=== PATIENT | female | born 1940 | race Caucasian/White ===

== ENCOUNTER 2016-11-15 21:01 | Inpatient (IN) | payer OTHER ==
[~2016-11-15] VITALS: Ht 162.6 cm; Wt 71.0 kg
[~2016-11-15 21:01] MED LIST: AMLO-147 PO; ATEN50TA PO; CLON0.2T5 PO; HYDR-906 PO; LANT3I SC; LORA10TA3 PO; LOSA25TA5 PO; MAG355OR14 PO; METF1000 PO; NAPR-260 PO; OMEP40CA6 PO; SIMV40TA2 PO; TRAZ100T15 PO
[2016-11-16] VITALS (10 sets, daily range): BP systolic 122–151; BP diastolic 60–67; PULSE 39–47; RESP 18; Ht 162.6 cm; Wt 71.0 kg
[2016-11-16] MEDS ORDERED: ALBU8.5H3 INH (01:10)
[2016-11-16] MEDS ORDERED: GUAI-637 PO (01:10)
[2016-11-16] MEDS ORDERED: SITA100T8 PO (01:10)
[2016-11-16 02:31] LABS: ADD SCAN DIFF NO
[2016-11-16 02:38] LABS: BASOPHILS % 0.3 % (0.0-2.0); EOSINOPHILS # 0.1 10^3/ul (0.0-0.5); EOSINOPHILS % 1.6 % (0.0-7.0); LYMPHOCYTES # 2.1 10^3/ul (0.8-2.9); LYMPHOCYTES % 23.1 % (15.0-51.0); MEAN CORPUSCULAR HEMOGLOBIN 28.3 pg (29.0-33.0); MEAN CORPUSCULAR HGB CONC 33.3 g/dl (32.0-37.0); MEAN CORPUSCULAR VOLUME 84.8 fl (82.0-101.0); NEUTROPHIL # 5.7 10^3/ul (1.6-7.5); NEUTROPHILS % 63.8 % (39.0-77.0); PLATELET COUNT 142 10^3/UL (140-415); RED BLOOD COUNT 3.89 10^6/ul (4.20-5.40); RED CELL DISTRIBUTION WIDTH 14.2 % (11.5-14.5)
[2016-11-16 02:56] LABS: PT RATIO 1.2
[2016-11-16 02:57] LABS: PARTIAL THROMBOPLASTIN TIME 28.1 Sec (25.0-35.0)
[2016-11-16 02:59] LABS: INR 1.19; PROTIME 15.2 Sec (12.2-14.2)
--- NOTE | 2016-11-16 03:11 | RADRPT ---
PROCEDURE: CHEST - 1 VIEW CLINICAL INDICATION: 76-year-old female with shortness of breath. TECHNIQUE: A single frontal AP portable upright view of the chest was performed. The images were reviewed on a PACS workstation. COMPARISON: Chest x-ray March 07, 2016. FINDINGS: The cardiomediastinal silhouette is moderately enlarged. The thoracic aorta is calcified. There is mild pulmonary vascular congestion. There is mild right pleural effusion with basilar compressive subsegmental atelectasis. A superimposed infiltrate cannot be excluded. There is no evidence for pn eumothorax. The osseous structures are intact. IMPRESSION: 1. Cardiomegaly. 2. Calcified thoracic aorta. 3. Mild pulmonary vascular congestion. 4. Mild right pleural effusion with basilar compressive subsegmental atelectasis. A superimposed i nfiltrate cannot be excluded. Clinical correlation is necessary. .Jim Rich MD, Date Time Electronically viewed and signed by .Jim Rich MD, on 11/16/2016 03:11 .M/
[2016-11-16 03:17] LABS: ALBUMIN 4.1 g/dl (3.3-4.9); ALBUMIN/GLOBULIN RATIO 1.57; BILIRUBIN,INDIRECT 0.5 mg/dl (0-1.1); BILIRUBIN,TOTAL 0.5 mg/dl (0.2-1.3); CALCIUM 8.7 mg/dl (8.4-10.2); CREATININE 1.79 mg/dl (0.44-1.00); POTASSIUM 4.5 mmol/L (3.5-5.1); TOTAL PROTEIN 6.7 g/dl (6.1-8.1)
[2016-11-16 03:37] LABS: TROPONIN-I 0.026 ng/ml (0.00-0.12)
[2016-11-16] MEDS ORDERED: FUROSEMIDE 40 MG INJ IV ONE (04:00)
[2016-11-16] MEDS ORDERED: ONDANSETRON 4 MG INJ IV PRN ×2 (04:30→10:00)
[2016-11-16] MEDS ORDERED: ACETAMINOPHEN 325 MG TAB PO PRN (04:30)
--- NOTE | 2016-11-16 05:25 | ERA ---
ER Documentation Chief Complaint Date/Time DATE: 11/16/16 TIME: 03:47 Chief Complaint bilateral leg swelling, and distended abdomen HPI 76-year-old female with a history of diabetes, hypertension, and heart failure presenting to the ER with complaints of 2 days of worsening leg swelling and abdominal distention. She has also felt short of breath without any chest pain. Her shortness of breath is worse with any type of exertion. She has urinating normally with no dysuria. She denies any nausea, vomiting, dizziness , headache, vision disturbance, focal weakness or numbness, diarrhea, or dysuria. 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 ROS All systems reviewed and are negative except as per history of present illness. Medications Home Meds Active Scripts Mag Hydrox/Al Hydrox/Simeth (Maalox Advanced Suspension) 355 Ml Oral.susp, 2 TSP PO TID for PAIN, #24 OZ Prov:YOUSIF MUNOZ MD 03/06/16 Reported Medications Guaifenesin* (Robitussin*) 100 Mg/5 Ml Syrup, 100 MG PO Q6H Y for COUGH, ML 11/16/16 Albuterol Sulfate* (Proair HFA*) 8.5 Gm Hfa.aer.ad, 2 PUFF INH Q6H Y for WHEEZING AND SOB, #1 INHALER 11/16/16 Sitagliptin* (Januvia*) 100 Mg Tablet, 100 MG PO DAILY, #30 TAB 11/16/16 Amlodipine Besylate* (Amlodipine Besylate*) 10 Mg Tablet, 10 MG PO DAILY, #30 TAB 03/07/16 Atenolol* (Atenolol*) 50 Mg Tablet, 50 MG PO BID, #60 TAB 03/07/16 Clonidine Hcl* (Clonidine Hcl*) 0.2 Mg Tablet, 0.2 MG PO BID Y for ELEVATED BLOOD PRESSURE, TAB 03/07/16 Simvastatin* (Zocor*) 40 Mg Tablet, 40 MG PO QHS, #30 TAB 03/07/16 Insulin Glargine* (Lantus*) 100 Unit/Ml Soln, 10 UNIT SC QHS, #1 VIAL 03/07/16 Metformin Hcl* (Metformin Hcl*) 1,000 Mg Tablet, 1000 MG PO WITH BREAKFAST DINNE , #30 TAB 03/07/16 Losartan Potassium* (Losartan Potassium*) 25 Mg Tablet, 25 MG PO DAILY, TAB 03/07/16 Trazodone Hcl* (Trazodone Hcl*) 100 Mg Tablet, 100 MG PO QHS, #30 TAB 08/31/15 Discontinued Reported Medications Loratadine* (Loratadine*) 10 Mg Tablet, 10 MG PO DAILY, #30 TAB 03/07/16 Discontinued Scripts Hydrocodone/Acetaminophen ([place] 5-325 Tablet) 1 Each Tablet, 1 EACH PO Q4 Y for PAIN, #40 TAB Prov:LOYDA LOPEZ 03/13/16 Naproxen* (Naprosyn*) 500 Mg Tablet, 500 MG PO BID Y for PAIN AND/OR INFLAMMATION, #30 TAB Prov:YOUSIF MUNOZ MD 03/06/16 Omeprazole* (Omeprazole*) 40 Mg Capsule.dr, 40 MG PO DAILY, #30 CAP Prov:YOUSIF MUNOZ MD 03/06/16 Allergies Allergies: Coded Allergies: No Known Allergy (Unverified , 11/16/16) PMhx/Soc History of Surgery: Yes (Cholecystectomy) Anesthesia Reaction: No Hx Neurological Disorder: No Hx Respiratory Disorders: No Hx Cardiac Disorders: Yes (HTN, high cholesterol,HF) Hx Psychiatric Problems: No Hx Miscellaneous Medical Probl: Yes (diabetes) Hx Alcohol Use: No Hx Substance Use: No Hx Tobacco Use: No Smoking Status: Never smoker FmHx Family History: No diabetes Physical Exam Vitals Vital Signs Date Time Temp Pulse Resp B/P Pulse Ox O2 Delivery O2 Flow Rate FiO2 11/16/16 02:00 41 22 133/56 100 Nasal Cannula 3.0 11/16/16 00:41 44 22 136/70 98 Nasal Cannula 2.0 11/15/16 23:52 45 19 138/65 98 Room Air 11/15/16 21:05 98.7 57 20 143/68 97 Physical Exam Const: Well-appearing, in no distress, slightly short of breath when speaking Head: Atraumatic Eyes: Normal Conjunctiva ENT: Normal External Ears, Nose and Mouth. Neck: Full range of motion. JVD noted. No meningismus. Resp: Clear to auscultation bilaterally Cardio: Bradycardic with regular rhythm, no murmurs Abd: Soft, non tender, mildly distended. Normal bowel sounds Skin: No petechiae or rashes Back: No midline or flank tenderness Ext: No cyanosis, 3+ bilateral lower extremity edema. Extremities warm to palpation distally with cap refill less than 2 seconds Neur: Awake and alert and oriented 3, cranial nerves intact, strength and sensations intact in all 4 extremities Psych: Normal Mood and Affect Result Diagram: 11/16/16 0200 11/16/16 0200 Results 24 hrs Laboratory Tests Test 11/16/16 02:00 White Blood Count 9.010^3/ul Red Blood Count 3.8910^6/ul Hemoglobin 11.0g/dl Hematocrit 33.0% Mean Corpuscular Volume 84.8fl Mean Corpuscular Hemoglobin 28.3pg Mean Corpuscular Hemoglobin Concent 33.3g/dl Red Cell Distribution Width 14.2% Platelet Count 18969^3/UL Mean Platelet Volume 13.0fl Neutrophils % 63.8% Lymphocytes % 23.1% Monocytes % 11.0% Eosinophils % 1.6% Basophils % 0.3% Nucleated Red Blood Cells % 0.0/100WBC Neutrophils # 5.710^3/ul Lymphocytes # 2.110^3/ul Monocytes # 1.010^3/ul Eosinophils # 0.110^3/ul Basophils # 0.010^3/ul Nucleated Red Blood Cells # 0.010^3/ul Prothrombin Time 15.2Sec Prothrombin Time Ratio 1.2 INR International Normalized Ratio 1.19 Activated Partial Thromboplast Time 28.1Sec Sodium Level 142mmol/L Potassium Level 4.5mmol/L Chloride Level 114mmol/L Carbon Dioxide Level 20mmol/L Anion Gap 13 Blood Urea Nitrogen 33mg/dl Creatinine 1.79mg/dl Glucose Level 95mg/dl Calcium Level 8.7mg/dl Total Bilirubin 0.5mg/dl Direct Bilirubin 0.00mg/dl Indirect Bilirubin 0.5mg/dl Aspartate Amino Transf (AST/SGOT) 27IU/L Alanine Aminotransferase (ALT/SGPT) 32IU/L Alkaline Phosphatase 77IU/L Troponin I 0.026ng/ml Total Protein 6.7g/dl Albumin 4.1g/dl Globulin 2.60g/dl Albumin/Globulin Ratio 1.57 Current Medications Medications (Trade) Dose Ordered Sig/Pati Route PRN Reason Start Time Stop Time Status Last Admin Dose Admin Furosemide (Lasix) 40 mg ONCE ONCE IV 11/16/16 04:00 11/16/16 04:01 DC 11/16/16 04:20 Ondansetron HCl (Zofran Inj) 4 mg ER BRIDGE PRN IV NAUSEA AND/OR VOMITING 11/16/16 04:30 11/17/16 04:29 Acetaminophen (Tylenol Tab) 650 mg ER BRIDGE PRN PO MILD PAIN/FEVER 11/16/16 04:30 11/17/16 04:29 Procedures/MDM EKG #1: Rate/Rhythm: Bradycardic junctional versus sinus rhythm with wide QRS complex QRS, ST, T-waves: Wide QRS, no ST elevations or depressions Impression: Possible ischemia, no arrhythmia, no STEMI EKG #2: Rate/Rhythm: Atrial fibrillation with slow ventricular response with rate of 47 bpm QRS, ST, T-waves: Nonspecific intraventricular block Impression: Possible ischemia, no arrhythmia, no STEMI Labs: CBC shows mild anemia BMP shows elevated BUN and creatinine, mild acidosis Troponin within normal limits Chest x-ray: 1. Cardiomegaly. 2. Calcified thoracic aorta. 3. Mild pulmonary vascular congestion. 4. Mild right pleural effusion with basilar compressive subsegmental atelectasis. A superimposed infiltrate cannot be excluded. Clinical correlation is necessary. .Jim Rich MD, MD Date Time Electronically viewed and signed by .Jim Rich MD, MD on 11/16/2016 03:11 [facility] Patient is presenting with evidence of acute exacerbation of chronic heart failure. It seems like she also has acute renal failure. I suspect her shortness of breath is secondary to this. I have a lower suspicion for acute coronary syndrome, pulmonary embolism, pneumonia. X-ray shows evidence of pulmonary vascular congestion. Her EKGs are concerning for possible junctional rhythm versus A. fib versus heart block. However the patient is stable and not symptomatic in terms of lightheadedness or dizziness. A dose of Lasix IV was given. Patient's respiratory status is stable. The inpatient team will consult cardiology this morning. She has no hemodynamic instability at this time. However patient will need to be admitted for further cardiac workup and diuresis. Further w/u for ischemia, arrhythmia, PE or dissection will be deferred to the inpatient team. Per the patient's insurance, panel was consulted for admission. However the patient has been admitted to in the past. A courtesy call was made to his team, who accepted the patient for admission Accepting Care Team: Current data and ongoing care discussed. Time: Time of admission Primary Provider: Melissa Ruiz Consulting: None Outstanding Data: none Departure Diagnosis: Primary Impression: Acute on chronic heart failure Qualified Code: I50.9 - Acute on chronic heart failure, unspecified heart failure type Additional Impression: Acute renal failure Qualified Code: N17.9 - Acute renal failure, unspecified acute renal failure type Condition: Serious JA ROSEN MD Nov 16, 2016 03:58
--- NOTE | 2016-11-16 11:28 | HP ---
Date/Time of Note Date/Time of Note DATE: 11/16/16 TIME: 11:26 Assessment/Plan Lines/Catheters IV Catheter Type (from Nrsg): Saline Lock Urinary Cath still in place: No Assessment/Plan Assessment/Plan - Bradycardia -tele monitoring - dc atenolol - DC clonidine - Abdominal distention- NO pain, nausea at present - GI consult- DR Isaac NOTIFIED -Acute on chronic heart failure - cardiology consult- Dr TIWARI NOTIFIED - 2- D echo - T4 AM - Hypertensioon - cont AMLODIPINE -Hydralazine 25 mg po bid -Acute renal failure - Nephrology consult- Dr NELSON NOTIFIED -Diabetes Mellitus - Glycemic control - 1800 dalia ADA diet - Hgb AIC am - Dyslipidemia - ATORVASTATIN 20 mg po qhs - lipid panel am - See home meds dw Dr Zurita HPI/ROS Admit Date/Time Admit Date/Time Nov 16, 2016 at 04:55 Hx of Present Illness Chief Complaint bilateral leg swelling, and distended abdomen HPI 76-year-old female with a history of diabetes, hypertension, and heart failure presenting to the ER with complaints of 2 days of worsening leg swelling and abdominal distention. She has also felt short of breath without any chest pain. Her shortness of breath is worse with any type of exertion. She has urinating normally with no dysuria. She denies any nausea, vomiting, dizziness , headache, vision disturbance, focal weakness or numbness, diarrhea, or dysuria. 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 ROS All systems reviewed and are negative except as per history of present illness. Medications Home Meds Active Scripts Mag Hydrox/Al Hydrox/Simeth (Maalox Advanced Suspension) 355 Ml Oral.susp, 2 TSP PO TID for PAIN, #24 OZ Prov:YOUSIF MUNOZ MD 03/06/16 Reported Medications Guaifenesin* (Robitussin*) 100 Mg/5 Ml Syrup, 100 MG PO Q6H Y for COUGH, ML 11/16/16 Albuterol Sulfate* (Proair HFA*) 8.5 Gm Hfa.aer.ad, 2 PUFF INH Q6H Y for WHEEZING AND SOB, #1 INHALER 11/16/16 Sitagliptin* (Januvia*) 100 Mg Tablet, 100 MG PO DAILY, #30 TAB 11/16/16 Amlodipine Besylate* (Amlodipine Besylate*) 10 Mg Tablet, 10 MG PO DAILY, #30 TAB 03/07/16 Atenolol* (Atenolol*) 50 Mg Tablet, 50 MG PO BID, #60 TAB 03/07/16 Clonidine Hcl* (Clonidine Hcl*) 0.2 Mg Tablet, 0.2 MG PO BID Y for ELEVATED BLOOD PRESSURE, TAB 03/07/16 Simvastatin* (Zocor*) 40 Mg Tablet, 40 MG PO QHS, #30 TAB 03/07/16 Insulin Glargine* (Lantus*) 100 Unit/Ml Soln, 10 UNIT SC QHS, #1 VIAL 03/07/16 Metformin Hcl* (Metformin Hcl*) 1,000 Mg Tablet, 1000 MG PO WITH BREAKFAST DINNE , #30 TAB 03/07/16 Losartan Potassium* (Losartan Potassium*) 25 Mg Tablet, 25 MG PO DAILY, TAB 03/07/16 Trazodone Hcl* (Trazodone Hcl*) 100 Mg Tablet, 100 MG PO QHS, #30 TAB 08/31/15 Discontinued Reported Medications Loratadine* (Loratadine*) 10 Mg Tablet, 10 MG PO DAILY, #30 TAB 03/07/16 Discontinued Scripts Hydrocodone/Acetaminophen ([place] 5-325 Tablet) 1 Each Tablet, 1 EACH PO Q4 Y for PAIN, #40 TAB Prov:LOYDA LOPEZ 03/13/16 Naproxen* (Naprosyn*) 500 Mg Tablet, 500 MG PO BID Y for PAIN AND/OR INFLAMMATION, #30 TAB Prov:YOUSIF MUNOZ MD 03/06/16 Omeprazole* (Omeprazole*) 40 Mg Capsule.dr, 40 MG PO DAILY, #30 CAP Prov:YOUSIF MUNOZ MD 03/06/16 Allergies Allergies: Coded Allergies: No Known Allergy (Unverified , 11/16/16) PMH/Family/Social Past Medical History PMhx/Soc History of Surgery: Yes (Cholecystectomy) Anesthesia Reaction: No Hx Neurological Disorder: No Hx Respiratory Disorders: No Hx Cardiac Disorders: Yes (HTN, high cholesterol,HF) Hx Psychiatric Problems: No Hx Miscellaneous Medical Probl: Yes (diabetes) Hx Alcohol Use: No Hx Substance Use: No Hx Tobacco Use: No Smoking Status: Never smoker FmHx Family History: No diabetes Social History Alcohol Use: none Smoking Status: Never smoker Exam/Review of Systems Vital Signs Vitals Vital Signs Date Time Temp Pulse Resp B/P Pulse Ox O2 Delivery O2 Flow Rate FiO2 11/16/16 10:01 Nasal Cannula 2.0 11/16/16 09:30 98.4 41 18 130/60 100 Exam Constitutional: alert, oriented, well developed Psych: nl mood/affect Respiratory: diminished breath sounds Cardiovascular: nl pulses Gastrointestinal: non-tender, soft Musculoskeletal: nl extremities to inspection Extremities: edema Neurological: nl mental status, nl speech Labs Result Diagram: 11/16/16 0200 11/16/16 0200 Medications Medications Current Medications Diagnostic Test (Pha) (Accu-Chek) 1 XX ; Start 11/17/16 at 02:00 Ondansetron HCl (Zofran Inj) 4 mg Q6H PRN IV NAUSEA AND/OR VOMITING; Start at 10:00 Procedures Procedures Procedures/MDM EKG #1: Rate/Rhythm: Bradycardic junctional versus sinus rhythm with wide QRS complex QRS, ST, T-waves: Wide QRS, no ST elevations or depressions Impression: Possible ischemia, no arrhythmia, no STEMI EKG #2: Rate/Rhythm: Atrial fibrillation with slow ventricular response with rate of 47 bpm QRS, ST, T-waves: Nonspecific intraventricular block Impression: Possible ischemia, no arrhythmia, no STEMI Labs: CBC shows mild anemia BMP shows elevated BUN and creatinine, mild acidosis Troponin within normal limits Chest x-ray: 1. Cardiomegaly. 2. Calcified thoracic aorta. 3. Mild pulmonary vascular congestion. 4. Mild right pleural effusion with basilar compressive subsegmental atelectasis. A superimposed infiltrate cannot be excluded. Clinical correlation is necessary. ALY MILLER Nov 16, 2016 11:28
[2016-11-16] MEDS ORDERED: GUAIFENESIN 20 MG/ML 5ML CUP PO PRN (12:00)
[2016-11-16] MEDS ORDERED: ALBUTEROL HFA 8 GM INHALER INH PRN (12:00)
[2016-11-16] MEDS ORDERED: INSULIN ASPART [NOVOLOG] 3 ML PEN SC SCH (12:00)
[2016-11-16] MEDS: INSULIN ASPART [NOVOLOG] 3 ML PEN SC SCH ×3 (12:00→21:00)
[2016-11-16] MEDS ORDERED: PANTOPRAZOLE (EC) 40 MG TAB PO ONE (12:30)
[2016-11-16] MEDS: AL HYDROX/MG HYDROX/SIMETH 30 ML CUP PO SCH ×2 (13:05→21:41)
--- NOTE | 2016-11-16 14:41 | CONS ---
DATE OF ADMISSION: 11/16/2016 DATE OF CONSULTATION: 11/16/2016 REASON FOR CONSULTATION: Bradycardia, congestive heart failure, lower extremity edema. REQUESTING PHYSICIAN: Noah Zurita MD HISTORY OF PRESENT ILLNESS: Ms. Saldivar is a 76-year-old female with a history of diabetes me llitus, hypertension, congestive heart failure, with previously preserved left ventricular ejection fraction by echo in March of 2016, who presented with worsening lower extremity edema and abdomina l distention. Upon arrival in the emergency department, temperature of 98.7, blood pressure 143/68, pulse 57, respiratory rate 20, saturating 97%. Patient's labs were with a white count of 9.0, hemo globin 11.0 and platelet count of 142. Sodium 142, potassium 4.5, creatinine 1.79, BUN 33. Troponi n negative. INR of 1.19. The patient underwent a chest x-ray, revealing cardiomegaly, calcified th oracic aorta, mild pulmonary vascular congestion, mild right pleural effusion, and basilar compressi ve subsegmental atelectasis. The patient's electrocardiogram revealed a rhythm most consistent with probable junctional bradycardia, a rate of 44, right superior axis deviation and nonspecific IVCD. Patient was subsequently admitted to the floor and since admit to the floor he has been monitored o n telemetry, with episodes of heart rates as low as to the 40s, with stable blood pressures and time s of sinus bradycardia and junctional rhythm. The patient at this time denies chest pain, states sh e has ongoing shortness of breath. PAST MEDICAL HISTORY: As above in the HPI. MEDICATIONS CURRENTLY IN HOSPITAL: 1. Norvasc 10 mg daily. 2. Cozaar 25 mg daily. 3. Protonix 40 mg daily. 4. Lipitor 20 mg at bedtime. 5. Hydralazine 25 mg p.o. b.i.d. 6. Lasix 20 mg IV b.i.d. 7. Insulin sliding scale. 8. Albuterol. 9. Robitussin. ALLERGIES: NO KNOWN DRUG ALLERGIES. SOCIAL HISTORY: No tobacco, ETOH or illicit drug use. FAMILY HISTORY: No history of sudden cardiac or early CAD. REVIEW OF SYSTEMS: As above in the HPI. CONSTITUTIONAL: No fevers or chills. PULMONARY: Positive shortness of breath. CARDIOVASCULAR: Bradycardia. GASTROINTESTINAL: No vomiting. GENITOURINARY: No hematuria. MUSCULOSKELETAL: Degenerative joint disease. PSYCHIATRIC: The patient denies depression. NEUROLOGIC: No documented history of CVA. PHYSICAL EXAMINATION: VITAL SIGNS: Temperature 98.2, blood pressure 123/60, pulse 45, saturating 99% on 2 liters. GENERAL: The patient is alert, awake, complaining of mild shortness of breath. NECK: JVP approximately 9 cm of water. CHEST: Decreased breath sounds at the bases bilaterally. HEART: Bradycardic, regular rhythm, normal S1, S2. A I/ systolic murmur, nondisplaced PMI. ABDOMEN: Positive bowel sounds, soft. EXTREMITIES: 2+ edema, right greater than left. 1+ pulses bilaterally, posterior tibial. LABORATORY: As above in the HPI. No further labs for my review at this time. IMAGING STUDIES: As above in the HPI. No further imaging studies for my review at this time. ECG: As above in the HPI. No further electrocardiograms for my review at this time. IMPRESSION: 1. Congestive heart failure exacerbation, question systolic versus diastolic, acute on chronic. 2. Bradycardia both sinus lynnette and junctional bradycardia. Stable blood pressure at this time. 3. Abnormal electrocardiogram, with intraventricular conduction delay. Assess for acute coronary s yndrome. 4. Hypertension. Under reasonable control. 5. Lower extremity edema. 6. Renal failure. 7. Anemia. RECOMMENDATIONS: 1. At this time would maintain patient on telemetry monitoring to follow rhythm and rate control cl osely. 2. Would check a TSH to make sure subclinical hypothyroidism is not contributing to the patient's c urrent bouts of bradycardia. 3. Would refrain from any nito agents at this time. 4. Continue the patient's hydralazine. Will hold the patient's Norvasc to ensure it is not causing lower extremity edema. Continue the patient's Lasix diuresis. 5. Will follow the patient's 2D echo done today for assessment of an ejection fraction, wall motion and any major valve abnormalities. 6. Check a fasting lipid panel and adjust the patient's statin therapy as necessary. Will disconti nue the patient's Cozaar at this time, following creatinine closely. 7. Continue the patient's insulin, with adjustment as necessary to improve overall blood pressure c ontrol. 8. Complete a rule out for myocardial infarction to ensure the patient's EKG abnormalities are scientologist michelle in nature and not due to any recent acute coronary syndrome. Thank you for allowing me to take part in the care of this patient. I will continue to follow her a long very closely with you, with further recommendations to be made as the patient progresses throug h her inpatient hospital clinical course. Dictated By: KEVON VALENCIA/ALONZO Conf#: [id number] DID#: [id number] CC: NOAH ZURITA MD;*EndCC*
--- NOTE | 2016-11-16 15:20 | RADRPT ---
PROCEDURE: US bilateral lower extremity veins. CLINICAL INDICATION: Bilateral leg pain and swelling. TECHNIQUE: Multiple longitudinal and transverse images of the bilateral lower extremity veins were obtained with shepard scale and color Doppler imaging. The common femoral vein, femoral vein, and popl iteal vein were evaluated. 2D grayscale measurements with compression sonography, color Doppler, and pulsed Doppler with augmentation. COMPARISON: No prior studies are available for comparison. FINDINGS: The bilateral common femoral, femoral and popliteal veins are normally compressible throughout. Col or flow demonstrates normal filling of the vessels. Normal waveforms are visualized and there is no rmal response to augmentation. IMPRESSION: 1. No evidence of deep vein thrombosis involving either lower extremity. RPTAT: QQ .Serge Bach MD, MD Date Time Electronically viewed and signed by .Serge Bach MD, on 11/16/2016 15:20 .R/
--- NOTE | 2016-11-16 17:21 | CONS ---
Date/Time of Note Date/Time of Note DATE: 11/16/16 TIME: 17:20 Assessment/Plan Assessment/Plan Chief Complaint/Hosp Course [id number] A/P CKD HTN DM ASHD ANEMIA DIAB NEPHROPATHY RACHANAN PAT Problems: Consultation Date/Type/Reason Admit Date/Time Nov 16, 2016 at 04:55 Initial Consult Date Type of Consultation: renal 24 HR Interval Summary Constitutional: other (sob) Exam/Review of Systems Vital Signs Vitals Vital Signs Date Time Temp Pulse Resp B/P Pulse Ox O2 Delivery O2 Flow Rate FiO2 11/16/16 16:22 98.0 44 18 125/60 92 11/16/16 10:01 Nasal Cannula 2.0 Exam Neck: supple Respiratory: diminished breath sounds Cardiovascular: regular rate and rhythm Gastrointestinal: ascites, bowel sounds, nl liver, spleen, soft Extremities: edema (++) Results Result Diagram: 11/16/16 0200 11/16/16 0200 Results 24 hrs Laboratory Tests Test 11/16/16 02:00 11/16/16 09:30 11/16/16 09:35 11/16/16 12:06 White Blood Count 9.0 Red Blood Count 3.89 L Hemoglobin 11.0 L Hematocrit 33.0 L Mean Corpuscular Volume 84.8 Mean Corpuscular Hemoglobin 28.3 L Mean Corpuscular Hemoglobin Concent 33.3 Red Cell Distribution Width 14.2 Platelet Count 142 Mean Platelet Volume 13.0 H Neutrophils % 63.8 Lymphocytes % 23.1 Monocytes % 11.0 Eosinophils % 1.6 Basophils % 0.3 Nucleated Red Blood Cells % 0.0 Neutrophils # 5.7 Lymphocytes # 2.1 Monocytes # 1.0 H Eosinophils # 0.1 Basophils # 0.0 Nucleated Red Blood Cells # 0.0 Prothrombin Time 15.2 H Prothrombin Time Ratio 1.2 INR International Normalized Ratio 1.19 Activated Partial Thromboplast Time 28.1 Sodium Level 142 Potassium Level 4.5 Chloride Level 114 H Carbon Dioxide Level 20 L Anion Gap 13 Blood Urea Nitrogen 33 H Creatinine 1.79 H Glucose Level 95 Calcium Level 8.7 Total Bilirubin 0.5 Direct Bilirubin 0.00 Indirect Bilirubin 0.5 Aspartate Amino Transf (AST/SGOT) 27 Alanine Aminotransferase (ALT/SGPT) 32 Alkaline Phosphatase 77 Troponin I 0.026 0.017 Total Protein 6.7 Albumin 4.1 Globulin 2.60 Albumin/Globulin Ratio 1.57 Hemoglobin A1c 7.1 H Bedside Glucose 92 125 Medications Medications Current Medications Diagnostic Test (Pha) (Accu-Chek) 1 ea 02 XX ; Start 11/17/16 at 02:00 Ondansetron HCl (Zofran Inj) 4 mg Q6H PRN IV NAUSEA AND/OR VOMITING; Start at 10:00 Albuterol (Ventolin Hfa) 2 puff Q6H PRN INH WHEEZING AND SOB; Start 11/16/16 at 12:00 Guaifenesin (Robitussin Liquid Cup) 100 mg Q6H PRN PO COUGH; Start 11/16/16 at 12:00 Insulin Glargine (Lantus) 10 unit QHS SC ; Start 11/16/16 at 21:00 Losartan Potassium (Cozaar) 25 mg DAILY PO ; Start 11/17/16 at 09:00 Al Hydrox/Mg Hydrox/Simethicone (Mag-Al Plus) 10 ml TID PO Last administered on 11/16/16t 13:05; Admin Dose 10 ML; Start 11/16/16 at 13:00 Trazodone HCl (Desyrel) 100 mg QHS PO ; Start 11/16/16 at 21:00 Atorvastatin Calcium (Lipitor) 20 mg HS PO ; Start 11/16/16 at 21:00 Pantoprazole (Protonix Tab) 40 mg DAILY@06 PO ; Start 11/17/16 at 06:00 Heparin Sodium (Porcine) (Heparin (5000 Units/0.5 ml)) 5,000 unit Q12 SC ; Start 11/16/16 at 21:00 Hydralazine HCl (Apresoline) 50 mg BID PO ; Start 11/16/16 at 21:00 ALBERTA CORRAL MD Nov 16, 2016 17:21
[2016-11-16] MEDS: FUROSEMIDE 20 MG INJ IV SCH (17:42)
--- NOTE | 2016-11-16 18:21 | RADRPT ---
Echocardiogram Report Patient Name: KALE MEJIA Gender: Female Date: 1940 Study Date: 16-Nov-2016 Pattern Fitter: Keith Trevino [facility] Location: 5557 Ref. Physician: ALY MILLER Quality: Adequate Procedures: Transthoracic echocardiogram with complete 2D, M-Mode, and doppler examination. Indications: Bradycardia. 2D/M Mode Doppler Measurement Value Normal Ranges Measurement Value Normal Ranges LVIDd 2D 5.7 3.5 - 5.6 cm AV Peak Geovani 1.4 m/sec LVIDs 2D 3.8 2.1 - 4.1 cm AV Peak PG 7.4 mmHg LVPWd 2D 1.3 0.6 - 1.1 cm LVOT Peak Geovani 1.0 m/sec IVSd 2D 1.3 0.6 - 1.1 cm LVOT Peak PG 3.8 mmHg AoR Diam 2D 2.4 2.0 - 3.7 cm TR Peak Geovani 2.8 m/sec EDV 2D 162.1 cm3 TR Peak PG 30.5 mmHg ESV 2D 57.0 cm3 RVSP 34.0 mmHg LA Dimen 2D 4.8 2.3 - 4.0 cm Findings Left Ventricle: Lower limits of normal systolic function. Normal left ventricular cavity size. Normal left ventricular wall thickness. Ejection fraction is visually estimated at 5055 %. Right Ventricle: Normal right ventricular size. Normal right ventricular systolic function. Left Atrium: There is severe enlargement of left atrium. Right Atrium: There is moderate enlargement of right atrium. Mitral Valve: Mild mitral leaflet calcification. Moderate mitral annular calcification. Moderate mitral valve regurgitation. Aortic Valve: No significant aortic stenosis or insufficiency. Aortic cusps appear mildly calcified. Tricuspid Valve: Normal appearance of the tricuspid valve. Estimated peak PA systolic pressure 34 mmHg. There is moderate tricuspid regurgitation. Pulmonic Valve: Pulmonic valve not well visualized. There is moderate pulmonic regurgitation. Pericardium: Trivial pericardial effusion. Aorta: Normal aortic root. IVC: Normal size and normal respiratory collapse consistent with normal right atrial pressure. Conclusions Lower limits of normal systolic function. Normal left ventricular cavity size. Normal left ventricular wall thickness. Ejection fraction is visually estimated at 50-55 %. There is moderate to severe enlargement of left atrium. There is moderate enlargement of right atrium. Mild mitral leaflet calcification. Moderate mitral annular calcification. Moderate mitral valve regurgitation. Normal appearance of the tricuspid valve. Estimated peak PA systolic pressure 34 mmHg. There is moderate tricuspid regurgitation. Pulmonic valve not well visualized. There is moderate pulmonic regurgitation. Trivial pericardial effusion. Electronically Signed By: Markie Bloom 16-Nov-2016 18:21:18 -0700 Patient Name: KALE MEJIA Study Date: 16-Nov-2016 [id number]
[2016-11-16] MEDS: ATORVASTATIN 20 MG TAB PO SCH (21:41)
[2016-11-16] MEDS: traZODone 100 MG TAB PO SCH (21:41)
[2016-11-16] MEDS: HEPARIN 5,000 UNIT/0.5 ML VIAL SC SCH (21:52)
[2016-11-16] MEDS: INSULIN GLARGINE [LANtus] 3 ML PEN SC SCH (21:52)
[2016-11-17] VITALS (12 sets, daily range): BP systolic 112–145; BP diastolic 18–65; PULSE 43–83; RESP 18–20
[2016-11-17] MEDS: ACCU-CHEK XX SCH (01:22)
[2016-11-17] MEDS: PANTOPRAZOLE (EC) 40 MG TAB PO SCH (05:51)
[2016-11-17] MEDS: FUROSEMIDE 20 MG INJ IV SCH ×2 (05:51→17:40)
--- NOTE | 2016-11-17 07:22 | CONS ---
DATE OF ADMISSION: 11/16/2016 DATE OF CONSULTATION: 11/16/2016 TYPE OF CONSULTATION: Nephrology Thank you, Dr. Alphonse Zurita, for kindly asking me to see this patient in nephrology consultation. HISTORY OF PRESENT ILLNESS: The patient, Nan Hernandez is a 76-year-old female well known to me, follows with me in my office, has a history of chronic kidney disease. Patient presents to the ER with a history of diabetes mellitus , hypertension, history of heart failure, presents with history of worsening leg edema and abdominal distention, also short of breath, was not complaining of any chest pain in the ER. The patient has a history of cholecystitis, history of laparoscopic cholecystectomy, history of hypertension, history of pancreatitis, history of diabetes mellitus, history of ERCP in the past. PAST MEDICAL HISTORY: Patient's other history includes: The patient has a history of brain aneurysm, history of atherosclerotic heart disease and dyslipidemia. ALLERGY HISTORY: NEGATIVE. FAMILY HISTORY: Negative. SOCIAL HISTORY: Negative. MEDICATION HISTORY: Patient is on: 1. Albuterol. 2. Amlodipine. 3. Atenolol. 4. Clonidine. 5. Robitussin. 6. Insulin. 7. Losartan. 8. Metformin. 9. Simvastatin. 10. Januvia. 11. Trazodone. CURRENT MEDICATIONS: 1. Lipitor. 2. Lasix. 3. Aspirin. 4. Hydralazine. 5. ____ 6. Zofran. 7. Protonix. REVIEW OF SYSTEMS: HEENT: Unremarkable. RESPIRATORY: Unremarkable, except short of breath and orthopnea. ABDOMEN: Unremarkable except dyspepsia. No hematemesis. EXTREMITIES: Swelling of both lower extremities. CENTRAL NERVOUS SYSTEM: Unremarkable. PHYSICAL EXAMINATION: GENERAL: The patient is an obese elderly female, awake and alert. VITAL SIGNS: Pulse 45, blood pressure ____/60. HEAD: Atraumatic, normocephalic. Pupils are equal, reactive to light. No pallor or conjunctival icterus. NECK: Supple. LUNGS: Clear. CARDIOVASCULAR: S1, S2 normal. Systolic murmur. ABDOMEN: Soft. Bowel sounds positive. No palpable mass or hepatosplenomegaly. EXTREMITIES: No cyanosis, clubbing. Edema positive. CENTRAL NERVOUS SYSTEM: The patient is awake, alert with no focal deficit. LABORATORY DATA: Hematocrit 33. Patient has sodium 140, potassium 4.5, BUN , creatinine 1.79, hemoglobin A1c 7.1. The patient's ultrasound of the lower extremity shows no evidence of deep venous thrombosis. Chest x-ray shows the patient has cardiomegaly with calcified thoracic aorta, mild pulmonary vascular congestion, mild right pleural effusion with_compression atelectasis, response. IMPRESSION: 1. Patient has chronic kidney injury. 2. The patient has diabetic nephropathy. The patient has hypertension, metabolic acidosis, anemia, history of brain aneurysm, history of cholecystectomy, laparoscopic; dyslipidemia, history of proteinuria. PLAN: At this point is to continue diabetic and also fluid restricted diet, obtain urine protein creatinine ratio. Patient will benefit from a high dose of steroids. Thank you, Dr. Alphonse Zurita, for kindly asking me to see this patient in nephrology consultation. Dictated By: ALBERTA CORRAL MD BS/NTS Conf#: [id number] DID#: [id number] MTDD
[2016-11-17 07:42] LABS: ADD SCAN DIFF NO
[2016-11-17 07:47] LABS: ABNORMAL IP MESSAGE 1; BASOPHILS % 0.6 % (0.0-2.0); EOSINOPHILS # 0.2 10^3/ul (0.0-0.5); EOSINOPHILS % 2.4 % (0.0-7.0); HEMATOCRIT 32.9 % (37.0-47.0); HEMOGLOBIN 10.8 g/dl (12.0-16.0); LYMPHOCYTES # 1.7 10^3/ul (0.8-2.9); LYMPHOCYTES % 26.2 % (15.0-51.0); MEAN CORPUSCULAR HEMOGLOBIN 27.6 pg (29.0-33.0); MEAN CORPUSCULAR HGB CONC 32.8 g/dl (32.0-37.0); MEAN CORPUSCULAR VOLUME 83.9 fl (82.0-101.0); MEAN PLATELET VOLUME 13.2 fl (7.4-10.4); MONOCYTE # 0.7 10^3/ul (0.3-0.9); MONOCYTES % 10.8 % (0.0-11.0); NEUTROPHIL # 3.8 10^3/ul (1.6-7.5); NEUTROPHILS % 59.7 % (39.0-77.0); PLATELET COUNT 133 10^3/UL (140-415); RED BLOOD COUNT 3.92 10^6/ul (4.20-5.40); RED CELL DISTRIBUTION WIDTH 14.1 % (11.5-14.5); WHITE BLOOD COUNT 6.3 10^3/ul (4.8-10.8)
[2016-11-17] MEDS: INSULIN ASPART [NOVOLOG] 3 ML PEN SC SCH ×4 (07:51→21:00)
[2016-11-17 08:33] LABS: CHOL/HDL RATIO 2.1 RATIO; CREATININE 1.48 mg/dl (0.44-1.00); POTASSIUM 4.1 mmol/L (3.5-5.1)
[2016-11-17] MEDS: LOSARTAN 25 MG TAB PO SCH (08:41)
[2016-11-17] MEDS: AL HYDROX/MG HYDROX/SIMETH 30 ML CUP PO SCH ×3 (08:41→21:10)
[2016-11-17] MEDS: HEPARIN 5,000 UNIT/0.5 ML VIAL SC SCH ×2 (08:46→21:13)
[2016-11-17] MEDS ORDERED: AMLODIPINE 10 MG TAB PO SCH (09:00)
[2016-11-17 10:20] LABS: ALBUMIN 3.8 g/dl (3.3-4.9); BILIRUBIN,INDIRECT 0.9 mg/dl (0-1.1); BILIRUBIN,TOTAL 0.9 mg/dl (0.2-1.3); TOTAL PROTEIN 4.8 g/dl (6.1-8.1)
--- NOTE | 2016-11-17 12:18 | CONS ---
Date/Time of Note Date/Time of Note DATE: 11/17/16 TIME: 12:15 Assessment/Plan Assessment/Plan Chief Complaint/Hosp Course 1. Patient has chronic kidney injury. 2. The patient has diabetic nephropathy. 3. hypertension, 4. metabolic acidosis, 5. anemia, 6. history of brain aneurysm, 7. history of cholecystectomy, laparoscopic; 8. dyslipidemia, 9. history of proteinuria. 10. oVERWEIGHT Problems: Additional Assessment/Plan 1. oPTIMIZATION KIDNEY FUNCTION Consultation Date/Type/Reason Admit Date/Time Nov 16, 2016 at 04:55 Initial Consult Date 11/16/2016 Type of Consultation: renal Reason for Consultation Dr Pineda Exam/Review of Systems Vital Signs Vitals Vital Signs Date Time Temp Pulse Resp B/P Pulse Ox O2 Delivery O2 Flow Rate FiO2 11/17/16 09:21 Nasal Cannula 2.0 11/17/16 08:28 45 11/17/16 08:11 98.0 18 135/60 98 Intake and Output 11/16/16 11/16/16 11/17/16 14:59 22:59 06:59 Intake Total 300 ml 550 ml Balance 300 ml 550 ml Exam Constitutional: alert, oriented Eyes: nl conjunctiva ENMT: nl external ears & nose Neck: supple Respiratory: clear to auscultation Cardiovascular: regular rate and rhythm Gastrointestinal: distended, other (pain), soft, surgical scars Musculoskeletal: muscle weakness Results Result Diagram: 11/17/16 0650 11/17/16 0650 Results 24 hrs Laboratory Tests Test 11/16/16 15:58 11/16/16 17:40 11/16/16 20:45 11/16/16 21:41 Troponin I < 0.012 0.020 Bedside Glucose 108 118 Test 11/17/16 06:50 11/17/16 07:49 11/17/16 11:39 White Blood Count 6.3 # Red Blood Count 3.92 L Hemoglobin 10.8 L Hematocrit 32.9 L Mean Corpuscular Volume 83.9 Mean Corpuscular Hemoglobin 27.6 L Mean Corpuscular Hemoglobin Concent 32.8 Red Cell Distribution Width 14.1 Platelet Count 133 L Mean Platelet Volume 13.2 H Neutrophils % 59.7 Lymphocytes % 26.2 Monocytes % 10.8 Eosinophils % 2.4 Basophils % 0.6 Nucleated Red Blood Cells % 0.0 Neutrophils # 3.8 Lymphocytes # 1.7 Monocytes # 0.7 Eosinophils # 0.2 Basophils # 0.0 Nucleated Red Blood Cells # 0.0 Sodium Level 144 Potassium Level 4.1 Chloride Level 113 H Carbon Dioxide Level 20 L Anion Gap 15 Blood Urea Nitrogen 28 H Creatinine 1.48 H Glucose Level 70 Hemoglobin A1c 7.1 H Calcium Level 9.0 Total Bilirubin 0.9 Direct Bilirubin 0.00 Indirect Bilirubin 0.9 Aspartate Amino Transf (AST/SGOT) 29 Alanine Aminotransferase (ALT/SGPT) 31 Alkaline Phosphatase 66 Total Protein 4.8 #L Albumin 3.8 Triglycerides Level 60 Cholesterol Level 88 L LDL Cholesterol, Calculated 35 HDL Cholesterol 41 Cholesterol/HDL Ratio 2.1 Free Thyroxine 1.92 Parathyroid Hormone (Intact) Bedside Glucose 77 140 Medications Medications Current Medications Diagnostic Test (Pha) (Accu-Chek) 1 XX ; Start 11/17/16 at 02:00 Ondansetron HCl (Zofran Inj) 4 mg Q6H PRN IV NAUSEA AND/OR VOMITING; Start at 10:00 Albuterol (Ventolin Hfa) 2 puff Q6H PRN INH WHEEZING AND SOB; Start 11/16/16 at 12:00 Guaifenesin (Robitussin Liquid Cup) 100 mg Q6H PRN PO COUGH; Start 11/16/16 at 12:00 Insulin Glargine (Lantus) 10 unit QHS SC Last administered on 11/16/16 21:52; Admin Dose 10 UNIT; Start 11/16/16 at 21:00 Losartan Potassium (Cozaar) 25 mg DAILY PO Last administered on 11/17/16 08:41 ; Admin Dose 25 MG; Start 11/17/16 at 09:00 Al Hydrox/Mg Hydrox/Simethicone (Mag-Al Plus) 10 ml TID PO Last administered on 11/17/16 08:41; Admin Dose 10 ML; Start 11/16/16 at 13:00 Trazodone HCl (Desyrel) 100 mg QHS PO Last administered on 11/16/16 21:41; Admin Dose 100 MG; Start 11/16/16 at 21:00 Atorvastatin Calcium (Lipitor) 20 mg HS PO Last administered on 11/16/16 21:41 ; Admin Dose 20 MG; Start 11/16/16 at 21:00 Pantoprazole (Protonix Tab) 40 mg DAILY@06 PO Last administered on 11/17/16 05 :51; Admin Dose 40 MG; Start 11/17/16 at 06:00 Heparin Sodium (Porcine) (Heparin (5000 Units/0.5 ml)) 5,000 unit Q12 SC Last administered on 11/17/16 08:46; Admin Dose 5,000 UNIT; Start 11/16/16 at 21:00 Hydralazine HCl (Apresoline) 50 mg BID PO Last administered on 11/17/16 08:41 ; Admin Dose 50 MG; Start 11/16/16 at 21:00 LAY FONTANA Nov 17, 2016 12:18
--- NOTE | 2016-11-17 14:29 | RADRPT ---
Vent Rate: 49 bpm RR Interval: 0 msec MS Interval: 0 msec QRS Duration: 146 msec QT Interval: 518 msec QTC Interval: 467 msec P-R-T [place]: 0 - -58 - 98 degrees Wide QRS rhythm with occasional premature ventricular complexes Left bundle branch block Abnormal ECG Electronically Signed By: Andrés Osorio [id number]
--- NOTE | 2016-11-17 15:57 | PN ---
Date/Time of Note Date/Time of Note DATE: 11/17/16 TIME: 15:50 Assessment/Plan VTE Prophylaxis VTE Prophylaxis Intervention: SCD's Lines/Catheters IV [facility] Saline Lock Urinary Cath still in place: No Assessment/Plan Chief Complaint/Hosp Course Patient denies any chest pain denies shortness of breath, tolerates current diet well. Problems: Assessment/Plan - Congestive heart failure exacerbation. Dr. Bloom is following and cardiology consultation. On Lasix, continue to monitor electrolytes. - Bradycardia, continue telemetry monitoring. - Acute renal failure, Dr. Pineda is following a nephrology consultation. - Hypertension. Continue Cozaar and hydralazine. - Diabetes mellitus type 2 with hemoglobin A1c 7.1, continue Lantus and NovoLog. - Anemia. Check iron profile. Further recommendations based on clinical course. Plan of care discussed with Dr. Zurita. Exam/Review of Systems Vital Signs Vitals Vital Signs Date Time Temp Pulse Resp B/P Pulse Ox O2 Delivery O2 Flow Rate FiO2 11/17/16 12:33 98.0 57 18 112/56 98 11/17/16 09:21 Nasal Cannula 2.0 Intake and Output 11/16/16 11/16/16 11/17/16 15:00 23:00 07:00 Intake Total 300 ml 550 ml Balance 300 ml 550 ml Exam Constitutional: alert, oriented Head: normocephalic Neck: supple Respiratory: normal air movement Cardiovascular: nl pulses, other (Bradycardia), regular rate and rhythm Gastrointestinal: non-tender, soft Musculoskeletal: nl extremities to inspection Extremities: normal pulses Neurological: nl mental status Results Result Diagram: 11/17/16 0650 11/17/16 0650 Results 24 hrs Laboratory Tests Test 11/16/16 15:58 11/16/16 17:40 11/16/16 20:45 11/16/16 21:41 Troponin I < 0.012 0.020 Bedside Glucose 108 118 Test 11/17/16 06:50 11/17/16 07:49 11/17/16 11:39 White Blood Count 6.3 # Red Blood Count 3.92 L Hemoglobin 10.8 L Hematocrit 32.9 L Mean Corpuscular Volume 83.9 Mean Corpuscular Hemoglobin 27.6 L Mean Corpuscular Hemoglobin Concent 32.8 Red Cell Distribution Width 14.1 Platelet Count 133 L Mean Platelet Volume 13.2 H Neutrophils % 59.7 Lymphocytes % 26.2 Monocytes % 10.8 Eosinophils % 2.4 Basophils % 0.6 Nucleated Red Blood Cells % 0.0 Neutrophils # 3.8 Lymphocytes # 1.7 Monocytes # 0.7 Eosinophils # 0.2 Basophils # 0.0 Nucleated Red Blood Cells # 0.0 Sodium Level 144 Potassium Level 4.1 Chloride Level 113 H Carbon Dioxide Level 20 L Anion Gap 15 Blood Urea Nitrogen 28 H Creatinine 1.48 H Glucose Level 70 Hemoglobin A1c 7.1 H Calcium Level 9.0 Total Bilirubin 0.9 Direct Bilirubin 0.00 Indirect Bilirubin 0.9 Aspartate Amino Transf (AST/SGOT) 29 Alanine Aminotransferase (ALT/SGPT) 31 Alkaline Phosphatase 66 Total Protein 4.8 #L Albumin 3.8 Triglycerides Level 60 Cholesterol Level 88 L LDL Cholesterol, Calculated 35 HDL Cholesterol 41 Cholesterol/HDL Ratio 2.1 Free Thyroxine 1.92 Parathyroid Hormone (Intact) Bedside Glucose 77 140 Medications Medications Current Medications Diagnostic Test (Pha) (Accu-Chek) 1 02 XX ; Start 11/17/16 at 02:00 Ondansetron HCl (Zofran Inj) 4 mg Q6H PRN IV NAUSEA AND/OR VOMITING; Start at 10:00 Albuterol (Ventolin Hfa) 2 puff Q6H PRN INH WHEEZING AND SOB; Start 11/16/16 at 12:00 Guaifenesin (Robitussin Liquid Cup) 100 mg Q6H PRN PO COUGH; Start 11/16/16 at 12:00 Insulin Glargine (Lantus) 10 unit QHS SC Last administered on 11/16/16 21:52; Admin Dose 10 UNIT; Start 11/16/16 at 21:00 Losartan Potassium (Cozaar) 25 mg DAILY PO Last administered on 11/17/16 08:41 ; Admin Dose 25 MG; Start 11/17/16 at 09:00 Al Hydrox/Mg Hydrox/Simethicone (Mag-Al Plus) 10 ml TID PO Last administered on 11/17/16 12:58; Admin Dose 10 ML; Start 11/16/16 at 13:00 Trazodone HCl (Desyrel) 100 mg QHS PO Last administered on 11/16/16 21:41; Admin Dose 100 MG; Start 11/16/16 at 21:00 Atorvastatin Calcium (Lipitor) 20 mg HS PO Last administered on 11/16/16 21:41 ; Admin Dose 20 MG; Start 11/16/16 at 21:00 Pantoprazole (Protonix Tab) 40 mg DAILY@06 PO Last administered on 11/17/16 05 :51; Admin Dose 40 MG; Start 11/17/16 at 06:00 Heparin Sodium (Porcine) (Heparin (5000 Units/0.5 ml)) 5,000 unit Q12 SC Last administered on 11/17/16 08:46; Admin Dose 5,000 UNIT; Start 11/16/16 at 21:00 Hydralazine HCl (Apresoline) 50 mg BID PO Last administered on 11/17/16 08:41 ; Admin Dose 50 MG; Start 11/16/16 at 21:00 OMKAR WILLARD Nov 17, 2016 15:57
[2016-11-17 17:43] LABS: IRON 20 ug/dl (35-150)
[2016-11-17 17:53] LABS: TOTAL IRON BINDING CAPACITY 401 ug/dl (241-421)
--- NOTE | 2016-11-17 19:21 | CONS ---
Date/Time of Note Date/Time of Note DATE: 11/17/16 TIME: 19:16 Assessment/Plan Assessment/Plan Chief Complaint/Hosp Course IMPRESSION: 1. Congestive heart failure exacerbation, diastolic acute on chronic-EF 50 by echo 2. Bradycardia both sinus lynnette and junctional bradycardia. Stable blood pressure at this time.-NL TSH 3. Abnormal electrocardiogram, with intraventricular conduction delay. Assess for acute coronary syndrome.-negative trop x 3 4. Hypertension. Under reasonable control. 5. Lower extremity edema.-venous ORIANA negative for DVT 6. Renal failure. 7. Anemia. Recc -Tele -serial ecg's -Continue hydralazine/losartan -Continue lasix diuresis and follow net washer/volume status closely -Follow HR closely -Possible need for PPM. Will follow closely Problems: Consultation Date/Type/Reason Admit Date/Time Nov 16, 2016 at 04:55 Initial Consult Date 11/16/16 Type of Consultation: Cardiology Reason for Consultation CHF/bradycardia Referring Provider: NOAH DANIEL MD Exam/Review of Systems Vital Signs Vitals Vital Signs Date Time Temp Pulse Resp B/P Pulse Ox O2 Delivery O2 Flow Rate FiO2 11/17/16 16:15 46 11/17/16 16:15 97.4 20 125/59 100 11/17/16 09:21 Nasal Cannula 2.0 Intake and Output 11/16/16 11/16/16 11/17/16 14:59 22:59 06:59 Intake Total 300 ml 550 ml Balance 300 ml 550 ml Exam Review of Systems: CONSTITUTIONAL: No fevers, chills. PULMONARY: No sob CARDIOVASCULAR: No chest pain/palpitations GASTROINTESTINAL: No nausea/vomiting. GENITOURINARY: No hematuria/dysuria. MUSCULOSKELETAL: No myagias/arthalgias. PSYCHIATRIC: The patient denies depression. NEUROLOGIC: No weakness Constitutional: alert Psych: no complaints Head: normocephalic ENMT: mucosa pink and moist Neck: jvd (9 cm water), supple Respiratory: diminished breath sounds Cardiovascular: other (bradycardia, regular rhythm) Gastrointestinal: non-tender, soft Musculoskeletal: muscle tone (normal) Extremities: edema (none) Neurological: other (NO focal deficits) Results Result Diagram: 11/17/16 0650 11/17/16 0650 Results 24 hrs Laboratory Tests Test 11/16/16 20:45 11/16/16 21:41 11/17/16 06:50 11/17/16 07:49 Troponin I 0.020 Bedside Glucose 118 77 White Blood Count 6.3 # Red Blood Count 3.92 L Hemoglobin 10.8 L Hematocrit 32.9 L Mean Corpuscular Volume 83.9 Mean Corpuscular Hemoglobin 27.6 L Mean Corpuscular Hemoglobin Concent 32.8 Red Cell Distribution Width 14.1 Platelet Count 133 L Mean Platelet Volume 13.2 H Neutrophils % 59.7 Lymphocytes % 26.2 Monocytes % 10.8 Eosinophils % 2.4 Basophils % 0.6 Nucleated Red Blood Cells % 0.0 Neutrophils # 3.8 Lymphocytes # 1.7 Monocytes # 0.7 Eosinophils # 0.2 Basophils # 0.0 Nucleated Red Blood Cells # 0.0 Sodium Level 144 Potassium Level 4.1 Chloride Level 113 H Carbon Dioxide Level 20 L Anion Gap 15 Blood Urea Nitrogen 28 H Creatinine 1.48 H Glucose Level 70 Hemoglobin A1c 7.1 H Calcium Level 9.0 Total Bilirubin 0.9 Direct Bilirubin 0.00 Indirect Bilirubin 0.9 Aspartate Amino Transf (AST/SGOT) 29 Alanine Aminotransferase (ALT/SGPT) 31 Alkaline Phosphatase 66 Total Protein 4.8 #L Albumin 3.8 Triglycerides Level 60 Cholesterol Level 88 L LDL Cholesterol, Calculated 35 HDL Cholesterol 41 Cholesterol/HDL Ratio 2.1 Free Thyroxine 1.92 Parathyroid Hormone (Intact) Test 11/17/16 11:39 11/17/16 16:55 11/17/16 17:36 Bedside Glucose 140 99 Iron Level 20 L Total Iron Binding Capacity 401 Percent Iron Saturation 5 L Medications Medications Current Medications Diagnostic Test (Pha) (Accu-Chek) 1 02 XX ; Start 11/17/16 at 02:00 Ondansetron HCl (Zofran Inj) 4 mg Q6H PRN IV NAUSEA AND/OR VOMITING; Start at 10:00 Albuterol (Ventolin Hfa) 2 puff Q6H PRN INH WHEEZING AND SOB; Start 11/16/16 at 12:00 Guaifenesin (Robitussin Liquid Cup) 100 mg Q6H PRN PO COUGH; Start 11/16/16 at 12:00 Insulin Glargine (Lantus) 10 unit QHS SC Last administered on 11/16/16t 21:52; Admin Dose 10 UNIT; Start 11/16/16 at 21:00 Losartan Potassium (Cozaar) 25 mg DAILY PO Last administered on 11/17/16 08:41 ; Admin Dose 25 MG; Start 11/17/16 at 09:00 Al Hydrox/Mg Hydrox/Simethicone (Mag-Al Plus) 10 ml TID PO Last administered on 11/17/16 12:58; Admin Dose 10 ML; Start 11/16/16 at 13:00 Trazodone HCl (Desyrel) 100 mg QHS PO Last administered on 11/16/16 21:41; Admin Dose 100 MG; Start 11/16/16 at 21:00 Atorvastatin Calcium (Lipitor) 20 mg HS PO Last administered on 11/16/16 21:41 ; Admin Dose 20 MG; Start 11/16/16 at 21:00 Pantoprazole (Protonix Tab) 40 mg DAILY@06 PO Last administered on 11/17/16 05 :51; Admin Dose 40 MG; Start 11/17/16 at 06:00 Heparin Sodium (Porcine) (Heparin (5000 Units/0.5 ml)) 5,000 unit Q12 SC Last administered on 11/17/16 08:46; Admin Dose 5,000 UNIT; Start 11/16/16 at 21:00 Hydralazine HCl (Apresoline) 50 mg BID PO Last administered on 11/17/16 08:41 ; Admin Dose 50 MG; Start 11/16/16 at 21:00 KEVON TIWARI Nov 17, 2016 19:21
[2016-11-17] MEDS: traZODone 100 MG TAB PO SCH (21:10)
[2016-11-17] MEDS: ATORVASTATIN 20 MG TAB PO SCH (21:10)
[2016-11-17] MEDS: INSULIN GLARGINE [LANtus] 3 ML PEN SC SCH (21:14)
[2016-11-18] VITALS (14 sets, daily range): BP systolic 113–162; BP diastolic 57–75; PULSE 50–88; RESP 18–57
[2016-11-18] MEDS: ACCU-CHEK XX SCH (01:29)
[2016-11-18] MEDS: FUROSEMIDE 40 MG INJ IV SCH ×2 (05:34→17:15)
[2016-11-18] MEDS: PANTOPRAZOLE (EC) 40 MG TAB PO SCH (05:35)
[2016-11-18] MEDS ORDERED: FUROSEMIDE 20 MG INJ IV SCH (06:00)
[2016-11-18] MEDS: INSULIN ASPART [NOVOLOG] 3 ML PEN SC SCH ×4 (08:00→20:42)
[2016-11-18 08:03] LABS: ADD SCAN DIFF NO
[2016-11-18 08:15] LABS: BASOPHILS % 0.4 % (0.0-2.0); EOSINOPHILS # 0.1 10^3/ul (0.0-0.5); HEMATOCRIT 32.9 % (37.0-47.0); HEMOGLOBIN 10.7 g/dl (12.0-16.0); LYMPHOCYTES # 2.2 10^3/ul (0.8-2.9); LYMPHOCYTES % 31.9 % (15.0-51.0); MEAN CORPUSCULAR HEMOGLOBIN 27.6 pg (29.0-33.0); MEAN CORPUSCULAR HGB CONC 32.5 g/dl (32.0-37.0); MEAN CORPUSCULAR VOLUME 84.8 fl (82.0-101.0); MEAN PLATELET VOLUME 12.9 fl (7.4-10.4); MONOCYTE # 0.9 10^3/ul (0.3-0.9); MONOCYTES % 12.7 % (0.0-11.0); NEUTROPHIL # 3.6 10^3/ul (1.6-7.5); NEUTROPHILS % 52.7 % (39.0-77.0); PLATELET COUNT 115 10^3/UL (140-415); RED BLOOD COUNT 3.88 10^6/ul (4.20-5.40); RED CELL DISTRIBUTION WIDTH 14.2 % (11.5-14.5); WHITE BLOOD COUNT 6.9 10^3/ul (4.8-10.8)
[2016-11-18] MEDS: LOSARTAN 25 MG TAB PO SCH (08:29)
[2016-11-18] MEDS: AL HYDROX/MG HYDROX/SIMETH 30 ML CUP PO SCH ×3 (08:29→20:41)
[2016-11-18] MEDS: ASPIRIN 325 MG TAB PO SCH (08:29)
[2016-11-18 08:30] LABS: CALCIUM 9.2 mg/dl (8.4-10.2); CREATININE 1.58 mg/dl (0.44-1.00); POTASSIUM 4.7 mmol/L (3.5-5.1)
[2016-11-18] MEDS: HEPARIN 5,000 UNIT/0.5 ML VIAL SC SCH ×2 (08:30→20:42)
--- NOTE | 2016-11-18 09:56 | RADRPT ---
Vent Rate: 52 bpm RR Interval: 0 msec SD Interval: 172 msec QRS Duration: 146 msec QT Interval: 490 msec QTC Interval: 455 msec P-R-T [place]: 28 - 0 - 71 degrees Sinus bradycardia Nonspecific intraventricular block Lateral infarct , age undetermined Abnormal ECG Electronically Signed By: Reyes Mercado [id number]
--- NOTE | 2016-11-18 11:44 | CONS ---
Date/Time of Note Date/Time of Note DATE: 11/18/16 TIME: 11:43 Assessment/Plan Assessment/Plan Chief Complaint/Hosp Course 1. Chronic kidney injury. 2. Diabetic nephropathy. 3. hypertension, 4. metabolic acidosis, 5. anemia, 6. history of brain aneurysm, 7. history of cholecystectomy, laparoscopic; 8. dyslipidemia, 9. history of proteinuria. 10. oVERWEIGHT Problems: Additional Assessment/Plan 1. Optimization kidney function Consultation Date/Type/Reason Admit Date/Time Nov 16, 2016 at 04:55 Initial Consult Date 11/16/2016 Type of Consultation: Nephrology Reason for Consultation dr Pineda Referring Provider: NOAH DANIEL MD Exam/Review of Systems Vital Signs Vitals Vital Signs Date Time Temp Pulse Resp B/P Pulse Ox O2 Delivery O2 Flow Rate FiO2 11/18/16 08:18 50 11/18/16 08:00 Nasal Cannula 2.0 11/18/16 07:40 98.0 18 144/64 97 Intake and Output 11/17/16 11/17/16 11/18/16 15:00 23:00 07:00 Intake Total 1000 ml 600 ml Balance 1000 ml 600 ml Exam Constitutional: alert, oriented Respiratory: clear to auscultation Cardiovascular: regular rate and rhythm Results Result Diagram: 11/18/16 0730 11/18/16 0730 Results 24 hrs Laboratory Tests Test 11/17/16 16:55 11/17/16 17:36 11/17/16 21:11 11/18/16 07:30 Iron Level 20 L Total Iron Binding Capacity 401 Percent Iron Saturation 5 L Bedside Glucose 99 127 White Blood Count 6.9 Red Blood Count 3.88 L Hemoglobin 10.7 L Hematocrit 32.9 L Mean Corpuscular Volume 84.8 Mean Corpuscular Hemoglobin 27.6 L Mean Corpuscular Hemoglobin Concent 32.5 Red Cell Distribution Width 14.2 Platelet Count 115 L Mean Platelet Volume 12.9 H Neutrophils % 52.7 Lymphocytes % 31.9 Monocytes % 12.7 H Eosinophils % 2.0 Basophils % 0.4 Nucleated Red Blood Cells % 0.0 Neutrophils # 3.6 Lymphocytes # 2.2 Monocytes # 0.9 Eosinophils # 0.1 Basophils # 0.0 Nucleated Red Blood Cells # 0.0 Sodium Level 143 Potassium Level 4.7 Chloride Level 107 Carbon Dioxide Level 28 Anion Gap 13 Blood Urea Nitrogen 24 H Creatinine 1.58 H Glucose Level 64 L Calcium Level 9.2 Test 11/18/16 08:06 11/18/16 08:28 11/18/16 08:43 Bedside Glucose 66 L 82 76 Medications Medications Current Medications Diagnostic Test (Pha) (Accu-Chek) 1 02 XX ; Start 11/17/16 at 02:00 Ondansetron HCl (Zofran Inj) 4 mg Q6H PRN IV NAUSEA AND/OR VOMITING; Start at 10:00 Albuterol (Ventolin Hfa) 2 puff Q6H PRN INH WHEEZING AND SOB; Start 11/16/16 at 12:00 Guaifenesin (Robitussin Liquid Cup) 100 mg Q6H PRN PO COUGH; Start 11/16/16 at 12:00 Insulin Glargine (Lantus) 10 unit QHS SC Last administered on 11/17/16 21:14; Admin Dose 10 UNIT; Start 11/16/16 at 21:00 Losartan Potassium (Cozaar) 25 mg DAILY PO Last administered on 11/18/16 08:29 ; Admin Dose 25 MG; Start 11/17/16 at 09:00 Al Hydrox/Mg Hydrox/Simethicone (Mag-Al Plus) 10 ml TID PO Last administered on 11/18/16 08:29; Admin Dose 10 ML; Start 11/16/16 at 13:00 Trazodone HCl (Desyrel) 100 mg QHS PO Last administered on 11/17/16 21:10; Admin Dose 100 MG; Start 11/16/16 at 21:00 Atorvastatin Calcium (Lipitor) 20 mg HS PO Last administered on 11/17/16 21:10 ; Admin Dose 20 MG; Start 11/16/16 at 21:00 Pantoprazole (Protonix Tab) 40 mg DAILY@06 PO Last administered on 11/18/16 05 :35; Admin Dose 40 MG; Start 11/17/16 at 06:00 Heparin Sodium (Porcine) (Heparin (5000 Units/0.5 ml)) 5,000 unit Q12 SC Last administered on 11/18/16 08:30; Admin Dose 5,000 UNIT; Start 11/16/16 at 21:00 Hydralazine HCl (Apresoline) 50 mg BID PO Last administered on 11/18/16 08:29 ; Admin Dose 50 MG; Start 11/16/16 at 21:00 Aspirin (Aspirin) 325 mg DAILY PO Last administered on 11/18/16 08:29; Admin Dose 325 MG; Start 11/18/16 at 09:00 LAY FONTANA Nov 18, 2016 11:44
--- NOTE | 2016-11-18 15:05 | CONS ---
Date/Time of Note Date/Time of Note DATE: 11/18/16 TIME: 15:01 Assessment/Plan Assessment/Plan Additional Assessment/Plan acute exacerbation of congestive heart failure Abnormal electrocardiogram with braycardia Hypertension Dyslipidemia Diabetes Renal failure Anemia Continue Gentle diuresis with lasix Restrict fluids 1500cc/ 24 hours Continue Hydralazine Continue Losartan Continue Lipitor Continue Insulin Consultation Date/Type/Reason Admit Date/Time Nov 16, 2016 at 04:55 Constitutional: other (sob) Psychological: no complaints Social History Alcohol Use: none Smoking Status: Never smoker Exam/Review of Systems Vital Signs Vitals Vital Signs Date Time Temp Pulse Resp B/P Pulse Ox O2 Delivery O2 Flow Rate FiO2 11/18/16 12:24 97.6 58 18 113/57 98 11/18/16 08:00 Nasal Cannula 2.0 Intake and Output 11/17/16 11/17/16 11/18/16 15:00 23:00 07:00 Intake Total 1000 ml 600 ml Balance 1000 ml 600 ml Exam Constitutional: alert Psych: no complaints Neck: non-tender, supple Respiratory: diminished breath sounds Cardiovascular: regular rate and rhythm Gastrointestinal: nl liver, spleen, non-tender, soft Extremities: normal pulses Results Result Diagram: 11/18/16 0730 11/18/16 0730 Results 24 hrs Laboratory Tests Test 11/17/16 16:55 11/17/16 17:36 11/17/16 21:11 11/18/16 07:30 Iron Level 20 L Total Iron Binding Capacity 401 Percent Iron Saturation 5 L Bedside Glucose 99 127 White Blood Count 6.9 Red Blood Count 3.88 L Hemoglobin 10.7 L Hematocrit 32.9 L Mean Corpuscular Volume 84.8 Mean Corpuscular Hemoglobin 27.6 L Mean Corpuscular Hemoglobin Concent 32.5 Red Cell Distribution Width 14.2 Platelet Count 115 L Mean Platelet Volume 12.9 H Neutrophils % 52.7 Lymphocytes % 31.9 Monocytes % 12.7 H Eosinophils % 2.0 Basophils % 0.4 Nucleated Red Blood Cells % 0.0 Neutrophils # 3.6 Lymphocytes # 2.2 Monocytes # 0.9 Eosinophils # 0.1 Basophils # 0.0 Nucleated Red Blood Cells # 0.0 Sodium Level 143 Potassium Level 4.7 Chloride Level 107 Carbon Dioxide Level 28 Anion Gap 13 Blood Urea Nitrogen 24 H Creatinine 1.58 H Glucose Level 64 L Calcium Level 9.2 Test 11/18/16 08:06 11/18/16 08:28 11/18/16 08:43 11/18/16 12:31 Bedside Glucose 66 L 82 76 120 Medications Medications Current Medications Diagnostic Test (Pha) (Accu-Chek) 1 02 XX ; Start 11/17/16 at 02:00 Ondansetron HCl (Zofran Inj) 4 mg Q6H PRN IV NAUSEA AND/OR VOMITING; Start at 10:00 Albuterol (Ventolin Hfa) 2 puff Q6H PRN INH WHEEZING AND SOB; Start 11/16/16 at 12:00 Guaifenesin (Robitussin Liquid Cup) 100 mg Q6H PRN PO COUGH; Start 11/16/16 at 12:00 Insulin Glargine (Lantus) 10 unit QHS SC Last administered on 11/17/16 21:14; Admin Dose 10 UNIT; Start 11/16/16 at 21:00 Losartan Potassium (Cozaar) 25 mg DAILY PO Last administered on 11/18/16 08:29 ; Admin Dose 25 MG; Start 11/17/16 at 09:00 Al Hydrox/Mg Hydrox/Simethicone (Mag-Al Plus) 10 ml TID PO Last administered on 11/18/16 12:42; Admin Dose 10 ML; Start 11/16/16 at 13:00 Trazodone HCl (Desyrel) 100 mg QHS PO Last administered on 11/17/16 21:10; Admin Dose 100 MG; Start 11/16/16 at 21:00 Atorvastatin Calcium (Lipitor) 20 mg HS PO Last administered on 11/17/16 21:10 ; Admin Dose 20 MG; Start 11/16/16 at 21:00 Pantoprazole (Protonix Tab) 40 mg DAILY@06 PO Last administered on 11/18/16 05 :35; Admin Dose 40 MG; Start 11/17/16 at 06:00 Heparin Sodium (Porcine) (Heparin (5000 Units/0.5 ml)) 5,000 unit Q12 SC Last administered on 11/18/16 08:30; Admin Dose 5,000 UNIT; Start 11/16/16 at 21:00 Hydralazine HCl (Apresoline) 50 mg BID PO Last administered on 11/18/16 08:29 ; Admin Dose 50 MG; Start 11/16/16 at 21:00 Aspirin (Aspirin) 325 mg DAILY PO Last administered on 11/18/16 08:29; Admin Dose 325 MG; Start 11/18/16 at 09:00 BIANKA VIDAL M.D. Nov 18, 2016 15:04
[2016-11-18] MEDS: traZODone 100 MG TAB PO SCH (20:41)
[2016-11-18] MEDS: ATORVASTATIN 20 MG TAB PO SCH (20:41)
[2016-11-18] MEDS: INSULIN GLARGINE [LANtus] 3 ML PEN SC SCH (20:42)
--- NOTE | 2016-11-18 20:42 | PN ---
Date/Time of Note Date/Time of Note DATE: 11/18/16 TIME: 16:22 Assessment/Plan Lines/Catheters IV [facility] Saline Lock Urinary Cath still in place: No Assessment/Plan Assessment/Plan - Congestive heart failure exacerbation. Dr. Bloom is following and cardiology consultation. On Lasix, continue to monitor electrolytes. - Bradycardia, continue telemetry monitoring. - Acute renal failure, Dr. Pineda is following a nephrology consultation. - Hypertension. Continue Cozaar and hydralazine. - Diabetes mellitus type 2 with hemoglobin A1c 7.1, continue Lantus and NovoLog. - Anemia. Check iron profile. Further recommendations based on clinical course. Plan of care discussed with Dr. Zurita. Subjective 24 Hr Interval Summary Respiratory: no complaints Cardiovascular: no complaints Gastrointestinal: no complaints Genitourinary: no complaints Exam/Review of Systems Vital Signs Vitals Vital Signs Date Time Temp Pulse Resp B/P Pulse Ox O2 Delivery O2 Flow Rate FiO2 11/18/16 16:15 98.0 67 18 162/71 99 11/18/16 08:00 Nasal Cannula 2.0 Intake and Output 11/17/16 11/17/16 11/18/16 15:00 23:00 07:00 Intake Total 1000 ml 600 ml Balance 1000 ml 600 ml Exam Constitutional: alert Respiratory: clear to auscultation, normal air movement Gastrointestinal: non-tender, soft Results Result Diagram: 11/18/16 0730 11/18/16 0730 Results 24 hrs Laboratory Tests Test 11/17/16 16:55 11/17/16 17:36 11/17/16 21:11 11/18/16 07:30 Iron Level 20 L Total Iron Binding Capacity 401 Percent Iron Saturation 5 L Bedside Glucose 99 127 White Blood Count 6.9 Red Blood Count 3.88 L Hemoglobin 10.7 L Hematocrit 32.9 L Mean Corpuscular Volume 84.8 Mean Corpuscular Hemoglobin 27.6 L Mean Corpuscular Hemoglobin Concent 32.5 Red Cell Distribution Width 14.2 Platelet Count 115 L Mean Platelet Volume 12.9 H Neutrophils % 52.7 Lymphocytes % 31.9 Monocytes % 12.7 H Eosinophils % 2.0 Basophils % 0.4 Nucleated Red Blood Cells % 0.0 Neutrophils # 3.6 Lymphocytes # 2.2 Monocytes # 0.9 Eosinophils # 0.1 Basophils # 0.0 Nucleated Red Blood Cells # 0.0 Sodium Level 143 Potassium Level 4.7 Chloride Level 107 Carbon Dioxide Level 28 Anion Gap 13 Blood Urea Nitrogen 24 H Creatinine 1.58 H Glucose Level 64 L Calcium Level 9.2 Test 11/18/16 08:06 11/18/16 08:28 11/18/16 08:43 11/18/16 12:31 Bedside Glucose 66 L 82 76 120 Medications Medications Current Medications Diagnostic Test (Pha) (Accu-Chek) 1 XX ; Start 11/17/16 at 02:00 Ondansetron HCl (Zofran Inj) 4 mg Q6H PRN IV NAUSEA AND/OR VOMITING; Start at 10:00 Albuterol (Ventolin Hfa) 2 puff Q6H PRN INH WHEEZING AND SOB; Start 11/16/16 at 12:00 Guaifenesin (Robitussin Liquid Cup) 100 mg Q6H PRN PO COUGH; Start 11/16/16 at 12:00 Insulin Glargine (Lantus) 10 unit QHS SC Last administered on 11/17/16 21:14; Admin Dose 10 UNIT; Start 11/16/16 at 21:00 Losartan Potassium (Cozaar) 25 mg DAILY PO Last administered on 11/18/16 08:29 ; Admin Dose 25 MG; Start 11/17/16 at 09:00 Al Hydrox/Mg Hydrox/Simethicone (Mag-Al Plus) 10 ml TID PO Last administered on 11/18/16 12:42; Admin Dose 10 ML; Start 11/16/16 at 13:00 Trazodone HCl (Desyrel) 100 mg QHS PO Last administered on 11/17/16 21:10; Admin Dose 100 MG; Start 11/16/16 at 21:00 Atorvastatin Calcium (Lipitor) 20 mg HS PO Last administered on 11/17/16 21:10 ; Admin Dose 20 MG; Start 11/16/16 at 21:00 Pantoprazole (Protonix Tab) 40 mg DAILY@06 PO Last administered on 11/18/16 05 :35; Admin Dose 40 MG; Start 11/17/16 at 06:00 Heparin Sodium (Porcine) (Heparin (5000 Units/0.5 ml)) 5,000 unit Q12 SC Last administered on 11/18/16 08:30; Admin Dose 5,000 UNIT; Start 11/16/16 at 21:00 Hydralazine HCl (Apresoline) 50 mg BID PO Last administered on 11/18/16 08:29 ; Admin Dose 50 MG; Start 11/16/16 at 21:00 Aspirin (Aspirin) 325 mg DAILY PO Last administered on 11/18/16 08:29; Admin Dose 325 MG; Start 11/18/16 at 09:00 ALY MILLER Nov 18, 2016 16:23
[2016-11-19] VITALS (12 sets, daily range): BP systolic 107–148; BP diastolic 53–70; PULSE 60–79; RESP 18–20
[2016-11-19] MEDS: ACCU-CHEK XX SCH (02:00)
[2016-11-19] MEDS: FUROSEMIDE 40 MG INJ IV SCH (05:20)
[2016-11-19] MEDS: PANTOPRAZOLE (EC) 40 MG TAB PO SCH (05:21)
[2016-11-19] MEDS: INSULIN ASPART [NOVOLOG] 3 ML PEN SC SCH ×4 (08:00→20:21)
[2016-11-19] MEDS: LOSARTAN 25 MG TAB PO SCH (08:44)
[2016-11-19] MEDS: ASPIRIN 325 MG TAB PO SCH (08:44)
[2016-11-19] MEDS: AL HYDROX/MG HYDROX/SIMETH 30 ML CUP PO SCH ×3 (08:44→20:17)
[2016-11-19] MEDS: HEPARIN 5,000 UNIT/0.5 ML VIAL SC SCH ×2 (08:45→20:20)
--- NOTE | 2016-11-19 10:11 | CONS ---
Date/Time of Note Date/Time of Note DATE: 11/19/16 TIME: 10:10 Assessment/Plan Assessment/Plan Chief Complaint/Hosp Course 1. Chronic kidney injury. 2. Diabetic nephropathy. 3. hypertension, 4. metabolic acidosis, 5. anemia, 6. history of brain aneurysm, 7. history of cholecystectomy, laparoscopic; 8. dyslipidemia, 9. history of proteinuria. 10. oVERWEIGHT Problems: Additional Assessment/Plan 1. optimization kidney function Consultation Date/Type/Reason Admit Date/Time Nov 16, 2016 at 04:55 Initial Consult Date 11/16/2016 Type of Consultation: Nephrology Reason for Consultation Dr Pineda Referring Provider: NOAH DANIEL MD Exam/Review of Systems Vital Signs Vitals Vital Signs Date Time Temp Pulse Resp B/P Pulse Ox O2 Delivery O2 Flow Rate FiO2 11/19/16 08:21 98.0 66 18 107/53 98 11/18/16 19:25 Nasal Cannula 2.0 Intake and Output 11/18/16 11/18/16 11/19/16 15:00 23:00 07:00 Intake Total 800 ml 650 ml Balance 800 ml 650 ml Exam Constitutional: alert, oriented Gastrointestinal: non-tender, soft Results Result Diagram: 11/18/16 0730 11/18/16 0730 Results 24 hrs Laboratory Tests Test 11/18/16 12:31 11/18/16 20:40 11/19/16 08:37 11/19/16 08:51 Bedside Glucose 120 96 65 L 67 L Test 11/19/16 09:18 Bedside Glucose 152 Medications Medications Current Medications Diagnostic Test (Pha) (Accu-Chek) 1 ea 02 XX ; Start 11/17/16 at 02:00 Ondansetron HCl (Zofran Inj) 4 mg Q6H PRN IV NAUSEA AND/OR VOMITING; Start at 10:00 Albuterol (Ventolin Hfa) 2 puff Q6H PRN INH WHEEZING AND SOB; Start 11/16/16 at 12:00 Guaifenesin (Robitussin Liquid Cup) 100 mg Q6H PRN PO COUGH; Start 11/16/16 at 12:00 Insulin Glargine (Lantus) 10 unit QHS SC Last administered on 11/18/16t 20:42; Admin Dose 10 UNIT; Start 11/16/16 at 21:00 Losartan Potassium (Cozaar) 25 mg DAILY PO Last administered on 11/19/16 08:44 ; Admin Dose 25 MG; Start 11/17/16 at 09:00 Al Hydrox/Mg Hydrox/Simethicone (Mag-Al Plus) 10 ml TID PO Last administered on 11/19/16 08:44; Admin Dose 10 ML; Start 11/16/16 at 13:00 Trazodone HCl (Desyrel) 100 mg QHS PO Last administered on 11/18/16 20:41; Admin Dose 100 MG; Start 11/16/16 at 21:00 Atorvastatin Calcium (Lipitor) 20 mg HS PO Last administered on 11/18/16 20:41 ; Admin Dose 20 MG; Start 11/16/16 at 21:00 Pantoprazole (Protonix Tab) 40 mg DAILY@06 PO Last administered on 11/19/16 05 :21; Admin Dose 40 MG; Start 11/17/16 at 06:00 Heparin Sodium (Porcine) (Heparin (5000 Units/0.5 ml)) 5,000 unit Q12 SC Last administered on 11/19/16 08:45; Admin Dose 5,000 UNIT; Start 11/16/16 at 21:00 Hydralazine HCl (Apresoline) 50 mg BID PO Last administered on 11/19/16 08:44 ; Admin Dose 50 MG; Start 11/16/16 at 21:00 Aspirin (Aspirin) 325 mg DAILY PO Last administered on 11/19/16 08:44; Admin Dose 325 MG; Start 11/18/16 at 09:00 LAY FONTANA Nov 19, 2016 10:11
--- NOTE | 2016-11-19 13:22 | CONS ---
Date/Time of Note Date/Time of Note DATE: 11/19/16 TIME: 13:19 Assessment/Plan Assessment/Plan Additional Assessment/Plan acute exacerbation of congestive heart failure Abnormal electrocardiogram with braycardia Hypertension Dyslipidemia Diabetes Renal failure Anemia Continue Gentle diuresis with Lasix 40mg daily Restrict fluids 1500cc/ 24 hours Continue Hydralazine Continue Losartan Continue Lipitor Continue Insulin CXR AM Consultation Date/Type/Reason Admit Date/Time Nov 16, 2016 at 04:55 Initial Consult Date Type of Consultation: Nephrology Referring Provider: NOAH DANIEL MD Exam/Review of Systems Vital Signs Vitals Vital Signs Date Time Temp Pulse Resp B/P Pulse Ox O2 Delivery O2 Flow Rate FiO2 11/19/16 12:08 68 11/19/16 08:21 98.0 18 107/53 98 11/18/16 19:25 Nasal Cannula 2.0 Intake and Output 11/18/16 11/18/16 11/19/16 15:00 23:00 07:00 Intake Total 800 ml 650 ml Balance 800 ml 650 ml Results Result Diagram: 11/18/16 0730 11/18/16 0730 Results 24 hrs Laboratory Tests Test 11/18/16 20:40 11/19/16 08:37 11/19/16 08:51 11/19/16 09:18 Bedside Glucose 96 65 L 67 L 152 Test 11/19/16 11:53 Bedside Glucose 119 Medications Medications Current Medications Diagnostic Test (Pha) (Accu-Chek) 1 ea 02 XX ; Start 11/17/16 at 02:00 Ondansetron HCl (Zofran Inj) 4 mg Q6H PRN IV NAUSEA AND/OR VOMITING; Start at 10:00 Albuterol (Ventolin Hfa) 2 puff Q6H PRN INH WHEEZING AND SOB; Start 11/16/16 at 12:00 Guaifenesin (Robitussin Liquid Cup) 100 mg Q6H PRN PO COUGH; Start 11/16/16 at 12:00 Insulin Glargine (Lantus) 10 unit QHS SC Last administered on 11/18/16 20:42; Admin Dose 10 UNIT; Start 11/16/16 at 21:00 Losartan Potassium (Cozaar) 25 mg DAILY PO Last administered on 11/19/16 08:44 ; Admin Dose 25 MG; Start 11/17/16 at 09:00 Al Hydrox/Mg Hydrox/Simethicone (Mag-Al Plus) 10 ml TID PO Last administered on 11/19/16 08:44; Admin Dose 10 ML; Start 11/16/16 at 13:00 Trazodone HCl (Desyrel) 100 mg QHS PO Last administered on 11/18/16 20:41; Admin Dose 100 MG; Start 11/16/16 at 21:00 Atorvastatin Calcium (Lipitor) 20 mg HS PO Last administered on 11/18/16 20:41 ; Admin Dose 20 MG; Start 11/16/16 at 21:00 Pantoprazole (Protonix Tab) 40 mg DAILY@06 PO Last administered on 11/19/16 05 :21; Admin Dose 40 MG; Start 11/17/16 at 06:00 Heparin Sodium (Porcine) (Heparin (5000 Units/0.5 ml)) 5,000 unit Q12 SC Last administered on 11/19/16 08:45; Admin Dose 5,000 UNIT; Start 11/16/16 at 21:00 Hydralazine HCl (Apresoline) 50 mg BID PO Last administered on 11/19/16 08:44 ; Admin Dose 50 MG; Start 11/16/16 at 21:00 Aspirin (Aspirin) 325 mg DAILY PO Last administered on 11/19/16 08:44; Admin Dose 325 MG; Start 11/18/16 at 09:00 BIANKA VIDAL M.D. Nov 19, 2016 13:22
[2016-11-19] MEDS: FUROSEMIDE 40 MG TAB PO SCH (15:26)
--- NOTE | 2016-11-19 16:25 | RADRPT ---
PROCEDURE: XR Chest. CLINICAL INDICATION: Shortness of breath. TECHNIQUE: Single frontal view. COMPARISON: 11/16/2016. FINDINGS: Mild pulmonary edema is improved. The heart is enlarged. There is calcification in the aorta consistent with atherosclerosis. There is a small right pleural effusion. There is no left pleural effusion. There is no pneumothorax. IMPRESSION: 1. Cardiomegaly and atherosclerosis. 2. Improved pulmonary edema. 3. Small right pleural effusion. RPTAT: QQ .Serge Bach MD, Date Time Electronically viewed and signed by .Serge Bach MD, on 11/19/2016 16:25 .R/
[2016-11-19] MEDS: traZODone 100 MG TAB PO SCH (20:16)
[2016-11-19] MEDS: ATORVASTATIN 20 MG TAB PO SCH (20:17)
[2016-11-19] MEDS: INSULIN GLARGINE [LANtus] 3 ML PEN SC SCH (20:21)
[2016-11-20] VITALS (14 sets, daily range): BP systolic 119–156; BP diastolic 57–72; PULSE 76–103; RESP 18–20
[2016-11-20] MEDS: ACCU-CHEK XX SCH (01:25)
[2016-11-20] MEDS: PANTOPRAZOLE (EC) 40 MG TAB PO SCH (05:18)
[2016-11-20] MEDS: FUROSEMIDE 40 MG TAB PO SCH (05:20)
[2016-11-20 07:59] LABS: ADD SCAN DIFF NO
[2016-11-20] MEDS: INSULIN ASPART [NOVOLOG] 3 ML PEN SC SCH ×4 (08:00→21:00)
[2016-11-20 08:03] LABS: ABNORMAL IP MESSAGE 1; BASOPHILS % 0.4 % (0.0-2.0); EOSINOPHILS # 0.1 10^3/ul (0.0-0.5); EOSINOPHILS % 1.3 % (0.0-7.0); HEMATOCRIT 32.7 % (37.0-47.0); HEMOGLOBIN 10.6 g/dl (12.0-16.0); LYMPHOCYTES # 1.7 10^3/ul (0.8-2.9); LYMPHOCYTES % 21.6 % (15.0-51.0); MEAN CORPUSCULAR HEMOGLOBIN 27.7 pg (29.0-33.0); MEAN CORPUSCULAR HGB CONC 32.4 g/dl (32.0-37.0); MEAN CORPUSCULAR VOLUME 85.4 fl (82.0-101.0); MEAN PLATELET VOLUME 13.6 fl (7.4-10.4); MONOCYTE # 0.9 10^3/ul (0.3-0.9); NEUTROPHIL # 5.2 10^3/ul (1.6-7.5); NEUTROPHILS % 65.3 % (39.0-77.0); PLATELET COUNT 110 10^3/UL (140-415); RED BLOOD COUNT 3.83 10^6/ul (4.20-5.40); RED CELL DISTRIBUTION WIDTH 14.5 % (11.5-14.5)
[2016-11-20 08:29] LABS: CALCIUM 9.2 mg/dl (8.4-10.2); CREATININE 1.37 mg/dl (0.44-1.00)
[2016-11-20] MEDS ORDERED: GLUCOSE GEL 15 GRAM TUBE PO PRN ×2 (09:00)
[2016-11-20] MEDS ORDERED: DEXTROSE 50% 50 ML SYRINGE IV PRN ×2 (09:00)
[2016-11-20] MEDS ORDERED: GLUCOSE GEL 15 GRAM TUBE BUCCAL PRN (09:00)
[2016-11-20] MEDS ORDERED: GLUCAGON 1 MG INJ IM PRN (09:00)
[2016-11-20] MEDS: ASPIRIN 325 MG TAB PO SCH (09:11)
[2016-11-20] MEDS: AL HYDROX/MG HYDROX/SIMETH 30 ML CUP PO SCH ×3 (09:12→21:08)
[2016-11-20] MEDS: HEPARIN 5,000 UNIT/0.5 ML VIAL SC SCH ×2 (09:12→21:10)
[2016-11-20] MEDS: LOSARTAN 25 MG TAB PO SCH (09:12)
--- NOTE | 2016-11-20 18:19 | CONS ---
Date/Time of Note Date/Time of Note DATE: 11/20/16 TIME: 18:14 Assessment/Plan Assessment/Plan Chief Complaint/Hosp Course IMPRESSION: 1. Congestive heart failure exacerbation, diastolic acute on chronic-EF 50 by echo 2. Bradycardia both sinus lynnette and junctional bradycardia. Stable blood pressure at this time.-NL TSH. Improved currently HR 50-70's 3. Abnormal electrocardiogram, with intraventricular conduction delay. Assess for acute coronary syndrome.-negative trop x 3 4. Hypertension. Under reasonable control. 5. Lower extremity edema.-venous ORIANA negative for DVT 6. Renal failure. 7. Anemia. 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 Will follow closely with recent improvement in HR Problems: Consultation Date/Type/Reason Admit Date/Time Nov 16, 2016 at 04:55 Initial Consult Date 11/16/16 Type of Consultation: Cardiology Reason for Consultation CHF Referring Provider: NOAH DANIEL MD Exam/Review of Systems Vital Signs Vitals Vital Signs Date Time Temp Pulse Resp B/P Pulse Ox O2 Delivery O2 Flow Rate FiO2 11/20/16 16:37 82 11/20/16 16:15 98.1 20 138/64 96 11/20/16 08:30 Nasal Cannula 2.0 Intake and Output 11/19/16 11/19/16 11/20/16 15:00 23:00 07:00 Intake Total 850 ml 650 ml Balance 850 ml 650 ml Exam Review of Systems: CONSTITUTIONAL: No fevers, chills. PULMONARY: mild sob CARDIOVASCULAR: No chest pain/palpitations GASTROINTESTINAL: No nausea/vomiting. GENITOURINARY: No hematuria/dysuria. MUSCULOSKELETAL: No myagias/arthalgias. PSYCHIATRIC: The patient denies depression. NEUROLOGIC: No weakness Constitutional: alert Psych: no complaints Head: normocephalic ENMT: mucosa pink and moist Neck: supple Respiratory: diminished breath sounds (at bases/B) Cardiovascular: regular rate and rhythm Gastrointestinal: non-tender, soft Musculoskeletal: muscle tone (normal) Extremities: edema (trace/B) Neurological: other (No focal deficits) Results Result Diagram: 11/20/16 0630 11/20/16 0630 Results 24 hrs Laboratory Tests Test 11/19/16 20:16 11/20/16 06:30 11/20/16 08:40 11/20/16 12:27 Bedside Glucose 121 84 113 White Blood Count 8.0 Red Blood Count 3.83 L Hemoglobin 10.6 L Hematocrit 32.7 L Mean Corpuscular Volume 85.4 Mean Corpuscular Hemoglobin 27.7 L Mean Corpuscular Hemoglobin Concent 32.4 Red Cell Distribution Width 14.5 Platelet Count 110 L Mean Platelet Volume 13.6 H Neutrophils % 65.3 Lymphocytes % 21.6 Monocytes % 11.0 Eosinophils % 1.3 Basophils % 0.4 Nucleated Red Blood Cells % 0.0 Neutrophils # 5.2 Lymphocytes # 1.7 Monocytes # 0.9 Eosinophils # 0.1 Basophils # 0.0 Nucleated Red Blood Cells # 0.0 Sodium Level 139 Potassium Level 4.0 Chloride Level 99 Carbon Dioxide Level 32 H Anion Gap 12 Blood Urea Nitrogen 20 Creatinine 1.37 H Glucose Level 70 Calcium Level 9.2 Test 11/20/16 17:20 Bedside Glucose 106 Medications Medications Current Medications Diagnostic Test (Pha) (Accu-Chek) 1 ea 02 XX ; Start 11/17/16 at 02:00 Ondansetron HCl (Zofran Inj) 4 mg Q6H PRN IV NAUSEA AND/OR VOMITING; Start at 10:00 Albuterol (Ventolin Hfa) 2 puff Q6H PRN INH WHEEZING AND SOB; Start 11/16/16 at 12:00 Guaifenesin (Robitussin Liquid Cup) 100 mg Q6H PRN PO COUGH; Start 11/16/16 at 12:00 Insulin Glargine (Lantus) 10 unit QHS SC Last administered on 11/19/16 20:21; Admin Dose 10 UNIT; Start 11/16/16 at 21:00 Losartan Potassium (Cozaar) 25 mg DAILY PO Last administered on 11/20/16 09:12 ; Admin Dose 25 MG; Start 11/17/16 at 09:00 Al Hydrox/Mg Hydrox/Simethicone (Mag-Al Plus) 10 ml TID PO Last administered on 11/20/16 12:44; Admin Dose 10 ML; Start 11/16/16 at 13:00 Trazodone HCl (Desyrel) 100 mg QHS PO Last administered on 11/19/16 20:16; Admin Dose 100 MG; Start 11/16/16 at 21:00 Atorvastatin Calcium (Lipitor) 20 mg HS PO Last administered on 11/19/16 20:17 ; Admin Dose 20 MG; Start 11/16/16 at 21:00 Pantoprazole (Protonix Tab) 40 mg DAILY@06 PO Last administered on 11/20/16 05 :18; Admin Dose 40 MG; Start 11/17/16 at 06:00 Heparin Sodium (Porcine) (Heparin (5000 Units/0.5 ml)) 5,000 unit Q12 SC Last administered on 11/20/16 09:12; Admin Dose 5,000 UNIT; Start 11/16/16 at 21:00 Hydralazine HCl (Apresoline) 50 mg BID PO Last administered on 11/20/16 09:12 ; Admin Dose 50 MG; Start 11/16/16 at 21:00 Aspirin (Aspirin) 325 mg DAILY PO Last administered on 11/20/16 09:11; Admin Dose 325 MG; Start 11/18/16 at 09:00 Furosemide (Lasix) 40 mg DAILY@06 PO Last administered on 11/20/16 05:20; Admin Dose 40 MG; Start 11/19/16 at 13:30 Miscellaneous Information 1 ea NOTE XX ; Start 11/20/16 at 09:00 Glucose (Glutose) 15 gm Q15M PRN PO DECREASED GLUCOSE; Start 11/20/16 at 09:00 Glucose (Glutose) 22.5 gm Q15M PRN PO DECREASED GLUCOSE; Start 11/20/16 at 09: 00 Dextrose (D50w Syringe) 25 ml Q15M PRN IV DECREASED GLUCOSE; Start 11/20/16 at 09:00 Dextrose (D50w Syringe) 50 ml Q15M PRN IV DECREASED GLUCOSE; Start 11/20/16 at 09:00 Glucagon (Glucagen) 1 mg Q15M PRN IM DECREASED GLUCOSE; Start 11/20/16 at 09:00 Glucose (Glutose) 15 gm Q15M PRN BUCCAL DECREASED GLUCOSE; Start 11/20/16 at 09 :00 KEVON TIWARI Nov 20, 2016 18:19
--- NOTE | 2016-11-20 19:07 | PN ---
Date/Time of Note Date/Time of Note DATE: 11/20/16 TIME: 19:02 Assessment/Plan VTE Prophylaxis VTE Prophylaxis Intervention: SCD's Lines/Catheters IV Catheter Type (from [facility]): Saline Lock Urinary Cath still in place: No Assessment/Plan Chief Complaint/Hosp Course Patient denies any chest pain denies shortness of breath, anticipate discharge tomorrow if patient continues to be hemodynamically stable. Assessment/Plan - Congestive heart failure exacerbation. Dr. Bloom is following and cardiology consultation. On Lasix, continue to monitor electrolytes. - Bradycardia, continue telemetry monitoring. - Acute renal failure, Dr. Pineda is following a nephrology consultation. - Hypertension. Continue Cozaar and hydralazine. - Diabetes mellitus type 2 with hemoglobin A1c 7.1, continue Lantus and NovoLog. - Anemia. Further recommendations based on clinical course. Plan of care discussed with Dr. Zurita. Problems: Exam/Review of Systems Vital Signs Vitals Vital Signs Date Time Temp Pulse Resp B/P Pulse Ox O2 Delivery O2 Flow Rate FiO2 11/20/16 16:37 82 11/20/16 16:15 98.1 20 138/64 96 11/20/16 08:30 Nasal Cannula 2.0 Intake and Output 11/19/16 11/19/16 11/20/16 15:00 23:00 07:00 Intake Total 850 ml 650 ml Balance 850 ml 650 ml Exam Constitutional: alert, oriented Head: normocephalic Neck: supple Respiratory: normal air movement Cardiovascular: nl pulses, regular rate and rhythm Gastrointestinal: non-tender, soft Musculoskeletal: nl extremities to inspection Extremities: normal pulses Neurological: nl mental status Results Result Diagram: 11/20/16 0630 11/20/16 0630 Results 24 hrs Laboratory Tests Test 11/19/16 20:16 11/20/16 06:30 11/20/16 08:40 11/20/16 12:27 Bedside Glucose 121 84 113 White Blood Count 8.0 Red Blood Count 3.83 L Hemoglobin 10.6 L Hematocrit 32.7 L Mean Corpuscular Volume 85.4 Mean Corpuscular Hemoglobin 27.7 L Mean Corpuscular Hemoglobin Concent 32.4 Red Cell Distribution Width 14.5 Platelet Count 110 L Mean Platelet Volume 13.6 H Neutrophils % 65.3 Lymphocytes % 21.6 Monocytes % 11.0 Eosinophils % 1.3 Basophils % 0.4 Nucleated Red Blood Cells % 0.0 Neutrophils # 5.2 Lymphocytes # 1.7 Monocytes # 0.9 Eosinophils # 0.1 Basophils # 0.0 Nucleated Red Blood Cells # 0.0 Sodium Level 139 Potassium Level 4.0 Chloride Level 99 Carbon Dioxide Level 32 H Anion Gap 12 Blood Urea Nitrogen 20 Creatinine 1.37 H Glucose Level 70 Calcium Level 9.2 Test 11/20/16 17:20 Bedside Glucose 106 Medications Medications Current Medications Diagnostic Test (Pha) (Accu-Chek) 1 ea 02 XX ; Start 11/17/16 at 02:00 Ondansetron HCl (Zofran Inj) 4 mg Q6H PRN IV NAUSEA AND/OR VOMITING; Start at 10:00 Albuterol (Ventolin Hfa) 2 puff Q6H PRN INH WHEEZING AND SOB; Start 11/16/16 at 12:00 Guaifenesin (Robitussin Liquid Cup) 100 mg Q6H PRN PO COUGH; Start 11/16/16 at 12:00 Insulin Glargine (Lantus) 10 unit QHS SC Last administered on 11/19/16 20:21; Admin Dose 10 UNIT; Start 11/16/16 at 21:00 Losartan Potassium (Cozaar) 25 mg DAILY PO Last administered on 11/20/16 09:12 ; Admin Dose 25 MG; Start 11/17/16 at 09:00 Al Hydrox/Mg Hydrox/Simethicone (Mag-Al Plus) 10 ml TID PO Last administered on 11/20/16 12:44; Admin Dose 10 ML; Start 11/16/16 at 13:00 Trazodone HCl (Desyrel) 100 mg QHS PO Last administered on 11/19/16 20:16; Admin Dose 100 MG; Start 11/16/16 at 21:00 Atorvastatin Calcium (Lipitor) 20 mg HS PO Last administered on 11/19/16 20:17 ; Admin Dose 20 MG; Start 11/16/16 at 21:00 Pantoprazole (Protonix Tab) 40 mg DAILY@06 PO Last administered on 11/20/16 05 :18; Admin Dose 40 MG; Start 11/17/16 at 06:00 Heparin Sodium (Porcine) (Heparin (5000 Units/0.5 ml)) 5,000 unit Q12 SC Last administered on 11/20/16 09:12; Admin Dose 5,000 UNIT; Start 11/16/16 at 21:00 Hydralazine HCl (Apresoline) 50 mg BID PO Last administered on 11/20/16 09:12 ; Admin Dose 50 MG; Start 11/16/16 at 21:00 Aspirin (Aspirin) 325 mg DAILY PO Last administered on 11/20/16 09:11; Admin Dose 325 MG; Start 11/18/16 at 09:00 Furosemide (Lasix) 40 mg DAILY@06 PO Last administered on 11/20/16 05:20; Admin Dose 40 MG; Start 11/19/16 at 13:30 Miscellaneous Information 1 ea NOTE XX ; Start 11/20/16 at 09:00 Glucose (Glutose) 15 gm Q15M PRN PO DECREASED GLUCOSE; Start 11/20/16 at 09:00 Glucose (Glutose) 22.5 gm Q15M PRN PO DECREASED GLUCOSE; Start 11/20/16 at 09: 00 Dextrose (D50w Syringe) 25 ml Q15M PRN IV DECREASED GLUCOSE; Start 11/20/16 at 09:00 Dextrose (D50w Syringe) 50 ml Q15M PRN IV DECREASED GLUCOSE; Start 11/20/16 at 09:00 Glucagon (Glucagen) 1 mg Q15M PRN IM DECREASED GLUCOSE; Start 11/20/16 at 09:00 Glucose (Glutose) 15 gm Q15M PRN BUCCAL DECREASED GLUCOSE; Start 11/20/16 at 09 :00 OMKAR WILLARD Nov 20, 2016 19:07
[2016-11-20] MEDS: ATORVASTATIN 20 MG TAB PO SCH (21:08)
[2016-11-20] MEDS: traZODone 100 MG TAB PO SCH (21:08)
[2016-11-20] MEDS: INSULIN GLARGINE [LANtus] 3 ML PEN SC SCH (21:11)
--- NOTE | 2016-11-20 21:47 | CONS ---
Date/Time of Note Date/Time of Note DATE: 11/20/16 TIME: 21:46 Assessment/Plan Assessment/Plan Chief Complaint/Hosp Course renal A/P CKD HTN DM ASHD ANEMIA DIAB NEPHROPATHY PALN renal stable Problems: Consultation Date/Type/Reason Admit Date/Time Nov 16, 2016 at 04:55 Type of Consultation: renal Referring Provider: NOAH DANIEL MD 24 HR Interval Summary Constitutional: no complaints Exam/Review of Systems Vital Signs Vitals Vital Signs Date Time Temp Pulse Resp B/P Pulse Ox O2 Delivery O2 Flow Rate FiO2 11/20/16 19:58 97.9 74 18 153/72 95 11/20/16 08:30 Nasal Cannula 2.0 Intake and Output 11/19/16 11/19/16 11/20/16 14:59 22:59 06:59 Intake Total 850 ml 650 ml Balance 850 ml 650 ml Exam Neck: supple Respiratory: clear to auscultation Cardiovascular: regular rate and rhythm Gastrointestinal: soft Musculoskeletal: nl extremities to inspection Results Result Diagram: 11/20/16 0630 11/20/16 0630 Results 24 hrs Laboratory Tests Test 11/20/16 06:30 11/20/16 08:40 11/20/16 12:27 11/20/16 17:20 White Blood Count 8.0 Red Blood Count 3.83 L Hemoglobin 10.6 L Hematocrit 32.7 L Mean Corpuscular Volume 85.4 Mean Corpuscular Hemoglobin 27.7 L Mean Corpuscular Hemoglobin Concent 32.4 Red Cell Distribution Width 14.5 Platelet Count 110 L Mean Platelet Volume 13.6 H Neutrophils % 65.3 Lymphocytes % 21.6 Monocytes % 11.0 Eosinophils % 1.3 Basophils % 0.4 Nucleated Red Blood Cells % 0.0 Neutrophils # 5.2 Lymphocytes # 1.7 Monocytes # 0.9 Eosinophils # 0.1 Basophils # 0.0 Nucleated Red Blood Cells # 0.0 Sodium Level 139 Potassium Level 4.0 Chloride Level 99 Carbon Dioxide Level 32 H Anion Gap 12 Blood Urea Nitrogen 20 Creatinine 1.37 H Glucose Level 70 Calcium Level 9.2 Bedside Glucose 84 113 106 Test 11/20/16 20:49 Bedside Glucose 114 Medications Medications Current Medications Diagnostic Test (Pha) (Accu-Chek) 1 ea 02 XX ; Start 11/17/16 at 02:00 Ondansetron HCl (Zofran Inj) 4 mg Q6H PRN IV NAUSEA AND/OR VOMITING; Start at 10:00 Albuterol (Ventolin Hfa) 2 puff Q6H PRN INH WHEEZING AND SOB; Start 11/16/16 at 12:00 Guaifenesin (Robitussin Liquid Cup) 100 mg Q6H PRN PO COUGH; Start 11/16/16 at 12:00 Insulin Glargine (Lantus) 10 unit QHS SC Last administered on 11/20/16 21:11; Admin Dose 10 UNIT; Start 11/16/16 at 21:00 Losartan Potassium (Cozaar) 25 mg DAILY PO Last administered on 11/20/16 09:12 ; Admin Dose 25 MG; Start 11/17/16 at 09:00 Al Hydrox/Mg Hydrox/Simethicone (Mag-Al Plus) 10 ml TID PO Last administered on 11/20/16 21:08; Admin Dose 10 ML; Start 11/16/16 at 13:00 Trazodone HCl (Desyrel) 100 mg QHS PO Last administered on 11/20/16 21:08; Admin Dose 100 MG; Start 11/16/16 at 21:00 Atorvastatin Calcium (Lipitor) 20 mg HS PO Last administered on 11/20/16 21:08 ; Admin Dose 20 MG; Start 11/16/16 at 21:00 Pantoprazole (Protonix Tab) 40 mg DAILY@06 PO Last administered on 11/20/16 05 :18; Admin Dose 40 MG; Start 11/17/16 at 06:00 Heparin Sodium (Porcine) (Heparin (5000 Units/0.5 ml)) 5,000 unit Q12 SC Last administered on 11/20/16 21:10; Admin Dose 5,000 UNIT; Start 11/16/16 at 21:00 Hydralazine HCl (Apresoline) 50 mg BID PO Last administered on 11/20/16 21:08 ; Admin Dose 50 MG; Start 11/16/16 at 21:00 Aspirin (Aspirin) 325 mg DAILY PO Last administered on 11/20/16 09:11; Admin Dose 325 MG; Start 11/18/16 at 09:00 Furosemide (Lasix) 40 mg DAILY@06 PO Last administered on 11/20/16 05:20; Admin Dose 40 MG; Start 11/19/16 at 13:30 Miscellaneous Information 1 ea NOTE XX ; Start 11/20/16 at 09:00 Glucose (Glutose) 15 gm Q15M PRN PO DECREASED GLUCOSE; Start 11/20/16 at 09:00 Glucose (Glutose) 22.5 gm Q15M PRN PO DECREASED GLUCOSE; Start 11/20/16 at 09: 00 Dextrose (D50w Syringe) 25 ml Q15M PRN IV DECREASED GLUCOSE; Start 11/20/16 at 09:00 Dextrose (D50w Syringe) 50 ml Q15M PRN IV DECREASED GLUCOSE; Start 11/20/16 at 09:00 Glucagon (Glucagen) 1 mg Q15M PRN IM DECREASED GLUCOSE; Start 11/20/16 at 09:00 Glucose (Glutose) 15 gm Q15M PRN BUCCAL DECREASED GLUCOSE; Start 11/20/16 at 09 :00 ALBERTA CORRAL MD Nov 20, 2016 21:46
[2016-11-21] VITALS (11 sets, daily range): BP systolic 123–150; BP diastolic 62–94; PULSE 83–114; RESP 18–20
[2016-11-21] MEDS: ACCU-CHEK XX SCH (02:00)
[2016-11-21] MEDS: PANTOPRAZOLE (EC) 40 MG TAB PO SCH (06:28)
[2016-11-21] MEDS: FUROSEMIDE 40 MG TAB PO SCH (06:28)
[2016-11-21] MEDS: INSULIN ASPART [NOVOLOG] 3 ML PEN SC SCH ×4 (08:00→21:00)
[2016-11-21 08:05] LABS: ADD SCAN DIFF NO
--- NOTE | 2016-11-21 08:07 | CONS ---
Date/Time of Note Date/Time of Note DATE: 11/21/16 TIME: 08:05 Assessment/Plan Assessment/Plan Additional Assessment/Plan 1. Congestive heart failure exacerbation, diastolic acute on chronic-EF 50 by echo - better fluid satus now. 2. Bradycardia both sinus lynnette and junctional bradycardia. Stable blood pressure at this time.-NL TSH. Improved currently HR 50-70's - no class I indication for pacer 3. Abnormal electrocardiogram, with intraventricular conduction delay. Assess for acute coronary syndrome.-negative trop x 3 - no CP now 4. Hypertension. Under reasonable control. - better now, will adjust Rx as needed 5. Lower extremity edema.-venous ORIANA negative for DVT 6. Renal failure- stable, avoid nephrotoxic meds 7. Anemia- H/H stable Consultation Date/Type/Reason Admit Date/Time Nov 16, 2016 at 04:55 Initial Consult Date Type of Consultation: renal Referring Provider: NOAH DANIEL MD 24 HR Interval Summary Free Text/Dictation NO new episodes ob lynnette now, no Class I indication for pacer ROS: No fever, no chills, no nausea, no vomiting, no diarrhea/constipation No recent weight changes No chest pain, no PND, no orthopnea No dizziness, blurred vision No thirst, no heat or cold intolerance Exam/Review of Systems Vital Signs Vitals Vital Signs Date Time Temp Pulse Resp B/P Pulse Ox O2 Delivery O2 Flow Rate FiO2 11/21/16 04:00 83 11/21/16 03:59 98.0 18 144/62 93 11/20/16 08:30 Nasal Cannula 2.0 Intake and Output 11/20/16 11/20/16 11/21/16 15:00 23:00 07:00 Intake Total 1200 ml 400 ml Balance 1200 ml 400 ml Exam General: WN/WD/NAD, AOx 3 HEENT: Unicetric/atraumatic/EOMI (follow commands) NECK: JVD elevated, no thyromegaly Lymph: no lymphadenopathy HEART: regular with no S3, II/ systolic murmur at apex LUNGS: Coarse sounds ABD: soft, NT, ND, +BS : Intact Neuro: non focal SKIN: chronic changes EXT: trace edema Results Result Diagram: 11/20/16 0630 11/20/16 0630 Results 24 hrs Laboratory Tests Test 11/20/16 08:40 11/20/16 12:27 11/20/16 17:20 11/20/16 20:49 Bedside Glucose 84 113 106 114 Medications Medications Current Medications Diagnostic Test (Pha) (Accu-Chek) 1 XX ; Start 11/17/16 at 02:00 Ondansetron HCl (Zofran Inj) 4 mg Q6H PRN IV NAUSEA AND/OR VOMITING; Start at 10:00 Albuterol (Ventolin Hfa) 2 puff Q6H PRN INH WHEEZING AND SOB; Start 11/16/16 at 12:00 Guaifenesin (Robitussin Liquid Cup) 100 mg Q6H PRN PO COUGH; Start 11/16/16 at 12:00 Insulin Glargine (Lantus) 10 unit QHS SC Last administered on 11/20/16 21:11; Admin Dose 10 UNIT; Start 11/16/16 at 21:00 Losartan Potassium (Cozaar) 25 mg DAILY PO Last administered on 11/20/16 09:12 ; Admin Dose 25 MG; Start 11/17/16 at 09:00 Al Hydrox/Mg Hydrox/Simethicone (Mag-Al Plus) 10 ml TID PO Last administered on 11/20/16 21:08; Admin Dose 10 ML; Start 11/16/16 at 13:00 Trazodone HCl (Desyrel) 100 mg QHS PO Last administered on 11/20/16 21:08; Admin Dose 100 MG; Start 11/16/16 at 21:00 Atorvastatin Calcium (Lipitor) 20 mg HS PO Last administered on 11/20/16 21:08 ; Admin Dose 20 MG; Start 11/16/16 at 21:00 Pantoprazole (Protonix Tab) 40 mg DAILY@06 PO Last administered on 11/21/16 06 :28; Admin Dose 40 MG; Start 11/17/16 at 06:00 Heparin Sodium (Porcine) (Heparin (5000 Units/0.5 ml)) 5,000 unit Q12 SC Last administered on 11/20/16 21:10; Admin Dose 5,000 UNIT; Start 11/16/16 at 21:00 Hydralazine HCl (Apresoline) 50 mg BID PO Last administered on 11/20/16 21:08 ; Admin Dose 50 MG; Start 11/16/16 at 21:00 Aspirin (Aspirin) 325 mg DAILY PO Last administered on 11/20/16 09:11; Admin Dose 325 MG; Start 11/18/16 at 09:00 Furosemide (Lasix) 40 mg DAILY@06 PO Last administered on 11/21/16 06:28; Admin Dose 40 MG; Start 11/19/16 at 13:30 Miscellaneous Information 1 ea NOTE XX ; Start 11/20/16 at 09:00 Glucose (Glutose) 15 gm Q15M PRN PO DECREASED GLUCOSE; Start 11/20/16 at 09:00 Glucose (Glutose) 22.5 gm Q15M PRN PO DECREASED GLUCOSE; Start 11/20/16 at 09: 00 Dextrose (D50w Syringe) 25 ml Q15M PRN IV DECREASED GLUCOSE; Start 11/20/16 at 09:00 Dextrose (D50w Syringe) 50 ml Q15M PRN IV DECREASED GLUCOSE; Start 11/20/16 at 09:00 Glucagon (Glucagen) 1 mg Q15M PRN IM DECREASED GLUCOSE; Start 11/20/16 at 09:00 Glucose (Glutose) 15 gm Q15M PRN BUCCAL DECREASED GLUCOSE; Start 11/20/16 at 09 :00 BRAYDON EL MD Nov 21, 2016 08:07
[2016-11-21 08:11] LABS: ABNORMAL IP MESSAGE 1; BASOPHILS % 0.7 % (0.0-2.0); EOSINOPHILS # 0.1 10^3/ul (0.0-0.5); EOSINOPHILS % 2.2 % (0.0-7.0); HEMATOCRIT 35.6 % (37.0-47.0); HEMOGLOBIN 11.5 g/dl (12.0-16.0); LYMPHOCYTES # 1.9 10^3/ul (0.8-2.9); LYMPHOCYTES % 31.5 % (15.0-51.0); MEAN CORPUSCULAR HEMOGLOBIN 27.3 pg (29.0-33.0); MEAN CORPUSCULAR HGB CONC 32.3 g/dl (32.0-37.0); MEAN CORPUSCULAR VOLUME 84.6 fl (82.0-101.0); MEAN PLATELET VOLUME 13.1 fl (7.4-10.4); MONOCYTE # 0.7 10^3/ul (0.3-0.9); MONOCYTES % 11.3 % (0.0-11.0); NEUTROPHIL # 3.3 10^3/ul (1.6-7.5); PLATELET COUNT 89 10^3/UL (140-415); RED BLOOD COUNT 4.21 10^6/ul (4.20-5.40); RED CELL DISTRIBUTION WIDTH 14.5 % (11.5-14.5)
[2016-11-21 08:32] LABS: CALCIUM 9.6 mg/dl (8.4-10.2); CREATININE 1.27 mg/dl (0.44-1.00); POTASSIUM 3.8 mmol/L (3.5-5.1)
[2016-11-21] MEDS: LOSARTAN 25 MG TAB PO SCH (08:49)
[2016-11-21] MEDS: ASPIRIN 325 MG TAB PO SCH (08:49)
[2016-11-21] MEDS: AL HYDROX/MG HYDROX/SIMETH 30 ML CUP PO SCH ×3 (08:50→21:38)
[2016-11-21] MEDS: HEPARIN 5,000 UNIT/0.5 ML VIAL SC SCH ×2 (08:50→21:41)
[2016-11-21] MEDS ORDERED: LOSA25TA5 PO (11:58)
[2016-11-21] MEDS ORDERED: HYDR-3672 PO (11:58)
[2016-11-21] MEDS ORDERED: ASPI-664 PO (11:58)
[2016-11-21] MEDS ORDERED: FURO40TA4 PO (11:58)
--- NOTE | 2016-11-21 13:57 | PN ---
Date/Time of Note Date/Time of Note DATE: 11/21/16 TIME: 13:52 Assessment/Plan VTE Prophylaxis VTE Prophylaxis Intervention: SCD's Lines/Catheters IV C[facility]ter Type (from [facility] Urinary Cath still in place: No Assessment/Plan Chief Complaint/Hosp Course Patient denies chest pain denies shortness of breath, decreased bilateral lower extremities edema. Assessment/Plan - Atrial fibrillation, started on amiodarone. - Congestive heart failure exacerbation. Dr. Bloom is following and cardiology consultation. On Lasix, continue to monitor electrolytes. - Acute renal failure, Dr. Pineda is following a nephrology consultation. - Hypertension. Continue Cozaar and hydralazine. - Diabetes mellitus type 2 with hemoglobin A1c 7.1, continue Lantus and NovoLog. - Anemia. Start iron supplements. Further recommendations based on clinical course. Plan of care discussed with Dr. Zurita. Problems: Exam/Review of Systems Vital Signs Vitals Vital Signs Date Time Temp Pulse Resp B/P Pulse Ox O2 Delivery O2 Flow Rate FiO2 11/21/16 12:36 114 11/21/16 11:40 98.6 18 123/94 97 11/20/16 08:30 Nasal Cannula 2.0 Intake and Output 11/20/16 11/20/16 11/21/16 15:00 23:00 07:00 Intake Total 1200 ml 400 ml Balance 1200 ml 400 ml Exam Constitutional: alert, oriented Head: normocephalic Neck: supple Respiratory: normal air movement Cardiovascular: nl pulses, regular rate and rhythm Gastrointestinal: non-tender, soft Musculoskeletal: nl extremities to inspection Extremities: normal pulses Neurological: nl mental status Constitutional: alert, oriented Head: normocephalic Neck: supple Respiratory: normal air movement Cardiovascular: irregular rhythm Gastrointestinal: non-tender, soft Extremities: normal pulses Neurological: nl mental status Results Result Diagram: 11/21/16 0751 11/21/16 0751 Results 24 hrs Laboratory Tests Test 11/20/16 17:20 11/20/16 20:49 11/21/16 07:51 11/21/16 08:30 Bedside Glucose 106 114 84 White Blood Count 6.0 # Red Blood Count 4.21 Hemoglobin 11.5 L Hematocrit 35.6 L Mean Corpuscular Volume 84.6 Mean Corpuscular Hemoglobin 27.3 L Mean Corpuscular Hemoglobin Concent 32.3 Red Cell Distribution Width 14.5 Platelet Count 89 L Mean Platelet Volume 13.1 H Neutrophils % 54.0 Lymphocytes % 31.5 Monocytes % 11.3 H Eosinophils % 2.2 Basophils % 0.7 Nucleated Red Blood Cells % 0.0 Neutrophils # 3.3 Lymphocytes # 1.9 Monocytes # 0.7 Eosinophils # 0.1 Basophils # 0.0 Nucleated Red Blood Cells # 0.0 Sodium Level 141 Potassium Level 3.8 Chloride Level 101 Carbon Dioxide Level 29 Anion Gap 15 Blood Urea Nitrogen 16 Creatinine 1.27 H Glucose Level 95 Calcium Level 9.6 Ferritin 47.0 Test 11/21/16 12:05 Bedside Glucose 119 Medications Medications Current Medications Diagnostic Test (Pha) (Accu-Chek) 1 ea 02 XX ; Start 11/17/16 at 02:00 Ondansetron HCl (Zofran Inj) 4 mg Q6H PRN IV NAUSEA AND/OR VOMITING; Start at 10:00 Albuterol (Ventolin Hfa) 2 puff Q6H PRN INH WHEEZING AND SOB; Start 11/16/16 at 12:00 Guaifenesin (Robitussin Liquid Cup) 100 mg Q6H PRN PO COUGH; Start 11/16/16 at 12:00 Insulin Glargine (Lantus) 10 unit QHS SC Last administered on 11/20/16 21:11; Admin Dose 10 UNIT; Start 11/16/16 at 21:00 Losartan Potassium (Cozaar) 25 mg DAILY PO Last administered on 11/21/16 08:49 ; Admin Dose 25 MG; Start 11/17/16 at 09:00 Al Hydrox/Mg Hydrox/Simethicone (Mag-Al Plus) 10 ml TID PO Last administered on 11/21/16 12:08; Admin Dose 10 ML; Start 11/16/16 at 13:00 Trazodone HCl (Desyrel) 100 mg QHS PO Last administered on 11/20/16 21:08; Admin Dose 100 MG; Start 11/16/16 at 21:00 Atorvastatin Calcium (Lipitor) 20 mg HS PO Last administered on 11/20/16 21:08 ; Admin Dose 20 MG; Start 11/16/16 at 21:00 Pantoprazole (Protonix Tab) 40 mg DAILY@06 PO Last administered on 11/21/16 06 :28; Admin Dose 40 MG; Start 11/17/16 at 06:00 Heparin Sodium (Porcine) (Heparin (5000 Units/0.5 ml)) 5,000 unit Q12 SC Last administered on 11/21/16 08:50; Admin Dose 5,000 UNIT; Start 11/16/16 at 21:00 Hydralazine HCl (Apresoline) 50 mg BID PO Last administered on 11/21/16 08:49 ; Admin Dose 50 MG; Start 11/16/16 at 21:00 Aspirin (Aspirin) 325 mg DAILY PO Last administered on 11/21/16 08:49; Admin Dose 325 MG; Start 11/18/16 at 09:00 Furosemide (Lasix) 40 mg DAILY@06 PO Last administered on 11/21/16 06:28; Admin Dose 40 MG; Start 11/19/16 at 13:30 Miscellaneous Information 1 ea NOTE XX ; Start 11/20/16 at 09:00 Glucose (Glutose) 15 gm Q15M PRN PO DECREASED GLUCOSE; Start 11/20/16 at 09:00 Glucose (Glutose) 22.5 gm Q15M PRN PO DECREASED GLUCOSE; Start 11/20/16 at 09: 00 Dextrose (D50w Syringe) 25 ml Q15M PRN IV DECREASED GLUCOSE; Start 11/20/16 at 09:00 Dextrose (D50w Syringe) 50 ml Q15M PRN IV DECREASED GLUCOSE; Start 11/20/16 at 09:00 Glucagon (Glucagen) 1 mg Q15M PRN IM DECREASED GLUCOSE; Start 11/20/16 at 09:00 Glucose (Glutose) 15 gm Q15M PRN BUCCAL DECREASED GLUCOSE; Start 11/20/16 at 09 :00 OMKAR WILLARD Nov 21, 2016 13:56
[2016-11-21] MEDS ORDERED: AMIODARONE 900 MG in DEXTROSE 5% 482 ML IV SCH (15:30)
[2016-11-21] MEDS: FERROUS SULFATE (EC) 325 MG TAB PO SCH (21:38)
[2016-11-21] MEDS: ATORVASTATIN 20 MG TAB PO SCH (21:38)
[2016-11-21] MEDS: traZODone 100 MG TAB PO SCH (21:38)
[2016-11-21] MEDS: INSULIN GLARGINE [LANtus] 3 ML PEN SC SCH (21:43)
--- NOTE | 2016-11-21 23:49 | CONS ---
Date/Time of Note Date/Time of Note DATE: 11/21/16 TIME: 23:49 Assessment/Plan Assessment/Plan Chief Complaint/Hosp Course renal A/P CKD HTN DM ASHD ANEMIA DIAB NEPHROPATHY afib PALN renal stable per cardio Problems: Consultation Date/Type/Reason Admit Date/Time Nov 16, 2016 at 04:55 Type of Consultation: renal Referring Provider: NOAH DANIEL MD 24 HR Interval Summary Constitutional: no complaints Exam/Review of Systems Vital Signs Vitals Vital Signs Date Time Temp Pulse Resp B/P Pulse Ox O2 Delivery O2 Flow Rate FiO2 11/21/16 20:29 83 11/21/16 19:54 98.0 18 149/68 94 11/20/16 08:30 Nasal Cannula 2.0 Intake and Output 11/20/16 11/20/16 11/21/16 15:00 23:00 07:00 Intake Total 1200 ml 400 ml Balance 1200 ml 400 ml Exam Neck: supple Respiratory: clear to auscultation Cardiovascular: irregular rhythm Gastrointestinal: bowel sounds, soft Musculoskeletal: nl extremities to inspection Extremities: normal pulses Results Result Diagram: 11/21/16 0751 11/21/16 0751 Results 24 hrs Laboratory Tests Test 11/21/16 07:51 11/21/16 08:30 11/21/16 12:05 11/21/16 17:15 White Blood Count 6.0 # Red Blood Count 4.21 Hemoglobin 11.5 L Hematocrit 35.6 L Mean Corpuscular Volume 84.6 Mean Corpuscular Hemoglobin 27.3 L Mean Corpuscular Hemoglobin Concent 32.3 Red Cell Distribution Width 14.5 Platelet Count 89 L Mean Platelet Volume 13.1 H Neutrophils % 54.0 Lymphocytes % 31.5 Monocytes % 11.3 H Eosinophils % 2.2 Basophils % 0.7 Nucleated Red Blood Cells % 0.0 Neutrophils # 3.3 Lymphocytes # 1.9 Monocytes # 0.7 Eosinophils # 0.1 Basophils # 0.0 Nucleated Red Blood Cells # 0.0 Sodium Level 141 Potassium Level 3.8 Chloride Level 101 Carbon Dioxide Level 29 Anion Gap 15 Blood Urea Nitrogen 16 Creatinine 1.27 H Glucose Level 95 Calcium Level 9.6 Ferritin 47.0 Bedside Glucose 84 119 106 Test 11/21/16 21:39 Bedside Glucose 102 Medications Medications Current Medications Diagnostic Test (Pha) (Accu-Chek) 1 ea 02 XX ; Start 11/17/16 at 02:00 Ondansetron HCl (Zofran Inj) 4 mg Q6H PRN IV NAUSEA AND/OR VOMITING; Start at 10:00 Albuterol (Ventolin Hfa) 2 puff Q6H PRN INH WHEEZING AND SOB; Start 11/16/16 at 12:00 Guaifenesin (Robitussin Liquid Cup) 100 mg Q6H PRN PO COUGH; Start 11/16/16 at 12:00 Insulin Glargine (Lantus) 10 unit QHS SC Last administered on 11/21/16 21:43; Admin Dose 10 UNIT; Start 11/16/16 at 21:00 Losartan Potassium (Cozaar) 25 mg DAILY PO Last administered on 11/21/16 08:49 ; Admin Dose 25 MG; Start 11/17/16 at 09:00 Al Hydrox/Mg Hydrox/Simethicone (Mag-Al Plus) 10 ml TID PO Last administered on 11/21/16 21:38; Admin Dose 10 ML; Start 11/16/16 at 13:00 Trazodone HCl (Desyrel) 100 mg QHS PO Last administered on 11/21/16 21:38; Admin Dose 100 MG; Start 11/16/16 at 21:00 Atorvastatin Calcium (Lipitor) 20 mg HS PO Last administered on 11/21/16 21:38 ; Admin Dose 20 MG; Start 11/16/16 at 21:00 Pantoprazole (Protonix Tab) 40 mg DAILY@06 PO Last administered on 11/21/16 06 :28; Admin Dose 40 MG; Start 11/17/16 at 06:00 Heparin Sodium (Porcine) (Heparin (5000 Units/0.5 ml)) 5,000 unit Q12 SC Last administered on 11/21/16 21:41; Admin Dose 5,000 UNIT; Start 11/16/16 at 21:00 Hydralazine HCl (Apresoline) 50 mg BID PO Last administered on 11/21/16 21:38 ; Admin Dose 50 MG; Start 11/16/16 at 21:00 Aspirin (Aspirin) 325 mg DAILY PO Last administered on 11/21/16 08:49; Admin Dose 325 MG; Start 11/18/16 at 09:00 Furosemide (Lasix) 40 mg DAILY@06 PO Last administered on 11/21/16 06:28; Admin Dose 40 MG; Start 11/19/16 at 13:30 Miscellaneous Information 1 ea NOTE XX ; Start 11/20/16 at 09:00 Glucose (Glutose) 15 gm Q15M PRN PO DECREASED GLUCOSE; Start 11/20/16 at 09:00 Glucose (Glutose) 22.5 gm Q15M PRN PO DECREASED GLUCOSE; Start 11/20/16 at 09: 00 Dextrose (D50w Syringe) 25 ml Q15M PRN IV DECREASED GLUCOSE; Start 11/20/16 at 09:00 Dextrose (D50w Syringe) 50 ml Q15M PRN IV DECREASED GLUCOSE; Start 11/20/16 at 09:00 Glucagon (Glucagen) 1 mg Q15M PRN IM DECREASED GLUCOSE; Start 11/20/16 at 09:00 Glucose (Glutose) 15 gm Q15M PRN BUCCAL DECREASED GLUCOSE; Start 11/20/16 at 09 :00 Ferrous Sulfate 325 mg 325 mg BID PO Last administered on 11/21/16 21:38; Admin Dose 325 MG; Start 11/21/16 at 21:00 Amiodarone HCl/ Dextrose (Cordarone Iv/ D5W) 500 ml @ 0 mls/hr Q0M IV Last administered on 11/21/16 15:15; Admin Dose 33.4 MLS/HR; Start 11/21/16 at 15:30 ; Stop 11/22/16 at 15:29 ALBERTA CORRAL MD Nov 21, 2016 23:49
[2016-11-22] VITALS (12 sets, daily range): BP systolic 141–154; BP diastolic 61–69; PULSE 64–79; RESP 18–20
[2016-11-22] MEDS: ACCU-CHEK XX SCH (02:00)
[2016-11-22] MEDS: PANTOPRAZOLE (EC) 40 MG TAB PO SCH (06:06)
[2016-11-22] MEDS: FUROSEMIDE 40 MG TAB PO SCH (06:07)
[2016-11-22 07:40] LABS: BASOPHILS % 0.6 % (0.0-2.0); EOSINOPHILS # 0.2 10^3/ul (0.0-0.5); EOSINOPHILS % 3.2 % (0.0-7.0); HEMATOCRIT 34.7 % (37.0-47.0); HEMOGLOBIN 11.2 g/dl (12.0-16.0); LYMPHOCYTES # 2.1 10^3/ul (0.8-2.9); LYMPHOCYTES % 29.3 % (15.0-51.0); MEAN CORPUSCULAR HEMOGLOBIN 27.3 pg (29.0-33.0); MEAN CORPUSCULAR HGB CONC 32.3 g/dl (32.0-37.0); MEAN CORPUSCULAR VOLUME 84.4 fl (82.0-101.0); MEAN PLATELET VOLUME 12.8 fl (7.4-10.4); MONOCYTES % 14.1 % (0.0-11.0); NEUTROPHIL # 3.8 10^3/ul (1.6-7.5); NEUTROPHILS % 52.7 % (39.0-77.0); PLATELET COUNT 114 10^3/UL (140-415); RED BLOOD COUNT 4.11 10^6/ul (4.20-5.40); RED CELL DISTRIBUTION WIDTH 14.4 % (11.5-14.5); WHITE BLOOD COUNT 7.1 10^3/ul (4.8-10.8)
[2016-11-22 07:41] LABS: ADD SCAN DIFF NO
[2016-11-22] MEDS: INSULIN ASPART [NOVOLOG] 3 ML PEN SC SCH ×4 (08:00→21:00)
[2016-11-22 08:10] LABS: CALCIUM 9.1 mg/dl (8.4-10.2); CREATININE 1.43 mg/dl (0.44-1.00); MAGNESIUM 2.5 mg/dl (1.7-2.5)
[2016-11-22] MEDS: AL HYDROX/MG HYDROX/SIMETH 30 ML CUP PO SCH ×3 (08:33→21:07)
[2016-11-22] MEDS: LOSARTAN 25 MG TAB PO SCH (08:33)
[2016-11-22] MEDS: ASPIRIN 325 MG TAB PO SCH (08:33)
[2016-11-22] MEDS: FERROUS SULFATE (EC) 325 MG TAB PO SCH (08:33)
[2016-11-22] MEDS: HEPARIN 5,000 UNIT/0.5 ML VIAL SC SCH (08:36)
--- NOTE | 2016-11-22 15:09 | CONS ---
Date/Time of Note Date/Time of Note DATE: 11/22/16 TIME: 15:03 Assessment/Plan Assessment/Plan Chief Complaint/Hosp Course IMPRESSION: 1. Congestive heart failure exacerbation, diastolic acute on chronic-EF 50 by echo. Improved volume status by exam 2. Bradycardia both sinus lynnette and junctional bradycardia. Stable blood pressure at this time.-NL TSH. Improved currently HR 50-70's 3. Abnormal electrocardiogram, with intraventricular conduction delay. Assess for acute coronary syndrome.-negative trop x 3 4. Hypertension. Under reasonable control. 5. Lower extremity edema.-venous ORIANA negative for DVT 6. Renal failure. 7. Anemia. 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 No indication for PPM at this time Problems: Consultation Date/Type/Reason Admit Date/Time Nov 16, 2016 at 04:55 Initial Consult Date 11/16/16 Type of Consultation: cardiology Reason for Consultation CHF Referring Provider: NOAH DANIEL MD Exam/Review of Systems Vital Signs Vitals Vital Signs Date Time Temp Pulse Resp B/P Pulse Ox O2 Delivery O2 Flow Rate FiO2 11/22/16 12:26 76 11/22/16 12:02 98.8 18 144/65 96 11/20/16 08:30 Nasal Cannula 2.0 Intake and Output 11/21/16 11/21/16 11/22/16 15:00 23:00 07:00 Intake Total 500 ml 400 ml Balance 500 ml 400 ml Exam Review of Systems: CONSTITUTIONAL: No fevers, chills. PULMONARY: No sob CARDIOVASCULAR: No chest pain/palpitations GASTROINTESTINAL: No nausea/vomiting. GENITOURINARY: No hematuria/dysuria. MUSCULOSKELETAL: No myagias/arthalgias. PSYCHIATRIC: The patient denies depression. NEUROLOGIC: No weakness Constitutional: alert, oriented Psych: no complaints Head: normocephalic ENMT: mucosa pink and moist Neck: jvd (8-9 cm water), supple Respiratory: clear to auscultation (Bilateral) Cardiovascular: regular rate and rhythm Gastrointestinal: non-tender, soft Musculoskeletal: muscle tone (normal) Extremities: edema (none) Neurological: other (No focal deficits) Results Result Diagram: 11/22/16 0706 11/22/16 0700 Results 24 hrs Laboratory Tests Test 11/21/16 17:15 11/21/16 21:39 11/22/16 07:00 11/22/16 07:06 Bedside Glucose 106 102 Sodium Level 141 Potassium Level 4.0 Chloride Level 101 Carbon Dioxide Level 28 Anion Gap 16 Blood Urea Nitrogen 18 Creatinine 1.43 H Glucose Level 79 Calcium Level 9.1 Magnesium Level 2.5 White Blood Count 7.1 Red Blood Count 4.11 L Hemoglobin 11.2 L Hematocrit 34.7 L Mean Corpuscular Volume 84.4 Mean Corpuscular Hemoglobin 27.3 L Mean Corpuscular Hemoglobin Concent 32.3 Red Cell Distribution Width 14.4 Platelet Count 114 #L Mean Platelet Volume 12.8 H Neutrophils % 52.7 Lymphocytes % 29.3 Monocytes % 14.1 H Eosinophils % 3.2 Basophils % 0.6 Nucleated Red Blood Cells % 0.0 Neutrophils # 3.8 Lymphocytes # 2.1 Monocytes # 1.0 H Eosinophils # 0.2 Basophils # 0.0 Nucleated Red Blood Cells # 0.0 Test 11/22/16 08:28 11/22/16 08:44 11/22/16 09:15 11/22/16 12:11 Bedside Glucose 78 82 150 134 Medications Medications Current Medications Diagnostic Test (Pha) (Accu-Chek) 1 ea 02 XX ; Start 11/17/16 at 02:00 Ondansetron HCl (Zofran Inj) 4 mg Q6H PRN IV NAUSEA AND/OR VOMITING; Start at 10:00 Albuterol (Ventolin Hfa) 2 puff Q6H PRN INH WHEEZING AND SOB; Start 11/16/16 at 12:00 Guaifenesin (Robitussin Liquid Cup) 100 mg Q6H PRN PO COUGH; Start 11/16/16 at 12:00 Losartan Potassium (Cozaar) 25 mg DAILY PO Last administered on 11/22/16 08:33 ; Admin Dose 25 MG; Start 11/17/16 at 09:00 Al Hydrox/Mg Hydrox/Simethicone (Mag-Al Plus) 10 ml TID PO Last administered on 11/22/16 12:12; Admin Dose 10 ML; Start 11/16/16 at 13:00 Trazodone HCl (Desyrel) 100 mg QHS PO Last administered on 11/21/16 21:38; Admin Dose 100 MG; Start 11/16/16 at 21:00 Atorvastatin Calcium (Lipitor) 20 mg HS PO Last administered on 11/21/16 21:38 ; Admin Dose 20 MG; Start 11/16/16 at 21:00 Pantoprazole (Protonix Tab) 40 mg DAILY@06 PO Last administered on 11/22/16 06 :06; Admin Dose 40 MG; Start 11/17/16 at 06:00 Heparin Sodium (Porcine) (Heparin (5000 Units/0.5 ml)) 5,000 unit Q12 SC Last administered on 11/22/16 08:36; Admin Dose 5,000 UNIT; Start 11/16/16 at 21:00 Hydralazine HCl (Apresoline) 50 mg BID PO Last administered on 11/22/16 08:33 ; Admin Dose 50 MG; Start 11/16/16 at 21:00 Aspirin (Aspirin) 325 mg DAILY PO Last administered on 11/22/16 08:33; Admin Dose 325 MG; Start 11/18/16 at 09:00 Furosemide (Lasix) 40 mg DAILY@06 PO Last administered on 11/22/16 06:07; Admin Dose 40 MG; Start 11/19/16 at 13:30 Miscellaneous Information 1 ea NOTE XX ; Start 11/20/16 at 09:00 Glucose (Glutose) 15 gm Q15M PRN PO DECREASED GLUCOSE; Start 11/20/16 at 09:00 Glucose (Glutose) 22.5 gm Q15M PRN PO DECREASED GLUCOSE; Start 11/20/16 at 09: 00 Dextrose (D50w Syringe) 25 ml Q15M PRN IV DECREASED GLUCOSE; Start 11/20/16 at 09:00 Dextrose (D50w Syringe) 50 ml Q15M PRN IV DECREASED GLUCOSE; Start 11/20/16 at 09:00 Glucagon (Glucagen) 1 mg Q15M PRN IM DECREASED GLUCOSE; Start 11/20/16 at 09:00 Glucose (Glutose) 15 gm Q15M PRN BUCCAL DECREASED GLUCOSE; Start 11/20/16 at 09 :00 Ferrous Sulfate 325 mg 325 mg BID PO Last administered on 11/22/16 08:33; Admin Dose 325 MG; Start 11/21/16 at 21:00 Amiodarone HCl/ Dextrose (Cordarone Iv/ D5W) 500 ml @ 0 mls/hr Q0M IV Last administered on 11/21/16t 15:15; Admin Dose 33.4 MLS/HR; Start 11/21/16 at 15:30 ; Stop 11/22/16 at 15:29 Insulin Glargine (Lantus) 7 unit QHS SC ; Start 11/22/16 at 21:00 KEVON TIWARI Nov 22, 2016 15:08
[2016-11-22] MEDS: ENOXAPARIN 80 MG/0.8 ML SYG SC SCH (17:42)
--- NOTE | 2016-11-22 18:13 | PN ---
Date/Time of Note Date/Time of Note DATE: 11/22/16 TIME: 18:08 Assessment/Plan VTE Prophylaxis VTE Prophylaxis Intervention: SCD's Lines/Catheters IV Catheter Type (from [email or web address] Saline Lock Urinary Cath still in place: No Assessment/Plan Chief Complaint/Hosp Course Patient remains hemodynamically stable denies any chest pain, atrial fibrillation at controlled rate, discussed with Dr. Bloom continue to monitor on telemetry floor. Assessment/Plan - New onset of atrial fibrillation, continue amiodarone and Lovenox. Merle is following and cardiology consultation. - Congestive heart failure exacerbation. Dr. Bloom is following and cardiology consultation. On Lasix, continue to monitor electrolytes. - Acute renal failure, Dr. Pineda is following a nephrology consultation. - Hypertension. Continue Cozaar and hydralazine. - Diabetes mellitus type 2 with hemoglobin A1c 7.1, continue Lantus and NovoLog. - Iron deficiency anemia, started on Ferrlecit. Further recommendations based on clinical course. Plan of care discussed with Dr. Zurita. Problems: Subjective 24 Hr Interval Summary Free Text/Dictation Constitutional: alert, oriented Head: normocephalic Neck: supple Respiratory: normal air movement Cardiovascular: nl pulses, regular rate and rhythm Gastrointestinal: non-tender, soft Musculoskeletal: nl extremities to inspection Extremities: normal pulses Neurological: nl mental status Exam/Review of Systems Vital Signs Vitals Vital Signs Date Time Temp Pulse Resp B/P Pulse Ox O2 Delivery O2 Flow Rate FiO2 11/22/16 16:18 79 11/22/16 15:50 98.5 20 145/67 94 11/20/16 08:30 Nasal Cannula 2.0 Intake and Output 11/21/16 11/21/16 11/22/16 15:00 23:00 07:00 Intake Total 500 ml 400 ml Balance 500 ml 400 ml Results Result Diagram: 11/22/16 0706 11/22/16 0700 Results 24 hrs Laboratory Tests Test 11/21/16 21:39 11/22/16 07:00 11/22/16 07:06 11/22/16 08:28 Bedside Glucose 102 78 Sodium Level 141 Potassium Level 4.0 Chloride Level 101 Carbon Dioxide Level 28 Anion Gap 16 Blood Urea Nitrogen 18 Creatinine 1.43 H Glucose Level 79 Calcium Level 9.1 Magnesium Level 2.5 White Blood Count 7.1 Red Blood Count 4.11 L Hemoglobin 11.2 L Hematocrit 34.7 L Mean Corpuscular Volume 84.4 Mean Corpuscular Hemoglobin 27.3 L Mean Corpuscular Hemoglobin Concent 32.3 Red Cell Distribution Width 14.4 Platelet Count 114 #L Mean Platelet Volume 12.8 H Neutrophils % 52.7 Lymphocytes % 29.3 Monocytes % 14.1 H Eosinophils % 3.2 Basophils % 0.6 Nucleated Red Blood Cells % 0.0 Neutrophils # 3.8 Lymphocytes # 2.1 Monocytes # 1.0 H Eosinophils # 0.2 Basophils # 0.0 Nucleated Red Blood Cells # 0.0 Test 11/22/16 08:44 11/22/16 09:15 11/22/16 12:11 11/22/16 17:38 Bedside Glucose 82 150 134 256 H Medications Medications Current Medications Diagnostic Test (Pha) (Accu-Chek) 1 02 XX ; Start 11/17/16 at 02:00 Ondansetron HCl (Zofran Inj) 4 mg Q6H PRN IV NAUSEA AND/OR VOMITING; Start at 10:00 Albuterol (Ventolin Hfa) 2 puff Q6H PRN INH WHEEZING AND SOB; Start 11/16/16 at 12:00 Guaifenesin (Robitussin Liquid Cup) 100 mg Q6H PRN PO COUGH; Start 11/16/16 at 12:00 Losartan Potassium (Cozaar) 25 mg DAILY PO Last administered on 11/22/16 08:33 ; Admin Dose 25 MG; Start 11/17/16 at 09:00 Al Hydrox/Mg Hydrox/Simethicone (Mag-Al Plus) 10 ml TID PO Last administered on 11/22/16 12:12; Admin Dose 10 ML; Start 11/16/16 at 13:00 Trazodone HCl (Desyrel) 100 mg QHS PO Last administered on 11/21/16 21:38; Admin Dose 100 MG; Start 11/16/16 at 21:00 Atorvastatin Calcium (Lipitor) 20 mg HS PO Last administered on 11/21/16 21:38 ; Admin Dose 20 MG; Start 11/16/16 at 21:00 Pantoprazole (Protonix Tab) 40 mg DAILY@06 PO Last administered on 11/22/16 06 :06; Admin Dose 40 MG; Start 11/17/16 at 06:00 Hydralazine HCl (Apresoline) 50 mg BID PO Last administered on 11/22/16 08:33 ; Admin Dose 50 MG; Start 11/16/16 at 21:00 Furosemide (Lasix) 40 mg DAILY@06 PO Last administered on 11/22/16 06:07; Admin Dose 40 MG; Start 11/19/16 at 13:30 Miscellaneous Information 1 ea NOTE XX ; Start 11/20/16 at 09:00 Glucose (Glutose) 15 gm Q15M PRN PO DECREASED GLUCOSE; Start 11/20/16 at 09:00 Glucose (Glutose) 22.5 gm Q15M PRN PO DECREASED GLUCOSE; Start 11/20/16 at 09: 00 Dextrose (D50w Syringe) 25 ml Q15M PRN IV DECREASED GLUCOSE; Start 11/20/16 at 09:00 Dextrose (D50w Syringe) 50 ml Q15M PRN IV DECREASED GLUCOSE; Start 11/20/16 at 09:00 Glucagon (Glucagen) 1 mg Q15M PRN IM DECREASED GLUCOSE; Start 11/20/16 at 09:00 Glucose (Glutose) 15 gm Q15M PRN BUCCAL DECREASED GLUCOSE; Start 11/20/16 at 09 :00 Ferrous Sulfate (Ferrous Sulfate (Ec)) 325 mg BID PO Last administered on 08:33; Admin Dose 325 MG; Start 11/21/16 at 21:00 Insulin Glargine (Lantus) 7 unit QHS SC ; Start 11/22/16 at 21:00 Amiodarone HCl (Cordarone) 200 mg BID NGT ; Start 11/22/16 at 21:00 Aspirin (Aspirin) 81 mg DAILY PO ; Start 11/23/16 at 09:00 Enoxaparin Sodium (Lovenox) 70 mg Q24H SC Last administered on 11/22/16 17:42 ; Admin Dose 70 MG; Start 11/22/16 at 16:00 OMKAR WILLARD Nov 22, 2016 18:13
[2016-11-22] MEDS ORDERED: AMIODARONE 200 MG TAB NGT SCH (21:00)
[2016-11-22] MEDS: SOD FERRIC GLUC COMPLX 125 MG in SOD CHLORIDE 0.9% 100 ML IVPB SCH (21:07)
[2016-11-22] MEDS: ATORVASTATIN 20 MG TAB PO SCH (21:10)
[2016-11-22] MEDS: traZODone 100 MG TAB PO SCH (21:11)
[2016-11-22] MEDS: INSULIN GLARGINE [LANtus] 3 ML PEN SC SCH (21:16)
--- NOTE | 2016-11-22 23:11 | CONS ---
Date/Time of Note Date/Time of Note DATE: 11/22/16 TIME: 23:11 Assessment/Plan Assessment/Plan Chief Complaint/Hosp Course renal A/P CKD HTN DM ASHD ANEMIA DIAB NEPHROPATHY afib PALN renal stable per cardio Problems: Consultation Date/Type/Reason Admit Date/Time Nov 16, 2016 at 04:55 Type of Consultation: renal Referring Provider: NOAH DANIEL MD 24 HR Interval Summary Constitutional: no complaints Exam/Review of Systems Vital Signs Vitals Vital Signs Date Time Temp Pulse Resp B/P Pulse Ox O2 Delivery O2 Flow Rate FiO2 11/22/16 20:29 69 11/22/16 15:50 98.5 20 145/67 94 11/20/16 08:30 Nasal Cannula 2.0 Intake and Output 11/21/16 11/21/16 11/22/16 15:00 23:00 07:00 Intake Total 500 ml 400 ml Balance 500 ml 400 ml Exam Neck: supple Respiratory: clear to auscultation Cardiovascular: regular rate and rhythm Gastrointestinal: soft Genitourinary - Female: nl adnexae Results Result Diagram: 11/22/16 0706 11/22/16 0700 Results 24 hrs Laboratory Tests Test 11/22/16 07:00 11/22/16 07:06 11/22/16 08:28 11/22/16 08:44 Sodium Level 141 Potassium Level 4.0 Chloride Level 101 Carbon Dioxide Level 28 Anion Gap 16 Blood Urea Nitrogen 18 Creatinine 1.43 H Glucose Level 79 Calcium Level 9.1 Magnesium Level 2.5 White Blood Count 7.1 Red Blood Count 4.11 L Hemoglobin 11.2 L Hematocrit 34.7 L Mean Corpuscular Volume 84.4 Mean Corpuscular Hemoglobin 27.3 L Mean Corpuscular Hemoglobin Concent 32.3 Red Cell Distribution Width 14.4 Platelet Count 114 #L Mean Platelet Volume 12.8 H Neutrophils % 52.7 Lymphocytes % 29.3 Monocytes % 14.1 H Eosinophils % 3.2 Basophils % 0.6 Nucleated Red Blood Cells % 0.0 Neutrophils # 3.8 Lymphocytes # 2.1 Monocytes # 1.0 H Eosinophils # 0.2 Basophils # 0.0 Nucleated Red Blood Cells # 0.0 Bedside Glucose 78 82 Test 11/22/16 09:15 11/22/16 12:11 11/22/16 17:38 11/22/16 21:13 Bedside Glucose 150 134 256 H 92 Medications Medications Current Medications Diagnostic Test (Pha) (Accu-Chek) 1 ea 02 XX ; Start 11/17/16 at 02:00 Ondansetron HCl (Zofran Inj) 4 mg Q6H PRN IV NAUSEA AND/OR VOMITING; Start at 10:00 Albuterol (Ventolin Hfa) 2 puff Q6H PRN INH WHEEZING AND SOB; Start 11/16/16 at 12:00 Guaifenesin (Robitussin Liquid Cup) 100 mg Q6H PRN PO COUGH; Start 11/16/16 at 12:00 Losartan Potassium (Cozaar) 25 mg DAILY PO Last administered on 11/22/16 08:33 ; Admin Dose 25 MG; Start 11/17/16 at 09:00 Al Hydrox/Mg Hydrox/Simethicone (Mag-Al Plus) 10 ml TID PO Last administered on 11/22/16 21:07; Admin Dose 10 ML; Start 11/16/16 at 13:00 Trazodone HCl (Desyrel) 100 mg QHS PO Last administered on 11/22/16 21:11; Admin Dose 100 MG; Start 11/16/16 at 21:00 Atorvastatin Calcium (Lipitor) 20 mg HS PO Last administered on 11/22/16 21:10 ; Admin Dose 20 MG; Start 11/16/16 at 21:00 Pantoprazole (Protonix Tab) 40 mg DAILY@06 PO Last administered on 11/22/16 06 :06; Admin Dose 40 MG; Start 11/17/16 at 06:00 Hydralazine HCl (Apresoline) 50 mg BID PO Last administered on 11/22/16 21:11 ; Admin Dose 50 MG; Start 11/16/16 at 21:00 Furosemide (Lasix) 40 mg DAILY@06 PO Last administered on 11/22/16 06:07; Admin Dose 40 MG; Start 11/19/16 at 13:30 Miscellaneous Information 1 ea NOTE XX ; Start 11/20/16 at 09:00 Glucose (Glutose) 15 gm Q15M PRN PO DECREASED GLUCOSE; Start 11/20/16 at 09:00 Glucose (Glutose) 22.5 gm Q15M PRN PO DECREASED GLUCOSE; Start 11/20/16 at 09: 00 Dextrose (D50w Syringe) 25 ml Q15M PRN IV DECREASED GLUCOSE; Start 11/20/16 at 09:00 Dextrose (D50w Syringe) 50 ml Q15M PRN IV DECREASED GLUCOSE; Start 11/20/16 at 09:00 Glucagon (Glucagen) 1 mg Q15M PRN IM DECREASED GLUCOSE; Start 11/20/16 at 09:00 Glucose (Glutose) 15 gm Q15M PRN BUCCAL DECREASED GLUCOSE; Start 11/20/16 at 09 :00 Insulin Glargine (Lantus) 7 unit QHS SC Last administered on 11/22/16 21:16; Admin Dose 7 UNIT; Start 11/22/16 at 21:00 Amiodarone HCl (Cordarone) 200 mg BID NGT Last administered on 11/22/16 21:10 ; Admin Dose 200 MG; Start 11/22/16 at 21:00 Aspirin (Aspirin) 81 mg DAILY PO ; Start 11/23/16 at 09:00 Enoxaparin Sodium 70 mg 70 mg Q24H SC Last administered on 11/22/16 17:42; Admin Dose 70 MG; Start 11/22/16 at 16:00 Ferric Sodium Gluconate Complex/ Sodium Chloride (Ferrlecit/NS) 110 ml @ 100 mls/hr Q24H IVPB Last administered on 11/22/16 21:07; Admin Dose 100 MLS/HR; Start 11/22/16 at 18:30; Stop 11/24/16 at 19:35 ALBERTA CORRAL MD Nov 22, 2016 23:11
[2016-11-23] VITALS (13 sets, daily range): BP systolic 126–156; BP diastolic 53–69; PULSE 65–86; RESP 18–20
[2016-11-23] MEDS: ACCU-CHEK XX SCH (02:00)
[2016-11-23] MEDS: FUROSEMIDE 40 MG TAB PO SCH (05:53)
[2016-11-23] MEDS: PANTOPRAZOLE (EC) 40 MG TAB PO SCH (05:53)
[2016-11-23 08:00] LABS: ADD SCAN DIFF NO
[2016-11-23] MEDS: INSULIN ASPART [NOVOLOG] 3 ML PEN SC SCH ×4 (08:00→21:00)
[2016-11-23 08:08] LABS: ABNORMAL IP MESSAGE 1; BASOPHILS % 0.6 % (0.0-2.0); EOSINOPHILS # 0.2 10^3/ul (0.0-0.5); EOSINOPHILS % 2.3 % (0.0-7.0); HEMATOCRIT 38.7 % (37.0-47.0); HEMOGLOBIN 12.5 g/dl (12.0-16.0); LYMPHOCYTES # 2.4 10^3/ul (0.8-2.9); LYMPHOCYTES % 33.9 % (15.0-51.0); MEAN CORPUSCULAR HEMOGLOBIN 27.5 pg (29.0-33.0); MEAN CORPUSCULAR HGB CONC 32.3 g/dl (32.0-37.0); MEAN CORPUSCULAR VOLUME 85.1 fl (82.0-101.0); MEAN PLATELET VOLUME 13.3 fl (7.4-10.4); MONOCYTE # 0.8 10^3/ul (0.3-0.9); MONOCYTES % 11.1 % (0.0-11.0); NEUTROPHIL # 3.7 10^3/ul (1.6-7.5); NEUTROPHILS % 51.8 % (39.0-77.0); PLATELET COUNT 106 10^3/UL (140-415); RED BLOOD COUNT 4.55 10^6/ul (4.20-5.40); RED CELL DISTRIBUTION WIDTH 14.4 % (11.5-14.5)
[2016-11-23 08:31] LABS: CALCIUM 9.4 mg/dl (8.4-10.2); CREATININE 1.54 mg/dl (0.44-1.00); POTASSIUM 4.4 mmol/L (3.5-5.1)
[2016-11-23] MEDS: AL HYDROX/MG HYDROX/SIMETH 30 ML CUP PO SCH ×3 (08:44→21:05)
[2016-11-23] MEDS: LOSARTAN 25 MG TAB PO SCH (08:44)
[2016-11-23] MEDS ORDERED: ASPIRIN 325 MG TAB PO SCH (09:00)
[2016-11-23] MEDS ORDERED: AMIODARONE 200 MG TAB PO SCH (09:00)
[2016-11-23] MEDS: SOD FERRIC GLUC COMPLX 125 MG in SOD CHLORIDE 0.9% 100 ML IVPB SCH (17:33)
[2016-11-23] MEDS: ENOXAPARIN 80 MG/0.8 ML SYG SC SCH (17:33)
--- NOTE | 2016-11-23 18:29 | CONS ---
Date/Time of Note Date/Time of Note DATE: 11/23/16 TIME: 18:25 Assessment/Plan Assessment/Plan Chief Complaint/Hosp Course IMPRESSION: 1. Congestive heart failure exacerbation, diastolic acute on chronic-EF 50 by echo. Improved volume status by exam 2. Bradycardia both sinus lynnette and junctional bradycardia. Stable blood pressure at this time.-NL TSH. Improved currently HR 50-70's 3. Abnormal electrocardiogram, with intraventricular conduction delay. Assess for acute coronary syndrome.-negative trop x 3 4. Hypertension. Under reasonable control. 5. Lower extremity edema.-venous ORIANA negative for DVT 6. Renal failure. 7. Anemia. 8.PAF with RVR-likely has tachy-lynnette Recc -Tele -serial ecg's -Continue hydralazine/losartan -Continue lasix diuresis now PO daily and follow ultrasound applications specialist/volume status closely -Follow HR closely -Given now AF will start low dose BB and follow HR. If has significant lynnette may require PPM in order to tolerate rate control agents Problems: Consultation Date/Type/Reason Admit Date/Time Nov 16, 2016 at 04:55 Initial Consult Date 11/16/16 Type of Consultation: cardiology Reason for Consultation CHF/af Referring Provider: NOAH DANIEL MD Exam/Review of Systems Vital Signs Vitals Vital Signs Date Time Temp Pulse Resp B/P Pulse Ox O2 Delivery O2 Flow Rate FiO2 11/23/16 16:07 77 11/23/16 15:49 97.8 18 153/62 96 11/23/16 04:00 Room Air 11/20/16 08:30 2.0 Intake and Output 11/22/16 11/22/16 11/23/16 15:00 23:00 07:00 Intake Total 700 ml 800 ml Balance 700 ml 800 ml Exam Review of Systems: CONSTITUTIONAL: No fevers, chills. PULMONARY: No sob CARDIOVASCULAR: No chest pain/palpitations GASTROINTESTINAL: No nausea/vomiting. GENITOURINARY: No hematuria/dysuria. MUSCULOSKELETAL: No myagias/arthalgias. PSYCHIATRIC: The patient denies depression. NEUROLOGIC: No weakness Constitutional: alert, oriented Psych: no complaints Head: normocephalic ENMT: mucosa pink and moist Neck: jvd (9 cm water), supple Respiratory: diminished breath sounds (at bases/B) Cardiovascular: regular rate and rhythm Gastrointestinal: non-tender, soft Musculoskeletal: muscle tone (normal) Extremities: edema (none) Neurological: other (No focal deficits) Results Result Diagram: 11/23/16 0720 11/23/16 0720 Results 24 hrs Laboratory Tests Test 11/22/16 21:13 11/23/16 07:20 11/23/16 08:13 11/23/16 11:27 Bedside Glucose 92 93 White Blood Count 7.0 Red Blood Count 4.55 Hemoglobin 12.5 Hematocrit 38.7 Mean Corpuscular Volume 85.1 Mean Corpuscular Hemoglobin 27.5 L Mean Corpuscular Hemoglobin Concent 32.3 Red Cell Distribution Width 14.4 Platelet Count 106 L Mean Platelet Volume 13.3 H Neutrophils % 51.8 Lymphocytes % 33.9 Monocytes % 11.1 H Eosinophils % 2.3 Basophils % 0.6 Nucleated Red Blood Cells % 0.0 Neutrophils # 3.7 Lymphocytes # 2.4 Monocytes # 0.8 Eosinophils # 0.2 Basophils # 0.0 Nucleated Red Blood Cells # 0.0 Sodium Level 139 Potassium Level 4.4 Chloride Level 97 Carbon Dioxide Level 29 Anion Gap 17 H Blood Urea Nitrogen 17 Creatinine 1.54 H Glucose Level 86 Calcium Level 9.4 Lab Scanned Report REFERENCE LAB Test 11/23/16 12:18 11/23/16 17:27 Bedside Glucose 119 107 Medications Medications Current Medications Diagnostic Test (Pha) (Accu-Chek) 1 ea 02 XX ; Start 11/17/16 at 02:00 Ondansetron HCl (Zofran Inj) 4 mg Q6H PRN IV NAUSEA AND/OR VOMITING; Start at 10:00 Albuterol (Ventolin Hfa) 2 puff Q6H PRN INH WHEEZING AND SOB; Start 11/16/16 at 12:00 Guaifenesin (Robitussin Liquid Cup) 100 mg Q6H PRN PO COUGH; Start 11/16/16 at 12:00 Losartan Potassium (Cozaar) 25 mg DAILY PO Last administered on 11/23/16 08:44 ; Admin Dose 25 MG; Start 11/17/16 at 09:00 Al Hydrox/Mg Hydrox/Simethicone (Mag-Al Plus) 10 ml TID PO Last administered on 11/23/16 12:20; Admin Dose 10 ML; Start 11/16/16 at 13:00 Trazodone HCl (Desyrel) 100 mg QHS PO Last administered on 11/22/16 21:11; Admin Dose 100 MG; Start 11/16/16 at 21:00 Atorvastatin Calcium (Lipitor) 20 mg HS PO Last administered on 11/22/16 21:10 ; Admin Dose 20 MG; Start 11/16/16 at 21:00 Pantoprazole (Protonix Tab) 40 mg DAILY@06 PO Last administered on 11/23/16 05 :53; Admin Dose 40 MG; Start 11/17/16 at 06:00 Hydralazine HCl (Apresoline) 50 mg BID PO Last administered on 11/23/16 08:44 ; Admin Dose 50 MG; Start 11/16/16 at 21:00 Furosemide (Lasix) 40 mg DAILY@06 PO Last administered on 11/23/16 05:53; Admin Dose 40 MG; Start 11/19/16 at 13:30 Miscellaneous Information 1 ea NOTE XX ; Start 11/20/16 at 09:00 Glucose (Glutose) 15 gm Q15M PRN PO DECREASED GLUCOSE; Start 11/20/16 at 09:00 Glucose (Glutose) 22.5 gm Q15M PRN PO DECREASED GLUCOSE; Start 11/20/16 at 09: 00 Dextrose (D50w Syringe) 25 ml Q15M PRN IV DECREASED GLUCOSE; Start 11/20/16 at 09:00 Dextrose (D50w Syringe) 50 ml Q15M PRN IV DECREASED GLUCOSE; Start 11/20/16 at 09:00 Glucagon (Glucagen) 1 mg Q15M PRN IM DECREASED GLUCOSE; Start 11/20/16 at 09:00 Glucose (Glutose) 15 gm Q15M PRN BUCCAL DECREASED GLUCOSE; Start 11/20/16 at 09 :00 Insulin Glargine (Lantus) 7 unit QHS SC Last administered on 11/22/16 21:16; Admin Dose 7 UNIT; Start 11/22/16 at 21:00 Aspirin (Aspirin) 81 mg DAILY PO Last administered on 11/23/16 09:00; Admin Dose 81 MG; Start 11/23/16 at 09:00 Enoxaparin Sodium 70 mg 70 mg Q24H SC Last administered on 11/23/16 17:33; Admin Dose 70 MG; Start 11/22/16 at 16:00 Ferric Sodium Gluconate Complex/ Sodium Chloride (Ferrlecit/NS) 110 ml @ 100 mls/hr Q24H IVPB Last administered on 11/23/16 17:33; Admin Dose 100 MLS/HR; Start 11/22/16 at 18:30; Stop 11/24/16 at 19:35 Amiodarone HCl (Cordarone) 200 mg BID PO Last administered on 11/23/16 09:00; Admin Dose 200 MG; Start 11/23/16 at 09:00 KEVON TIWARI Nov 23, 2016 18:29
--- NOTE | 2016-11-23 19:51 | CONS ---
Date/Time of Note Date/Time of Note DATE: 11/23/16 TIME: 19:51 Assessment/Plan Assessment/Plan Chief Complaint/Hosp Course renal A/P CKD HTN DM ASHD ANEMIA DIAB NEPHROPATHY afib PALN renal stable per cardio Problems: Consultation Date/Type/Reason Admit Date/Time Nov 16, 2016 at 04:55 Type of Consultation: renal Referring Provider: NOAH DANIEL MD 24 HR Interval Summary Constitutional: no complaints Exam/Review of Systems Vital Signs Vitals Vital Signs Date Time Temp Pulse Resp B/P Pulse Ox O2 Delivery O2 Flow Rate FiO2 11/23/16 16:07 77 11/23/16 15:49 97.8 18 153/62 96 11/23/16 04:00 Room Air 11/20/16 08:30 2.0 Intake and Output 11/22/16 11/22/16 11/23/16 15:00 23:00 07:00 Intake Total 700 ml 800 ml Balance 700 ml 800 ml Exam Respiratory: clear to auscultation Cardiovascular: regular rate and rhythm Gastrointestinal: soft Musculoskeletal: nl extremities to inspection Results Result Diagram: 11/23/16 0720 11/23/16 0720 Results 24 hrs Laboratory Tests Test 11/22/16 21:13 11/23/16 07:20 11/23/16 08:13 11/23/16 11:27 Bedside Glucose 92 93 White Blood Count 7.0 Red Blood Count 4.55 Hemoglobin 12.5 Hematocrit 38.7 Mean Corpuscular Volume 85.1 Mean Corpuscular Hemoglobin 27.5 L Mean Corpuscular Hemoglobin Concent 32.3 Red Cell Distribution Width 14.4 Platelet Count 106 L Mean Platelet Volume 13.3 H Neutrophils % 51.8 Lymphocytes % 33.9 Monocytes % 11.1 H Eosinophils % 2.3 Basophils % 0.6 Nucleated Red Blood Cells % 0.0 Neutrophils # 3.7 Lymphocytes # 2.4 Monocytes # 0.8 Eosinophils # 0.2 Basophils # 0.0 Nucleated Red Blood Cells # 0.0 Sodium Level 139 Potassium Level 4.4 Chloride Level 97 Carbon Dioxide Level 29 Anion Gap 17 H Blood Urea Nitrogen 17 Creatinine 1.54 H Glucose Level 86 Calcium Level 9.4 Lab Scanned Report REFERENCE LAB Test 11/23/16 12:18 11/23/16 17:27 Bedside Glucose 119 107 Medications Medications Current Medications Diagnostic Test (Pha) (Accu-Chek) 1 ea 02 XX ; Start 11/17/16 at 02:00 Ondansetron HCl (Zofran Inj) 4 mg Q6H PRN IV NAUSEA AND/OR VOMITING; Start at 10:00 Albuterol (Ventolin Hfa) 2 puff Q6H PRN INH WHEEZING AND SOB; Start 11/16/16 at 12:00 Guaifenesin (Robitussin Liquid Cup) 100 mg Q6H PRN PO COUGH; Start 11/16/16 at 12:00 Losartan Potassium (Cozaar) 25 mg DAILY PO Last administered on 11/23/16 08:44 ; Admin Dose 25 MG; Start 11/17/16 at 09:00 Al Hydrox/Mg Hydrox/Simethicone (Mag-Al Plus) 10 ml TID PO Last administered on 11/23/16 12:20; Admin Dose 10 ML; Start 11/16/16 at 13:00 Trazodone HCl (Desyrel) 100 mg QHS PO Last administered on 11/22/16 21:11; Admin Dose 100 MG; Start 11/16/16 at 21:00 Atorvastatin Calcium (Lipitor) 20 mg HS PO Last administered on 11/22/16 21:10 ; Admin Dose 20 MG; Start 11/16/16 at 21:00 Pantoprazole (Protonix Tab) 40 mg DAILY@06 PO Last administered on 11/23/16 05 :53; Admin Dose 40 MG; Start 11/17/16 at 06:00 Hydralazine HCl (Apresoline) 50 mg BID PO Last administered on 11/23/16 08:44 ; Admin Dose 50 MG; Start 11/16/16 at 21:00 Furosemide (Lasix) 40 mg DAILY@06 PO Last administered on 11/23/16 05:53; Admin Dose 40 MG; Start 11/19/16 at 13:30 Miscellaneous Information 1 ea NOTE XX ; Start 11/20/16 at 09:00 Glucose (Glutose) 15 gm Q15M PRN PO DECREASED GLUCOSE; Start 11/20/16 at 09:00 Glucose (Glutose) 22.5 gm Q15M PRN PO DECREASED GLUCOSE; Start 11/20/16 at 09: 00 Dextrose (D50w Syringe) 25 ml Q15M PRN IV DECREASED GLUCOSE; Start 11/20/16 at 09:00 Dextrose (D50w Syringe) 50 ml Q15M PRN IV DECREASED GLUCOSE; Start 11/20/16 at 09:00 Glucagon (Glucagen) 1 mg Q15M PRN IM DECREASED GLUCOSE; Start 11/20/16 at 09:00 Glucose (Glutose) 15 gm Q15M PRN BUCCAL DECREASED GLUCOSE; Start 11/20/16 at 09 :00 Insulin Glargine (Lantus) 7 unit QHS SC Last administered on 11/22/16 21:16; Admin Dose 7 UNIT; Start 11/22/16 at 21:00 Aspirin (Aspirin) 81 mg DAILY PO Last administered on 11/23/16 09:00; Admin Dose 81 MG; Start 11/23/16 at 09:00 Enoxaparin Sodium 70 mg 70 mg Q24H SC Last administered on 11/23/16 17:33; Admin Dose 70 MG; Start 11/22/16 at 16:00 Ferric Sodium Gluconate Complex/ Sodium Chloride (Ferrlecit/NS) 110 ml @ 100 mls/hr Q24H IVPB Last administered on 11/23/16 17:33; Admin Dose 100 MLS/HR; Start 11/22/16 at 18:30; Stop 11/24/16 at 19:35 Metoprolol Tartrate (Lopressor) 12.5 mg BID PO ; Start 11/23/16 at 21:00 ALBERTA CORRAL MD Nov 23, 2016 19:51
--- NOTE | 2016-11-23 20:59 | PN ---
Date/Time of Note Date/Time of Note DATE: 11/23/16 TIME: 20:58 Assessment/Plan VTE Prophylaxis VTE Prophylaxis Intervention: other Lines/Catheters IV [facility] Type (from [facility] Sal[facility] Urinary Cath still in place: No Assessment/Plan Assessment/Plan - New onset of atrial fibrillation, continue amiodarone and Lovenox. Merle is following and cardiology consultation. - Congestive heart failure exacerbation. Dr. Bloom is following and cardiology consultation. On Lasix, continue to monitor electrolytes. - Acute renal failure, Dr. Pineda is following a nephrology consultation. - Hypertension. Continue Cozaar and hydralazine. - Diabetes mellitus type 2 with hemoglobin A1c 7.1, continue Lantus and NovoLog. - Iron deficiency anemia, started on Ferrlecit. Further recommendations based on clinical course. Plan of care discussed with Dr. Zurita Exam/Review of Systems Vital Signs Vitals Vital Signs Date Time Temp Pulse Resp B/P Pulse Ox O2 Delivery O2 Flow Rate FiO2 11/23/16 20:28 84 11/23/16 15:49 97.8 18 153/62 96 11/23/16 04:00 Room Air 11/20/16 08:30 2.0 Intake and Output 11/22/16 11/22/16 11/23/16 15:00 23:00 07:00 Intake Total 700 ml 800 ml Balance 700 ml 800 ml Exam Constitutional: alert, oriented Respiratory: clear to auscultation, normal air movement Cardiovascular: nl pulses, regular rate and rhythm Gastrointestinal: non-tender, soft Neurological: nl speech Results Result Diagram: 11/23/16 0720 11/23/16 0720 Results 24 hrs Laboratory Tests Test 11/22/16 21:13 11/23/16 07:20 11/23/16 08:13 11/23/16 11:27 Bedside Glucose 92 93 White Blood Count 7.0 Red Blood Count 4.55 Hemoglobin 12.5 Hematocrit 38.7 Mean Corpuscular Volume 85.1 Mean Corpuscular Hemoglobin 27.5 L Mean Corpuscular Hemoglobin Concent 32.3 Red Cell Distribution Width 14.4 Platelet Count 106 L Mean Platelet Volume 13.3 H Neutrophils % 51.8 Lymphocytes % 33.9 Monocytes % 11.1 H Eosinophils % 2.3 Basophils % 0.6 Nucleated Red Blood Cells % 0.0 Neutrophils # 3.7 Lymphocytes # 2.4 Monocytes # 0.8 Eosinophils # 0.2 Basophils # 0.0 Nucleated Red Blood Cells # 0.0 Sodium Level 139 Potassium Level 4.4 Chloride Level 97 Carbon Dioxide Level 29 Anion Gap 17 H Blood Urea Nitrogen 17 Creatinine 1.54 H Glucose Level 86 Calcium Level 9.4 Lab Scanned Report REFERENCE LAB Test 11/23/16 12:18 11/23/16 17:27 Bedside Glucose 119 107 Medications Medications Current Medications Diagnostic Test (Pha) (Accu-Chek) 1 ea 02 XX ; Start 11/17/16 at 02:00 Ondansetron HCl (Zofran Inj) 4 mg Q6H PRN IV NAUSEA AND/OR VOMITING; Start at 10:00 Albuterol (Ventolin Hfa) 2 puff Q6H PRN INH WHEEZING AND SOB; Start 11/16/16 at 12:00 Guaifenesin (Robitussin Liquid Cup) 100 mg Q6H PRN PO COUGH; Start 11/16/16 at 12:00 Losartan Potassium (Cozaar) 25 mg DAILY PO Last administered on 11/23/16 08:44 ; Admin Dose 25 MG; Start 11/17/16 at 09:00 Al Hydrox/Mg Hydrox/Simethicone (Mag-Al Plus) 10 ml TID PO Last administered on 11/23/16 12:20; Admin Dose 10 ML; Start 11/16/16 at 13:00 Trazodone HCl (Desyrel) 100 mg QHS PO Last administered on 11/22/16 21:11; Admin Dose 100 MG; Start 11/16/16 at 21:00 Atorvastatin Calcium (Lipitor) 20 mg HS PO Last administered on 11/22/16 21:10 ; Admin Dose 20 MG; Start 11/16/16 at 21:00 Pantoprazole (Protonix Tab) 40 mg DAILY@06 PO Last administered on 11/23/16 05 :53; Admin Dose 40 MG; Start 11/17/16 at 06:00 Hydralazine HCl (Apresoline) 50 mg BID PO Last administered on 11/23/16 08:44 ; Admin Dose 50 MG; Start 11/16/16 at 21:00 Furosemide (Lasix) 40 mg DAILY@06 PO Last administered on 11/23/16 05:53; Admin Dose 40 MG; Start 11/19/16 at 13:30 Miscellaneous Information 1 ea NOTE XX ; Start 11/20/16 at 09:00 Glucose (Glutose) 15 gm Q15M PRN PO DECREASED GLUCOSE; Start 11/20/16 at 09:00 Glucose (Glutose) 22.5 gm Q15M PRN PO DECREASED GLUCOSE; Start 11/20/16 at 09: 00 Dextrose (D50w Syringe) 25 ml Q15M PRN IV DECREASED GLUCOSE; Start 11/20/16 at 09:00 Dextrose (D50w Syringe) 50 ml Q15M PRN IV DECREASED GLUCOSE; Start 11/20/16 at 09:00 Glucagon (Glucagen) 1 mg Q15M PRN IM DECREASED GLUCOSE; Start 11/20/16 at 09:00 Glucose (Glutose) 15 gm Q15M PRN BUCCAL DECREASED GLUCOSE; Start 11/20/16 at 09 :00 Insulin Glargine (Lantus) 7 unit QHS SC Last administered on 11/22/16 21:16; Admin Dose 7 UNIT; Start 11/22/16 at 21:00 Aspirin (Aspirin) 81 mg DAILY PO Last administered on 11/23/16 09:00; Admin Dose 81 MG; Start 11/23/16 at 09:00 Enoxaparin Sodium 70 mg 70 mg Q24H SC Last administered on 11/23/16 17:33; Admin Dose 70 MG; Start 11/22/16 at 16:00 Ferric Sodium Gluconate Complex/ Sodium Chloride (Ferrlecit/NS) 110 ml @ 100 mls/hr Q24H IVPB Last administered on 11/23/16 17:33; Admin Dose 100 MLS/HR; Start 11/22/16 at 18:30; Stop 11/24/16 at 19:35 Metoprolol Tartrate (Lopressor) 12.5 mg BID PO ; Start 11/23/16 at 21:00 ALY MILLER Nov 23, 2016 20:59
[2016-11-23] MEDS: traZODone 100 MG TAB PO SCH (21:05)
[2016-11-23] MEDS: ATORVASTATIN 20 MG TAB PO SCH (21:06)
[2016-11-23] MEDS: METOPROLOL 25 MG TAB PO SCH (21:06)
[2016-11-23] MEDS: INSULIN GLARGINE [LANtus] 3 ML PEN SC SCH (21:16)
[2016-11-24] VITALS (12 sets, daily range): BP systolic 121–163; BP diastolic 63–73; PULSE 56–87; RESP 17–18
[2016-11-24] MEDS: ACCU-CHEK XX SCH (02:00)
[2016-11-24] MEDS: PANTOPRAZOLE (EC) 40 MG TAB PO SCH (06:04)
[2016-11-24] MEDS: FUROSEMIDE 40 MG TAB PO SCH (06:05)
[2016-11-24 07:55] LABS: ADD SCAN DIFF NO
[2016-11-24] MEDS: INSULIN ASPART [NOVOLOG] 3 ML PEN SC SCH ×4 (08:00→21:00)
[2016-11-24 08:03] LABS: BASOPHILS % 0.7 % (0.0-2.0); EOSINOPHILS # 0.2 10^3/ul (0.0-0.5); EOSINOPHILS % 3.6 % (0.0-7.0); HEMATOCRIT 33.8 % (37.0-47.0); HEMOGLOBIN 11.2 g/dl (12.0-16.0); LYMPHOCYTES # 2.1 10^3/ul (0.8-2.9); MEAN CORPUSCULAR HEMOGLOBIN 27.9 pg (29.0-33.0); MEAN CORPUSCULAR HGB CONC 33.1 g/dl (32.0-37.0); MEAN CORPUSCULAR VOLUME 84.1 fl (82.0-101.0); MEAN PLATELET VOLUME 12.6 fl (7.4-10.4); MONOCYTE # 0.9 10^3/ul (0.3-0.9); MONOCYTES % 14.4 % (0.0-11.0); NEUTROPHIL # 2.7 10^3/ul (1.6-7.5); NEUTROPHILS % 45.1 % (39.0-77.0); PLATELET COUNT 122 10^3/UL (140-415); RED BLOOD COUNT 4.02 10^6/ul (4.20-5.40); RED CELL DISTRIBUTION WIDTH 14.6 % (11.5-14.5); WHITE BLOOD COUNT 5.9 10^3/ul (4.8-10.8)
[2016-11-24 08:48] LABS: CREATININE 1.45 mg/dl (0.44-1.00)
[2016-11-24] MEDS: METOPROLOL 25 MG TAB PO SCH ×2 (08:53→21:51)
[2016-11-24] MEDS: AL HYDROX/MG HYDROX/SIMETH 30 ML CUP PO SCH ×3 (08:53→21:51)
[2016-11-24] MEDS: LOSARTAN 25 MG TAB PO SCH (08:55)
--- NOTE | 2016-11-24 09:13 | CONS ---
Date/Time of Note Date/Time of Note DATE: 11/24/16 TIME: 09:11 Assessment/Plan Assessment/Plan Additional Assessment/Plan 1. Congestive heart failure exacerbation, diastolic acute on chronic-EF 50 by echo. Improved volume status by exam - MUCH BETTER 2. Bradycardia both sinus lynnette and junctional bradycardia. Stable blood pressure at this time.-NL TSH. Improved currently HR 50-70's 3. Abnormal electrocardiogram, with intraventricular conduction delay. Assess for acute coronary syndrome.-negative trop x 3 4. Hypertension. Under reasonable control. 5. Lower extremity edema.-venous ORIANA negative for DVT 6. Renal failure. 7. Anemia. 8.PAF with RVR- in sinus now, no symptoms - no class I indication for pacer. Consultation Date/Type/Reason Admit Date/Time Nov 16, 2016 at 04:55 Type of Consultation: renal Referring Provider: NOAH DANIEL MD 24 HR Interval Summary Free Text/Dictation NO acute events - BP stable - HR well maintained. ROS: No fever, no chills, no nausea, no vomiting, no diarrhea/constipation No recent weight changes No chest pain, no PND, no orthopnea No dizziness, blurred vision No thirst, no heat or cold intolerance Exam/Review of Systems Vital Signs Vitals Vital Signs Date Time Temp Pulse Resp B/P Pulse Ox O2 Delivery O2 Flow Rate FiO2 11/24/16 08:28 66 11/24/16 07:34 98.3 18 163/73 96 11/23/16 20:00 Room Air 11/20/16 08:30 2.0 Intake and Output 11/23/16 11/23/16 11/24/16 15:00 23:00 07:00 Intake Total 480 ml 800 ml Balance 480 ml 800 ml Exam General: WN/WD/NAD, AOx 3 HEENT: Unicetric/atraumatic/EOMI (follows commands) NECK: JVD elevated, no thyromegaly Lymph: no lymphadenopathy HEART: regular with no S3, II/ systolic murmur at apex LUNGS: Coarse sounds ABD: soft, NT, ND, +BS : Intact Neuro: non focal SKIN: chronic changes EXT: trace edema Results Result Diagram: 11/24/16 0710 11/24/16 0710 Results 24 hrs Laboratory Tests Test 11/23/16 11:27 6/22/17 12:18 11/23/16 17:27 11/23/16 21:13 Lab Scanned Report REFERENCE LAB Bedside Glucose 119 107 127 Test 11/24/16 07:10 11/24/16 08:07 White Blood Count 5.9 Red Blood Count 4.02 L Hemoglobin 11.2 L Hematocrit 33.8 L Mean Corpuscular Volume 84.1 Mean Corpuscular Hemoglobin 27.9 L Mean Corpuscular Hemoglobin Concent 33.1 Red Cell Distribution Width 14.6 H Platelet Count 122 L Mean Platelet Volume 12.6 H Neutrophils % 45.1 Lymphocytes % 36.0 Monocytes % 14.4 H Eosinophils % 3.6 Basophils % 0.7 Nucleated Red Blood Cells % 0.0 Neutrophils # 2.7 Lymphocytes # 2.1 Monocytes # 0.9 Eosinophils # 0.2 Basophils # 0.0 Nucleated Red Blood Cells # 0.0 Sodium Level 137 Potassium Level 4.0 Chloride Level 102 Carbon Dioxide Level 29 Anion Gap 10 # Blood Urea Nitrogen 19 Creatinine 1.45 H Glucose Level 67 #L Calcium Level 9.0 Bedside Glucose 86 Medications Medications Current Medications Diagnostic Test (Pha) (Accu-Chek) 1 ea 02 XX ; Start 11/17/16 at 02:00 Ondansetron HCl (Zofran Inj) 4 mg Q6H PRN IV NAUSEA AND/OR VOMITING; Start at 10:00 Albuterol (Ventolin Hfa) 2 puff Q6H PRN INH WHEEZING AND SOB; Start 11/16/16 at 12:00 Guaifenesin (Robitussin Liquid Cup) 100 mg Q6H PRN PO COUGH; Start 11/16/16 at 12:00 Losartan Potassium (Cozaar) 25 mg DAILY PO Last administered on 11/24/16 08:55 ; Admin Dose 25 MG; Start 11/17/16 at 09:00 Al Hydrox/Mg Hydrox/Simethicone (Mag-Al Plus) 10 ml TID PO Last administered on 11/24/16 08:53; Admin Dose 10 ML; Start 11/16/16 at 13:00 Trazodone HCl (Desyrel) 100 mg QHS PO Last administered on 11/23/16 21:05; Admin Dose 100 MG; Start 11/16/16 at 21:00 Atorvastatin Calcium (Lipitor) 20 mg HS PO Last administered on 11/23/16 21:06 ; Admin Dose 20 MG; Start 11/16/16 at 21:00 Pantoprazole (Protonix Tab) 40 mg DAILY@06 PO Last administered on 11/24/16 06 :04; Admin Dose 40 MG; Start 11/17/16 at 06:00 Hydralazine HCl (Apresoline) 50 mg BID PO Last administered on 11/24/16 08:54 ; Admin Dose 50 MG; Start 11/16/16 at 21:00 Furosemide (Lasix) 40 mg DAILY@06 PO Last administered on 11/24/16 06:05; Admin Dose 40 MG; Start 11/19/16 at 13:30 Miscellaneous Information 1 ea NOTE XX ; Start 11/20/16 at 09:00 Glucose (Glutose) 15 gm Q15M PRN PO DECREASED GLUCOSE; Start 11/20/16 at 09:00 Glucose (Glutose) 22.5 gm Q15M PRN PO DECREASED GLUCOSE; Start 11/20/16 at 09: 00 Dextrose (D50w Syringe) 25 ml Q15M PRN IV DECREASED GLUCOSE; Start 11/20/16 at 09:00 Dextrose (D50w Syringe) 50 ml Q15M PRN IV DECREASED GLUCOSE; Start 11/20/16 at 09:00 Glucagon (Glucagen) 1 mg Q15M PRN IM DECREASED GLUCOSE; Start 11/20/16 at 09:00 Glucose (Glutose) 15 gm Q15M PRN BUCCAL DECREASED GLUCOSE; Start 11/20/16 at 09 :00 Insulin Glargine (Lantus) 7 unit QHS SC Last administered on 11/23/16 21:16; Admin Dose 7 UNIT; Start 11/22/16 at 21:00 Enoxaparin Sodium 70 mg 70 mg Q24H SC Last administered on 11/23/16 17:33; Admin Dose 70 MG; Start 11/22/16 at 16:00 Ferric Sodium Gluconate Complex/ Sodium Chloride (Ferrlecit/NS) 110 ml @ 100 mls/hr Q24H IVPB Last administered on 11/23/16 17:33; Admin Dose 100 MLS/HR; Start 11/22/16 at 18:30; Stop 11/24/16 at 19:35 Metoprolol Tartrate (Lopressor) 12.5 mg BID PO Last administered on 6/22/17at 21:06; Admin Dose 12.5 MG; Start 11/23/16 at 21:00 Aspirin (Aspirin) 81 mg DAILY PO ; Start 11/24/16 at 09:00 BRAYDON EL MD Nov 24, 2016 09:13
[2016-11-24] MEDS: ASPIRIN 81 MG TAB PO SCH (09:20)
--- NOTE | 2016-11-24 10:26 | CONS ---
Date/Time of Note Date/Time of Note DATE: 11/24/16 TIME: 10:25 Assessment/Plan Assessment/Plan Chief Complaint/Hosp Course 1. Chronic kidney injury. 2. Diabetic nephropathy. 3. hypertension, 4. metabolic acidosis, 5. anemia, 6. history of brain aneurysm, 7. history of cholecystectomy, laparoscopic; 8. dyslipidemia, 9. history of proteinuria. 10. oVERWEIGHT Problems: Additional Assessment/Plan 1. Kidney function optimization Consultation Date/Type/Reason Admit Date/Time Nov 16, 2016 at 04:55 Initial Consult Date 11/16/2016 Type of Consultation: renal Reason for Consultation Dr Pineda Referring Provider: NOAH DANIEL MD Exam/Review of Systems Vital Signs Vitals Vital Signs Date Time Temp Pulse Resp B/P Pulse Ox O2 Delivery O2 Flow Rate FiO2 11/24/16 08:28 66 11/24/16 07:34 98.3 18 163/73 96 11/23/16 20:00 Room Air 11/20/16 08:30 2.0 Intake and Output 11/23/16 11/23/16 11/24/16 15:00 23:00 07:00 Intake Total 480 ml 800 ml Balance 480 ml 800 ml Exam Constitutional: alert, oriented Respiratory: clear to auscultation Cardiovascular: regular rate and rhythm Gastrointestinal: soft Results Result Diagram: 11/24/16 0710 11/24/16 0710 Results 24 hrs Laboratory Tests Test 11/23/16 11:27 11/23/16 12:18 11/23/16 17:27 11/23/16 21:13 Lab Scanned Report REFERENCE LAB Bedside Glucose 119 107 127 Test 11/24/16 07:10 11/24/16 08:07 White Blood Count 5.9 Red Blood Count 4.02 L Hemoglobin 11.2 L Hematocrit 33.8 L Mean Corpuscular Volume 84.1 Mean Corpuscular Hemoglobin 27.9 L Mean Corpuscular Hemoglobin Concent 33.1 Red Cell Distribution Width 14.6 H Platelet Count 122 L Mean Platelet Volume 12.6 H Neutrophils % 45.1 Lymphocytes % 36.0 Monocytes % 14.4 H Eosinophils % 3.6 Basophils % 0.7 Nucleated Red Blood Cells % 0.0 Neutrophils # 2.7 Lymphocytes # 2.1 Monocytes # 0.9 Eosinophils # 0.2 Basophils # 0.0 Nucleated Red Blood Cells # 0.0 Sodium Level 137 Potassium Level 4.0 Chloride Level 102 Carbon Dioxide Level 29 Anion Gap 10 # Blood Urea Nitrogen 19 Creatinine 1.45 H Glucose Level 67 #L Calcium Level 9.0 Bedside Glucose 86 Medications Medications Current Medications Diagnostic Test (Pha) (Accu-Chek) 1 ea 02 XX ; Start 11/17/16 at 02:00 Ondansetron HCl (Zofran Inj) 4 mg Q6H PRN IV NAUSEA AND/OR VOMITING; Start at 10:00 Albuterol (Ventolin Hfa) 2 puff Q6H PRN INH WHEEZING AND SOB; Start 11/16/16 at 12:00 Guaifenesin (Robitussin Liquid Cup) 100 mg Q6H PRN PO COUGH; Start 11/16/16 at 12:00 Losartan Potassium (Cozaar) 25 mg DAILY PO Last administered on 11/24/16 08:55 ; Admin Dose 25 MG; Start 11/17/16 at 09:00 Al Hydrox/Mg Hydrox/Simethicone (Mag-Al Plus) 10 ml TID PO Last administered on 11/24/16 08:53; Admin Dose 10 ML; Start 11/16/16 at 13:00 Trazodone HCl (Desyrel) 100 mg QHS PO Last administered on 11/23/16 21:05; Admin Dose 100 MG; Start 11/16/16 at 21:00 Atorvastatin Calcium (Lipitor) 20 mg HS PO Last administered on 11/23/16 21:06 ; Admin Dose 20 MG; Start 11/16/16 at 21:00 Pantoprazole (Protonix Tab) 40 mg DAILY@06 PO Last administered on 11/24/16 06 :04; Admin Dose 40 MG; Start 11/17/16 at 06:00 Hydralazine HCl (Apresoline) 50 mg BID PO Last administered on 11/24/16 08:54 ; Admin Dose 50 MG; Start 11/16/16 at 21:00 Furosemide (Lasix) 40 mg DAILY@06 PO Last administered on 11/24/16 06:05; Admin Dose 40 MG; Start 11/19/16 at 13:30 Miscellaneous Information 1 ea NOTE XX ; Start 11/20/16 at 09:00 Glucose (Glutose) 15 gm Q15M PRN PO DECREASED GLUCOSE; Start 11/20/16 at 09:00 Glucose (Glutose) 22.5 gm Q15M PRN PO DECREASED GLUCOSE; Start 11/20/16 at 09: 00 Dextrose (D50w Syringe) 25 ml Q15M PRN IV DECREASED GLUCOSE; Start 11/20/16 at 09:00 Dextrose (D50w Syringe) 50 ml Q15M PRN IV DECREASED GLUCOSE; Start 11/20/16 at 09:00 Glucagon (Glucagen) 1 mg Q15M PRN IM DECREASED GLUCOSE; Start 11/20/16 at 09:00 Glucose (Glutose) 15 gm Q15M PRN BUCCAL DECREASED GLUCOSE; Start 11/20/16 at 09 :00 Insulin Glargine (Lantus) 7 unit QHS SC Last administered on 11/23/16 21:16; Admin Dose 7 UNIT; Start 11/22/16 at 21:00 Enoxaparin Sodium 70 mg 70 mg Q24H SC Last administered on 11/23/16 17:33; Admin Dose 70 MG; Start 11/22/16 at 16:00 Ferric Sodium Gluconate Complex/ Sodium Chloride (Ferrlecit/NS) 110 ml @ 100 mls/hr Q24H IVPB Last administered on 11/23/16 17:33; Admin Dose 100 MLS/HR; Start 11/22/16 at 18:30; Stop 11/24/16 at 19:35 Metoprolol Tartrate (Lopressor) 12.5 mg BID PO Last administered on 11/23/16 21:06; Admin Dose 12.5 MG; Start 11/23/16 at 21:00 Aspirin (Aspirin) 81 mg DAILY PO Last administered on 11/24/16 09:20; Admin Dose 81 MG; Start 11/24/16 at 09:00 LAY FONTANA Nov 24, 2016 10:26
[2016-11-24] MEDS: ENOXAPARIN 80 MG/0.8 ML SYG SC SCH (16:41)
--- NOTE | 2016-11-24 17:22 | PN ---
Date/Time of Note Date/Time of Note DATE: 11/24/16 TIME: 17:18 Assessment/Plan VTE Prophylaxis VTE Prophylaxis Intervention: LMWH Lines/Catheters IV [facility]ter Type (from [facility]): Saline [facility] Urinary Cath still in place: No Assessment/Plan Chief Complaint/Hosp Course No acute events overnight patient's in intermittent atrial fibrillation and sinus rhythm, currently on Lovenox, continue telemetry monitoring await for final cardiology recommendations. Started on Eliquis discussed with a pharmacist full dose Eliquis is okay as far as patient's continues to have creatinine clearance below 30 and creatinine below 1.5. Assessment/Plan - Paroxysmal atrial fibrillation, continue amiodarone and Lovenox. Merle is following and cardiology consultation. - Congestive heart failure exacerbation. Dr. Bloom is following and cardiology consultation. On Lasix, continue to monitor electrolytes. - Acute renal failure on chronic kidney disease, Dr. Pineda is following a nephrology consultation. - Hypertension. Continue Cozaar and hydralazine. - Diabetes mellitus type 2 with hemoglobin A1c 7.1, continue Lantus and NovoLog. - Iron deficiency anemia, continue Ferrlecit. Further recommendations based on clinical course. Plan of care discussed with Dr. Zruita. Problems: Exam/Review of Systems Vital Signs Vitals Vital Signs Date Time Temp Pulse Resp B/P Pulse Ox O2 Delivery O2 Flow Rate FiO2 11/24/16 16:53 85 11/24/16 16:05 98.6 18 157/67 95 11/23/16 20:00 Room Air 11/20/16 08:30 2.0 Intake and Output 11/23/16 11/23/16 11/24/16 15:00 23:00 07:00 Intake Total 480 ml 800 ml Balance 480 ml 800 ml Exam Constitutional: alert, oriented Head: normocephalic Neck: supple Respiratory: normal air movement Cardiovascular: nl pulses, regular rate and rhythm Gastrointestinal: non-tender, soft Musculoskeletal: nl extremities to inspection Extremities: normal pulses Neurological: nl mental status Results Result Diagram: 11/24/16 0710 11/24/16 0710 Results 24 hrs Laboratory Tests Test 11/23/16 17:27 11/23/16 21:13 11/24/16 07:10 11/24/16 08:07 Bedside Glucose 107 127 86 White Blood Count 5.9 Red Blood Count 4.02 L Hemoglobin 11.2 L Hematocrit 33.8 L Mean Corpuscular Volume 84.1 Mean Corpuscular Hemoglobin 27.9 L Mean Corpuscular Hemoglobin Concent 33.1 Red Cell Distribution Width 14.6 H Platelet Count 122 L Mean Platelet Volume 12.6 H Neutrophils % 45.1 Lymphocytes % 36.0 Monocytes % 14.4 H Eosinophils % 3.6 Basophils % 0.7 Nucleated Red Blood Cells % 0.0 Neutrophils # 2.7 Lymphocytes # 2.1 Monocytes # 0.9 Eosinophils # 0.2 Basophils # 0.0 Nucleated Red Blood Cells # 0.0 Sodium Level 137 Potassium Level 4.0 Chloride Level 102 Carbon Dioxide Level 29 Anion Gap 10 # Blood Urea Nitrogen 19 Creatinine 1.45 H Glucose Level 67 #L Calcium Level 9.0 Test 11/24/16 12:01 Bedside Glucose 103 Medications Medications Current Medications Diagnostic Test (Pha) (Accu-Chek) 1 ea 02 XX ; Start 11/17/16 at 02:00 Ondansetron HCl (Zofran Inj) 4 mg Q6H PRN IV NAUSEA AND/OR VOMITING; Start at 10:00 Albuterol (Ventolin Hfa) 2 puff Q6H PRN INH WHEEZING AND SOB; Start 11/16/16 at 12:00 Guaifenesin (Robitussin Liquid Cup) 100 mg Q6H PRN PO COUGH; Start 11/16/16 at 12:00 Losartan Potassium (Cozaar) 25 mg DAILY PO Last administered on 11/24/16 08:55 ; Admin Dose 25 MG; Start 11/17/16 at 09:00 Al Hydrox/Mg Hydrox/Simethicone (Mag-Al Plus) 10 ml TID PO Last administered on 11/24/16 12:31; Admin Dose 10 ML; Start 11/16/16 at 13:00 Trazodone HCl (Desyrel) 100 mg QHS PO Last administered on 11/23/16 21:05; Admin Dose 100 MG; Start 11/16/16 at 21:00 Atorvastatin Calcium (Lipitor) 20 mg HS PO Last administered on 11/23/16 21:06 ; Admin Dose 20 MG; Start 11/16/16 at 21:00 Pantoprazole (Protonix Tab) 40 mg DAILY@06 PO Last administered on 11/24/16 06 :04; Admin Dose 40 MG; Start 11/17/16 at 06:00 Hydralazine HCl (Apresoline) 50 mg BID PO Last administered on 11/24/16 08:54 ; Admin Dose 50 MG; Start 11/16/16 at 21:00 Furosemide (Lasix) 40 mg DAILY@06 PO Last administered on 11/24/16 06:05; Admin Dose 40 MG; Start 11/19/16 at 13:30 Miscellaneous Information 1 ea NOTE XX ; Start 11/20/16 at 09:00 Glucose (Glutose) 15 gm Q15M PRN PO DECREASED GLUCOSE; Start 11/20/16 at 09:00 Glucose (Glutose) 22.5 gm Q15M PRN PO DECREASED GLUCOSE; Start 11/20/16 at 09: 00 Dextrose (D50w Syringe) 25 ml Q15M PRN IV DECREASED GLUCOSE; Start 11/20/16 at 09:00 Dextrose (D50w Syringe) 50 ml Q15M PRN IV DECREASED GLUCOSE; Start 11/20/16 at 09:00 Glucagon (Glucagen) 1 mg Q15M PRN IM DECREASED GLUCOSE; Start 11/20/16 at 09:00 Glucose (Glutose) 15 gm Q15M PRN BUCCAL DECREASED GLUCOSE; Start 11/20/16 at 09 :00 Insulin Glargine (Lantus) 7 unit QHS SC Last administered on 11/23/16 21:16; Admin Dose 7 UNIT; Start 11/22/16 at 21:00 Enoxaparin Sodium 70 mg 70 mg Q24H SC Last administered on 11/24/16 16:41; Admin Dose 70 MG; Start 11/22/16 at 16:00 Ferric Sodium Gluconate Complex/ Sodium Chloride (Ferrlecit/NS) 110 ml @ 100 mls/hr Q24H IVPB Last administered on 11/23/16 17:33; Admin Dose 100 MLS/HR; Start 11/22/16 at 18:30; Stop 11/24/16 at 19:35 Metoprolol Tartrate (Lopressor) 12.5 mg BID PO Last administered on 11/23/16 21:06; Admin Dose 12.5 MG; Start 11/23/16 at 21:00 Aspirin (Aspirin) 81 mg DAILY PO Last administered on 11/24/16 09:20; Admin Dose 81 MG; Start 11/24/16 at 09:00 OMKAR WILLARD Nov 24, 2016 17:22
[2016-11-24] MEDS: SOD FERRIC GLUC COMPLX 125 MG in SOD CHLORIDE 0.9% 100 ML IVPB SCH (17:46)
[2016-11-24] MEDS: traZODone 100 MG TAB PO SCH (21:47)
[2016-11-24] MEDS: APIXABAN 5 MG TABLET PO SCH (21:48)
[2016-11-24] MEDS: ATORVASTATIN 20 MG TAB PO SCH (21:51)
[2016-11-24] MEDS: INSULIN GLARGINE [LANtus] 3 ML PEN SC SCH (21:53)
[2016-11-25] VITALS (13 sets, daily range): BP systolic 148–167; BP diastolic 61–98; PULSE 52–96; RESP 18
[2016-11-25] MEDS: ACCU-CHEK XX SCH (02:00)
[2016-11-25] MEDS: FUROSEMIDE 40 MG TAB PO SCH (05:29)
[2016-11-25] MEDS: PANTOPRAZOLE (EC) 40 MG TAB PO SCH (05:34)
[2016-11-25] MEDS: INSULIN ASPART [NOVOLOG] 3 ML PEN SC SCH ×4 (08:00→21:00)
[2016-11-25 08:17] LABS: ADD SCAN DIFF NO
[2016-11-25 08:28] LABS: BASOPHILS % 0.6 % (0.0-2.0); EOSINOPHILS # 0.2 10^3/ul (0.0-0.5); HEMATOCRIT 40.1 % (37.0-47.0); HEMOGLOBIN 12.5 g/dl (12.0-16.0); LYMPHOCYTES # 2.3 10^3/ul (0.8-2.9); LYMPHOCYTES % 36.7 % (15.0-51.0); MEAN CORPUSCULAR HEMOGLOBIN 26.7 pg (29.0-33.0); MEAN CORPUSCULAR HGB CONC 31.2 g/dl (32.0-37.0); MEAN CORPUSCULAR VOLUME 85.7 fl (82.0-101.0); MEAN PLATELET VOLUME 12.5 fl (7.4-10.4); MONOCYTE # 0.8 10^3/ul (0.3-0.9); NEUTROPHIL # 2.9 10^3/ul (1.6-7.5); NEUTROPHILS % 46.4 % (39.0-77.0); PLATELET COUNT 156 10^3/UL (140-415); RED BLOOD COUNT 4.68 10^6/ul (4.20-5.40); RED CELL DISTRIBUTION WIDTH 14.5 % (11.5-14.5); WHITE BLOOD COUNT 6.2 10^3/ul (4.8-10.8)
[2016-11-25 08:38] LABS: CALCIUM 9.6 mg/dl (8.4-10.2); CREATININE 1.45 mg/dl (0.44-1.00); POTASSIUM 4.6 mmol/L (3.5-5.1)
[2016-11-25] MEDS: AL HYDROX/MG HYDROX/SIMETH 30 ML CUP PO SCH ×3 (09:06→21:09)
[2016-11-25] MEDS: APIXABAN 5 MG TABLET PO SCH ×2 (09:07→21:08)
[2016-11-25] MEDS: ASPIRIN 81 MG TAB PO SCH (09:07)
[2016-11-25] MEDS: METOPROLOL 25 MG TAB PO SCH ×2 (09:07→21:08)
[2016-11-25] MEDS: LOSARTAN 25 MG TAB PO SCH (09:11)
--- NOTE | 2016-11-25 12:52 | CONS ---
Date/Time of Note Date/Time of Note DATE: 11/25/16 TIME: 12:51 Assessment/Plan Assessment/Plan Additional Assessment/Plan 1. Congestive heart failure exacerbation, diastolic acute on chronic-EF 50 by echo. Improved volume status by exam - MUCH BETTER 2. Bradycardia both sinus lynnette and junctional bradycardia. Stable blood pressure at this time.-NL TSH. Improved currently HR 50-70's - no indication for pacer now. 3. Abnormal electrocardiogram, with intraventricular conduction delay. Assess for acute coronary syndrome.-negative trop x 3 4. Hypertension. Under reasonable control. Con't Rx. 5. Lower extremity edema.-venous ORIANA negative for DVT 6. Renal failure. 7. Anemia. 8.PAF with RVR- in sinus now, no symptoms - no class I indication for pacer. Consultation Date/Type/Reason Admit Date/Time Nov 16, 2016 at 04:55 Type of Consultation: renal Referring Provider: NOAH DANIEL MD 24 HR Interval Summary Free Text/Dictation NO acute events - HR well Rx - con't to follow. ROS: No fever, no chills, no nausea, no vomiting, no diarrhea/constipation No recent weight changes No chest pain, no PND, no orthopnea No dizziness, blurred vision No thirst, no heat or cold intolerance Exam/Review of Systems Vital Signs Vitals Vital Signs Date Time Temp Pulse Resp B/P Pulse Ox O2 Delivery O2 Flow Rate FiO2 11/25/16 12:10 78 11/25/16 11:24 98.6 18 148/63 98 11/25/16 04:00 Room Air Intake and Output 11/24/16 11/24/16 11/25/16 15:00 23:00 07:00 Intake Total 720 ml 800 ml Balance 720 ml 800 ml Exam General: WN/WD/NAD, AOx 3 HEENT: Unicetric/atraumatic/EOMI (follows commands) NECK: JVD elevated, no thyromegaly Lymph: no lymphadenopathy HEART: regular with no S3, II/ systolic murmur at apex LUNGS: Coarse sounds ABD: soft, NT, ND, +BS : Intact Neuro: non focal SKIN: chronic changes EXT: trace edema Results Result Diagram: 11/25/16 0741 11/25/16 0745 Results 24 hrs Laboratory Tests Test 11/24/16 17:22 11/24/16 21:47 11/25/16 07:41 11/25/16 07:45 Bedside Glucose 96 156 White Blood Count 6.2 Red Blood Count 4.68 Hemoglobin 12.5 Hematocrit 40.1 Mean Corpuscular Volume 85.7 Mean Corpuscular Hemoglobin 26.7 L Mean Corpuscular Hemoglobin Concent 31.2 L Red Cell Distribution Width 14.5 Platelet Count 156 # Mean Platelet Volume 12.5 H Neutrophils % 46.4 Lymphocytes % 36.7 Monocytes % 13.0 H Eosinophils % 3.0 Basophils % 0.6 Nucleated Red Blood Cells % 0.0 Neutrophils # 2.9 Lymphocytes # 2.3 Monocytes # 0.8 Eosinophils # 0.2 Basophils # 0.0 Nucleated Red Blood Cells # 0.0 Sodium Level 140 Potassium Level 4.6 Chloride Level 99 Carbon Dioxide Level 30 Anion Gap 16 Blood Urea Nitrogen 22 H Creatinine 1.45 H Glucose Level 113 # Calcium Level 9.6 Test 11/25/16 08:28 11/25/16 12:04 Bedside Glucose 108 137 Medications Medications Current Medications Diagnostic Test (Pha) (Accu-Chek) 1 ea 02 XX ; Start 11/17/16 at 02:00 Ondansetron HCl (Zofran Inj) 4 mg Q6H PRN IV NAUSEA AND/OR VOMITING; Start at 10:00 Albuterol (Ventolin Hfa) 2 puff Q6H PRN INH WHEEZING AND SOB; Start 11/16/16 at 12:00 Guaifenesin (Robitussin Liquid Cup) 100 mg Q6H PRN PO COUGH; Start 11/16/16 at 12:00 Losartan Potassium (Cozaar) 25 mg DAILY PO Last administered on 11/25/16 09:11 ; Admin Dose 25 MG; Start 11/17/16 at 09:00 Al Hydrox/Mg Hydrox/Simethicone (Mag-Al Plus) 10 ml TID PO Last administered on 11/25/16 09:06; Admin Dose 10 ML; Start 11/16/16 at 13:00 Trazodone HCl (Desyrel) 100 mg QHS PO Last administered on 11/24/16 21:47; Admin Dose 100 MG; Start 11/16/16 at 21:00 Atorvastatin Calcium (Lipitor) 20 mg HS PO Last administered on 11/24/16 21:51 ; Admin Dose 20 MG; Start 11/16/16 at 21:00 Pantoprazole (Protonix Tab) 40 mg DAILY@06 PO Last administered on 11/25/16 05 :34; Admin Dose 40 MG; Start 11/17/16 at 06:00 Hydralazine HCl (Apresoline) 50 mg BID PO Last administered on 11/25/16 09:07 ; Admin Dose 50 MG; Start 11/16/16 at 21:00 Furosemide (Lasix) 40 mg DAILY@06 PO Last administered on 11/25/16 05:29; Admin Dose 40 MG; Start 11/19/16 at 13:30 Miscellaneous Information 1 ea NOTE XX ; Start 11/20/16 at 09:00 Glucose (Glutose) 15 gm Q15M PRN PO DECREASED GLUCOSE; Start 11/20/16 at 09:00 Glucose (Glutose) 22.5 gm Q15M PRN PO DECREASED GLUCOSE; Start 11/20/16 at 09: 00 Dextrose (D50w Syringe) 25 ml Q15M PRN IV DECREASED GLUCOSE; Start 11/20/16 at 09:00 Dextrose (D50w Syringe) 50 ml Q15M PRN IV DECREASED GLUCOSE; Start 11/20/16 at 09:00 Glucagon (Glucagen) 1 mg Q15M PRN IM DECREASED GLUCOSE; Start 11/20/16 at 09:00 Glucose (Glutose) 15 gm Q15M PRN BUCCAL DECREASED GLUCOSE; Start 11/20/16 at 09 :00 Insulin Glargine (Lantus) 7 unit QHS SC Last administered on 11/24/16 21:53; Admin Dose 7 UNIT; Start 11/22/16 at 21:00 Enoxaparin Sodium (Lovenox) 70 mg Q24H SC Last administered on 11/24/16 16:41 ; Admin Dose 70 MG; Start 11/22/16 at 16:00 Metoprolol Tartrate (Lopressor) 12.5 mg BID PO Last administered on 11/25/16 09:07; Admin Dose 12.5 MG; Start 11/23/16 at 21:00 Aspirin (Aspirin) 81 mg DAILY PO Last administered on 11/25/16 09:07; Admin Dose 81 MG; Start 11/24/16 at 09:00 Apixaban (Eliquis) 5 mg BID PO Last administered on 11/25/16 09:07; Admin Dose 5 MG; Start 11/24/16 at 21:00 BRAYDON EL MD Nov 25, 2016 12:52
--- NOTE | 2016-11-25 13:02 | PN ---
Date/Time of Note Date/Time of Note DATE: 11/25/16 TIME: 13:01 Assessment/Plan VTE Prophylaxis VTE Prophylaxis Intervention: other Lines/Catheters IV Catheter Type (from [facility]): [facility] Urinary Cath still in place: No Assessment/Plan Chief Complaint/Hosp Course - Paroxysmal atrial fibrillation, continue amiodarone and Lovenox. Merle is following and cardiology consultation. - Congestive heart failure exacerbation. Dr. Bloom is following and cardiology consultation. On Lasix, continue to monitor electrolytes. - Acute renal failure on chronic kidney disease, Dr. Pineda is following a nephrology consultation. - Hypertension. Continue Cozaar and hydralazine. - Diabetes mellitus type 2 with hemoglobin A1c 7.1, continue Lantus and NovoLog. - Iron deficiency anemia, continue Ferrlecit. Problems: Subjective 24 Hr Interval Summary Free Text/Dictation Patient has no complaints Exam/Review of Systems Vital Signs Vitals Vital Signs Date Time Temp Pulse Resp B/P Pulse Ox O2 Delivery O2 Flow Rate FiO2 11/25/16 12:10 78 11/25/16 11:24 98.6 18 148/63 98 11/25/16 04:00 Room Air Intake and Output 11/24/16 11/24/16 11/25/16 15:00 23:00 07:00 Intake Total 720 ml 800 ml Balance 720 ml 800 ml Exam Constitutional: well developed Head: atraumatic, normocephalic Neck: supple Respiratory: clear to auscultation Cardiovascular: regular rate and rhythm Gastrointestinal: non-tender, soft Extremities: normal pulses Results Result Diagram: 11/25/16 0741 11/25/16 0745 Results 24 hrs Laboratory Tests Test 11/24/16 17:22 11/24/16 21:47 11/25/16 07:41 11/25/16 07:45 Bedside Glucose 96 156 White Blood Count 6.2 Red Blood Count 4.68 Hemoglobin 12.5 Hematocrit 40.1 Mean Corpuscular Volume 85.7 Mean Corpuscular Hemoglobin 26.7 L Mean Corpuscular Hemoglobin Concent 31.2 L Red Cell Distribution Width 14.5 Platelet Count 156 # Mean Platelet Volume 12.5 H Neutrophils % 46.4 Lymphocytes % 36.7 Monocytes % 13.0 H Eosinophils % 3.0 Basophils % 0.6 Nucleated Red Blood Cells % 0.0 Neutrophils # 2.9 Lymphocytes # 2.3 Monocytes # 0.8 Eosinophils # 0.2 Basophils # 0.0 Nucleated Red Blood Cells # 0.0 Sodium Level 140 Potassium Level 4.6 Chloride Level 99 Carbon Dioxide Level 30 Anion Gap 16 Blood Urea Nitrogen 22 H Creatinine 1.45 H Glucose Level 113 # Calcium Level 9.6 Test 11/25/16 08:28 11/25/16 12:04 Bedside Glucose 108 137 Medications Medications Current Medications Diagnostic Test (Pha) (Accu-Chek) 1 ea 02 XX ; Start 11/17/16 at 02:00 Ondansetron HCl (Zofran Inj) 4 mg Q6H PRN IV NAUSEA AND/OR VOMITING; Start at 10:00 Albuterol (Ventolin Hfa) 2 puff Q6H PRN INH WHEEZING AND SOB; Start 11/16/16 at 12:00 Guaifenesin (Robitussin Liquid Cup) 100 mg Q6H PRN PO COUGH; Start 11/16/16 at 12:00 Losartan Potassium (Cozaar) 25 mg DAILY PO Last administered on 11/25/16 09:11 ; Admin Dose 25 MG; Start 11/17/16 at 09:00 Al Hydrox/Mg Hydrox/Simethicone (Mag-Al Plus) 10 ml TID PO Last administered on 11/25/16 12:54; Admin Dose 10 ML; Start 11/16/16 at 13:00 Trazodone HCl (Desyrel) 100 mg QHS PO Last administered on 11/24/16 21:47; Admin Dose 100 MG; Start 11/16/16 at 21:00 Atorvastatin Calcium (Lipitor) 20 mg HS PO Last administered on 11/24/16 21:51 ; Admin Dose 20 MG; Start 11/16/16 at 21:00 Pantoprazole (Protonix Tab) 40 mg DAILY@06 PO Last administered on 11/25/16 05 :34; Admin Dose 40 MG; Start 11/17/16 at 06:00 Hydralazine HCl (Apresoline) 50 mg BID PO Last administered on 11/25/16 09:07 ; Admin Dose 50 MG; Start 11/16/16 at 21:00 Furosemide (Lasix) 40 mg DAILY@06 PO Last administered on 11/25/16 05:29; Admin Dose 40 MG; Start 11/19/16 at 13:30 Miscellaneous Information 1 ea NOTE XX ; Start 11/20/16 at 09:00 Glucose (Glutose) 15 gm Q15M PRN PO DECREASED GLUCOSE; Start 11/20/16 at 09:00 Glucose (Glutose) 22.5 gm Q15M PRN PO DECREASED GLUCOSE; Start 11/20/16 at 09: 00 Dextrose (D50w Syringe) 25 ml Q15M PRN IV DECREASED GLUCOSE; Start 11/20/16 at 09:00 Dextrose (D50w Syringe) 50 ml Q15M PRN IV DECREASED GLUCOSE; Start 11/20/16 at 09:00 Glucagon (Glucagen) 1 mg Q15M PRN IM DECREASED GLUCOSE; Start 11/20/16 at 09:00 Glucose (Glutose) 15 gm Q15M PRN BUCCAL DECREASED GLUCOSE; Start 11/20/16 at 09 :00 Insulin Glargine (Lantus) 7 unit QHS SC Last administered on 11/24/16 21:53; Admin Dose 7 UNIT; Start 11/22/16 at 21:00 Enoxaparin Sodium (Lovenox) 70 mg Q24H SC Last administered on 11/24/16 16:41 ; Admin Dose 70 MG; Start 11/22/16 at 16:00 Metoprolol Tartrate (Lopressor) 12.5 mg BID PO Last administered on 11/25/16 09:07; Admin Dose 12.5 MG; Start 11/23/16 at 21:00 Aspirin (Aspirin) 81 mg DAILY PO Last administered on 11/25/16 09:07; Admin Dose 81 MG; Start 11/24/16 at 09:00 Apixaban (Eliquis) 5 mg BID PO Last administered on 11/25/16 09:07; Admin Dose 5 MG; Start 11/24/16 at 21:00 YURIDIA RAYA Nov 25, 2016 13:02
--- NOTE | 2016-11-25 13:22 | CONS ---
Date/Time of Note Date/Time of Note DATE: 11/25/16 TIME: 13:21 Assessment/Plan Assessment/Plan Chief Complaint/Hosp Course 1. Chronic kidney injury. 2. Diabetic nephropathy. 3. hypertension, 4. metabolic acidosis, 5. anemia, 6. history of brain aneurysm, 7. history of cholecystectomy, laparoscopic; 8. dyslipidemia, 9. history of proteinuria. 10. oVERWEIGHT Problems: Additional Assessment/Plan 1. OPTIMIZATION KIDNEY FUNCTION Consultation Date/Type/Reason Admit Date/Time Nov 16, 2016 at 04:55 Initial Consult Date 11/16/2016 Type of Consultation: renal Reason for Consultation dR Antoine Referring Provider: NOAH DANIEL MD Exam/Review of Systems Vital Signs Vitals Vital Signs Date Time Temp Pulse Resp B/P Pulse Ox O2 Delivery O2 Flow Rate FiO2 11/25/16 12:10 78 11/25/16 11:24 98.6 18 148/63 98 11/25/16 04:00 Room Air Intake and Output 11/24/16 11/24/16 11/25/16 15:00 23:00 07:00 Intake Total 720 ml 800 ml Balance 720 ml 800 ml Exam Constitutional: alert, oriented Neck: supple Respiratory: clear to auscultation Cardiovascular: regular rate and rhythm Results Result Diagram: 11/25/16 0741 11/25/16 0745 Results 24 hrs Laboratory Tests Test 11/24/16 17:22 11/24/16 21:47 11/25/16 07:41 11/25/16 07:45 Bedside Glucose 96 156 White Blood Count 6.2 Red Blood Count 4.68 Hemoglobin 12.5 Hematocrit 40.1 Mean Corpuscular Volume 85.7 Mean Corpuscular Hemoglobin 26.7 L Mean Corpuscular Hemoglobin Concent 31.2 L Red Cell Distribution Width 14.5 Platelet Count 156 # Mean Platelet Volume 12.5 H Neutrophils % 46.4 Lymphocytes % 36.7 Monocytes % 13.0 H Eosinophils % 3.0 Basophils % 0.6 Nucleated Red Blood Cells % 0.0 Neutrophils # 2.9 Lymphocytes # 2.3 Monocytes # 0.8 Eosinophils # 0.2 Basophils # 0.0 Nucleated Red Blood Cells # 0.0 Sodium Level 140 Potassium Level 4.6 Chloride Level 99 Carbon Dioxide Level 30 Anion Gap 16 Blood Urea Nitrogen 22 H Creatinine 1.45 H Glucose Level 113 # Calcium Level 9.6 Test 11/25/16 08:28 11/25/16 12:04 Bedside Glucose 108 137 Medications Medications Current Medications Diagnostic Test (Pha) (Accu-Chek) 1 ea 02 XX ; Start 11/17/16 at 02:00 Ondansetron HCl (Zofran Inj) 4 mg Q6H PRN IV NAUSEA AND/OR VOMITING; Start at 10:00 Albuterol (Ventolin Hfa) 2 puff Q6H PRN INH WHEEZING AND SOB; Start 11/16/16 at 12:00 Guaifenesin (Robitussin Liquid Cup) 100 mg Q6H PRN PO COUGH; Start 11/16/16 at 12:00 Losartan Potassium (Cozaar) 25 mg DAILY PO Last administered on 11/25/16 09:11 ; Admin Dose 25 MG; Start 11/17/16 at 09:00 Al Hydrox/Mg Hydrox/Simethicone (Mag-Al Plus) 10 ml TID PO Last administered on 11/25/16 12:54; Admin Dose 10 ML; Start 11/16/16 at 13:00 Trazodone HCl (Desyrel) 100 mg QHS PO Last administered on 11/24/16 21:47; Admin Dose 100 MG; Start 11/16/16 at 21:00 Atorvastatin Calcium (Lipitor) 20 mg HS PO Last administered on 11/24/16 21:51 ; Admin Dose 20 MG; Start 11/16/16 at 21:00 Pantoprazole (Protonix Tab) 40 mg DAILY@06 PO Last administered on 11/25/16 05 :34; Admin Dose 40 MG; Start 11/17/16 at 06:00 Hydralazine HCl (Apresoline) 50 mg BID PO Last administered on 11/25/16 09:07 ; Admin Dose 50 MG; Start 11/16/16 at 21:00 Furosemide (Lasix) 40 mg DAILY@06 PO Last administered on 11/25/16 05:29; Admin Dose 40 MG; Start 11/19/16 at 13:30 Miscellaneous Information 1 ea NOTE XX ; Start 11/20/16 at 09:00 Glucose (Glutose) 15 gm Q15M PRN PO DECREASED GLUCOSE; Start 11/20/16 at 09:00 Glucose (Glutose) 22.5 gm Q15M PRN PO DECREASED GLUCOSE; Start 11/20/16 at 09: 00 Dextrose (D50w Syringe) 25 ml Q15M PRN IV DECREASED GLUCOSE; Start 11/20/16 at 09:00 Dextrose (D50w Syringe) 50 ml Q15M PRN IV DECREASED GLUCOSE; Start 11/20/16 at 09:00 Glucagon (Glucagen) 1 mg Q15M PRN IM DECREASED GLUCOSE; Start 11/20/16 at 09:00 Glucose (Glutose) 15 gm Q15M PRN BUCCAL DECREASED GLUCOSE; Start 11/20/16 at 09 :00 Insulin Glargine (Lantus) 7 unit QHS SC Last administered on 11/24/16 21:53; Admin Dose 7 UNIT; Start 11/22/16 at 21:00 Enoxaparin Sodium (Lovenox) 70 mg Q24H SC Last administered on 11/24/16 16:41 ; Admin Dose 70 MG; Start 11/22/16 at 16:00 Metoprolol Tartrate (Lopressor) 12.5 mg BID PO Last administered on 11/25/16 09:07; Admin Dose 12.5 MG; Start 11/23/16 at 21:00 Aspirin (Aspirin) 81 mg DAILY PO Last administered on 11/25/16 09:07; Admin Dose 81 MG; Start 11/24/16 at 09:00 Apixaban (Eliquis) 5 mg BID PO Last administered on 11/25/16 09:07; Admin Dose 5 MG; Start 11/24/16 at 21:00 LAY FONTANA Nov 25, 2016 13:22
[2016-11-25] MEDS: ENOXAPARIN 80 MG/0.8 ML SYG SC SCH (15:09)
[2016-11-25] MEDS: ATORVASTATIN 20 MG TAB PO SCH (21:07)
[2016-11-25] MEDS: traZODone 100 MG TAB PO SCH (21:09)
[2016-11-25] MEDS: INSULIN GLARGINE [LANtus] 3 ML PEN SC SCH (21:11)
[2016-11-26] VITALS (12 sets, daily range): BP systolic 123–169; BP diastolic 61–86; PULSE 45–76; RESP 18–19
[2016-11-26] MEDS: ACCU-CHEK XX SCH (02:00)
[2016-11-26] MEDS: FUROSEMIDE 40 MG TAB PO SCH (05:00)
[2016-11-26] MEDS: PANTOPRAZOLE (EC) 40 MG TAB PO SCH (05:01)
[2016-11-26] MEDS: INSULIN ASPART [NOVOLOG] 3 ML PEN SC SCH ×4 (08:00→21:00)
[2016-11-26] MEDS: APIXABAN 5 MG TABLET PO SCH ×2 (08:19→22:49)
[2016-11-26] MEDS: ASPIRIN 81 MG TAB PO SCH (08:19)
[2016-11-26] MEDS: AL HYDROX/MG HYDROX/SIMETH 30 ML CUP PO SCH ×3 (08:19→22:46)
[2016-11-26] MEDS: LOSARTAN 25 MG TAB PO SCH (08:20)
[2016-11-26] MEDS: METOPROLOL 25 MG TAB PO SCH ×2 (08:21→21:00)
--- NOTE | 2016-11-26 12:46 | PN ---
Date/Time of Note Date/Time of Note DATE: 11/26/16 TIME: 12:45 Assessment/Plan VTE Prophylaxis VTE Prophylaxis Intervention: other Lines/Catheters IV Catheter Type (from [facility]): [facility] Urinary Cath still in place: No Assessment/Plan Chief Complaint/Hosp Course - Paroxysmal atrial fibrillation, continue amiodarone and Lovenox. Merle is following and cardiology consultation. - Congestive heart failure exacerbation. Dr. Bloom is following and cardiology consultation. On Lasix, continue to monitor electrolytes. - Acute renal failure on chronic kidney disease, Dr. Pineda is following a nephrology consultation. - Hypertension. Continue Cozaar and hydralazine. - Diabetes mellitus type 2 with hemoglobin A1c 7.1, continue Lantus and NovoLog. - Iron deficiency anemia, continue Ferrlecit. Problems: Subjective 24 Hr Interval Summary Free Text/Dictation Patient has no complaints Exam/Review of Systems Vital Signs Vitals Vital Signs Date Time Temp Pulse Resp B/P Pulse Ox O2 Delivery O2 Flow Rate FiO2 11/26/16 12:39 70 11/26/16 11:46 98.1 18 139/77 98 11/25/16 04:00 Room Air Intake and Output 11/25/16 11/25/16 11/26/16 15:00 23:00 07:00 Intake Total 720 ml 850 ml Balance 720 ml 850 ml Exam Constitutional: well developed Head: atraumatic, normocephalic Respiratory: clear to auscultation Cardiovascular: regular rate and rhythm Gastrointestinal: non-tender, soft Extremities: normal pulses Results Result Diagram: 11/25/16 0741 11/25/16 0745 Results 24 hrs Laboratory Tests Test 11/25/16 17:33 11/25/16 21:05 11/26/16 08:18 11/26/16 11:34 Bedside Glucose 165 91 96 224 H Medications Medications Current Medications Diagnostic Test (Pha) (Accu-Chek) 1 02 XX ; Start 11/17/16 at 02:00 Ondansetron HCl (Zofran Inj) 4 mg Q6H PRN IV NAUSEA AND/OR VOMITING; Start at 10:00 Albuterol (Ventolin Hfa) 2 puff Q6H PRN INH WHEEZING AND SOB; Start 11/16/16 at 12:00 Guaifenesin (Robitussin Liquid Cup) 100 mg Q6H PRN PO COUGH; Start 11/16/16 at 12:00 Losartan Potassium (Cozaar) 25 mg DAILY PO Last administered on 11/26/16 08:20 ; Admin Dose 25 MG; Start 11/17/16 at 09:00 Al Hydrox/Mg Hydrox/Simethicone (Mag-Al Plus) 10 ml TID PO Last administered on 11/26/16 08:19; Admin Dose 10 ML; Start 11/16/16 at 13:00 Trazodone HCl (Desyrel) 100 mg QHS PO Last administered on 11/25/16 21:09; Admin Dose 100 MG; Start 11/16/16 at 21:00 Atorvastatin Calcium (Lipitor) 20 mg HS PO Last administered on 11/25/16 21:07 ; Admin Dose 20 MG; Start 11/16/16 at 21:00 Pantoprazole (Protonix Tab) 40 mg DAILY@06 PO Last administered on 11/26/16 05 :01; Admin Dose 40 MG; Start 11/17/16 at 06:00 Hydralazine HCl (Apresoline) 50 mg BID PO Last administered on 11/26/16 08:20 ; Admin Dose 50 MG; Start 11/16/16 at 21:00 Furosemide (Lasix) 40 mg DAILY@06 PO Last administered on 11/26/16 05:00; Admin Dose 40 MG; Start 11/19/16 at 13:30 Miscellaneous Information 1 ea NOTE XX ; Start 11/20/16 at 09:00 Glucose (Glutose) 15 gm Q15M PRN PO DECREASED GLUCOSE; Start 11/20/16 at 09:00 Glucose (Glutose) 22.5 gm Q15M PRN PO DECREASED GLUCOSE; Start 11/20/16 at 09: 00 Dextrose (D50w Syringe) 25 ml Q15M PRN IV DECREASED GLUCOSE; Start 11/20/16 at 09:00 Dextrose (D50w Syringe) 50 ml Q15M PRN IV DECREASED GLUCOSE; Start 11/20/16 at 09:00 Glucagon (Glucagen) 1 mg Q15M PRN IM DECREASED GLUCOSE; Start 11/20/16 at 09:00 Glucose (Glutose) 15 gm Q15M PRN BUCCAL DECREASED GLUCOSE; Start 11/20/16 at 09 :00 Insulin Glargine (Lantus) 7 unit QHS SC Last administered on 11/25/16 21:11; Admin Dose 7 UNIT; Start 11/22/16 at 21:00 Enoxaparin Sodium (Lovenox) 70 mg Q24H SC Last administered on 11/25/16 15:09 ; Admin Dose 70 MG; Start 11/22/16 at 16:00 Metoprolol Tartrate (Lopressor) 12.5 mg BID PO Last administered on 11/25/16 21:08; Admin Dose 12.5 MG; Start 11/23/16 at 21:00 Aspirin (Aspirin) 81 mg DAILY PO Last administered on 11/26/16 08:19; Admin Dose 81 MG; Start 11/24/16 at 09:00 Apixaban (Eliquis) 5 mg BID PO Last administered on 11/26/16 08:19; Admin Dose 5 MG; Start 11/24/16 at 21:00 Clonidine (Catapres) 0.1 mg Q6H PRN PO ELEVATED BLOOD PRESSURE Last administered on 11/26/16 06:27; Admin Dose 0.1 MG; Start 11/25/16 at 20:30 YURIDIA RAYA Nov 26, 2016 12:46
--- NOTE | 2016-11-26 15:48 | CONS ---
Date/Time of Note Date/Time of Note DATE: 11/26/16 TIME: 15:46 Assessment/Plan Assessment/Plan Additional Assessment/Plan 1. Congestive heart failure exacerbation, diastolic acute on chronic-EF 50 by echo. Improved volume status by exam - MUCH BETTER 2. Bradycardia both sinus lynnette and junctional bradycardia. Stable blood pressure at this time.-NL TSH. Improved currently HR 50-70's - no indication for pacer now. HR stable. 3. Abnormal electrocardiogram, with intraventricular conduction delay. Assess for acute coronary syndrome.-negative trop x 3 4. Hypertension. Under reasonable control. Con't Rx. 5. Lower extremity edema.-venous ORIANA negative for DVT - unchanged. 6. Renal failure. 7. Anemia. 8.PAF with RVR- in sinus now, no symptoms - no class I indication for pacer. Consultation Date/Type/Reason Admit Date/Time Nov 16, 2016 at 04:55 Type of Consultation: renal Referring Provider: NOAH DANIEL MD 24 HR Interval Summary Free Text/Dictation NO acute events - pt stable overall - in good fluid status. ROS: No fever, no chills, no nausea, no vomiting, no diarrhea/constipation No recent weight changes No chest pain, no PND, no orthopnea No dizziness, blurred vision No thirst, no heat or cold intolerance Exam/Review of Systems Vital Signs Vitals Vital Signs Date Time Temp Pulse Resp B/P Pulse Ox O2 Delivery O2 Flow Rate FiO2 11/26/16 15:39 97.8 57 18 123/63 97 11/25/16 04:00 Room Air Intake and Output 11/25/16 11/25/16 11/26/16 15:00 23:00 07:00 Intake Total 720 ml 850 ml Balance 720 ml 850 ml Exam General: WN/WD/NAD, AOx 2-3 HEENT: Unicetric/atraumatic/EOMI NECK: JVD elevated, no thyromegaly Lymph: no lymphadenopathy HEART: regular with no S3, II/ systolic murmur at apex LUNGS: Coarse sounds ABD: soft, NT, ND, +BS : Intact Neuro: non focal SKIN: chronic changes EXT: trace edema Results Result Diagram: 11/25/16 0741 11/25/16 0745 Results 24 hrs Laboratory Tests Test 11/25/16 17:33 11/25/16 21:05 11/26/16 08:18 11/26/16 11:34 Bedside Glucose 165 91 96 224 H Medications Medications Current Medications Diagnostic Test (Pha) (Accu-Chek) 1 ea 02 XX ; Start 11/17/16 at 02:00 Ondansetron HCl (Zofran Inj) 4 mg Q6H PRN IV NAUSEA AND/OR VOMITING; Start at 10:00 Albuterol (Ventolin Hfa) 2 puff Q6H PRN INH WHEEZING AND SOB; Start 11/16/16 at 12:00 Guaifenesin (Robitussin Liquid Cup) 100 mg Q6H PRN PO COUGH; Start 11/16/16 at 12:00 Losartan Potassium (Cozaar) 25 mg DAILY PO Last administered on 11/26/16 08:20 ; Admin Dose 25 MG; Start 11/17/16 at 09:00 Al Hydrox/Mg Hydrox/Simethicone (Mag-Al Plus) 10 ml TID PO Last administered on 11/26/16 08:19; Admin Dose 10 ML; Start 11/16/16 at 13:00 Trazodone HCl (Desyrel) 100 mg QHS PO Last administered on 11/25/16 21:09; Admin Dose 100 MG; Start 11/16/16 at 21:00 Atorvastatin Calcium (Lipitor) 20 mg HS PO Last administered on 11/25/16 21:07 ; Admin Dose 20 MG; Start 11/16/16 at 21:00 Pantoprazole (Protonix Tab) 40 mg DAILY@06 PO Last administered on 11/26/16 05 :01; Admin Dose 40 MG; Start 11/17/16 at 06:00 Hydralazine HCl (Apresoline) 50 mg BID PO Last administered on 11/26/16 08:20 ; Admin Dose 50 MG; Start 11/16/16 at 21:00 Furosemide (Lasix) 40 mg DAILY@06 PO Last administered on 11/26/16 05:00; Admin Dose 40 MG; Start 11/19/16 at 13:30 Miscellaneous Information 1 ea NOTE XX ; Start 11/20/16 at 09:00 Glucose (Glutose) 15 gm Q15M PRN PO DECREASED GLUCOSE; Start 11/20/16 at 09:00 Glucose (Glutose) 22.5 gm Q15M PRN PO DECREASED GLUCOSE; Start 11/20/16 at 09: 00 Dextrose (D50w Syringe) 25 ml Q15M PRN IV DECREASED GLUCOSE; Start 11/20/16 at 09:00 Dextrose (D50w Syringe) 50 ml Q15M PRN IV DECREASED GLUCOSE; Start 11/20/16 at 09:00 Glucagon (Glucagen) 1 mg Q15M PRN IM DECREASED GLUCOSE; Start 11/20/16 at 09:00 Glucose (Glutose) 15 gm Q15M PRN BUCCAL DECREASED GLUCOSE; Start 11/20/16 at 09 :00 Insulin Glargine (Lantus) 7 unit QHS SC Last administered on 11/25/16 21:11; Admin Dose 7 UNIT; Start 11/22/16 at 21:00 Enoxaparin Sodium (Lovenox) 70 mg Q24H SC Last administered on 11/25/16 15:09 ; Admin Dose 70 MG; Start 11/22/16 at 16:00 Metoprolol Tartrate (Lopressor) 12.5 mg BID PO Last administered on 11/25/16 21:08; Admin Dose 12.5 MG; Start 11/23/16 at 21:00 Aspirin (Aspirin) 81 mg DAILY PO Last administered on 11/26/16 08:19; Admin Dose 81 MG; Start 11/24/16 at 09:00 Apixaban (Eliquis) 5 mg BID PO Last administered on 11/26/16 08:19; Admin Dose 5 MG; Start 11/24/16 at 21:00 Clonidine (Catapres) 0.1 mg Q6H PRN PO ELEVATED BLOOD PRESSURE Last administered on 11/26/16 06:27; Admin Dose 0.1 MG; Start 11/25/16 at 20:30 BRAYDON EL MD Nov 26, 2016 15:48
[2016-11-26] MEDS: ENOXAPARIN 80 MG/0.8 ML SYG SC SCH (17:10)
[2016-11-26] MEDS: INSULIN GLARGINE [LANtus] 3 ML PEN SC SCH (21:00)
[2016-11-26] MEDS: ATORVASTATIN 20 MG TAB PO SCH (22:46)
[2016-11-26] MEDS: traZODone 100 MG TAB PO SCH (22:57)
[2016-11-27] VITALS (10 sets, daily range): BP systolic 118–172; BP diastolic 58–79; PULSE 57–73; RESP 17–18
[2016-11-27] MEDS: ACCU-CHEK XX SCH (02:33)
[2016-11-27] MEDS: ENALAPRIL 20 MG TAB GTB SCH ×2 (03:50→09:55)
[2016-11-27] MEDS: PANTOPRAZOLE (EC) 40 MG TAB PO SCH (06:09)
[2016-11-27] MEDS: FUROSEMIDE 40 MG TAB PO SCH (06:13)
--- NOTE | 2016-11-27 08:30 | CONS ---
Date/Time of Note Date/Time of Note DATE: 11/27/16 TIME: 08:29 Assessment/Plan Assessment/Plan Additional Assessment/Plan 1. Congestive heart failure exacerbation, diastolic acute on chronic-EF 50 by echo. Improved volume status by exam - MUCH BETTER 2. Bradycardia both sinus lynnette and junctional bradycardia. Stable blood pressure at this time.-NL TSH. Improved currently HR 50-70's - no indication for pacer now. HR stable. Occasional brday episodes - no Sx - no Class I indication for pacer. 3. Abnormal electrocardiogram, with intraventricular conduction delay. Assess for acute coronary syndrome.-negative trop x 3 4. Hypertension. Under reasonable control. Con't Rx. 5. Lower extremity edema.-venous ORIANA negative for DVT - unchanged. 6. Renal failure. 7. Anemia. 8.PAF with RVR- in sinus now, no symptoms - no class I indication for pacer. Consultation Date/Type/Reason Admit Date/Time Nov 16, 2016 at 04:55 Type of Consultation: renal Referring Provider: NOAH DANIEL MD 24 HR Interval Summary Free Text/Dictation NO acute change - pt stable - feels well- no class I indication for pacer. Office f/up advised. ROS: No fever, no chills, no nausea, no vomiting, no diarrhea/constipation No recent weight changes No chest pain, no PND, no orthopnea No dizziness, blurred vision No thirst, no heat or cold intolerance Exam/Review of Systems Vital Signs Vitals Vital Signs Date Time Temp Pulse Resp B/P Pulse Ox O2 Delivery O2 Flow Rate FiO2 11/27/16 07:47 97.7 59 18 148/79 95 11/25/16 04:00 Room Air Intake and Output 11/26/16 11/26/16 11/27/16 15:00 23:00 07:00 Intake Total 960 ml Balance 960 ml Exam General: WN/WD/NAD, AOx 3 HEENT: Unicetric/atraumatic/EOMI ( follow commands) NECK: JVD elevated, no thyromegaly Lymph: no lymphadenopathy HEART: Irregular with no S3, II/ systolic murmur at apex LUNGS: Coarse sounds ABD: soft, NT, ND, +BS : Intact Neuro: non focal SKIN: chronic changes EXT: trace edema Results Result Diagram: 11/25/16 0741 11/25/16 0745 Results 24 hrs Laboratory Tests Test 11/26/16 11:34 11/26/16 17:11 11/26/16 17:44 11/26/16 22:54 Bedside Glucose 224 H 66 L 112 113 Medications Medications Current Medications Diagnostic Test (Pha) (Accu-Chek) 1 ea 02 XX Last administered on 11/27/16 02: 33; Admin Dose 1 EA; Start 11/17/16 at 02:00 Ondansetron HCl (Zofran Inj) 4 mg Q6H PRN IV NAUSEA AND/OR VOMITING; Start at 10:00 Albuterol (Ventolin Hfa) 2 puff Q6H PRN INH WHEEZING AND SOB; Start 11/16/16 at 12:00 Guaifenesin (Robitussin Liquid Cup) 100 mg Q6H PRN PO COUGH; Start 11/16/16 at 12:00 Losartan Potassium (Cozaar) 25 mg DAILY PO Last administered on 11/26/16 08:20 ; Admin Dose 25 MG; Start 11/17/16 at 09:00 Al Hydrox/Mg Hydrox/Simethicone (Mag-Al Plus) 10 ml TID PO Last administered on 11/26/16 22:46; Admin Dose 10 ML; Start 11/16/16 at 13:00 Trazodone HCl (Desyrel) 100 mg QHS PO Last administered on 11/26/16 22:57; Admin Dose 100 MG; Start 11/16/16 at 21:00 Atorvastatin Calcium (Lipitor) 20 mg HS PO Last administered on 11/26/16 22:46 ; Admin Dose 20 MG; Start 11/16/16 at 21:00 Pantoprazole (Protonix Tab) 40 mg DAILY@06 PO Last administered on 11/27/16 06 :09; Admin Dose 40 MG; Start 11/17/16 at 06:00 Hydralazine HCl (Apresoline) 50 mg BID PO Last administered on 11/26/16 22:46 ; Admin Dose 50 MG; Start 11/16/16 at 21:00 Furosemide (Lasix) 40 mg DAILY@06 PO Last administered on 11/27/16 06:13; Admin Dose 40 MG; Start 11/19/16 at 13:30 Miscellaneous Information 1 ea NOTE XX ; Start 11/20/16 at 09:00 Glucose (Glutose) 15 gm Q15M PRN PO DECREASED GLUCOSE; Start 11/20/16 at 09:00 Glucose (Glutose) 22.5 gm Q15M PRN PO DECREASED GLUCOSE; Start 11/20/16 at 09: 00 Dextrose (D50w Syringe) 25 ml Q15M PRN IV DECREASED GLUCOSE; Start 11/20/16 at 09:00 Dextrose (D50w Syringe) 50 ml Q15M PRN IV DECREASED GLUCOSE; Start 11/20/16 at 09:00 Glucagon (Glucagen) 1 mg Q15M PRN IM DECREASED GLUCOSE; Start 11/20/16 at 09:00 Glucose (Glutose) 15 gm Q15M PRN BUCCAL DECREASED GLUCOSE; Start 11/20/16 at 09 :00 Insulin Glargine (Lantus) 7 unit QHS SC Last administered on 11/25/16 21:11; Admin Dose 7 UNIT; Start 11/22/16 at 21:00 Enoxaparin Sodium (Lovenox) 70 mg Q24H SC Last administered on 11/26/16 17:10 ; Admin Dose 70 MG; Start 11/22/16 at 16:00 Metoprolol Tartrate (Lopressor) 12.5 mg BID PO Last administered on 11/25/16 21:08; Admin Dose 12.5 MG; Start 11/23/16 at 21:00 Aspirin (Aspirin) 81 mg DAILY PO Last administered on 11/26/16 08:19; Admin Dose 81 MG; Start 11/24/16 at 09:00 Apixaban (Eliquis) 5 mg BID PO Last administered on 11/26/16 22:49; Admin Dose 5 MG; Start 11/24/16 at 21:00 Clonidine (Catapres) 0.1 mg Q6H PRN PO ELEVATED BLOOD PRESSURE Last administered on 11/26/16 06:27; Admin Dose 0.1 MG; Start 11/25/16 at 20:30 Enalapril Maleate (Vasotec) 20 mg DAILY GTB Last administered on 11/27/16 03: 50; Admin Dose 20 MG; Start 11/27/16 at 03:30 BRAYDON EL MD Nov 27, 2016 08:30
[2016-11-27] MEDS: ASPIRIN 81 MG TAB PO SCH (09:56)
[2016-11-27] MEDS: AL HYDROX/MG HYDROX/SIMETH 30 ML CUP PO SCH ×2 (09:58→13:00)
[2016-11-27] MEDS: METOPROLOL 25 MG TAB PO SCH (09:58)
[2016-11-27] MEDS: LOSARTAN 25 MG TAB PO SCH (09:58)
[2016-11-27] MEDS: APIXABAN 5 MG TABLET PO SCH (09:58)
[2016-11-27] MEDS ORDERED: INSULIN ASPART [NOVOLOG] 3 ML PEN SC SCH (12:00)
[2016-11-27] MEDS ORDERED: METO-448 PO (15:43)
[2016-11-27] MEDS ORDERED: APIX5TAB PO (15:43)
--- NOTE | 2016-11-27 15:48 | PN ---
Date/Time of Note Date/Time of Note DATE: 11/27/16 TIME: 15:47 Assessment/Plan VTE Prophylaxis VTE Prophylaxis Intervention: other Lines/Catheters IV C[facility] Type [facility]from [facility] Urinary Cath still in place: No Assessment/Plan Chief Complaint/Hosp Course D/c home upon insurance approval for Lyndaquis. Assessment/Plan - Paroxysmal atrial fibrillation, continue amiodarone and Lovenox. Merle is following and cardiology consultation. - Congestive heart failure exacerbation. Dr. Bloom is following and cardiology consultation. On Lasix, continue to monitor electrolytes. - Acute renal failure on chronic kidney disease, Dr. Pineda is following a nephrology consultation. - Hypertension. Continue Cozaar and hydralazine. - Diabetes mellitus type 2 with hemoglobin A1c 7.1, continue Lantus and NovoLog. - Iron deficiency anemia, continue Ferrlecit. Further recommendations based on clinical course. Plan of care discussed with Dr. Zurita. Problems: Exam/Review of Systems Vital Signs Vitals Vital Signs Date Time Temp Pulse Resp B/P Pulse Ox O2 Delivery O2 Flow Rate FiO2 11/27/16 15:42 97.8 68 18 172/72 98 11/25/16 04:00 Room Air Intake and Output 11/26/16 11/26/16 11/27/16 15:00 23:00 07:00 Intake Total 960 ml Balance 960 ml Exam Constitutional: alert, oriented Head: normocephalic Neck: supple Respiratory: normal air movement Cardiovascular: nl pulses, irregular Gastrointestinal: non-tender, soft Musculoskeletal: nl extremities to inspection Extremities: normal pulses Neurological: nl mental status Results Result Diagram: 11/25/16 0741 11/25/16 0745 Results 24 hrs Laboratory Tests Test 11/26/16 17:11 11/26/16 17:44 11/26/16 22:54 11/27/16 08:53 Bedside Glucose 66 L 112 113 119 Test 11/27/16 12:52 Bedside Glucose 97 Medications Medications Current Medications Diagnostic Test (Pha) (Accu-Chek) 1 ea 02 XX Last administered on 11/27/16t 02: 33; Admin Dose 1 EA; Start 11/17/16 at 02:00 Ondansetron HCl (Zofran Inj) 4 mg Q6H PRN IV NAUSEA AND/OR VOMITING; Start at 10:00 Albuterol (Ventolin Hfa) 2 puff Q6H PRN INH WHEEZING AND SOB; Start 11/16/16 at 12:00 Guaifenesin (Robitussin Liquid Cup) 100 mg Q6H PRN PO COUGH; Start 11/16/16 at 12:00 Losartan Potassium (Cozaar) 25 mg DAILY PO Last administered on 11/27/16 09:58 ; Admin Dose 25 MG; Start 11/17/16 at 09:00 Al Hydrox/Mg Hydrox/Simethicone (Mag-Al Plus) 10 ml TID PO Last administered on 11/27/16 09:58; Admin Dose 10 ML; Start 11/16/16 at 13:00 Trazodone HCl (Desyrel) 100 mg QHS PO Last administered on 11/26/16 22:57; Admin Dose 100 MG; Start 11/16/16 at 21:00 Atorvastatin Calcium (Lipitor) 20 mg HS PO Last administered on 11/26/16 22:46 ; Admin Dose 20 MG; Start 11/16/16 at 21:00 Pantoprazole (Protonix Tab) 40 mg DAILY@06 PO Last administered on 11/27/16 06 :09; Admin Dose 40 MG; Start 11/17/16 at 06:00 Hydralazine HCl (Apresoline) 50 mg BID PO Last administered on 11/27/16 09:56 ; Admin Dose 50 MG; Start 11/16/16 at 21:00 Furosemide (Lasix) 40 mg DAILY@06 PO Last administered on 11/27/16 06:13; Admin Dose 40 MG; Start 11/19/16 at 13:30 Miscellaneous Information 1 ea NOTE XX ; Start 11/20/16 at 09:00 Glucose (Glutose) 15 gm Q15M PRN PO DECREASED GLUCOSE; Start 11/20/16 at 09:00 Glucose (Glutose) 22.5 gm Q15M PRN PO DECREASED GLUCOSE; Start 11/20/16 at 09: 00 Dextrose (D50w Syringe) 25 ml Q15M PRN IV DECREASED GLUCOSE; Start 11/20/16 at 09:00 Dextrose (D50w Syringe) 50 ml Q15M PRN IV DECREASED GLUCOSE; Start 11/20/16 at 09:00 Glucagon (Glucagen) 1 mg Q15M PRN IM DECREASED GLUCOSE; Start 11/20/16 at 09:00 Glucose (Glutose) 15 gm Q15M PRN BUCCAL DECREASED GLUCOSE; Start 11/20/16 at 09 :00 Insulin Glargine (Lantus) 7 unit QHS SC Last administered on 11/25/16 21:11; Admin Dose 7 UNIT; Start 11/22/16 at 21:00 Enoxaparin Sodium (Lovenox) 70 mg Q24H SC Last administered on 11/26/16 17:10 ; Admin Dose 70 MG; Start 11/22/16 at 16:00 Metoprolol Tartrate (Lopressor) 12.5 mg BID PO Last administered on 11/27/16 09:58; Admin Dose 12.5 MG; Start 11/23/16 at 21:00 Aspirin (Aspirin) 81 mg DAILY PO Last administered on 11/27/16 09:56; Admin Dose 81 MG; Start 11/24/16 at 09:00 Apixaban (Eliquis) 5 mg BID PO Last administered on 11/27/16 09:58; Admin Dose 5 MG; Start 11/24/16 at 21:00 Clonidine (Catapres) 0.1 mg Q6H PRN PO ELEVATED BLOOD PRESSURE Last administered on 11/26/16 06:27; Admin Dose 0.1 MG; Start 11/25/16 at 20:30 Enalapril Maleate (Vasotec) 20 mg DAILY GTB Last administered on 11/27/16 09: 55; Admin Dose 20 MG; Start 11/27/16 at 03:30 OMKAR WILLARD Nov 27, 2016 15:48
--- NOTE | 2016-11-27 16:28 | CONS ---
Date/Time of Note Date/Time of Note DATE: 11/27/16 TIME: 16:27 Assessment/Plan Assessment/Plan Chief Complaint/Hosp Course renal A/P CKD HTN DM ASHD ANEMIA DIAB NEPHROPATHY afib PALN renal stable per cardio continue same Problems: Consultation Date/Type/Reason Admit Date/Time Nov 16, 2016 at 04:55 Type of Consultation: renal Referring Provider: NOAH DANIEL MD 24 HR Interval Summary Constitutional: improved Exam/Review of Systems Vital Signs Vitals Vital Signs Date Time Temp Pulse Resp B/P Pulse Ox O2 Delivery O2 Flow Rate FiO2 11/27/16 16:09 73 11/27/16 15:42 97.8 18 172/72 98 11/25/16 04:00 Room Air Intake and Output 11/26/16 11/26/16 11/27/16 14:59 22:59 06:59 Intake Total 960 ml Balance 960 ml Exam Respiratory: clear to auscultation Cardiovascular: regular rate and rhythm Gastrointestinal: soft Results Result Diagram: 11/25/16 0741 11/25/16 0745 Results 24 hrs Laboratory Tests Test 11/26/16 17:11 11/26/16 17:44 11/26/16 22:54 11/27/16 08:53 Bedside Glucose 66 L 112 113 119 Test 11/27/16 12:52 Bedside Glucose 97 Medications Medications Current Medications Diagnostic Test (Pha) (Accu-Chek) 1 ea 02 XX Last administered on 11/27/16 02: 33; Admin Dose 1 EA; Start 11/17/16 at 02:00 Ondansetron HCl (Zofran Inj) 4 mg Q6H PRN IV NAUSEA AND/OR VOMITING; Start at 10:00 Albuterol (Ventolin Hfa) 2 puff Q6H PRN INH WHEEZING AND SOB; Start 11/16/16 at 12:00 Guaifenesin (Robitussin Liquid Cup) 100 mg Q6H PRN PO COUGH; Start 11/16/16 at 12:00 Losartan Potassium (Cozaar) 25 mg DAILY PO Last administered on 11/27/16 09:58 ; Admin Dose 25 MG; Start 11/17/16 at 09:00 Al Hydrox/Mg Hydrox/Simethicone (Mag-Al Plus) 10 ml TID PO Last administered on 11/27/16 09:58; Admin Dose 10 ML; Start 11/16/16 at 13:00 Trazodone HCl (Desyrel) 100 mg QHS PO Last administered on 11/26/16 22:57; Admin Dose 100 MG; Start 11/16/16 at 21:00 Atorvastatin Calcium (Lipitor) 20 mg HS PO Last administered on 11/26/16 22:46 ; Admin Dose 20 MG; Start 11/16/16 at 21:00 Pantoprazole (Protonix Tab) 40 mg DAILY@06 PO Last administered on 11/27/16 06 :09; Admin Dose 40 MG; Start 11/17/16 at 06:00 Hydralazine HCl (Apresoline) 50 mg BID PO Last administered on 11/27/16 09:56 ; Admin Dose 50 MG; Start 11/16/16 at 21:00 Furosemide (Lasix) 40 mg DAILY@06 PO Last administered on 11/27/16 06:13; Admin Dose 40 MG; Start 11/19/16 at 13:30 Miscellaneous Information 1 ea NOTE XX ; Start 11/20/16 at 09:00 Glucose (Glutose) 15 gm Q15M PRN PO DECREASED GLUCOSE; Start 11/20/16 at 09:00 Glucose (Glutose) 22.5 gm Q15M PRN PO DECREASED GLUCOSE; Start 11/20/16 at 09: 00 Dextrose (D50w Syringe) 25 ml Q15M PRN IV DECREASED GLUCOSE; Start 11/20/16 at 09:00 Dextrose (D50w Syringe) 50 ml Q15M PRN IV DECREASED GLUCOSE; Start 11/20/16 at 09:00 Glucagon (Glucagen) 1 mg Q15M PRN IM DECREASED GLUCOSE; Start 11/20/16 at 09:00 Glucose (Glutose) 15 gm Q15M PRN BUCCAL DECREASED GLUCOSE; Start 11/20/16 at 09 :00 Insulin Glargine (Lantus) 7 unit QHS SC Last administered on 11/25/16 21:11; Admin Dose 7 UNIT; Start 11/22/16 at 21:00 Metoprolol Tartrate (Lopressor) 12.5 mg BID PO Last administered on 11/27/16 09:58; Admin Dose 12.5 MG; Start 11/23/16 at 21:00 Aspirin (Aspirin) 81 mg DAILY PO Last administered on 11/27/16 09:56; Admin Dose 81 MG; Start 11/24/16 at 09:00 Apixaban (Eliquis) 5 mg BID PO Last administered on 11/27/16 09:58; Admin Dose 5 MG; Start 11/24/16 at 21:00 Clonidine (Catapres) 0.1 mg Q6H PRN PO ELEVATED BLOOD PRESSURE Last administered on 11/26/16 06:27; Admin Dose 0.1 MG; Start 11/25/16 at 20:30 Enalapril Maleate (Vasotec) 20 mg DAILY GTB Last administered on 11/27/16 09: 55; Admin Dose 20 MG; Start 11/27/16 at 03:30 ALBERTA CORRAL MD Nov 27, 2016 16:28
== END 2016-11-27 17:59 | disposition home or self-care (01) | DRG 291 ==
LOC: E/R 21:01 → MS4 11-16 04:55
PROVIDERS: ADMIT Internal Medicine; ATTEND Internal Medicine
DX: I13.0 Hypertensive heart and chronic kidney disease with heart failure and stage 1 through stage 4 chronic kidney disease, or unspecified chronic kidney disease (principal); I50.33 Acute on chronic diastolic (congestive) heart failure; N17.9 Acute kidney failure, unspecified; E87.2 Acidosis; E11.22 Type 2 diabetes mellitus with diabetic chronic kidney disease; N18.9 Chronic kidney disease, unspecified; R14.0 Abdominal distension (gaseous); I50.9 Heart failure, unspecified; E78.5 Hyperlipidemia, unspecified; E11.40 Type 2 diabetes mellitus with diabetic neuropathy, unspecified; I25.10 Atherosclerotic heart disease of native coronary artery without angina pectoris; Z86.79 Personal history of other diseases of the circulatory system; R60.0 Localized edema; E66.3 Overweight; Z68.26 Body mass index [BMI] 26.0-26.9, adult; R00.1 Bradycardia, unspecified; D50.9 Iron deficiency anemia, unspecified; I48.0 Paroxysmal atrial fibrillation; Z90.49 Acquired absence of other specified parts of digestive tract
CPT/HCPCS: 71010; 80048; 80053; 80061; 80076; 82728; 82962; 83036; 83540; 83735; 83970; 84439; 84443; 84484; 85025; 85610; 85730; 93005; 93306; 93970; 96374; J1940; J0282; J1644; J1815; J2916; J7060

== ENCOUNTER 2017-06-08 20:25 | Inpatient (IN) | END 2017-06-27 18:45 | disposition home health service (06) | DRG 308 ==

== ENCOUNTER 2017-07-11 12:37 | Inpatient (IN) | END 2017-07-21 13:30 | disposition home or self-care (01) | DRG 682 ==

== ENCOUNTER 2017-11-27 03:01 | Inpatient (IN) | END 2017-12-02 13:16 | disposition home or self-care (01) | DRG 193 ==

== ENCOUNTER 2018-06-24 11:54 | Inpatient (IN) | payer MEDICARE, OTHER ==
[2018-06-24] VITALS (9 sets, daily range): BP systolic 160–174; BP diastolic 70–74; PULSE 44–77; RESP 20; Ht 165.1 cm; Wt 85.0 kg
[~2018-06-24] VITALS: Ht 165.1 cm; Wt 85.0 kg
[~2018-06-24 11:54] MED LIST changes: +APIX5TAB PO; -ATEN50TA PO; +BUME1TAB PO; -CLON0.2T5 PO; +FAMO20TA18 PO; -HYDR-906 PO; -LANT3I SC; +LINA5TAB PO; -LORA10TA3 PO; +LOSA100T15 PO; -LOSA25TA5 PO; -MAG355OR14 PO; -METF1000 PO; +METO-448 PO; +MINO2.5T16 PO; -NAPR-260 PO; -OMEP40CA6 PO; -SIMV40TA2 PO; -TRAZ100T15 PO
[2018-06-24] MEDS ORDERED: NITROGLYCERIN 2% 1 GM OINT PKT TD STA (12:22)
[2018-06-24] MEDS ORDERED: FUROSEMIDE 40 MG INJ IV STA (12:22)
--- NOTE | 2018-06-24 13:11 | ERD ---
ER Documentation Chief Complaint Chief Complaint Complains of SOB hx of CHF HPI 77-year-old female history of hypertension, CKD, atrial fibrillation on Eliquis, dyslipidemia, sick sinus syndrome status post pacemaker, mitral regurgitation ambulatory to the ED for evaluation of a 2-week history of increasing shortness of breath which has become severe over the last several days with orthopnea and exertional dyspnea. Denies cough, hemoptysis or sputum production. Mild lower extremity swelling. No chest pain or palpitations. Denies abdominal pain, nausea or vomiting. No URI symptoms, fevers or chills. ROS All systems reviewed and are negative except as per history of present illness. Medications Home Meds Active Scripts Bumetanide* (Bumetanide*) 1 Mg Tablet, 2 MG PO DAILY for 30 Days, #60 TAB Prov:YOUSIF HARMAN 07/21/17 Amlodipine Besylate* (Amlodipine Besylate*) 10 Mg Tablet, 10 MG PO DAILY for 30 Days, TAB Prov:OMKAR WILLARD 06/27/17 Apixaban* (Eliquis*) 5 Mg Tablet, 5 MG PO BID for 30 Days, TAB Prov:OMKAR WILLARD 06/27/17 Reported Medications Omeprazole* (Omeprazole*) 20 Mg Capsule.dr, 20 MG PO DAILY, #30 CAP 06/24/18 Minoxidil* (Lonitin*) 10 Mg Tab, 10 MG PO DAILY, TAB 06/24/18 Metoprolol Tartrate* (Lopressor*) 25 Mg Tab, 25 MG PO BID, #60 TAB 06/24/18 Losartan Potassium* (Losartan Potassium*) 100 Mg Tablet, 100 MG PO DAILY, TAB 11/27/17 Discontinued Reported Medications Minoxidil* (Lonitin*) 2.5 Mg Tab, 2.5 MG PO BID, TAB 11/27/17 Metoprolol Tartrate* (Lopressor*) 25 Mg Tab, 12.5 MG PO BID, #60 TAB 11/27/17 Discontinued Scripts Linagliptin (TRADJENTA) 5 Mg Tablet, 5 MG PO DAILY for 30 Days, TAB Prov:OMKAR WILLARD 06/27/17 Famotidine* (Famotidine*) 20 Mg Tablet, 20 MG PO DAILY for 30 Days, TAB Prov:OMKAR WILLARD 1/24/18 Allergies Allergies: Coded Allergies: No Known Allergy (Unverified , 11/27/17) PMhx/Soc Reviewed History of Surgery: Yes (Pacemaker, Hysterectomy) Anesthesia Reaction: No 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) Hx Respiratory Disorders: No Hx Cardiac Disorders: Yes (HTN, A FIB, CAD) Hx Psychiatric Problems: No Hx Miscellaneous Medical Probl: Yes (see note) Hx Alcohol Use: No Hx Substance Use: No Hx Tobacco Use: No Smoking Status: Never smoker FmHx No sudden cardiac or stroke Physical Exam Vitals Vital Signs Date Temp Pulse Resp B/P (MAP) Pulse Ox O2 O2 Flow FiO2 Time Delivery Rate 06/24/18 94 83 100 13:21 06/24/18 Nasal 2.0 12:18 Cannula 06/24/18 98.1 69 20 171/71 90 11:57 (104) Physical Exam Const: No acute distress Head: Atraumatic Eyes: Normal Conjunctiva ENT: Normal External Ears, Nose and Mouth. Neck: Full range of motion. No meningismus. Resp: Clear to auscultation bilaterally Cardio: Regular rate and rhythm, no murmurs Abd: Soft, non tender, non distended. Normal bowel sounds Skin: No petechiae or rashes Back: No midline or flank tenderness Ext: No cyanosis, or edema Neur: Awake and alert Psych: Normal Mood and Affect Result Diagram: 06/27/180 06/27/18 0448 Results 24 hrs Laboratory Tests Test 06/24/18 12:38 White Blood Count 8.5 10^3/ul Red Blood Count 3.45 10^6/ul Hemoglobin 9.8 g/dl Hematocrit 30.2 % Mean Corpuscular Volume 87.5 fl Mean Corpuscular Hemoglobin 28.4 pg Mean Corpuscular Hemoglobin Concent 32.5 g/dl Red Cell Distribution Width 16.3 % Platelet Count 207 10^3/UL Mean Platelet Volume 12.9 fl Immature Granulocytes % 0.500 % Neutrophils % 72.4 % Lymphocytes % 17.2 % Monocytes % 8.6 % Eosinophils % 0.6 % Basophils % 0.7 % Nucleated Red Blood Cells % 0.0 /100WBC Immature Granulocytes # 0.040 10^3/ul Neutrophils # 6.1 10^3/ul Lymphocytes # 1.5 10^3/ul Monocytes # 0.7 10^3/ul Eosinophils # 0.1 10^3/ul Basophils # 0.1 10^3/ul Nucleated Red Blood Cells # 0.0 10^3/ul Prothrombin Time 17.3 Sec Prothrombin Time Ratio 1.4 INR International Normalized Ratio 1.40 Activated Partial Thromboplast Time 35.3 Sec Sodium Level 142 mmol/L Potassium Level 3.8 mmol/L Chloride Level 112 mmol/L Carbon Dioxide Level 18 mmol/L Anion Gap 12 Blood Urea Nitrogen 25 mg/dl Creatinine 1.66 mg/dl Est Glomerular Filtrat Rate mL/min mL/min Glucose Level 209 mg/dl Calcium Level 9.4 mg/dl Total Bilirubin 0.8 mg/dl Direct Bilirubin 0.00 mg/dl Indirect Bilirubin 0.8 mg/dl Aspartate Amino Transf (AST/SGOT) 27 IU/L Alanine Aminotransferase (ALT/SGPT) 12 IU/L Alkaline Phosphatase 113 IU/L Troponin I 0.016 ng/ml B-Type Natriuretic Peptide 5170 PG/ML Total Protein 8.1 g/dl Albumin 4.5 g/dl Globulin 3.60 g/dl Albumin/Globulin Ratio 1.25 Current Medications Medications Dose Sig/Pati Start Time Status Last (Trade) Ordered Route PRN Stop Time Admin Dose Reason Admin 1 inch ONCE STAT 06/24/18 DC 06/24/18 Nitroglycerin TD 12:22 13:07 06/24/18 12:27 (Nitroglyceri n 2% Oint) Furosemide 40 mg ONCE STAT 06/24/18 DC 06/24/18 (Lasix) IV 12:22 13:07 06/24/18 12:27 Procedures/MDM DOCUMENTS REVIEWED: ED nurse, prior ED, prior records EKG: Time: 1202. Sinus rhythm. Ventricular rate 84. Left bundle branch block. No acute ST segment elevation or depression. No Sgarbossa criteria for ischemia. My interpretation. IMAGING: PROCEDURE: XR Chest. CLINICAL INDICATION: Shortness of breath TECHNIQUE: Single frontal radiograph of the chest. COMPARISON: DR CHEST 11/26/2017; [facility] CHEST 03/07/2016; [facility] CHEST 03/06/2016; CR CHEST 09/01/2015 FINDINGS: Left chest pacemaker unchanged in appearance. Increased bilateral interstitial and alveolar infiltrates may represent edema, atypical pneumonia, or pneumonitis. Small bilateral pleural effusions are increased. No pneumothorax. Cardiomegaly unchanged. Vascular calcifications of the aorta are present compatible with atherosclerosis. IMPRESSION: Increased bilateral interstitial and alveolar infiltrates may represent edema, atypical pneumonia, or pneumonitis. RPTAT: AADD .Jenaro Solorzano MD, MD Date Time Electronically viewed and signed by .Jenaro Solorzano MD, MD on 06/24/2018 13:06 .B/ [employer] DECISION MAKIN-year-old female history of hypertension, CKD, atrial fibrillation, dyslipidemia, sick sinus syndrome status post pacemaker, mitral regurgitation ambulatory to the ED for evaluation of a 2-week history of increasing shortness of breath which has become severe over the last several days with orthopnea and exertional dyspnea. CBC reveals anemia consistent with prior results. Chemistry significant for elevated BUN/creatinine and hyperglycemia. Troponin is not elevated. EKG negative for acute ischemic changes. Chest x-ray reveals bilateral interstitial infiltrates and cardiomegal y consistent with acute congestive heart failure/pulmonary edema. Patient presents with hypoxic respiratory failure secondary to acute congestive heart failure/pulmonary edema and improved with noninvasive positive pressure ventilation, intravenous diuretics and preload reduction. No evidence of acute coronary syndrome. PE unlikely. Admit to telemetry for further evaluation and management. CRITICAL CARE TIME: Due to the high probability of sudden clinically significant respiratory, hemodynamic and cardiovascular deterioration, this patient with hypoxic respiratory failure and pulmonary edema required multiple, frequent reevaluations of vital signs and response to therapy. Additional critical care time was spent in extensive review of prior medical records, interpretation of relevant clinical data as well as arranging for admission and ongoing care. TOTAL CRITICAL CARE TIME: 35 minutes not including other separately reportable procedures. PATIENT CARE TRANSITIONED: Time: 1322, Dr. Pina. Counseled patient regarding diagnosis, diagnostic results and plan for admission. Departure Diagnosis: Primary Impression: Shortness of breath Additional Impressions: Acute respiratory failure with hypoxia Pulmonary edema Chronicity: acute Qualified Codes: J81.0 - Acute pulmonary edema Condition: Serious KASHMIR VERNON MD Jun 24, 2018 13:11
[2018-06-24] MEDS ORDERED: OMEP20CA16 PO (13:19)
[2018-06-24] MEDS ORDERED: METO-448 PO (13:19)
[2018-06-24] MEDS ORDERED: MINO10TA16 PO (13:19)
[2018-06-24] MEDS ORDERED: NACL 0.9% 3 ML SYG IV SCH (13:30)
[2018-06-24] MEDS ORDERED: MAGNESIUM HYDROXIDE 30ML CUP PO PRN (13:30)
[2018-06-24] MEDS ORDERED: ACETAMINOPHEN 325 MG TAB PO PRN ×2 (13:30)
[2018-06-24] MEDS ORDERED: ONDANSETRON 4 MG INJ IV PRN ×2 (13:30)
[2018-06-24] MEDS ORDERED: DOCUSATE SODIUM 100 MG CAP PO PRN (13:30)
[2018-06-24] MEDS ORDERED: ASPIRIN 325 MG TAB PO ONE (16:00)
--- NOTE | 2018-06-24 16:23 | HP ---
Date/Time of Note Date/Time of Note DATE: 06/24/18 TIME: 16:22 Assessment/Plan VTE Prophylaxis Pharmacological prophylaxis: heparin Lines/Catheters IV Catheter Type (from Nrs): Saline Lock Urinary Cath still in place: Yes Reason Cath still needed: urinary retention Assessment/Plan Assessment/Plan 1. Acute hypoxic respiratory failure secondary to volume overload - Currently on BIPAP and wean as tolerated - CXR noted with pulm congestion vs pneumonitis vs pneumonia - No signs of acute infection as well and will hold off on IV antibiotics at this time - Monitor for improvement in respiratory status. Will consult pulm if no improvement 2. Acute on chronic systolic heart failure - BNP elevated and started on Lasix in addition to Bumex - Will monitor I/O and daily weights - If continues with SOB, will consult cardiology for recommendations for diuretics 3. 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 SHERYL on CKD - Cr was so patient may be close to baseline - may be a component of cardiorenal - avoid nephrotoxic agents and monitor renal function on diuretics 5. Afib - continue home medications - rate controlled 6. h/o Brain aneurysm - stable 7. Diet - Cardiac 8. DVT ppx - SCD - Heparin 9. GI ppx - PPI 10. Disposition - Admit to Telemetry for treatment of acute hypoxic respiratory failure Result Diagram: 06/24/18 1238 06/24/18 1238 Results 24hrs Laboratory Tests Test 06/24/18 12:38 06/24/18 13:30 White Blood Count 8.5 # Red Blood Count 3.45 L Hemoglobin 9.8 L Hematocrit 30.2 L Mean Corpuscular Volume 87.5 Mean Corpuscular Hemoglobin 28.4 L Mean Corpuscular Hemoglobin Concent 32.5 Red Cell Distribution Width 16.3 #H Platelet Count 207 Mean Platelet Volume 12.9 H Immature Granulocytes % 0.500 H Neutrophils % 72.4 Lymphocytes % 17.2 Monocytes % 8.6 Eosinophils % 0.6 Basophils % 0.7 Nucleated Red Blood Cells % 0.0 Immature Granulocytes # 0.040 H Neutrophils # 6.1 Lymphocytes # 1.5 Monocytes # 0.7 Eosinophils # 0.1 Basophils # 0.1 Nucleated Red Blood Cells # 0.0 Prothrombin Time 17.3 H Prothrombin Time Ratio 1.4 INR International Normalized Ratio 1.40 Activated Partial Thromboplast Time 35.3 H Sodium Level 142 Potassium Level 3.8 Chloride Level 112 H Carbon Dioxide Level 18 L Anion Gap 12 Blood Urea Nitrogen 25 H Creatinine 1.66 H Est Glomerular Filtrat Rate mL/min Glucose Level 209 Calcium Level 9.4 Total Bilirubin 0.8 Direct Bilirubin 0.00 Indirect Bilirubin 0.8 Aspartate Amino Transf (AST/SGOT) 27 Alanine Aminotransferase (ALT/SGPT) 12 L Alkaline Phosphatase 113 Troponin I 0.016 B-Type Natriuretic Peptide 5170 H Total Protein 8.1 Albumin 4.5 Globulin 3.60 H Albumin/Globulin Ratio 1.25 Urine Color YELLOW Urine Clarity CLEAR Urine pH 5.0 Urine Specific [place] 1.011 Urine Ketones NEGATIVE Urine Nitrite NEGATIVE Urine Bilirubin NEGATIVE Urine Urobilinogen NEGATIVE Urine Leukocyte Esterase NEGATIVE Urine Microscopic RBC 0 Urine Microscopic WBC 3 Urine Bacteria FEW A Urine Hemoglobin 1+ H Urine Glucose NEGATIVE Urine Total Protein 3+ H HPI/ROS Admit Date/Time Admit Date/Time 06/24/18 at 1330 Hx of Present Illness 77 yo F with PMH atrial fibrillation, CKD, severe mitral regurg, moderate tricuspid regurg, pacer placement, and brain aneurysm presented to ED with worsening shortness of breath for the past 3 days. Patient does admit to a productive cough with white sputum but denies flu like symptoms, recent sick co ntact, fevers, wheezing, nausea, vomiting, or abdominal issues. She does admit to lower extremity swelling and mild dizziness. Patient was placed on BIPAP in the ED after CXR findings of pulmonary congestion with improvement in respiratory status. ROS All 12 systems reviewed and pertinent positives as per HPI. All others negative. Constitutional: No chills, No fatigue, No nausea Eyes: No discharge ENT: No congestion Respiratory: cough, shortness of breath, sputum; No wheezing Cardiovascular: No chest pain, No lightheadedness, No palpitations Gastrointestinal: No pain, No constipation, No diarrhea, No nausea, No vomiting Genitourinary: no complaints Musculoskeletal: no complaints Skin: No laceration, No rash Neurologic: dizziness; No focal-weakness, No syncope Endocrine: no complaints Lymphatic: no complaints Psychological: nl mood/affect Immunologic: no complaints PMH/Family/Social Past Medical History Medical History: renal disease, other (atrial fibrillation, pacer, brain aneursym) Medications Current Medications Amlodipine Besylate (Norvasc) 10 mg DAILY PO ; Start 06/25/18 at 09:00 Apixaban (Eliquis) 5 mg BID PO ; Start 06/24/18 at 21:00 Bumetanide (Bumex) 2 mg DAILY PO ; Start 06/25/18 at 09:00 Losartan Potassium (Cozaar) 100 mg DAILY PO ; Start 06/25/18 at 09:00 Metoprolol Tartrate (Lopressor) 25 mg BID PO ; Start 06/24/18 at 21:00 Minoxidil (Loniten) 10 mg DAILY PO ; Start 06/25/18 at 09:00 Pantoprazole (Protonix Tab) 40 mg DAILY@06 PO ; Start 06/25/18 at 06:00 Furosemide (Lasix) 40 mg BID DIURETICS IV ; Start 06/24/18 at 18:00 IV Flush (NS 3 ml) 3 ml PER PROTOCOL IV ; Start 06/24/18 at 13:30 Ondansetron HCl (Zofran Inj) 4 mg Q6H PRN IV NAUSEA AND/OR VOMITING; Start 06/24/18 at 13:30 Acetaminophen (Tylenol Tab) 650 mg Q6H PRN PO PAIN LEVEL 1-3 OR FEVER; Start 06/24/18 at 13:30 Docusate Sodium (Colace) 100 mg Q12H PRN PO CONSTIPATION; Start 06/24/18 at 13:30 Magnesium Hydroxide (Milk Of Mag) 30 ml DAILY PRN PO CONSTIPATION; Start 06/24/18 at 13:30 Heparin Sodium (Porcine) (Heparin (5000 Units/1ml)) 5,000 unit Q12 SC ; Start 06/24/18 at 21:00 Coded Allergies: No Known Allergy (Unverified , 11/27/17) Past Surgical History Past Surgical Hx: other Family History Significant Family History: no pertinent family hx Social History Alcohol Use: none Smoking Status: Never smoker Drug Use: none Exam/Review of Systems Vital Signs Vitals Vital Signs Date Temp Pulse Resp B/P (MAP) Pulse Ox O2 O2 Flow FiO2 Time Delivery Rate 06/24/18 64 98 100 15:45 06/24/18 97.9 17 150/77 Room Air 14:56 (101) 06/24/18 2.0 12:18 Exam Exam General: Patient is laying in bed, mild respiratory distress. answering questions appropriately Mentation: Patient is alert and oriented x4 Head: Normocephalic atraumatic Eyes: EOMI, pupils reactive to light Neck: Supple, nontender, midline Respiratory: Diminished breath sound with diffuse crackles. no wheezing appreciated Cardiovascular: regular rate and rhythm, no obvious murmurs Gastrointestinal: soft, non-tender to palpation, nondistended, bowel sounds heard. no rebound or guarding Neurological: Moves all extremities spontaneously. no focal deficits appreciated Ext: swelling but no pitting edema. tenderness with palpation. no cyanosis or clubbing Skin: No new skin lesions Additional Comments Home medications reviewed Imaging: PROCEDURE: XR Chest. CLINICAL INDICATION: Shortness of breath TECHNIQUE: Single frontal radiograph of the chest. COMPARISON: CHEST 11/26/2017; [facility] CHEST 03/07/2016; [facility] CHEST 03/06/2016; [facility] CHEST 09/01/2015 FINDINGS: Left chest pacemaker unchanged in appearance. Increased bilateral interstitial and alveolar infiltrates may represent edema, atypical pneumonia, or pneumonitis. Small bilateral pleural effusions are increased. No pneumothorax. Cardiomegaly unchanged. Vascular calcifications of the aorta are present compatible with atherosclerosis. IMPRESSION: Increased bilateral interstitial and alveolar infiltrates may represent edema, atypical pneumonia, or pneumonitis. RPTAT: AADD .Jenaro Solorzano MD, MD Date Time Electronically viewed and signed by .Jenaro Solorzano MD, MD on 06/24/2018 13:06 GERALD OLMEDO MD Jun 24, 2018 16:22
[2018-06-24] MEDS: FUROSEMIDE 40 MG INJ IV SCH (18:28)
--- NOTE | 2018-06-24 19:20 | NUR ---
EOSS: PT ARRIVED TO UNIT AROUND 1800. PT IS ON BIPAP, DENIES PAIN, AMBULATES WITH ASSISTANCE. PT HAS BEEN ASSESSED WHEN ARRIVED TO UNIT. GRAVEL WEIGHER ON. ALL MEDICATIONS GIVEN SCHEDULED. ALL PT'S NEEDS HAVE BEEN MET. PT'S FAMILY AT BEDSIDE. GAVE REPORT TO TRANSITION COACH NURSE.
[2018-06-24] MEDS: APIXABAN 5 MG TABLET PO SCH (20:32)
[2018-06-24] MEDS: METOPROLOL 25 MG TAB PO SCH (20:33)
[2018-06-24] MEDS: HEPARIN 5,000 UNIT/1 ML VIAL SC SCH (20:43)
[2018-06-25] VITALS (18 sets, daily range): BP systolic 119–158; BP diastolic 56–89; PULSE 51–101; RESP 18–20
[2018-06-25] MEDS: PANTOPRAZOLE (EC) 40 MG TAB PO SCH (05:10)
[2018-06-25] MEDS: FUROSEMIDE 40 MG INJ IV SCH ×3 (05:10→17:33)
--- NOTE | 2018-06-25 06:38 | NUR ---
End of shift summary :- Pt admitted with hypoxia. Hx of CHF. On Bipap. RT tried to wean off Bipap, but unable to switch to nasal cannula. Able to ambulate with 1 person assistance. Skin intact. Skin assessment done with 2nd RN Titi, manager gaming. Medications administered and tolerated well. Slept on and off. Pending PT/OT, echo and AM labs
[2018-06-25] MEDS: APIXABAN 5 MG TABLET PO SCH ×2 (08:39→20:59)
[2018-06-25] MEDS: MINOXIDIL 10 MG TAB PO SCH (08:40)
[2018-06-25] MEDS: AMLODIPINE 10 MG TAB PO SCH (08:40)
[2018-06-25] MEDS: METOPROLOL 25 MG TAB PO SCH ×2 (08:40→21:00)
--- NOTE | 2018-06-25 08:40 | NUR ---
OT EVAL: Pt is a 77 yo F with PMH atrial fibrillation, CKD, severe mitral regurg, moderate tricuspid regurg, pacer placement, and brain aneurysm presented to ED with worsening shortness of breath for the past 3 days. PLOF: Pt reports living with her daughter in a single story home. Pt was independent with all ADL's and ambulated without any DME. Pt did not use O2 at home. CLOF: RN cleared pt for skilled OT tx. Pt received supine in bed on 6ltrs of O2 stating 0/10 pain. Pt demonstrated Supine->sit at EOB independently. Seated at EOB pt demonstrated good balance and donned/doffed socks independently. Pt performed STS, functional mob and transfers with supervision and good safety awareness (while on 6 ltrs of O2). Pt stood at bathroom sink with supervision while completing h/g tasks independently. Pt's vitals remained stable throughout session. Pt left supine in bed with all needs met. RN notified. Pt is independent/supervision with ADl's- no skilled OT warranted at this time. D/c pt home once medically cleared by .
[2018-06-25] MEDS: LOSARTAN 50 MG TAB PO SCH (08:41)
[2018-06-25] MEDS: HEPARIN 5,000 UNIT/1 ML VIAL SC SCH ×2 (08:52→21:39)
[2018-06-25] MEDS ORDERED: BUMETANIDE 1 MG TAB PO SCH (09:00)
--- NOTE | 2018-06-25 09:05 | PN ---
Date/Time of Note Date/Time of Note DATE: 06/25/18 TIME: 09:05 Assessment/Plan VTE Prophylaxis Risk score (from Ns)>0 risk: 4 SCD applied (from Ns): Yes Pharmacological prophylaxis: heparin Lines/Catheters IV Catheter Type (from Nrs): Saline Lock Urinary Cath still in place: No Assessment/Plan Assessment/Plan 1. Acute hypoxic respiratory failure secondary to volume overload- improving - Patient weaned off BIPAP and tolerating NC - Initial CXR noted with pulm congestion vs pneumonitis vs pneumonia 2. Acute on chronic systolic heart failure - Cardiology on board and recommendations appreciated. will continue on gentle diuresis - BNP noted - Responded to Lasix and will transition back to home Bumex dose to monitor continued diuresis 3. 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 SHERYL on CKD - improving - appears to be returning to baseline - may be a component of cardiorenal - avoid nephrotoxic agents and monitor renal function on diuretics 5. Afib - continue home medications - rate controlled - on Eliquis 6. h/o Brain aneurysm - stable 7. Disposition - Will change to PO Bumex tomorrow and wean off NC. If remains stable will d/c in next 24-48 hours Result Diagram: 06/25/18 0504 06/25/18 0504 Results 24hrs Laboratory Tests Test 06/24/18 12:38 06/24/18 13:30 06/25/18 05:04 White Blood Count 8.5 # 9.4 Red Blood Count 3.45 L 3.04 L Hemoglobin 9.8 L 8.6 L Hematocrit 30.2 L 26.3 L Mean Corpuscular Volume 87.5 86.5 Mean Corpuscular Hemoglobin 28.4 L 28.3 L Mean Corpuscular Hemoglobin Concent 32.5 32.7 Red Cell Distribution Width 16.3 #H 16.0 H Platelet Count 207 151 # Mean Platelet Volume 12.9 H 13.0 H Immature Granulocytes % 0.500 H 0.400 Neutrophils % 72.4 74.6 Lymphocytes % 17.2 13.7 L Monocytes % 8.6 10.1 Eosinophils % 0.6 0.7 Basophils % 0.7 0.5 Nucleated Red Blood Cells % 0.0 0.0 Immature Granulocytes # 0.040 H 0.040 H Neutrophils # 6.1 7.0 Lymphocytes # 1.5 1.3 Monocytes # 0.7 1.0 H Eosinophils # 0.1 0.1 Basophils # 0.1 0.1 Nucleated Red Blood Cells # 0.0 0.0 Prothrombin Time 17.3 H Prothrombin Time Ratio 1.4 INR International Normalized Ratio 1.40 Activated Partial Thromboplast Time 35.3 H Sodium Level 142 142 Potassium Level 3.8 3.9 Chloride Level 112 H 109 Carbon Dioxide Level 18 L 23 Anion Gap 12 10 Blood Urea Nitrogen 25 H 23 H Creatinine 1.66 H 1.59 H Est Glomerular Filtrat Rate mL/min Glucose Level 209 121 # Calcium Level 9.4 9.1 Total Bilirubin 0.8 Direct Bilirubin 0.00 Indirect Bilirubin 0.8 Aspartate Amino Transf (AST/SGOT) 27 Alanine Aminotransferase (ALT/SGPT) 12 L Alkaline Phosphatase 113 Troponin I 0.016 B-Type Natriuretic Peptide 5170 H Total Protein 8.1 Albumin 4.5 Globulin 3.60 H Albumin/Globulin Ratio 1.25 Urine Color YELLOW Urine Clarity CLEAR Urine pH 5.0 Urine Specific [place] 1.011 Urine Ketones NEGATIVE Urine Nitrite NEGATIVE Urine Bilirubin NEGATIVE Urine Urobilinogen NEGATIVE Urine Leukocyte Esterase NEGATIVE Urine Microscopic RBC 0 Urine Microscopic WBC 3 Urine Bacteria FEW A Urine Hemoglobin 1+ H Urine Glucose NEGATIVE Urine Total Protein 3+ H Magnesium Level 2.0 Subjective 24 Hr Interval Summary Free Text/Dictation Patient states shes feeling significantly better and weaned off BIPAP. Am bulating well and will d/c padilla. No acute overnight events. Exam/Review of Systems Vital Signs Vitals Vital Signs Date Temp Pulse Resp B/P (MAP) Pulse Ox O2 O2 Flow FiO2 Time Delivery Rate 06/25/18 99.3 70 18 158/68 93 BIPAP 07:54 (98) 06/25/18 80 05:19 06/24/18 2.0 12:18 Intake and Output 06/24/18 06/24/18 06/25/18 1515:00 23:00 07:00 IntakeIntake Total 250 ml OutputOutput Total 1400 ml 1300 ml BalanceBalance -1400 ml -1050 ml Exam General: Patient is laying in bed, no acute distress. Neck: Supple Respiratory: Diminished breath sound with mild crackles. no wheezing appreciated Cardiovascular: regular rate and rhythm, no obvious murmurs Gastrointestinal: soft, non-tender to palpation, nondistended, bowel sounds heard. no rebound or guarding Neurological: Moves all extremities spontaneously. no focal deficits appreciated Ext: no edema, cyanosis, or clubbing. Skin: No new skin lesions Medications Medications Current Medications Amlodipine Besylate (Norvasc) 10 mg DAILY PO Last administered on 06/25/18at 08:40; Admin Dose 10 MG; Start 06/25/18 at 09:00 Apixaban (Eliquis) 5 mg BID PO Last administered on 06/25/18at 08:39; Admin Dose 5 MG; Start 06/24/18 at 21:00 Bumetanide (Bumex) 2 mg DAILY PO ; Start 06/25/18 at 09:00 Losartan Potassium (Cozaar) 100 mg DAILY PO Last administered on 06/25/18at 08:41; Admin Dose 100 MG; Start 06/25/18 at 09:00 Metoprolol Tartrate (Lopressor) 25 mg BID PO Last administered on 06/25/18at 08:40; Admin Dose 25 MG; Start 06/24/18 at 21:00 Minoxidil (Loniten) 10 mg DAILY PO Last administered on 06/25/18at 08:40; Admin Dose 10 MG; Start 06/25/18 at 09:00 Pantoprazole (Protonix Tab) 40 mg DAILY@06 PO Last administered on 06/25/18at 05:10; Admin Dose 40 MG; Start 06/25/18 at 06:00 Furosemide (Lasix) 40 mg BID DIURETICS IV Last administered on 06/25/18at 05:10; Admin Dose 40 MG; Start 06/24/18 at 18:00 IV Flush (NS 3 ml) 3 ml PER PROTOCOL IV ; Start 06/24/18 at 13:30 Ondansetron HCl (Zofran Inj) 4 mg Q6H PRN IV NAUSEA AND/OR VOMITING; Start 06/24/18 at 13:30 Acetaminophen (Tylenol Tab) 650 mg Q6H PRN PO PAIN LEVEL 1-3 OR FEVER; Start 06/24/18 at 13:30 Docusate Sodium (Colace) 100 mg Q12H PRN PO CONSTIPATION; Start 06/24/18 at 13:30 Magnesium Hydroxide (Milk Of Mag) 30 ml DAILY PRN PO CONSTIPATION; Start 06/24/18 at 13:30 Heparin Sodium (Porcine) (Heparin (5000 Units/1ml)) 5,000 unit Q12 SC Last administered on 06/25/18at 08:52; Admin Dose 5,000 UNIT; Start 06/24/18 at 21:00 Methylprednisolone Sodium Succinate (Solu-Medrol) 40 mg Q12 IV ; Start 06/25/18 at 09:30; Status GERALD RING MD Jun 25, 2018 09:05
--- NOTE | 2018-06-25 09:10 | NUR ---
PT EVALUATION NOTE: Patient is a 77 year old female admitted to [facility] after presenting to the ER on 06/24/18 with worsening shortness of breath for the past 3 days. PMH: atrial fibrillation, CKD, severe mitral regurg, moderate tricuspid regurg, pacer placement, and brain aneurysm PLOF: Patient lives with her daughter in a single story house with no stairs to negotiate. Prior to hospitalization, patient was independent with all functional mobility without an assistive device. CLOF: Joanie ROLAND cleared patient for PT evaluation. Patient agreeable to participate with PT, denies pain. Received patient sitting at the EOB, O2 sat 95% on supplemental O2 via NC @ 6 l/min. Patient educated on safety awareness, fall prevention and purpose of PT evaluation. Patient able to demonstrate independent bed mobility and transfers without an assistive device, and independent ambulation without an assistive device x 250 feet on supplemental O2 via NC @ 6 l/min. After ambulation BP 153/63, HR 78, O2 sat 96%. Patient returned to bed, all needs met, call light within reach, no signs of distress, bed alarm reset. Joanie ROLAND notified of patient's status at the end of the session. PT RECOMMENDATION: Patient is independent with all functional mobility, skilled inpatient PT intervention not indicated. Patient discharged from PT, Joanie ROLAND notified. Anticipate discharge home with family assistance as needed once cleared by MD. No DME needs anticipated at this time.
[2018-06-25] MEDS: METHYLPREDNISOLONE 40 MG INJ IV SCH ×2 (09:55→20:59)
--- NOTE | 2018-06-25 11:42 | CONS ---
Date/Time of Note Date/Time of Note DATE: 06/25/18 TIME: 11:41 Assessment/Plan Assessment/Plan Assessment/Plan 77 yo with CHF, valve disease, pacer - ARF - responded to diuresis. Cr on high side - if keeps going up, will have to change Eliquis dose to 2.5 mg po bid - con't to monitor # [id number] Result Diagram: 06/25/18 0504 06/25/18 0504 Results 24hrs Laboratory Tests Test 06/24/18 12:38 06/24/18 13:30 06/25/18 05:04 White Blood Count 8.5 # 9.4 Red Blood Count 3.45 L 3.04 L Hemoglobin 9.8 L 8.6 L Hematocrit 30.2 L 26.3 L Mean Corpuscular Volume 87.5 86.5 Mean Corpuscular Hemoglobin 28.4 L 28.3 L Mean Corpuscular Hemoglobin Concent 32.5 32.7 Red Cell Distribution Width 16.3 #H 16.0 H Platelet Count 207 151 # Mean Platelet Volume 12.9 H 13.0 H Immature Granulocytes % 0.500 H 0.400 Neutrophils % 72.4 74.6 Lymphocytes % 17.2 13.7 L Monocytes % 8.6 10.1 Eosinophils % 0.6 0.7 Basophils % 0.7 0.5 Nucleated Red Blood Cells % 0.0 0.0 Immature Granulocytes # 0.040 H 0.040 H Neutrophils # 6.1 7.0 Lymphocytes # 1.5 1.3 Monocytes # 0.7 1.0 H Eosinophils # 0.1 0.1 Basophils # 0.1 0.1 Nucleated Red Blood Cells # 0.0 0.0 Prothrombin Time 17.3 H Prothrombin Time Ratio 1.4 INR International Normalized Ratio 1.40 Activated Partial Thromboplast Time 35.3 H Sodium Level 142 142 Potassium Level 3.8 3.9 Chloride Level 112 H 109 Carbon Dioxide Level 18 L 23 Anion Gap 12 10 Blood Urea Nitrogen 25 H 23 H Creatinine 1.66 H 1.59 H Est Glomerular Filtrat Rate mL/min Glucose Level 209 121 # Calcium Level 9.4 9.1 Total Bilirubin 0.8 Direct Bilirubin 0.00 Indirect Bilirubin 0.8 Aspartate Amino Transf (AST/SGOT) 27 Alanine Aminotransferase (ALT/SGPT) 12 L Alkaline Phosphatase 113 Troponin I 0.016 B-Type Natriuretic Peptide 5170 H Total Protein 8.1 Albumin 4.5 Globulin 3.60 H Albumin/Globulin Ratio 1.25 Urine Color YELLOW Urine Clarity CLEAR Urine pH 5.0 Urine Specific [place] 1.011 Urine Ketones NEGATIVE Urine Nitrite NEGATIVE Urine Bilirubin NEGATIVE Urine Urobilinogen NEGATIVE Urine Leukocyte Esterase NEGATIVE Urine Microscopic RBC 0 Urine Microscopic WBC 3 Urine Bacteria FEW A Urine Hemoglobin 1+ H Urine Glucose NEGATIVE Urine Total Protein 3+ H Magnesium Level 2.0 Consultation Date/Type/Reason Admit Date/Time Jun 24, 2018 at 13:24 Initial Consult Date Exam/Review of Systems Vital Signs Vitals Vital Signs Date Temp Pulse Resp B/P (MAP) Pulse Ox O2 O2 Flow FiO2 Time Delivery Rate 06/25/18 96.0 65 18 129/60 92 Nasal 6.0 11:27 (83) Cannula 06/25/18 80 05:19 Intake and Output 06/24/18 06/24/18 06/25/18 1414:59 22:59 06:59 IntakeIntake Total 250 ml OutputOutput Total 1400 ml 1300 ml BalanceBalance -1400 ml -1050 ml Medications Medications Current Medications Amlodipine Besylate (Norvasc) 10 mg DAILY PO Last administered on 06/25/18at 08:40; Admin Dose 10 MG; Start 06/25/18 at 09:00 Apixaban (Eliquis) 5 mg BID PO Last administered on 06/25/18at 08:39; Admin Dose 5 MG; Start 06/24/18 at 21:00 Losartan Potassium (Cozaar) 100 mg DAILY PO Last administered on 06/25/18at 08:41; Admin Dose 100 MG; Start 06/25/18 at 09:00 Metoprolol Tartrate (Lopressor) 25 mg BID PO Last administered on 06/25/18at 08:40; Admin Dose 25 MG; Start 06/24/18 at 21:00 Minoxidil (Loniten) 10 mg DAILY PO Last administered on 06/25/18at 08:40; Admin Dose 10 MG; Start 06/25/18 at 09:00 Pantoprazole (Protonix Tab) 40 mg DAILY@06 PO Last administered on 06/25/18at 05:10; Admin Dose 40 MG; Start 06/25/18 at 06:00 IV Flush (NS 3 ml) 3 ml PER PROTOCOL IV ; Start 06/24/18 at 13:30 Ondansetron HCl (Zofran Inj) 4 mg Q6H PRN IV NAUSEA AND/OR VOMITING; Start 06/24/18 at 13:30 Acetaminophen (Tylenol Tab) 650 mg Q6H PRN PO PAIN LEVEL 1-3 OR FEVER; Start 06/24/18 at 13:30 Docusate Sodium (Colace) 100 mg Q12H PRN PO CONSTIPATION; Start 06/24/18 at 1 3:30 Magnesium Hydroxide (Milk Of Mag) 30 ml DAILY PRN PO CONSTIPATION; Start 06/24/18 at 13:30 Heparin Sodium (Porcine) (Heparin (5000 Units/1ml)) 5,000 unit Q12 SC Last administered on 06/25/18at 08:52; Admin Dose 5,000 UNIT; Start 06/24/18 at 21:00 Methylprednisolone Sodium Succinate (Solu-Medrol) 40 mg Q12 IV Last administered on 06/25/18at 09:55; Admin Dose 40 MG; Start 06/25/18 at 09:30 Furosemide (Lasix) 40 mg Q8H IV Last administered on 06/25/18at 09:55; Admin Dose 40 MG; Start 06/25/18 at 10:00 BRAYDON EL MD Jun 25, 2018 11:42
--- NOTE | 2018-06-25 13:32 | RADRPT ---
Echocardiogram Report Patient Name: KALE MCLEOD Gender: Female Date: 1940 Study Date: 25-Jun-2018 Oiling Machine Operator: Carmina Henderson [facility] Location: [address] Ref. Physician: GERALD OLMEDO Quality: Adequate Procedures: Transthoracic echocardiogram with complete 2D, M-Mode, and doppler examination. Indications: Evaluate Left Ventricular function. Pulm Edema. 2D/M Mode Doppler Measurement Value Normal Ranges Measurement Value Normal Ranges LVIDd 2D 5.2 3.5 - 5.6 cm AV Peak Geovani 1.7 m/sec LVIDs 2D 2.3 2.1 - 4.1 cm AV Peak PG 12.0 mmHg LVPWd 2D 1.1 0.6 - 1.1 cm LVOT Peak Geovani 1.3 m/sec IVSd 2D 1.3 0.6 - 1.1 cm LVOT Peak PG 7.0 mmHg AoR Diam 2D 2.5 2.0 - 3.7 cm MV E Peak Geovani 1.1 m/sec LA/Ao 2D 1 0 - 1 MV A Peak Geovani 0.5 m/sec LA Dimen 2D 3.7 2.3 - 4.0 cm MV E/A 2.2 MV Decel Time 197 msec Lat E` Geovani 0.1 m/sec Lateral E/E` 12.6 MV E/A 2.2 TR Peak Geovani 3.6 m/sec TR Peak PG 52.0 mmHg RVSP 55.0 mmHg RA Pressure 3.0 Findings Left Ventricle: Normal left ventricular systolic function. Normal left ventricular cavity size. Mild concentric left ventricular hypertrophy. Ejection fraction is visually estimated at 60 %. Right Ventricle: Normal right ventricular systolic function. Mild enlargement of right ventricle. Linear artifact in right ventricle suggestive of catheter, pacer lead, or ICD lead. Left Atrium: The left atrium is normal in size. Right Atrium: There is mild enlargement of right atrium. Mitral Valve: Mitral valve leaflets appear mildly thickened. Moderate mitral annular calcification. Mild mitral valve regurgitation. Aortic Valve: Normal appearance of the aortic valve. No significant aortic stenosis or insufficiency. Tricuspid Valve: Normal appearance of the tricuspid valve. Estimated peak PA systolic pressure 55 mmHg. There is mild tricuspid regurgitation. Pulmonic Valve: Normal pulmonic valve appearance. There is mild pulmonic regurgitation. Pericardium: Normal pericardium with no significant pericardial effusion. Aorta: Normal aortic root. IVC: Normal size and normal respiratory collapse consistent with normal right atrial pressure. Conclusions Normal left ventricular systolic function. Normal left ventricular cavity size. Mild concentric left ventricular hypertrophy. Ejection fraction is visually estimated at 60 %. Mitral valve leaflets appear mildly thickened. Moderate mitral annular calcification. Mild mitral valve regurgitation. Normal appearance of the tricuspid valve. Estimated peak PA systolic pressure 55 mmHg. There is mild tricuspid regurgitation. Normal right ventricular systolic function. Mild enlargement of right ventricle. Linear artifact in right ventricle suggestive of catheter, pacer lead, or ICD lead. Electronically Signed By: Efra Gomes 25-Jun-2018 13:31:17 -0800 Patient Name: KALE MCLEOD Study Date: 25-Jun-2018 [id number]
--- NOTE | 2018-06-25 14:56 | CONS ---
DATE OF ADMISSION: 06/24/2018 DATE OF CONSULTATION: 06/25/2018 TYPE OF CONSULTATION: Cardiology. REFERRING PHYSICIAN: Fadumo Pina MD REASON FOR EVALUATION: CHF, pacemaker secondary to heart state. HISTORY OF PRESENT ILLNESS: Ms. Nan Oden is a 77-year-old woman with history of hyperten marquis, dyslipidemia, history of valvular heart disease, history of coronary artery disease, history of paroxysmal atrial fibrillation, history of pacemaker implant, who comes in hospital now for shortnes s of breath. The patient was in hypercapnic respiratory failure. She responded well to BiPAP and do ing better now. The patient is being treated medically and I have been asked to see patient in consu ltation to evaluate her cardiac condition. The patient is improved. Overall, she is in good fluid s tatus, intermittently paced on telemetry. Her creatinine is elevated at 1.6 and she did not rule in for ischemia with troponin of 0.02. I think for now, conservative therapy is expected. We will cont inue to diurese the patient gently. She will be continued on Eliquis for atrial fibrillation therapy . PAST MEDICAL HISTORY: Hypertension, dyslipidemia, paroxysmal atrial fibrillation, history of pacemak er, history of hypertension, history of valvular heart disease, history of coronary artery disease, h istory of CHF, history of brain aneurysm treated, history of severe MR and moderate TR per last echo. ALLERGIES: NO KNOWN DRUG ALLERGIES. SOCIAL HISTORY: The patient does not smoked, does not drink, does not use any drugs. FAMILY HISTORY: Negative for sudden cardiac or premature coronary artery disease. MEDICATIONS: Here include: 1. Furosemide 40 mg p.o. b.i.d. 2. Amlodipine 10 mg once a day. 3. Minoxidil 10 mg. 4. Apixaban 5 mg p.o. b.i.d. 5. Ondansetron. 6. Docusate. 7. Hydrocodone. REVIEW OF SYSTEMS: CONSTITUTIONAL: No fevers, no chills, no shortness of breath, no recent weight changes. HEENT: No changes in vision or hearing. CARDIAC: No chest pain reported now. RESPIRATORY: Short of breath, acute on chronic. GASTROINTESTINAL: No nausea, vomiting. GENITOURINARY: No dysuria, no hematuria. NEUROLOGIC: No focal neurologic deficit. HEMATOLOGIC: History of anemia. PSYCHIATRIC: No history of psychiatric illness. PHYSICAL EXAMINATION: VITAL SIGNS: Temperature is 96.0, heart rate 65, blood pressure 129/60. GENERAL: She is thin woman in no acute distress, alert and oriented x2 to 3 in [place], aware of her condition. HEENT: Head is normocephalic, atraumatic. Eyes are anicteric. NECK: Supple. JVD is 8 to 9 cm. There is no lymphadenopathy, no thyromegaly. HEART: Regular with soft holosystolic murmur. She has a loud III/ murmur at the apex. LUNGS: Coarse to base. ABDOMEN: Distended. Bowel sounds are present. There is no hepatosplenomegaly. EXTREMITIES: Show mild edema. DIAGNOSTIC DATA: EKG read by me revealed sinus rhythm with right bundle block with some atrial irreg ularity. LABORATORY DATA: White blood cell count 9.4, hemoglobin is 8.6, platelets 151. INR is 1.4. Sodium 142, potassium 3.9, BUN is 23, creatinine 1.59. ASSESSMENT AND PLAN: 1. Congestive heart failure. The patient has heart failure, diastolic, acute on chronic. Continue gentle diuresis. 2. Pacemaker. History of pacemaker appears to be with good function on telemetry. 3. History of moderate tricuspid regurgitation and severe mitral regurgitation by examination. No i ntervention planned. Continue conservative therapy as indicated. 4. Renal insufficiency, acute on chronic. Continue to avoid nephrotoxic medications as tolerated. 5. Chest pain. The patient did not rule in for ischemia. Troponins are negative. I would like to thank Dr. Pina for referring this patient for my evaluation. Dictated By: BRAYDON EL MD ML/NTS Conf#: [id number] DID#: [id number] CC: FADUMO PINA MD;*EndCC*
--- NOTE | 2018-06-25 18:48 | NUR ---
EOSS: Pt in bed. Bed locked in lowest position with 2 side rails raised. Remains AAOX4. Call light in reach. No complaints. IV intact. Pleasant. Cooperative. Bed alarm on. No issues during shift. All needs met. Pt is stable. Family visited today. Pt turned self entire shift. On 4L NC o2, satting 96%. Addendum: 06/25/18 at 1849 by LORIE MCGUIRE RN Pt sinus/afib controlled at times. Dr. Pina aware. Pt has history of afib.
[2018-06-26] VITALS (12 sets, daily range): BP systolic 108–148; BP diastolic 53–72; PULSE 51–99; RESP 18–19
[2018-06-26] MEDS: PANTOPRAZOLE (EC) 40 MG TAB PO SCH (05:52)
--- NOTE | 2018-06-26 07:38 | NUR ---
Pt. was stable the whole shift, uneventful course.
[2018-06-26] MEDS: METHYLPREDNISOLONE 40 MG INJ IV SCH ×2 (08:13→21:04)
[2018-06-26] MEDS: APIXABAN 5 MG TABLET PO SCH ×2 (08:13→21:04)
[2018-06-26] MEDS: AMLODIPINE 10 MG TAB PO SCH (08:14)
[2018-06-26] MEDS: METOPROLOL 25 MG TAB PO SCH ×2 (08:14→21:04)
[2018-06-26] MEDS: LOSARTAN 50 MG TAB PO SCH (08:14)
[2018-06-26] MEDS: MINOXIDIL 10 MG TAB PO SCH (08:14)
[2018-06-26] MEDS: HEPARIN 5,000 UNIT/1 ML VIAL SC SCH ×2 (08:24→21:11)
--- NOTE | 2018-06-26 08:58 | PN ---
Date/Time of Note Date/Time of Note DATE: 06/26/18 TIME: 08:58 Assessment/Plan VTE Prophylaxis Risk score (from Ns)>0 risk: 6 SCD applied (from Ns): Yes Pharmacological prophylaxis: heparin Lines/Catheters IV Catheter Type (from Nrs): Peripheral IV Assessment/Plan Assessment/Plan 1. Acute hypoxic respiratory failure secondary to volume overload- improving - Patient doing well on NC and will wean off - Initial CXR noted with pulm congestion vs pneumonitis vs pneumonia 2. Acute on chronic systolic heart failure- improving - Cardiology on board and recommendations appreciated. continue current medications - BNP noted 3. Acute SHERYL on CKD - secondary to overdiuresis - Nephrology on board and appreciate recommendations. D/c Bumex and monitor renal function 4. Severe MR and moderate TR - most likely contributing to Pulm congestion - has outpatient Account Adjuster 5. Afib - continue home medications - rate controlled - on Eliquis 6. h/o Brain aneurysm - stable 7. Disposition - Nephrology consultation placed for assistance with diuresis given worsening renal failure on diuretics Result Diagram: 06/26/18 0511 06/26/18 0509 Results 24hrs Laboratory Tests Test 06/26/18 05:09 06/26/18 05:11 Sodium Level 143 Potassium Level 4.4 Chloride Level 103 Carbon Dioxide Level 24 Anion Gap 16 H Blood Urea Nitrogen 33 H Creatinine 2.29 H Est Glomerular Filtrat Rate mL/min Glucose Level 210 Calcium Level 9.2 Magnesium Level 2.1 White Blood Count 8.9 Red Blood Count 3.34 L Hemoglobin 9.3 L Hematocrit 28.6 L Mean Corpuscular Volume 85.6 Mean Corpuscular Hemoglobin 27.8 L Mean Corpuscular Hemoglobin Concent 32.5 Red Cell Distribution Width 15.2 H Platelet Count 160 Mean Platelet Volume 13.1 H Immature Granulocytes % 0.400 Neutrophils % 89.0 H Lymphocytes % 9.0 L Monocytes % 1.6 Eosinophils % 0.0 Basophils % 0.0 Nucleated Red Blood Cells % 0.0 Immature Granulocytes # 0.040 H Neutrophils # 8.0 H Lymphocytes # 0.8 Monocytes # 0.1 L Eosinophils # 0.0 Basophils # 0.0 Nucleated Red Blood Cells # 0.0 Subjective 24 Hr Interval Summary Free Text/Dictation Patient doing well and states respiratory status has improved. Ambulating without any issues. Discussed renal function and barrier to discharge. Exam/Review of Systems Vital Signs Vitals Vital Signs Date Temp Pulse Resp B/P (MAP) Pulse Ox O2 O2 Flow FiO2 Time Delivery Rate 06/26/18 98.2 80 18 120/58 92 07:20 (78) 06/26/18 Nasal 03:53 Cannula 06/25/18 4.0 20:02 06/25/18 35 07:30 Intake and Output 06/25/18 06/25/18 06/26/18 1515:00 23:00 07:00 IntakeIntake Total 1325 ml OutputOutput Total 1450 ml BalanceBalance -125 ml Exam General: Patient is sitting in chair at bedside Neck: Supple Respiratory: Diminished bibasilar sounds with mild crackles at bases. no wheezing appreciated Cardiovascular: regular rate and rhythm, no obvious murmurs Gastrointestinal: soft, non-tender to palpation, nondistended, bowel sounds heard. no rebound or guarding Neurological: Moves all extremities spontaneously. no focal deficits appreciated Ext: no edema, cyanosis, or clubbing. Skin: No new skin lesions Medications Medications Current Medications Amlodipine Besylate (Norvasc) 10 mg DAILY PO Last administered on 06/26/18at 08:14; Admin Dose 10 MG; Start 06/25/18 at 09:00 Apixaban (Eliquis) 5 mg BID PO Last administered on 06/26/18at 08:13; Admin Dose 5 MG; Start 06/24/18 at 21:00 Losartan Potassium (Cozaar) 100 mg DAILY PO Last administered on 06/26/18at 08:14; Admin Dose 100 MG; Start 06/25/18 at 09:00 Metoprolol Tartrate (Lopressor) 25 mg BID PO Last administered on 06/26/18at 08:14; Admin Dose 25 MG; Start 06/24/18 at 21:00 Minoxidil (Loniten) 10 mg DAILY PO Last administered on 06/26/18at 08:14; Admin Dose 10 MG; Start 06/25/18 at 09:00 Pantoprazole (Protonix Tab) 40 mg DAILY@06 PO Last administered on 06/26/18at 05:52; Admin Dose 40 MG; Start 06/25/18 at 06:00 IV Flush (NS 3 ml) 3 ml PER PROTOCOL IV ; Start 06/24/18 at 13:30 Ondansetron HCl (Zofran Inj) 4 mg Q6H PRN IV NAUSEA AND/OR VOMITING; Start 06/24/18 at 13:30 Acetaminophen (Tylenol Tab) 650 mg Q6H PRN PO PAIN LEVEL 1-3 OR FEVER; Start 06/24/18 at 13:30 Docusate Sodium (Colace) 100 mg Q12H PRN PO CONSTIPATION; Start 06/24/18 at 13:30 Magnesium Hydroxide (Milk Of Mag) 30 ml DAILY PRN PO CONSTIPATION; Start 06/24/18 at 13:30 Heparin Sodium (Porcine) (Heparin (5000 Units/1ml)) 5,000 unit Q12 SC Last administered on 06/26/18 08:24; Admin Dose 5,000 UNIT; Start 06/24/18 at 21:00 Methylprednisolone Sodium Succinate (Solu-Medrol) 40 mg Q12 IV Last administered on 06/26/18 08:13; Admin Dose 40 MG; Start 06/25/18 at 09:30 Bumetanide (Bumex) 2 mg DAILY PO Last administered on 06/26/18 08:13; Admin Dose 2 MG; Start 06/26/18 at 09:00 GERALD OLMEDO MD Jun 26, 2018 08:58
[2018-06-26] MEDS ORDERED: BUMETANIDE 1 MG TAB PO SCH (09:00)
--- NOTE | 2018-06-26 11:58 | NUR ---
CASE MANAGEMENT NOTE MET WITH PATIENT AT BEDSIDE, DISCUSSED OPTION WITH HOME HEALTH,[facility], [facility] ,[facility],PER PT SHE WAS BEEN SEEN BY HOME HEALTH AND SHE WOULD LIKE TO TRY NEW COMPANY AND THEY HAVEN'S SEEN HER IN 5 MONTHS, PT CHOSE [facility] AND AND INQUIRY SENT TO [facility], AND PT HAS BEEN ACCEPTED AND WILL BE SEEN AT DISCHARGE.CONFIRM WITH BARRON AT [facility]. [facility] [phone] FAX [phone] BRAD RICHARDS RN [facility] EXT [phone]
--- NOTE | 2018-06-26 12:26 | CONS ---
Assessment/Plan Cardiology Heart Failure NYHA Class: III Heart Failure Timing: Acute Heart Failure Type: Diastolic Assessment/Plan Hospital Course (Demo Recall) IMP: 1. 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 PAF-on eliquis Recc: -Tele -Follow volume status/vocational education teacher closely and consider renal consult -Continue BB/minoxidil/losartan/norvasc -Continue eliquis -Contineu steroids/bronchodilators -Complete george Consultation Date/Type/Reason Admit Date/Time Jun 24, 2018 at 13:24 Initial Consult Date HTN Type of Consult Cardiology Reason for Consultation sob Requesting Provider: GERALD OLMEDO MD Date/Time of Note DATE: 06/26/18 TIME: 12:15 Exam/Review of Systems Vital Signs Vitals Vital Signs Date Temp Pulse Resp B/P (MAP) Pulse Ox O2 O2 Flow FiO2 Time Delivery Rate 06/26/18 98.0 64 19 108/53 97 11:26 (71) 06/26/18 Nasal 4.0 08:30 Cannula 06/25/18 35 07:30 Intake and Output 06/25/18 06/25/18 06/26/18 1414:59 22:59 06:59 IntakeIntake Total 1325 ml OutputOutput Total 1450 ml BalanceBalance -125 ml Exam Exam Review of Systems: CONSTITUTIONAL: No fevers, chills. PULMONARY: mild sob CARDIOVASCULAR: No chest pain/palpitations GASTROINTESTINAL: No nausea/vomiting. GENITOURINARY: No hematuria/dysuria. MUSCULOSKELETAL: No myagias/arthalgias. PSYCHIATRIC: The patient denies depression. NEUROLOGIC: No weakness Constitutional: alert Psych: no complaints Head: normocephalic ENMT: mucosa pink and moist Neck: supple, jvd (9 cm water) Respiratory: diminished breath sounds (at bases/B) Cardiovascular: regular rate and rhythm Gastrointestinal: soft, non-tender Musculoskeletal: muscle weakness (mild generalized) Extremities: edema (none) Neurological: other (No focal deficits) Labs Result Diagram: 06/26/18 0511 06/26/18 0509 Results 24hrs Laboratory Tests Test 06/26/18 05:09 06/26/18 05:11 06/26/18 09:00 Sodium Level 143 Potassium Level 4.4 Chloride Level 103 Carbon Dioxide Level 24 Anion Gap 16 H Blood Urea Nitrogen 33 H Creatinine 2.29 H Est Glomerular Filtrat Rate mL/min Glucose Level 210 Calcium Level 9.2 Magnesium Level 2.1 White Blood Count 8.9 Red Blood Count 3.34 L Hemoglobin 9.3 L Hematocrit 28.6 L Mean Corpuscular Volume 85.6 Mean Corpuscular Hemoglobin 27.8 L Mean Corpuscular 32.5 Hemoglobin Concent Red Cell Distribution Width 15.2 H Platelet Count 160 Mean Platelet Volume 13.1 H Immature Granulocytes % 0.400 Neutrophils % 89.0 H Lymphocytes % 9.0 L Monocytes % 1.6 Eosinophils % 0.0 Basophils % 0.0 Nucleated Red Blood Cells % 0.0 Immature Granulocytes # 0.040 H Neutrophils # 8.0 H Lymphocytes # 0.8 Monocytes # 0.1 L Eosinophils # 0.0 Basophils # 0.0 Nucleated Red Blood Cells # 0.0 Blood Gas Specimen Source Blood arterial Arterial Blood Date Drawn 06/26/2018 9:39:44 AM Arterial Blood pH 7.445 (Temp corrected) Arterial Blood pCO2 28.8 L (Temp correct) Arterial Blood pO2 133.4 H (Temp corrected) Arterial Blood HCO3 19.3 L Arterial Blood Base Excess -3.7 L Arterial Blood 98.4 Oxygen Saturation Talha Test ACCEPTAB Arterial Blood Gas Right Radial Puncture Site Arterial 0.3 Blood Carboxyhemoglobin Arterial Blood Methemoglobin 0.1 Blood Gas A-a O2 68.3 H Differential Oxyhemoglobin Percent 98.0 Blood Gas Temperature 37.0 Blood Gas Modality NASAL CANNULA FiO2 33.0 Blood Gas Notified Whom TM Blood Gas Notified Time 06/26/2018 9:56:14 AM KEVON TIWARI Jun 26, 2018 12:26
--- NOTE | 2018-06-26 17:56 | NUR ---
EOSS: Pt in bed. Bed locked in lowest position with 2 side rails raised. Remains AAOX4. Call light in reach. No complaints. IV intact. Pleasant. Cooperative. Bed alarm on. No issues during shift. All needs met. Pt is stable. Pt turned self entire shift.
--- NOTE | 2018-06-26 22:21 | CONS ---
Date/Time of Note Date/Time of Note DATE: 06/26/18 TIME: 22:20 Assessment/Plan Assessment/Plan Assessment/Plan 1. acute hypoxemic respiratory failure requiring BIPAP 2. acute CHF, acute on chronic, systolic 3. SHERYL on CKD III due to hemodynamics from CHF then concerned about overdiuresis 4. Severe MR, moderate TR 5. Atrial fibrillation rate controlled, 6. H/o brain aneurysm Plan: stop lasix and Stop bumex, will monitor pt off Diuretica AMlodipien for HTN control Eliquis for anticoagulation Uric acid, CK total, BNP with Am labs Renal US to assess for CKD Thanks for consultation, I will continue to follow up Result Diagram: 06/26/18 0511 06/26/18 0509 Results 24hrs Laboratory Tests Test 06/26/18 05:09 06/26/18 05:11 06/26/18 09:00 06/26/18 18:31 Sodium Level 143 Potassium Level 4.4 Chloride Level 103 Carbon Dioxide 24 Level Anion Gap 16 H Blood Urea 33 H Nitrogen Creatinine 2.29 H Est Glomerular Filtrat Rate mL/min Glucose Level 210 Calcium Level 9.2 Magnesium Level 2.1 White Blood Count 8.9 Red Blood Count 3.34 L Hemoglobin 9.3 L Hematocrit 28.6 L Mean Corpuscular 85.6 Volume Mean Corpuscular 27.8 L Hemoglobin Mean Corpuscular 32.5 Hemoglobin Concen t Red Cell 15.2 H Distribution Width Platelet Count 160 Mean Platelet 13.1 H Volume Immature 0.400 Granulocytes % Neutrophils % 89.0 H Lymphocytes % 9.0 L Monocytes % 1.6 Eosinophils % 0.0 Basophils % 0.0 Nucleated Red 0.0 Blood Cells % Immature 0.040 H Granulocytes # Neutrophils # 8.0 H Lymphocytes # 0.8 Monocytes # 0.1 L Eosinophils # 0.0 Basophils # 0.0 Nucleated Red 0.0 Blood Cells # Blood Gas Blood arterial Specimen Source Arterial Blood 06/26/2018 9:39:4 Date Drawn 4 AM Arterial Blood pH 7.445 (Temp corrected) Arterial Blood 28.8 L pCO2 (Temp correct) Arterial Blood 133.4 H pO2 (Temp corrected) Arterial Blood 19.3 L HCO3 Arterial Blood -3.7 L Base Excess Arterial Blood 98.4 Oxygen Saturation Talha Test ACCEPTAB Arterial Blood Right Radial Gas Puncture Site Arterial 0.3 Blood Carboxyhemo globin Arterial Blood 0.1 Methemoglobin Blood Gas A-a O2 68.3 H Differential Oxyhemoglobin 98.0 Percent Blood Gas 37.0 Temperature Blood Gas NASAL CANNULA Modality FiO2 33.0 Blood Gas TM Notified Whom Blood Gas 06/26/2018 9:56:1 Notified Time 4 AM Creatine Kinase 118 Creatine Kinase 3.9 Index Creatinine Kinase 4.59 H MB (Mass) Troponin I 0.037 Consultation Date/Type/Reason Admit Date/Time Jun 24, 2018 at 13:24 Date of Consultation: Jun 26, 2018 Type of Consult NEPHROLOGY Reason for Consultation Acute on chronic renal failure Requesting Provider: GERALD OLMEDO MD Hx of Present Illness 77 yo F with PMH atrial fibrillation, CKD, severe mitral regurg, moderate tricuspid regurg, pacer placement, and brain aneurysm presented to ED with worsening shortness of breath for the past 3 days. Patient does admit to a productive cough with white sputum but denies flu like symptoms, recent sick contact, fevers, wheezing, nausea, vomiting, or abdominal issues. She does admit to lower extremity swelling and mild dizziness. Patient was placed on BIPAP in the ED after CXR findings of pulmonary congestion with improvement in respiratory status.. pt gets admitted to acute hypoxemic respiratory failure, requiring BIPAP, she was diuresed wiht lasix and bumex- BUN/Cr improved intially but then again starts going oup Renal has been consulted for acute on chronic renal failure and concern about overdiuresis. Constitutional: no complaints Eyes: no complaints ENT: no complaints Respiratory: cough, pleuritic pain, shortness of breath Cardiovascular: no complaints Gastrointestinal: no complaints Genitourinary: no complaints Musculoskeletal: no complaints Skin: no complaints Neurologic: no complaints Endocrine: no complaints Lymphatic: no complaints Psychological: no complaints Immunologic: no complaints Past Medical History Medical History: congestive heart failure, hypertension, renal disease, other (atrial fibrillation, pacer, brain aneursym) Medications Current Medications Amlodipine Besylate (Norvasc) 10 mg DAILY PO Last administered on 06/26/18at 08:14; Admin Dose 10 MG; Start 06/25/18 at 09:00 Apixaban (Eliquis) 5 mg BID PO Last administered on 06/26/18at 21:04; Admin Dose 5 MG; Start 06/24/18 at 21:00 Losartan Potassium (Cozaar) 100 mg DAILY PO Last administered on 06/26/18 08:14; Admin Dose 100 MG; Start 06/25/18 at 09:00 Metoprolol Tartrate (Lopressor) 25 mg BID PO Last administered on 06/26/18at 21:04; Admin Dose 25 MG; Start 06/24/18 at 21:00 Minoxidil (Loniten) 10 mg DAILY PO Last administered on 06/26/18at 08:14; Admin Dose 10 MG; Start 06/25/18 at 09:00 Pantoprazole (Protonix Tab) 40 mg DAILY@06 PO Last administered on 06/26/18at 05:52; Admin Dose 40 MG; Start 06/25/18 at 06:00 IV Flush (NS 3 ml) 3 ml PER PROTOCOL IV ; Start 06/24/18 at 13:30 Ondansetron HCl (Zofran Inj) 4 mg Q6H PRN IV NAUSEA AND/OR VOMITING; Start 06/24/18 at 13:30 Acetaminophen (Tylenol Tab) 650 mg Q6H PRN PO PAIN LEVEL 1-3 OR FEVER; Start 06/24/18 at 13:30 Docusate Sodium (Colace) 100 mg Q12H PRN PO CONSTIPATION; Start 06/24/18 at 13:30 Magnesium Hydroxide (Milk Of Mag) 30 ml DAILY PRN PO CONSTIPATION; Start 06/24/18 at 13:30 Heparin Sodium (Porcine) (Heparin (5000 Units/1ml)) 5,000 unit Q12 SC Last administered on 06/26/18at 21:11; Admin Dose 5,000 UNIT; Start 06/24/18 at 21:00 Methylprednisolone Sodium Succinate (Solu-Medrol) 40 mg Q12 IV Last administered on 06/26/18at 21:04; Admin Dose 40 MG; Start 06/25/18 at 09:30; Stop 06/26/18 at 23:55 Allergies: Coded Allergies: No Known Allergy (Unverified , 11/27/17) Past Surgical History Past Surgical Hx: no surgical history, other Family History Significant Family History: no pertinent family hx Social History Alcohol Use: none Smoking Status: Never smoker Drug Use: none Exam/Review of Systems Vital Signs Vitals Vital Signs Date Temp Pulse Resp B/P (MAP) Pulse Ox O2 O2 Flow FiO2 Time Delivery Rate 06/26/18 Nasal 4.0 22:13 Cannula 06/26/18 98.2 51 18 115/53 100 20:06 (73) 06/25/18 35 07:30 Intake and Output 06/25/18 06/25/18 06/26/18 1414:59 22:59 06:59 IntakeIntake Total 1325 ml OutputOutput Total 1450 ml BalanceBalance -125 ml Exam Constitutional: alert Psych: no complaints Head: normocephalic ENMT: mucosa pink and moist Neck: supple, jvd (9 cm water) Respiratory: diminished breath sounds (at bases/B) Cardiovascular: regular rate and rhythm Gastrointestinal: soft, non-tender Musculoskeletal: muscle weakness (mild generalized) Extremities: edema (none) Neurological: other (No focal deficits) Medications Medications Current Medications Amlodipine Besylate (Norvasc) 10 mg DAILY PO Last administered on 06/26/18at 08:14; Admin Dose 10 MG; Start 06/25/18 at 09:00 Apixaban (Eliquis) 5 mg BID PO Last administered on 06/26/18at 21:04; Admin Dose 5 MG; Start 06/24/18 at 21:00 Losartan Potassium (Cozaar) 100 mg DAILY PO Last administered on 06/26/18at 08:14; Admin Dose 100 MG; Start 06/25/18 at 09:00 Metoprolol Tartrate (Lopressor) 25 mg BID PO Last administered on 06/26/18at 21:04; Admin Dose 25 MG; Start 06/24/18 at 21:00 Minoxidil (Loniten) 10 mg DAILY PO Last administered on 06/26/18at 08:14; Admin Dose 10 MG; Start 06/25/18 at 09:00 Pantoprazole (Protonix Tab) 40 mg DAILY@06 PO Last administered on 06/26/18at 05:52; Admin Dose 40 MG; Start 06/25/18 at 06:00 IV Flush (NS 3 ml) 3 ml PER PROTOCOL IV ; Start 06/24/18 at 13:30 Ondansetron HCl (Zofran Inj) 4 mg Q6H PRN IV NAUSEA AND/OR VOMITING; Start 06/24/18 at 13:30 Acetaminophen (Tylenol Tab) 650 mg Q6H PRN PO PAIN LEVEL 1-3 OR FEVER; Start 06/24/18 at 13:30 Docusate Sodium (Colace) 100 mg Q12H PRN PO CONSTIPATION; Start 06/24/18 at 13:30 Magnesium Hydroxide (Milk Of Mag) 30 ml DAILY PRN PO CONSTIPATION; Start 06/24/18 at 13:30 Heparin Sodium (Porcine) (Heparin (5000 Units/1ml)) 5,000 unit Q12 SC Last administered on 06/26/18at 21:11; Admin Dose 5,000 UNIT; Start 06/24/18 at 21:00 Methylprednisolone Sodium Succinate (Solu-Medrol) 40 mg Q12 IV Last admin istered on 06/26/18at 21:04; Admin Dose 40 MG; Start 06/25/18 at 09:30; Stop 06/26/18 at 23:55 LEO NELSON MD Jun 26, 2018 22:21
[2018-06-27] VITALS (10 sets, daily range): BP systolic 100–120; BP diastolic 47–58; PULSE 48–71; RESP 18–19
[2018-06-27] MEDS: PANTOPRAZOLE (EC) 40 MG TAB PO SCH (06:31)
--- NOTE | 2018-06-27 07:40 | NUR ---
EOSS: NO ACUTE EVENTS OVERNIGHT. ALL DUE MEDS GIVEN.
[2018-06-27] MEDS: METOPROLOL 25 MG TAB PO SCH ×3 (08:12→20:52)
[2018-06-27] MEDS: MINOXIDIL 10 MG TAB PO SCH (08:12)
[2018-06-27] MEDS: AMLODIPINE 10 MG TAB PO SCH (08:13)
[2018-06-27] MEDS: LOSARTAN 50 MG TAB PO SCH (08:13)
[2018-06-27] MEDS: APIXABAN 5 MG TABLET PO SCH ×2 (08:13→20:45)
[2018-06-27] MEDS: HEPARIN 5,000 UNIT/1 ML VIAL SC SCH ×2 (08:18→20:51)
--- NOTE | 2018-06-27 11:47 | CONS ---
Assessment/Plan Assessment/Plan Assessment/Plan (Daily) 1. acute hypoxemic respiratory failure requiring BIPAP 2. acute CHF, acute on chronic, systolic 3. SHERYL on CKD III due to hemodynamics from CHF then concerned about overdiuresis 4. Severe MR, moderate TR 5. Atrial fibrillation rate controlled, 6. H/o brain aneurysm Plan: uric acid 10.8- start allopurinol 100mg BID BNP 6760, BUN/Cr 62/2.9- stop losartan, will give lasix 20mg IV x 1 dose now Amlodipine for HTN control Eliquis for anticoagulation Renal US unremarkable will continue to follow up Consultation Date/Type/Reason Admit Date/Time Jun 24, 2018 at 13:24 Initial Consult Date 06/26/18 Type of Consult NEPHROLOGY Requesting Provider: GERALD OLMEDO MD Date/Time of Note DATE: 06/27/18 TIME: 11:47 24 HR Interval Summary Free Text/Dictation uric acid 10.8, BNP elevated, BP stable,a febrile Exam/Review of Systems Vital Signs Vitals Vital Signs Date Temp Pulse Resp B/P (MAP) Pulse Ox O2 O2 Flow FiO2 Time Delivery Rate 06/27/18 98.6 56 19 120/58 100 11:11 (78) 06/27/18 Nasal 4.0 07:47 Cannula 06/25/18 35 07:30 Intake and Output 06/26/18 06/26/18 06/27/18 1515:00 23:00 07:00 IntakeIntake Total 600 ml BalanceBalance 600 ml Exam Constitutional: alert, awake, no acute distress Neck: supple, jvd (9 cm water) Respiratory: diminished breath sounds (at bases/B) Cardiovascular: regular rate and rhythm Gastrointestinal: soft, non-tender Musculoskeletal: muscle weakness (mild generalized) Extremities: edema (none) Neurological: other (No focal deficits) Results Result Diagram: 06/27/18 0450 06/27/18 0448 Results 24hrs Laboratory Tests Test 06/26/18 18:31 06/27/18 00:42 06/27/18 04:48 06/27/18 04:50 Creatine Kinase 118 111 88 Creatine Kinase 3.9 3.9 3.4 Index Creatinine Kinase MB 4.59 H 4.29 H 2.98 H (Mass) Troponin I 0.037 0.047 0.044 Prothrombin Time 19.1 H Prothrombin Time 1.5 Ratio INR International 1.60 Normalized Ratio Activated 34.3 Partial Thromboplast Time Sodium Level 138 Potassium Level 4.7 Chloride Level 101 Carbon Dioxide Level 23 Anion Gap 14 H Blood Urea Nitrogen 62 H Creatinine 2.90 H Est Glomerular Filtrat Rate mL/min Glucose Level 255 H Uric Acid 10.8 H Calcium Level 8.9 Phosphorus Level 5.1 H Magnesium Level 2.1 Total Bilirubin 0.3 Direct Bilirubin 0.00 Indirect Bilirubin 0.3 Aspartate Amino 20 Transf (AST/SGOT) Alanine 12 L Aminotransferase (AL T/SGPT) Alkaline Phosphatase 77 B-Type Natriuretic 6760 H Peptide Total Protein 6.8 Albumin 3.6 Globulin 3.00 Albumin/Globulin 1.26 Ratio White Blood Count 14.6 #H Red Blood Count 2.97 L Hemoglobin 8.3 L Hematocrit 25.5 L Mean Corpuscular 85.9 Volume Mean Corpuscular 27.9 L Hemoglobin Mean Corpuscular 32.5 Hemoglobin Concent Red Cell 15.2 H Distribution Width Platelet Count 173 Mean Platelet Volume 12.1 H Immature 1.000 H Granulocytes % Neutrophils % 92.1 H Lymphocytes % 4.5 L Monocytes % 2.3 Eosinophils % 0.0 Basophils % 0.1 Nucleated Red Blood 0.0 Cells % Immature 0.140 H Granulocytes # Neutrophils # 13.5 H Lymphocytes # 0.7 L Monocytes # 0.3 Eosinophils # 0.0 Basophils # 0.0 Nucleated Red Blood 0.0 Cells # LEO NELSON MD Jun 27, 2018 11:47
[2018-06-27] MEDS ORDERED: FUROSEMIDE 20 MG INJ IV ONE (12:00)
[2018-06-27] MEDS ORDERED: ALLOPURINOL 100 MG TAB PO ONE (12:00)
--- NOTE | 2018-06-27 14:03 | CONS ---
Assessment/Plan Cardiology NYHA: III Heart Failure Type: Diastolic Assessment/Plan Hospital Course (Demo Recall) IMP: 1. 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 PAF-on eliquis Recc: -Tele -Follow volume status/supervisor adult education closely with renal now following -Continue BB/minoxidil/norvasc -Losartan d/c'd due to marginal BP -Continue eliquis -Contineu steroids/bronchodilators -Complete george Consultation Date/Type/Reason Admit Date/Time Jun 24, 2018 at 13:24 Initial Consult Date 06/24/18 Type of Consult Cardiology Reason for Consultation HTN Requesting Provider: GERALD OLMEDO MD Date/Time of Note DATE: 06/27/18 TIME: 14:01 Exam/Review of Systems Vital Signs Vitals Vital Signs Date Temp Pulse Resp B/P (MAP) Pulse Ox O2 O2 Flow FiO2 Time Delivery Rate 06/27/18 59 13:01 06/27/18 98.6 19 120/58 100 11:11 (78) 06/27/18 Nasal 4.0 07:47 Cannula 06/25/18 35 07:30 Intake and Output 06/26/18 06/26/18 06/27/18 1414:59 22:59 06:59 IntakeIntake Total 600 ml BalanceBalance 600 ml Exam Exam Review of Systems: CONSTITUTIONAL: No fevers, chills. PULMONARY: No sob CARDIOVASCULAR: No chest pain/palpitations GASTROINTESTINAL: No nausea/vomiting. GENITOURINARY: No hematuria/dysuria. MUSCULOSKELETAL: No myagias/arthalgias. PSYCHIATRIC: The patient denies depression. NEUROLOGIC: No weakness Constitutional: alert Psych: no complaints Head: normocephalic ENMT: mucosa pink and moist Neck: supple, jvd (9 cm water) Respiratory: clear to auscultation Cardiovascular: regular rate and rhythm Gastrointestinal: soft, non-tender Musculoskeletal: muscle tone (normal) Extremities: edema (none) Neurological: other (No focal deficits) Labs Result Diagram: 06/27/18 5201 06/27/18 0408 Results 24hrs Laboratory Tests Test 06/26/18 18:31 06/27/18 00:42 06/27/18 04:48 06/27/18 04:50 Creatine Kinase 118 111 88 Creatine Kinase 3.9 3.9 3.4 Index Creatinine Kinase MB 4.59 H 4.29 H 2.98 H (Mass) Troponin I 0.037 0.047 0.044 Prothrombin Time 19.1 H Prothrombin Time 1.5 Ratio INR International 1.60 Normalized Ratio Activated 34.3 Partial Thromboplast Time Sodium Level 138 Potassium Level 4.7 Chloride Level 101 Carbon Dioxide Level 23 Anion Gap 14 H Blood Urea Nitrogen 62 H Creatinine 2.90 H Est Glomerular Filtrat Rate mL/min Glucose Level 255 H Uric Acid 10.8 H Calcium Level 8.9 Phosphorus Level 5.1 H Magnesium Level 2.1 Total Bilirubin 0.3 Direct Bilirubin 0.00 Indirect Bilirubin 0.3 Aspartate Amino 20 Transf (AST/SGOT) Alanine 12 L Aminotransferase (AL T/SGPT) Alkaline Phosphatase 77 B-Type Natriuretic 6760 H Peptide Total Protein 6.8 Albumin 3.6 Globulin 3.00 Albumin/Globulin 1.26 Ratio White Blood Count 14.6 #H Red Blood Count 2.97 L Hemoglobin 8.3 L Hematocrit 25.5 L Mean Corpuscular 85.9 Volume Mean Corpuscular 27.9 L Hemoglobin Mean Corpuscular 32.5 Hemoglobin Concent Red Cell 15.2 H Distribution Width Platelet Count 173 Mean Platelet Volume 12.1 H Immature 1.000 H Granulocytes % Neutrophils % 92.1 H Lymphocytes % 4.5 L Monocytes % 2.3 Eosinophils % 0.0 Basophils % 0.1 Nucleated Red Blood 0.0 Cells % Immature 0.140 H Granulocytes # Neutrophils # 13.5 H Lymphocytes # 0.7 L Monocytes # 0.3 Eosinophils # 0.0 Basophils # 0.0 Nucleated Red Blood 0.0 Cells # KEVON TIWARI Jun 27, 2018 14:03
--- NOTE | 2018-06-27 14:34 | PN ---
Date/Time of Note Date/Time of Note DATE: 06/27/18 TIME: 14:30 Assessment/Plan VTE Prophylaxis Risk score (from Ns)>0 risk: 6 SCD applied (from Ns): Yes Pharmacological prophylaxis: heparin Lines/Catheters IV Catheter Type (from Nrsg): Saline Lock Assessment/Plan Assessment/Plan 1. Acute hypoxic respiratory failure secondary to volume overload- improving - Patient doing well on NC and will wean off as tolerated - Initial CXR noted with pulm congestion vs pneumonitis vs pneumonia 2. Acute on chronic systolic heart failure- improving - Cardiology on board and recommendations appreciated. continue current medications - BNP noted 3. Acute SHERYL on CKD - Nephrology consultation appreciated and holding diuretics and d/c losartan - will monitor for improvement in overall renal function 4. 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 Afib - continue home medications - rate controlled - on Eliquis 6. h/o Brain aneurysm - stable 7. Disposition - Continue weaning off O2 as tolerated - Will need improvement in renal function prior to discharge home - CM on board and arrangements made for Result Diagram: 06/27/18 0450 06/27/18 0448 Results 24hrs Laboratory Tests Test 06/26/18 18:31 06/27/18 00:42 06/27/18 04:48 06/27/18 04:50 Creatine Kinase 118 111 88 Creatine Kinase 3.9 3.9 3.4 Index Creatinine Kinase MB 4.59 H 4.29 H 2.98 H (Mass) Troponin I 0.037 0.047 0.044 Prothrombin Time 19.1 H Prothrombin Time 1.5 Ratio INR International 1.60 Normalized Ratio Activated 34.3 Partial Thromboplast Time Sodium Level 138 Potassium Level 4.7 Chloride Level 101 Carbon Dioxide Level 23 Anion Gap 14 H Blood Urea Nitrogen 62 H Creatinine 2.90 H Est Glomerular Filtrat Rate mL/min Glucose Level 255 H Uric Acid 10.8 H Calcium Level 8.9 Phosphorus Level 5.1 H Magnesium Level 2.1 Total Bilirubin 0.3 Direct Bilirubin 0.00 Indirect Bilirubin 0.3 Aspartate Amino 20 Transf (AST/SGOT) Alanine 12 L Aminotransferase (AL T/SGPT) Alkaline Phosphatase 77 B-Type Natriuretic 6760 H Peptide Total Protein 6.8 Albumin 3.6 Globulin 3.00 Albumin/Globulin 1.26 Ratio White Blood Count 14.6 #H Red Blood Count 2.97 L Hemoglobin 8.3 L Hematocrit 25.5 L Mean Corpuscular 85.9 Volume Mean Corpuscular 27.9 L Hemoglobin Mean Corpuscular 32.5 Hemoglobin Concent Red Cell 15.2 H Distribution Width Platelet Count 173 Mean Platelet Volume 12.1 H Immature 1.000 H Granulocytes % Neutrophils % 92.1 H Lymphocytes % 4.5 L Monocytes % 2.3 Eosinophils % 0.0 Basophils % 0.1 Nucleated Red Blood 0.0 Cells % Immature 0.140 H Granulocytes # Neutrophils # 13.5 H Lymphocytes # 0.7 L Monocytes # 0.3 Eosinophils # 0.0 Basophils # 0.0 Nucleated Red Blood 0.0 Cells # Subjective 24 Hr Interval Summary Free Text/Dictation Patient doing well and states feeling better. Denies any acute issues. Discussed renal function and need for improvement prior to discharge. Exam/Review of Systems Exam Vitals Vital Signs Date Temp Pulse Resp B/P (MAP) Pulse Ox O2 O2 Flow FiO2 Time Delivery Rate 06/27/18 59 13:01 06/27/18 98.6 19 120/58 100 11:11 (78) 06/27/18 Nasal 4.0 07:47 Cannula 06/25/18 35 07:30 Intake and Output 06/26/18 06/26/18 06/27/18 1414:59 22:59 06:59 IntakeIntake Total 600 ml BalanceBalance 600 ml Constitutional: alert, oriented Psych: nl mood/affect Head: normocephalic, atraumatic Eyes: EOMI ENMT: mucosa pink and moist Neck: supple Respiratory: normal air movement, crackles/rales (at bases); No labored breathing Cardiovascular: regular rate and rhythm; No edema, No systolic murmur Gastrointestinal: soft, non-tender; No distended, No rebound or guarding Musculoskeletal: nl gait and stance Extremities: normal pulses Neurological: FACILITIES MAINTENANCE ASSISTANT II-XII intact, nl mental status, nl strength Skin: nl turgor Lymph: nl lymph nodes Results Results 24hrs Laboratory Tests Test 06/26/18 18:31 06/27/18 00:42 06/27/18 04:48 06/27/18 04:50 Creatine Kinase 118 111 88 Creatine Kinase 3.9 3.9 3.4 Index Creatinine Kinase MB 4.59 H 4.29 H 2.98 H (Mass) Troponin I 0.037 0.047 0.044 Prothrombin Time 19.1 H Prothrombin Time 1.5 Ratio INR International 1.60 Normalized Ratio Activated 34.3 Partial Thromboplast Time Sodium Level 138 Potassium Level 4.7 Chloride Level 101 Carbon Dioxide Level 23 Anion Gap 14 H Blood Urea Nitrogen 62 H Creatinine 2.90 H Est Glomerular Filtrat Rate mL/min Glucose Level 255 H Uric Acid 10.8 H Calcium Level 8.9 Phosphorus Level 5.1 H Magnesium Level 2.1 Total Bilirubin 0.3 Direct Bilirubin 0.00 Indirect Bilirubin 0.3 Aspartate Amino 20 Transf (AST/SGOT) Alanine 12 L Aminotransferase (AL T/SGPT) Alkaline Phosphatase 77 B-Type Natriuretic 6760 H Peptide Total Protein 6.8 Albumin 3.6 Globulin 3.00 Albumin/Globulin 1.26 Ratio White Blood Count 14.6 #H Red Blood Count 2.97 L Hemoglobin 8.3 L Hematocrit 25.5 L Mean Corpuscular 85.9 Volume Mean Corpuscular 27.9 L Hemoglobin Mean Corpuscular 32.5 Hemoglobin Concent Red Cell 15.2 H Distribution Width Platelet Count 173 Mean Platelet Volume 12.1 H Immature 1.000 H Granulocytes % Neutrophils % 92.1 H Lymphocytes % 4.5 L Monocytes % 2.3 Eosinophils % 0.0 Basophils % 0.1 Nucleated Red Blood 0.0 Cells % Immature 0.140 H Granulocytes # Neutrophils # 13.5 H Lymphocytes # 0.7 L Monocytes # 0.3 Eosinophils # 0.0 Basophils # 0.0 Nucleated Red Blood 0.0 Cells # GERALD OLMEDO MD Jun 27, 2018 14:34
--- NOTE | 2018-06-27 18:34 | NUR ---
EOSS: Pt is stable, VS are WNL. Pt did not complain of SOB throughout the shift. Will endorse the care to maintenance mechanic 2nd shift nurse.
[2018-06-28] VITALS (12 sets, daily range): BP systolic 107–155; BP diastolic 52–89; PULSE 48–61; RESP 17–20
[2018-06-28] MEDS: PANTOPRAZOLE (EC) 40 MG TAB PO SCH (06:32)
--- NOTE | 2018-06-28 07:16 | NUR ---
EOSS: PATIENT STABLE ALL THROUGHOUT THE SHIFT. NO COMPLAINT OF PAIN.
[2018-06-28] MEDS: ALLOPURINOL 100 MG TAB PO SCH (08:09)
[2018-06-28] MEDS: AMLODIPINE 10 MG TAB PO SCH (08:09)
[2018-06-28] MEDS: MINOXIDIL 10 MG TAB PO SCH (08:09)
[2018-06-28] MEDS: APIXABAN 5 MG TABLET PO SCH ×2 (08:09→20:26)
[2018-06-28] MEDS: METOPROLOL 25 MG TAB PO SCH ×2 (08:10→20:26)
[2018-06-28] MEDS: HEPARIN 5,000 UNIT/1 ML VIAL SC SCH ×2 (08:14→20:36)
--- NOTE | 2018-06-28 09:20 | CONS ---
Assessment/Plan Assessment/Plan Assessment/Plan (Daily) 1. acute hypoxemic respiratory failure requiring BIPAP 2. acute CHF, acute on chronic, systolic 3. SHERYL on CKD III due to hemodynamics from CHF then concerned about overdiuresis 4. Severe MR, moderate TR 5. Atrial fibrillation rate controlled, 6. H/o brain aneurysm Plan: uric acid 10.8- started on allopurinol 100mg BID BUN/Cr 77/3.01- stopped losartan yesterday , adequate urine output Amlodipine for HTN control Eliquis for anticoagulation Renal US unremarkable will continue to follow up Consultation Date/Type/Reason Admit Date/Time Jun 24, 2018 at 13:24 Initial Consult Date 06/26/18 Type of Consult NEPHROLOGY Requesting Provider: GERALD OLMEDO MD Date/Time of Note DATE: 06/28/18 TIME: 09:20 Exam/Review of Systems Exam Vitals Vital Signs Date Temp Pulse Resp B/P (MAP) Pulse Ox O2 O2 Flow FiO2 Time Delivery Rate 06/28/18 98.0 51 20 155/66 100 Room Air 07:38 (95) 06/28/18 4.0 07:32 06/25/18 35 07:30 Intake and Output 06/27/18 06/27/18 06/28/18 1515:00 23:00 07:00 IntakeIntake Total 200 ml 700 ml BalanceBalance 200 ml 700 ml PHYSICAL EXAM: Constitutional: alert, awake, no acute distress Neck: supple, jvd (9 cm water) Respiratory: diminished breath sounds (at bases/B) Cardiovascular: regular rate and rhythm Gastrointestinal: soft, non-tender Musculoskeletal: muscle weakness (mild generalized) Extremities: edema (none) Neurological: other (No focal deficits) Results Result Diagram: 06/28/18 0507 06/28/18 0507 Results 24hrs Laboratory Tests Test 06/28/18 05:07 White Blood Count 13.0 H Red Blood Count 2.91 L Hemoglobin 8.2 L Hematocrit 24.8 L Mean Corpuscular Volume 85.2 Mean Corpuscular Hemoglobin 28.2 L Mean Corpuscular Hemoglobin Concent 33.1 Red Cell Distribution Width 15.0 H Platelet Count 183 Mean Platelet Volume 13.3 H Immature Granulocytes % 0.500 H Neutrophils % 75.1 Lymphocytes % 15.3 Monocytes % 9.0 Eosinophils % 0.0 Basophils % 0.1 Nucleated Red Blood Cells % 0.0 Immature Granulocytes # 0.060 H Neutrophils # 9.8 H Lymphocytes # 2.0 Monocytes # 1.2 H Eosinophils # 0.0 Basophils # 0.0 Nucleated Red Blood Cells # 0.0 Prothrombin Time 18.4 H Prothrombin Time Ratio 1.4 INR International Normalized Ratio 1.52 Activated Partial Thromboplast Time 32.6 Sodium Level 135 Potassium Level 4.6 Chloride Level 98 Carbon Dioxide Level 25 Anion Gap 12 Blood Urea Nitrogen 77 H Creatinine 3.01 H Est Glomerular Filtrat Rate mL/min Glucose Level 219 Calcium Level 8.1 L Magnesium Level 2.2 Total Bilirubin 0.1 L Direct Bilirubin 0.00 Indirect Bilirubin 0.1 Aspartate Amino Transf (AST/SGOT) 19 Alanine Aminotransferase (ALT/SGPT) 12 L Alkaline Phosphatase 86 B-Type Natriuretic Peptide 6670 H Total Protein 6.5 Albumin 3.6 Globulin 2.90 Albumin/Globulin Ratio 1.24 LEO NELSON MD Jun 28, 2018 09:20
--- NOTE | 2018-06-28 09:32 | PN ---
Date/Time of Note Date/Time of Note DATE: 06/28/18 TIME: 09:32 Assessment/Plan VTE Prophylaxis Risk score (from Ns)>0 risk: 6 SCD applied (from Ns): Yes Pharmacological prophylaxis: heparin Lines/Catheters IV Catheter Type (from Nrsg): Saline Lock Assessment/Plan Assessment/Plan 1. Acute hypoxic respiratory failure secondary to volume overload- resolving - Patient doing well on NC and will wean off as tolerated - Initial CXR noted with pulm congestion vs pneumonitis vs pneumonia 2. Acute on chronic systolic heart failure- improving - Cardiology on board and recommendations appreciated. continue current medications - BNP noted 3. Acute SHERYL on CKD - Nephrology consultation appreciated and holding diuretics and d/c losartan - will monitor for improvement in overall renal function 4. Severe MR and moderate TR - most likely contributing to Pulm congestion 5. Afib - continue home medications - rate controlled - on Eliquis 6. h/o Brain aneurysm - stable 7. Disposition - Continue weaning off O2 as tolerated - Will need improvement in renal function prior to discharge home - CM on board and arrangements made for Result Diagram: 06/28/18 0507 06/28/18 0507 Results 24hrs Laboratory Tests Test 06/28/18 05:07 White Blood Count 13.0 H Red Blood Count 2.91 L Hemoglobin 8.2 L Hematocrit 24.8 L Mean Corpuscular Volume 85.2 Mean Corpuscular Hemoglobin 28.2 L Mean Corpuscular Hemoglobin Concent 33.1 Red Cell Distribution Width 15.0 H Platelet Count 183 Mean Platelet Volume 13.3 H Immature Granulocytes % 0.500 H Neutrophils % 75.1 Lymphocytes % 15.3 Monocytes % 9.0 Eosinophils % 0.0 Basophils % 0.1 Nucleated Red Blood Cells % 0.0 Immature Granulocytes # 0.060 H Neutrophils # 9.8 H Lymphocytes # 2.0 Monocytes # 1.2 H Eosinophils # 0.0 Basophils # 0.0 Nucleated Red Blood Cells # 0.0 Prothrombin Time 18.4 H Prothrombin Time Ratio 1.4 INR International Normalized Ratio 1.52 Activated Partial Thromboplast Time 32.6 Sodium Level 135 Potassium Level 4.6 Chloride Level 98 Carbon Dioxide Level 25 Anion Gap 12 Blood Urea Nitrogen 77 H Creatinine 3.01 H Est Glomerular Filtrat Rate mL/min Glucose Level 219 Calcium Level 8.1 L Magnesium Level 2.2 Total Bilirubin 0.1 L Direct Bilirubin 0.00 Indirect Bilirubin 0.1 Aspartate Amino Transf (AST/SGOT) 19 Alanine Aminotransferase (ALT/SGPT) 12 L Alkaline Phosphatase 86 B-Type Natriuretic Peptide 6670 H Total Protein 6.5 Albumin 3.6 Globulin 2.90 Albumin/Globulin Ratio 1.24 Subjective 24 Hr Interval Summary Free Text/Dictation Patient doing well but still on high O2 requirement. Discussed weaning as tolerated. No acute overnight events. Exam/Review of Systems Exam Vitals Vital Signs Date Temp Pulse Resp B/P (MAP) Pulse Ox O2 O2 Flow FiO2 Time Delivery Rate 06/28/18 98.0 51 20 155/66 100 Room Air 07:38 (95) 06/28/18 4.0 07:32 06/25/18 35 07:30 Intake and Output 06/27/18 06/27/18 06/28/18 1515:00 23:00 07:00 IntakeIntake Total 200 ml 700 ml BalanceBalance 200 ml 700 ml physical exam General: Patient is laying in bed, no acute distress Neck: Supple Respiratory: Diminished breath sounds but no wheezing or rhonchi appreciated Cardiovascular: regular rate and rhythm, no obvious murmurs Gastrointestinal: soft, protuberant, non-tender to palpation, bowel sounds heard. Neurological: Moves all extremities spontaneously. no focal deficits Skin: No new skin lesions, dressing on left ankle without discharge or drainage Results Results 24hrs Laboratory Tests Test 06/28/18 05:07 White Blood Count 13.0 H Red Blood Count 2.91 L Hemoglobin 8.2 L Hematocrit 24.8 L Mean Corpuscular Volume 85.2 Mean Corpuscular Hemoglobin 28.2 L Mean Corpuscular Hemoglobin Concent 33.1 Red Cell Distribution Width 15.0 H Platelet Count 183 Mean Platelet Volume 13.3 H Immature Granulocytes % 0.500 H Neutrophils % 75.1 Lymphocytes % 15.3 Monocytes % 9.0 Eosinophils % 0.0 Basophils % 0.1 Nucleated Red Blood Cells % 0.0 Immature Granulocytes # 0.060 H Neutrophils # 9.8 H Lymphocytes # 2.0 Monocytes # 1.2 H Eosinophils # 0.0 Basophils # 0.0 Nucleated Red Blood Cells # 0.0 Prothrombin Time 18.4 H Prothrombin Time Ratio 1.4 INR International Normalized Ratio 1.52 Activated Partial Thromboplast Time 32.6 Sodium Level 135 Potassium Level 4.6 Chloride Level 98 Carbon Dioxide Level 25 Anion Gap 12 Blood Urea Nitrogen 77 H Creatinine 3.01 H Est Glomerular Filtrat Rate mL/min Glucose Level 219 Calcium Level 8.1 L Magnesium Level 2.2 Total Bilirubin 0.1 L Direct Bilirubin 0.00 Indirect Bilirubin 0.1 Aspartate Amino Transf (AST/SGOT) 19 Alanine Aminotransferase (ALT/SGPT) 12 L Alkaline Phosphatase 86 B-Type Natriuretic Peptide 6670 H Total Protein 6.5 Albumin 3.6 Globulin 2.90 Albumin/Globulin Ratio 1.24 GERALD OLMEDO MD Jun 28, 2018 09:32
--- NOTE | 2018-06-28 13:49 | CONS ---
Assessment/Plan Assessment/Plan Assessment/Plan (Daily) 1. CHF-diastolic acute on chronic - con't gentle diuresis. 2.HTN - well controlled now. 3 SOB - improved with therapy. 4.MR-moderate to severe - no intervention planned 5.TR-moderate 6.PPM secondary to bradycardia - with good function 7.Acute on chronic renal failure - con't to avoid nephrotoxic meds 8. PAF-on eliquis - rate controlled Consultation Date/Type/Reason Admit Date/Time Jun 24, 2018 at 13:24 Initial Consult Date Requesting Provider: GERALD OLMEDO MD Date/Time of Note DATE: 06/28/18 TIME: 13:47 24 HR Interval Summary Free Text/Dictation NO acute events - BP in good range now NO F/C/N/V Exam/Review of Systems Exam Vitals Vital Signs Date Temp Pulse Resp B/P (MAP) Pulse Ox O2 O2 Flow FiO2 Time Delivery Rate 06/28/18 61 12:00 06/28/18 98.0 20 126/89 100 Nasal 11:35 (101) Cannula 06/28/18 4.0 11:19 06/25/18 35 07:30 Intake and Output 06/27/18 06/27/18 06/28/18 1515:00 23:00 07:00 IntakeIntake Total 200 ml 700 ml BalanceBalance 200 ml 700 ml Additional Comments General: WN/WD/NAD, AOx 2-3 HEENT: Unicetric/atraumatic/EOMI (follow commands) NECK: JVD elevated, no thyromegaly Lymph: no lymphadenopathy HEART: regular with no S3, II/ systolic murmur at apex, pacer LUNGS: Coarse sounds ABD: soft, NT, ND, +BS : Intact Neuro: non focal SKIN: chronic changes EXT: trace edema Results Result Diagram: 06/28/18 0507 06/28/18 0507 Results 24hrs Laboratory Tests Test 06/28/18 05:07 White Blood Count 13.0 H Red Blood Count 2.91 L Hemoglobin 8.2 L Hematocrit 24.8 L Mean Corpuscular Volume 85.2 Mean Corpuscular Hemoglobin 28.2 L Mean Corpuscular Hemoglobin Concent 33.1 Red Cell Distribution Width 15.0 H Platelet Count 183 Mean Platelet Volume 13.3 H Immature Granulocytes % 0.500 H Neutrophils % 75.1 Lymphocytes % 15.3 Monocytes % 9.0 Eosinophils % 0.0 Basophils % 0.1 Nucleated Red Blood Cells % 0.0 Immature Granulocytes # 0.060 H Neutrophils # 9.8 H Lymphocytes # 2.0 Monocytes # 1.2 H Eosinophils # 0.0 Basophils # 0.0 Nucleated Red Blood Cells # 0.0 Prothrombin Time 18.4 H Prothrombin Time Ratio 1.4 INR International Normalized Ratio 1.52 Activated Partial Thromboplast Time 32.6 Sodium Level 135 Potassium Level 4.6 Chloride Level 98 Carbon Dioxide Level 25 Anion Gap 12 Blood Urea Nitrogen 77 H Creatinine 3.01 H Est Glomerular Filtrat Rate mL/min Glucose Level 219 Calcium Level 8.1 L Magnesium Level 2.2 Total Bilirubin 0.1 L Direct Bilirubin 0.00 Indirect Bilirubin 0.1 Aspartate Amino Transf (AST/SGOT) 19 Alanine Aminotransferase (ALT/SGPT) 12 L Alkaline Phosphatase 86 B-Type Natriuretic Peptide 6670 H Total Protein 6.5 Albumin 3.6 Globulin 2.90 Albumin/Globulin Ratio 1.24 BRAYDON EL MD Jun 28, 2018 13:49
--- NOTE | 2018-06-28 16:26 | NUR ---
Pt is stable, VS are WNL, pt is on 2.5 L oxygen at this time, saturation is sufficient. will monitor.
--- NOTE | 2018-06-28 18:20 | NUR ---
EOSS: Pt is stable, VS are WNL, Pt is currently weaning off the oxygen, now on 2 L NC oxygen saturation is above 98%, Pt did not complain of SOB or discomfort throughout the shift. will endorse the care to night supervisor nurse.
[2018-06-29] VITALS (14 sets, daily range): BP systolic 121–164; BP diastolic 42–77; PULSE 48–61; RESP 16–19
[2018-06-29] MEDS: PANTOPRAZOLE (EC) 40 MG TAB PO SCH (06:20)
--- NOTE | 2018-06-29 06:26 | NUR ---
EOSS: PATIENT STABLE OVERNIGHT. OXYGEN KEPT ON 2LPM VIA NASAL CANNULA. ABLE TO AMBULATE WITH STEADY GAIT.
[2018-06-29] MEDS: APIXABAN 5 MG TABLET PO SCH ×2 (08:16→20:29)
[2018-06-29] MEDS: AMLODIPINE 10 MG TAB PO SCH (08:17)
[2018-06-29] MEDS: MINOXIDIL 10 MG TAB PO SCH ×2 (08:17→20:29)
[2018-06-29] MEDS: ALLOPURINOL 100 MG TAB PO SCH (08:17)
[2018-06-29] MEDS: METOPROLOL 25 MG TAB PO SCH (08:18)
[2018-06-29] MEDS: HEPARIN 5,000 UNIT/1 ML VIAL SC SCH (08:40)
--- NOTE | 2018-06-29 09:09 | PN ---
Date/Time of Note Date/Time of Note DATE: 06/29/18 TIME: 09:09 Assessment/Plan VTE Prophylaxis Risk score (from Ns)>0 risk: 6 SCD applied (from Ns): Yes Pharmacological prophylaxis: heparin Lines/Catheters IV Catheter Type (from Nrs): Saline Lock Assessment/Plan Assessment/Plan 1. Acute hypoxic respiratory failure secondary to volume overload- resolving - Patient doing well on NC and will wean off as tolerated. Now on 2L - Initial CXR noted with pulm congestion vs pneumonitis vs pneumonia 2. Acute on chronic systolic heart failure - Cardiology on board and recommendations appreciated. continue current medications - BNP noted 3. Acute SHERYL on CKD- improving - Nephrology consultation appreciated and holding diuretics and d/c losartan - will monitor for improvement in overall renal function 4. Severe MR and moderate TR - most likely contributing to Pulm congestion 5. Afib - BB placed on hold this am given bradycardia - rate controlled - on Eliquis 6. h/o Brain aneurysm - stable 7. Disposition - Medication adjustments made for HR/BP control per Cardiology recommendations - Renal function improving but still not at baseline. Continue monitoring for improvement Result Diagram: 06/29/18 0512 06/29/18 0512 Results 24hrs Laboratory Tests Test 06/29/18 05:12 White Blood Count 8.1 # Red Blood Count 3.43 L Hemoglobin 9.6 L Hematocrit 29.1 L Mean Corpuscular Volume 84.8 Mean Corpuscular Hemoglobin 28.0 L Mean Corpuscular Hemoglobin Concent 33.0 Red Cell Distribution Width 15.0 H Platelet Count 177 Mean Platelet Volume 13.0 H Immature Granulocytes % 0.600 H Neutrophils % 60.0 Lymphocytes % 25.9 Monocytes % 11.2 H Eosinophils % 2.1 Basophils % 0.2 Nucleated Red Blood Cells % 0.2 H Immature Granulocytes # 0.050 H Neutrophils # 4.8 Lymphocytes # 2.1 Monocytes # 0.9 Eosinophils # 0.2 Basophils # 0.0 Nucleated Red Blood Cells # 0.0 Sodium Level 138 Potassium Level 4.8 Chloride Level 101 Carbon Dioxide Level 26 Anion Gap 11 Blood Urea Nitrogen 69 H Creatinine 2.39 H Glucose Level 185 Calcium Level 8.6 Phosphorus Level 4.3 Magnesium Level 2.5 Albumin 3.9 Subjective 24 Hr Interval Summary Free Text/Dictation Patient doing well and denies any acute issues. Being weaned down O2 as tolerated. No acute overnight events. Exam/Review of Systems Exam Vitals Vital Signs Date Temp Pulse Resp B/P (MAP) Pulse Ox O2 O2 Flow FiO2 Time Delivery Rate 06/29/18 50 08:01 06/29/18 99.7 19 160/65 94 07:17 (96) 06/29/18 2.0 06:34 06/28/18 Nasal 19:37 Cannula 06/25/18 35 07:30 Intake and Output 06/28/18 06/28/18 06/29/18 1515:00 23:00 07:00 IntakeIntake Total 400 ml BalanceBalance 400 ml Exam General: Patient is laying in bed, no acute distress Neck: Supple Respiratory: Diminished breath sounds but no wheezing or rhonchi appreciated Cardiovascular: regular rhythm, bradycardia, no obvious murmurs Gastrointestinal: soft, protuberant, non-tender to palpation, bowel sounds heard. Neurological: Moves all extremities spontaneously. no focal deficits Skin: No new skin lesions, dressing on left ankle without discharge or drainage Results Results 24hrs Laboratory Tests Test 06/29/18 05:12 White Blood Count 8.1 # Red Blood Count 3.43 L Hemoglobin 9.6 L Hematocrit 29.1 L Mean Corpuscular Volume 84.8 Mean Corpuscular Hemoglobin 28.0 L Mean Corpuscular Hemoglobin Concent 33.0 Red Cell Distribution Width 15.0 H Platelet Count 177 Mean Platelet Volume 13.0 H Immature Granulocytes % 0.600 H Neutrophils % 60.0 Lymphocytes % 25.9 Monocytes % 11.2 H Eosinophils % 2.1 Basophils % 0.2 Nucleated Red Blood Cells % 0.2 H Immature Granulocytes # 0.050 H Neutrophils # 4.8 Lymphocytes # 2.1 Monocytes # 0.9 Eosinophils # 0.2 Basophils # 0.0 Nucleated Red Blood Cells # 0.0 Sodium Level 138 Potassium Level 4.8 Chloride Level 101 Carbon Dioxide Level 26 Anion Gap 11 Blood Urea Nitrogen 69 H Creatinine 2.39 H Glucose Level 185 Calcium Level 8.6 Phosphorus Level 4.3 Magnesium Level 2.5 Albumin 3.9 Medications Medication Current Medications Amlodipine Besylate (Norvasc) 10 mg DAILY PO Last administered on 06/29/18at 08:17; Admin Dose 10 MG; Start 06/25/18 at 09:00 Apixaban (Eliquis) 5 mg BID PO Last administered on 06/29/18at 08:16; Admin Dose 5 MG; Start 06/24/18 at 21:00 Metoprolol Tartrate (Lopressor) 25 mg BID PO Last administered on 06/28/18 20:26; Admin Dose 25 MG; Start 06/24/18 at 21:00 Minoxidil (Loniten) 10 mg DAILY PO Last administered on 06/29/18 08:17; Admin Dose 10 MG; Start 06/25/18 at 09:00 Pantoprazole (Protonix Tab) 40 mg DAILY@06 PO Last administered on 06/29/18at 06:20; Admin Dose 40 MG; Start 06/25/18 at 06:00 IV Flush (NS 3 ml) 3 ml PER PROTOCOL IV ; Start 06/24/18 at 13:30 Ondansetron HCl (Zofran Inj) 4 mg Q6H PRN IV NAUSEA AND/OR VOMITING; Start 06/24/18 at 13:30 Acetaminophen (Tylenol Tab) 650 mg Q6H PRN PO PAIN LEVEL 1-3 OR FEVER; Start 06/24/18 at 13:30 Docusate Sodium (Colace) 100 mg Q12H PRN PO CONSTIPATION; Start 06/24/18 at 13:30 Magnesium Hydroxide (Milk Of Mag) 30 ml DAILY PRN PO CONSTIPATION Last administered on 06/27/18at 10:54; Admin Dose 30 ML; Start 06/24/18 at 13:30 Heparin Sodium (Porcine) (Heparin (5000 Units/1ml)) 5,000 unit Q12 SC Last administered on 06/29/18at 08:40; Admin Dose 5,000 UNIT; Start 06/24/18 at 21:00 Allopurinol (Zyloprim) 100 mg DAILY PO Last administered on 06/29/18at 08:17; Admin Dose 100 MG; Start 06/28/18 at 09:00 GERALD OLMEDO MD Jun 29, 2018 09:09
--- NOTE | 2018-06-29 12:07 | NUR ---
Nurse Note BP 164/[address] Pina, no new orders continue to monitor for now pt is asymptomatic
--- NOTE | 2018-06-29 12:52 | CONS ---
Assessment/Plan Assessment/Plan Assessment/Plan (Daily) DHF Hypertension Mitral regurgitation moderate to severe Tricuspid regurgitation -moderate Symptomatic bradycardia s/p PPM Acute on chronic renal failure PAF Hemodynamically stable Hold lopressor due to marked bradycardia Hold Lopressor Continue Eliquis Continue Norvasc and Increased minoxidil Avoid ALIZA-I/ARBs Continue GI and DVT Prophylaxis Consultation Date/Type/Reason Admit Date/Time Jun 24, 2018 at 13:24 Date/Time of Note DATE: 06/29/18 TIME: 12:47 Past Medical History Medical History: congestive heart failure, hypertension, renal disease, other (atrial fibrillation, pacer, brain aneursym) Home Meds Active Scripts Bumetanide* (Bumetanide*) 1 Mg Tablet, 2 MG PO DAILY for 30 Days, #60 TAB Prov:YOUSIF HARMAN 07/21/17 Amlodipine Besylate* (Amlodipine Besylate*) 10 Mg Tablet, 10 MG PO DAILY for 30 Days, TAB Prov:OMKAR WILLARD 06/27/17 Apixaban* (Eliquis*) 5 Mg Tablet, 5 MG PO BID for 30 Days, TAB Prov:OMKAR WILLARD 06/27/17 Reported Medications Omeprazole* (Omeprazole*) 20 Mg Capsule.dr, 20 MG PO DAILY, #30 CAP 06/24/18 Minoxidil* (Lonitin*) 10 Mg Tab, 10 MG PO DAILY, TAB 06/24/18 Metoprolol Tartrate* (Lopressor*) 25 Mg Tab, 25 MG PO BID, #60 TAB 06/24/18 Losartan Potassium* (Losartan Potassium*) 100 Mg Tablet, 100 MG PO DAILY, TAB 11/27/17 Discontinued Reported Medications Minoxidil* (Lonitin*) 2.5 Mg Tab, 2.5 MG PO BID, TAB 11/27/17 Metoprolol Tartrate* (Lopressor*) 25 Mg Tab, 12.5 MG PO BID, #60 TAB 11/27/17 Discontinued Scripts Linagliptin (TRADJENTA) 5 Mg Tablet, 5 MG PO DAILY for 30 Days, TAB Prov:OMKAR WILLARD 06/27/17 Famotidine* (Famotidine*) 20 Mg Tablet, 20 MG PO DAILY for 30 Days, TAB Prov:OMKAR WILLARD 06/27/17 Medications Current Medications Amlodipine Besylate (Norvasc) 10 mg DAILY PO Last administered on 06/29/18 08:17; Admin Dose 10 MG; Start 06/25/18 at 09:00 Apixaban (Eliquis) 5 mg BID PO Last administered on 06/29/18at 08:16; Admin Dose 5 MG; Start 06/24/18 at 21:00 Metoprolol Tartrate (Lopressor) 25 mg BID PO Last administered on 06/28/18at 20:26; Admin Dose 25 MG; Start 06/24/18 at 21:00 Minoxidil (Loniten) 10 mg DAILY PO Last administered on 06/29/18at 08:17; Admin Dose 10 MG; Start 06/25/18 at 09:00 Pantoprazole (Protonix Tab) 40 mg DAILY@06 PO Last administered on 06/29/18at 06:20; Admin Dose 40 MG; Start 06/25/18 at 06:00 IV Flush (NS 3 ml) 3 ml PER PROTOCOL IV ; Start 06/24/18 at 13:30 Ondansetron HCl (Zofran Inj) 4 mg Q6H PRN IV NAUSEA AND/OR VOMITING; Start 06/24/18 at 13:30 Acetaminophen (Tylenol Tab) 650 mg Q6H PRN PO PAIN LEVEL 1-3 OR FEVER; Start 06/24/18 at 13:30 Docusate Sodium (Colace) 100 mg Q12H PRN PO CONSTIPATION; Start 06/24/18 at 13:30 Magnesium Hydroxide (Milk Of Mag) 30 ml DAILY PRN PO CONSTIPATION Last admini stered on 06/27/18at 10:54; Admin Dose 30 ML; Start 06/24/18 at 13:30 Heparin Sodium (Porcine) (Heparin (5000 Units/1ml)) 5,000 unit Q12 SC Last administered on 06/29/18at 08:40; Admin Dose 5,000 UNIT; Start 06/24/18 at 21:00 Allopurinol (Zyloprim) 100 mg DAILY PO Last administered on 06/29/18at 08:17; Admin Dose 100 MG; Start 06/28/18 at 09:00 Allergies: Coded Allergies: No Known Allergy (Unverified , 11/27/17) Past Surgical History Past Surgical Hx: no surgical history, other Social History Alcohol Use: none Smoking Status: Never smoker Drug Use: none Exam/Review of Systems Exam Vitals Vital Signs Date Temp Pulse Resp B/P (MAP) Pulse Ox O2 O2 Flow FiO2 Time Delivery Rate 06/29/18 98.5 57 19 164/70 97 11:16 (101) 06/29/18 2.0 10:07 06/29/18 Nasal 08:15 Cannula 06/25/18 35 07:30 Intake and Output 06/28/18 06/28/18 06/29/18 1414:59 22:59 06:59 IntakeIntake Total 400 ml BalanceBalance 400 ml Constitutional: alert Head: normocephalic, atraumatic Neck: supple, non-tender Respiratory: clear to auscultation Cardiovascular: regular rate and rhythm (no m/r/g) Gastrointestinal: soft, nl liver, spleen Extremities: normal pulses Results Result Diagram: 06/29/1812 06/29/18 0512 Results 24hrs Laboratory Tests Test 06/29/18 05:12 White Blood Count 8.1 # Red Blood Count 3.43 L Hemoglobin 9.6 L Hematocrit 29.1 L Mean Corpuscular Volume 84.8 Mean Corpuscular Hemoglobin 28.0 L Mean Corpuscular Hemoglobin Concent 33.0 Red Cell Distribution Width 15.0 H Platelet Count 177 Mean Platelet Volume 13.0 H Immature Granulocytes % 0.600 H Neutrophils % 60.0 Lymphocytes % 25.9 Monocytes % 11.2 H Eosinophils % 2.1 Basophils % 0.2 Nucleated Red Blood Cells % 0.2 H Immature Granulocytes # 0.050 H Neutrophils # 4.8 Lymphocytes # 2.1 Monocytes # 0.9 Eosinophils # 0.2 Basophils # 0.0 Nucleated Red Blood Cells # 0.0 Sodium Level 138 Potassium Level 4.8 Chloride Level 101 Carbon Dioxide Level 26 Anion Gap 11 Blood Urea Nitrogen 69 H Creatinine 2.39 H Glucose Level 185 Calcium Level 8.6 Phosphorus Level 4.3 Magnesium Level 2.5 Albumin 3.9 Medications Medication Current Medications Amlodipine Besylate (Norvasc) 10 mg DAILY PO Last administered on 06/29/18at 08:17; Admin Dose 10 MG; Start 06/25/18 at 09:00 Apixaban (Eliquis) 5 mg BID PO Last administered on 06/29/18at 08:16; Admin Dose 5 MG; Start 06/24/18 at 21:00 Metoprolol Tartrate (Lopressor) 25 mg BID PO Last administered on 06/28/18 20:26; Admin Dose 25 MG; Start 06/24/18 at 21:00 Minoxidil (Loniten) 10 mg DAILY PO Last administered on 06/29/18 08:17; Admin Dose 10 MG; Start 06/25/18 at 09:00 Pantoprazole (Protonix Tab) 40 mg DAILY@06 PO Last administered on 06/29/18 06:20; Admin Dose 40 MG; Start 06/25/18 at 06:00 IV Flush (NS 3 ml) 3 ml PER PROTOCOL IV ; Start 06/24/18 at 13:30 Ondansetron HCl (Zofran Inj) 4 mg Q6H PRN IV NAUSEA AND/OR VOMITING; Start 06/24/18 at 13:30 Acetaminophen (Tylenol Tab) 650 mg Q6H PRN PO PAIN LEVEL 1-3 OR FEVER; Start 06/24/18 at 13:30 Docusate Sodium (Colace) 100 mg Q12H PRN PO CONSTIPATION; Start 06/24/18 at 13: 30 Magnesium Hydroxide (Milk Of Mag) 30 ml DAILY PRN PO CONSTIPATION Last administered on 06/27/18at 10:54; Admin Dose 30 ML; Start 06/24/18 at 13:30 Heparin Sodium (Porcine) (Heparin (5000 Units/1ml)) 5,000 unit Q12 SC Last administered on 06/29/18at 08:40; Admin Dose 5,000 UNIT; Start 06/24/18 at 21:00 Allopurinol (Zyloprim) 100 mg DAILY PO Last administered on 06/29/18at 08:17; Admin Dose 100 MG; Start 06/28/18 at 09:00 BIANKA VIDAL M.D. Jun 29, 2018 12:52
--- NOTE | 2018-06-29 15:26 | CONS ---
Assessment/Plan Assessment/Plan Assessment/Plan (Daily) 1. acute hypoxemic respiratory failure requiring BIPAP 2. acute CHF, acute on chronic, systolic 3. SHERYL on CKD III due to hemodynamics from CHF then concerned about overdiuresis 4. Severe MR, moderate TR 5. Atrial fibrillation rate controlled, 6. H/o brain aneurysm Plan: uric acid 10.8- started on allopurinol 100mg BID BUN/Cr trended down to 69/2.39 today - stopped losartan yesterday , adequate urine output Amlodipine for HTN control Eliquis for anticoagulation Renal US unremarkable will continue to follow up Patient vanessa in collaboration with DR Lilo Dunham. dw staff Consultation Date/Type/Reason Admit Date/Time Jun 24, 2018 at 13:24 Initial Consult Date 06/26/18 Requesting Provider: GERALD OLMEDO MD Date/Time of Note DATE: 06/29/18 TIME: 15:13 24 HR Interval Summary Free Text/Dictation nad - uneventful night no new events reported overnight dw staff Detailed Summary Eyes: no complaints ENT: no complaints Respiratory: no complaints Cardiovascular: no complaints Gastrointestinal: no complaints Exam/Review of Systems Exam Vitals Vital Signs Date Temp Pulse Resp B/P (MAP) Pulse Ox O2 O2 Flow FiO2 Time Delivery Rate 06/29/18 53 121/77 13:15 (92) 06/29/18 98.5 19 97 11:16 06/29/18 2.0 10:07 06/29/18 Nasal 08:15 Cannula 06/25/18 35 07:30 Intake and Output 06/28/18 06/28/18 06/29/18 1515:00 23:00 07:00 IntakeIntake Total 400 ml BalanceBalance 400 ml Constitutional: well developed Psych: nl mood/affect Eyes: nl lids, nl sclera ENMT: nl external ears & nose Neck: non-tender Respiratory: diminished breath sounds (at baeses bilaterally) Cardiovascular: nl pulses, other (s1s2) Gastrointestinal: soft, non-tender Musculoskeletal: nl extremities to inspection Extremities: normal pulses Lymph: nontender Results Result Diagram: 06/29/1851106/29/1812 Results 24hrs Laboratory Tests Test 06/29/18 05:12 White Blood Count 8.1 # Red Blood Count 3.43 L Hemoglobin 9.6 L Hematocrit 29.1 L Mean Corpuscular Volume 84.8 Mean Corpuscular Hemoglobin 28.0 L Mean Corpuscular Hemoglobin Concent 33.0 Red Cell Distribution Width 15.0 H Platelet Count 177 Mean Platelet Volume 13.0 H Immature Granulocytes % 0.600 H Neutrophils % 60.0 Lymphocytes % 25.9 Monocytes % 11.2 H Eosinophils % 2.1 Basophils % 0.2 Nucleated Red Blood Cells % 0.2 H Immature Granulocytes # 0.050 H Neutrophils # 4.8 Lymphocytes # 2.1 Monocytes # 0.9 Eosinophils # 0.2 Basophils # 0.0 Nucleated Red Blood Cells # 0.0 Sodium Level 138 Potassium Level 4.8 Chloride Level 101 Carbon Dioxide Level 26 Anion Gap 11 Blood Urea Nitrogen 69 H Creatinine 2.39 H Glucose Level 185 Calcium Level 8.6 Phosphorus Level 4.3 Magnesium Level 2.5 Albumin 3.9 Medications Medication Current Medications Amlodipine Besylate (Norvasc) 10 mg DAILY PO Last administered on 06/29/18at 08:17; Admin Dose 10 MG; Start 06/25/18 at 09:00 Apixaban (Eliquis) 5 mg BID PO Last administered on 06/29/18at 08:16; Admin Dose 5 MG; Start 06/24/18 at 21:00 Metoprolol Tartrate (Lopressor) 25 mg BID PO Last administered on 06/28/18at 20:26; Admin Dose 25 MG; Start 06/24/18 at 21:00; Status Hold Pantoprazole (Protonix Tab) 40 mg DAILY@06 PO Last administered on 06/29/18at 06:20; Admin Dose 40 MG; Start 06/25/18 at 06:00 IV Flush (NS 3 ml) 3 ml PER PROTOCOL IV ; Start 06/24/18 at 13:30 Ondansetron HCl (Zofran Inj) 4 mg Q6H PRN IV NAUSEA AND/OR VOMITING; Start 06/24/18 at 13:30 Acetaminophen (Tylenol Tab) 650 mg Q6H PRN PO PAIN LEVEL 1-3 OR FEVER; Start 06/24/18 at 13:30 Docusate Sodium (Colace) 100 mg Q12H PRN PO CONSTIPATION; Start 06/24/18 at 13:30 Magnesium Hydroxide (Milk Of Mag) 30 ml DAILY PRN PO CONSTIPATION Last administered on 06/27/18at 10:54; Admin Dose 30 ML; Start 1/21/19 at 13:30 Heparin Sodium (Porcine) (Heparin (5000 Units/1ml)) 5,000 unit Q12 SC Last administered on 06/29/18at 08:40; Admin Dose 5,000 UNIT; Start 06/24/18 at 21:00 Allopurinol (Zyloprim) 100 mg DAILY PO Last administered on 06/29/18at 08:17; Admin Dose 100 MG; Start 06/28/18 at 09:00 Minoxidil (Loniten) 10 mg BID PO ; Start 06/29/18 at 21:00 ALY MILLER Jun 29, 2018 15:23
--- NOTE | 2018-06-29 19:40 | NUR ---
EOSS pt is alert and orientedx4, on 2L NC, stable pt ate dinner, now sleeping hourly rounding done no other issues at this time
[2018-06-30] VITALS (12 sets, daily range): BP systolic 132–164; BP diastolic 60–90; PULSE 51–86; RESP 18–19
[2018-06-30] MEDS: PANTOPRAZOLE (EC) 40 MG TAB PO SCH (06:42)
--- NOTE | 2018-06-30 07:21 | CONS ---
Assessment/Plan Assessment/Plan Assessment/Plan (Daily) 1. acute hypoxemic respiratory failure requiring BIPAP 2. acute CHF, acute on chronic, systolic 3. SHERYL on CKD III due to hemodynamics from CHF then concerned about overdiuresis 4. Severe MR, moderate TR 5. Atrial fibrillation rate controlled, 6. H/o brain aneurysm Plan: uric acid 10.8- started on allopurinol 100mg BID BUN/Cr trended down to 47/1.89 today - stopped losartan yesterday , adequate urine output Amlodipine for HTN control Eliquis for anticoagulation Renal US unremarkable will continue to follow up Patient seen in collaboration with DR Lilo Dunham. dw staff Consultation Date/Type/Reason Admit Date/Time Jun 24, 2018 at 13:24 Initial Consult Date 06/26/18 Requesting Provider: GERALD OLMEDO MD Date/Time of Note DATE: 06/30/18 TIME: 07:21 24 HR Interval Summary Free Text/Dictation -nad - BUN/Cr trended down to 47/1.89 today - uneventful night no new events reported overnight dw staff Exam/Review of Systems Exam Vitals Vital Signs Date Temp Pulse Resp B/P (MAP) Pulse Ox O2 O2 Flow FiO2 Time Delivery Rate 06/30/18 98.7 51 18 145/64 97 04:01 (91) 06/30/18 2.0 03:55 06/29/18 Nasal 19:55 Cannula Intake and Output 06/29/18 06/29/18 06/30/18 1414:59 22:59 06:59 IntakeIntake Total 500 ml 250 ml BalanceBalance 500 ml 250 ml Constitutional: well developed Psych: nl mood/affect Eyes: EOMI, nl lids, nl sclera ENMT: nl external ears & nose Respiratory: diminished breath sounds (at bases) Cardiovascular: nl pulses, other (s1s2) Gastrointestinal: soft, non-tender Musculoskeletal: nl extremities to inspection Extremities: normal pulses Neurological: nl speech Results Result Diagram: 06/30/1852206/30/18522 Results 24hrs Laboratory Tests Test 06/30/18 05:23 White Blood Count 7.3 Red Blood Count 3.03 L Hemoglobin 8.6 L Hematocrit 25.9 L Mean Corpuscular Volume 85.5 Mean Corpuscular Hemoglobin 28.4 L Mean Corpuscular Hemoglobin Concent 33.2 Red Cell Distribution Width 14.8 H Platelet Count 148 Mean Platelet Volume 13.3 H Immature Granulocytes % 0.800 H Neutrophils % 60.6 Lymphocytes % 22.7 Monocytes % 12.9 H Eosinophils % 2.9 Basophils % 0.1 Nucleated Red Blood Cells % 0.0 Immature Granulocytes # 0.060 H Neutrophils # 4.4 Lymphocytes # 1.7 Monocytes # 0.9 Eosinophils # 0.2 Basophils # 0.0 Nucleated Red Blood Cells # 0.0 Sodium Level 139 Potassium Level 4.9 Chloride Level 103 Carbon Dioxide Level 26 Anion Gap 10 Blood Urea Nitrogen 47 #H Creatinine 1.89 H Glucose Level 179 Calcium Level 8.5 Phosphorus Level 3.9 Magnesium Level 2.5 Albumin 3.5 Medications Medication Current Medications Amlodipine Besylate (Norvasc) 10 mg DAILY PO Last administered on 06/29/18at 08:17; Admin Dose 10 MG; Start 06/25/18 at 09:00 Apixaban (Eliquis) 5 mg BID PO Last administered on 06/29/18at 20:29; Admin Dose 5 MG; Start 06/24/18 at 21:00 Metoprolol Tartrate (Lopressor) 25 mg BID PO Last administered on 06/28/18at 20:26; Admin Dose 25 MG; Start 06/24/18 at 21:00; Status Hold Pantoprazole (Protonix Tab) 40 mg DAILY@06 PO Last administered on 06/30/18at 06:42; Admin Dose 40 MG; Start 06/25/18 at 06:00 IV Flush (NS 3 ml) 3 ml PER PROTOCOL IV ; Start 06/24/18 at 13:30 Ondansetron HCl (Zofran Inj) 4 mg Q6H PRN IV NAUSEA AND/OR VOMITING; Start 06/24/18 at 13:30 Acetaminophen (Tylenol Tab) 650 mg Q6H PRN PO PAIN LEVEL 1-3 OR FEVER; Start 06/24/18 at 13:30 Docusate Sodium (Colace) 100 mg Q12H PRN PO CONSTIPATION; Start 06/24/18 at 13:30 Magnesium Hydroxide (Milk Of Mag) 30 ml DAILY PRN PO CONSTIPATION Last administered on 06/27/18at 10:54; Admin Dose 30 ML; Start 06/24/18 at 13:30 Allopurinol (Zyloprim) 100 mg DAILY PO Last administered on 06/29/18at 08:17; Admin Dose 100 MG; Start 06/28/18 at 09:00 Minoxidil (Loniten) 10 mg BID PO Last administered on 06/29/18at 20:29; Admin Dose 10 MG; Start 06/29/18 at 21:00 ALY MILLER Jun 30, 2018 07:21
--- NOTE | 2018-06-30 08:20 | PN ---
Date/Time of Note Date/Time of Note DATE: 06/30/18 TIME: 08:20 Assessment/Plan VTE Prophylaxis Risk score (from Ns)>0 risk: 6 SCD applied (from Ns): Yes Pharmacological prophylaxis: heparin Lines/Catheters IV Catheter Type (from Nrs): Saline Lock Assessment/Plan Assessment/Plan 1. Acute hypoxic respiratory failure secondary to volume overload- resolved - Currently on 2L NC and will continue to wean. Patient was not O2 dependent prior to admission - Initial CXR noted with pulm congestion vs pneumonitis vs pneumonia 2. Acute on chronic systolic heart failure- improving - Cardiology on board and recommendations appreciated. continue current medications - off diuretics at this time given SHERYL - BNP noted 3. Acute SHERYL on CKD- improving - Nephrology consultation appreciated and holding diuretics and d/c losartan. BP stable - will monitor for improvement in overall renal function 4. Severe MR and moderate TR - most likely contributing to Pulm congestion 5. Afib - continue home medications - rate controlled - on Eliquis 6. h/o Brain aneurysm - stable 7. Disposition - Continue weaning off O2 as tolerated - Will need improvement in renal function prior to discharge home - CM on board and arrangements made for Result Diagram: 06/30/18 0523 06/30/18 0523 Results 24hrs Laboratory Tests Test 06/30/18 05:23 White Blood Count 7.3 Red Blood Count 3.03 L Hemoglobin 8.6 L Hematocrit 25.9 L Mean Corpuscular Volume 85.5 Mean Corpuscular Hemoglobin 28.4 L Mean Corpuscular Hemoglobin Concent 33.2 Red Cell Distribution Width 14.8 H Platelet Count 148 Mean Platelet Volume 13.3 H Immature Granulocytes % 0.800 H Neutrophils % 60.6 Lymphocytes % 22.7 Monocytes % 12.9 H Eosinophils % 2.9 Basophils % 0.1 Nucleated Red Blood Cells % 0.0 Immature Granulocytes # 0.060 H Neutrophils # 4.4 Lymphocytes # 1.7 Monocytes # 0.9 Eosinophils # 0.2 Basophils # 0.0 Nucleated Red Blood Cells # 0.0 Sodium Level 139 Potassium Level 4.9 Chloride Level 103 Carbon Dioxide Level 26 Anion Gap 10 Blood Urea Nitrogen 47 #H Creatinine 1.89 H Glucose Level 179 Calcium Level 8.5 Phosphorus Level 3.9 Magnesium Level 2.5 Albumin 3.5 Subjective 24 Hr Interval Summary Free Text/Dictation Patient feeling better and denies any new issues. No acute overnight events. Exam/Review of Systems Exam Vitals Vital Signs Date Temp Pulse Resp B/P (MAP) Pulse Ox O2 O2 Flow FiO2 Time Delivery Rate 06/30/18 Nasal 2.0 07:33 Cannula 06/30/18 98.1 85 19 150/60 96 07:23 (90) Intake and Output 06/29/18 06/29/18 06/30/18 1515:00 23:00 07:00 IntakeIntake Total 500 ml 250 ml BalanceBalance 500 ml 250 ml Exam General: Patient is laying in bed, no acute distress Neck: Supple Respiratory: Clear but no wheezing or rhonchi appreciated Cardiovascular: regular rate and rhythm, no obvious murmurs Gastrointestinal: soft, distended, non-tender to palpation, bowel sounds heard. Neurological: Moves all extremities spontaneously. no focal deficits Skin: No new skin lesions Results Results 24hrs Laboratory Tests Test 06/30/18 05:23 White Blood Count 7.3 Red Blood Count 3.03 L Hemoglobin 8.6 L Hematocrit 25.9 L Mean Corpuscular Volume 85.5 Mean Corpuscular Hemoglobin 28.4 L Mean Corpuscular Hemoglobin Concent 33.2 Red Cell Distribution Width 14.8 H Platelet Count 148 Mean Platelet Volume 13.3 H Immature Granulocytes % 0.800 H Neutrophils % 60.6 Lymphocytes % 22.7 Monocytes % 12.9 H Eosinophils % 2.9 Basophils % 0.1 Nucleated Red Blood Cells % 0.0 Immature Granulocytes # 0.060 H Neutrophils # 4.4 Lymphocytes # 1.7 Monocytes # 0.9 Eosinophils # 0.2 Basophils # 0.0 Nucleated Red Blood Cells # 0.0 Sodium Level 139 Potassium Level 4.9 Chloride Level 103 Carbon Dioxide Level 26 Anion Gap 10 Blood Urea Nitrogen 47 #H Creatinine 1.89 H Glucose Level 179 Calcium Level 8.5 Phosphorus Level 3.9 Magnesium Level 2.5 Albumin 3.5 Medications Medication Current Medications Amlodipine Besylate (Norvasc) 10 mg DAILY PO Last administered on 06/29/18at 08:17; Admin Dose 10 MG; Start 06/25/18 at 09:00 Apixaban (Eliquis) 5 mg BID PO Last administered on 06/29/18at 20:29; Admin Dose 5 MG; Start 06/24/18 at 21:00 Metoprolol Tartrate (Lopressor) 25 mg BID PO Last administered on 06/28/18 20:26; Admin Dose 25 MG; Start 06/24/18 at 21:00; Status Hold Pantoprazole (Protonix Tab) 40 mg DAILY@06 PO Last administered on 06/30/18at 06:42; Admin Dose 40 MG; Start 06/25/18 at 06:00 IV Flush (NS 3 ml) 3 ml PER PROTOCOL IV ; Start 06/24/18 at 13:30 Ondansetron HCl (Zofran Inj) 4 mg Q6H PRN IV NAUSEA AND/OR VOMITING; Start 06/24/18 at 13:30 Acetaminophen (Tylenol Tab) 650 mg Q6H PRN PO PAIN LEVEL 1-3 OR FEVER; Start 06/24/18 at 13:30 Docusate Sodium (Colace) 100 mg Q12H PRN PO CONSTIPATION; Start 06/24/18 at 13:30 Magnesium Hydroxide (Milk Of Mag) 30 ml DAILY PRN PO CONSTIPATION Last administered on 06/27/18at 10:54; Admin Dose 30 ML; Start 06/24/18 at 13:30 Allopurinol (Zyloprim) 100 mg DAILY PO Last administered on 06/29/18at 08:17; Admin Dose 100 MG; Start 06/28/18 at 09:00 Minoxidil (Loniten) 10 mg BID PO Last administered on 06/29/18at 20:29; Admin Dose 10 MG; Start 06/29/18 at 21:00 GERALD OLMEDO MD Jun 30, 2018 08:20
[2018-06-30] MEDS: APIXABAN 5 MG TABLET PO SCH ×2 (09:09→20:20)
[2018-06-30] MEDS: MINOXIDIL 10 MG TAB PO SCH ×2 (09:09→20:20)
[2018-06-30] MEDS: AMLODIPINE 10 MG TAB PO SCH (09:09)
[2018-06-30] MEDS: ALLOPURINOL 100 MG TAB PO SCH (09:09)
--- NOTE | 2018-06-30 15:22 | CONS ---
Assessment/Plan Cardiology NYHA: III Heart Failure Type: Acute on Chronic Heart Failure Type: Diastolic Assessment/Plan Assessment/Plan (Daily) DHF Hypertension Mitral regurgitation moderate to severe Tricuspid regurgitation -moderate Symptomatic bradycardia s/p PPM Acute on chronic renal failure PAF Hemodynamically stable Hold lopressor due to marked bradycardia Hold Lopressor Continue Eliquis Continue Norvasc and Increased minoxidil Avoid ALIZA-I/ARBs Continue GI and DVT Prophylaxis Consultation Date/Type/Reason Admit Date/Time Jun 24, 2018 at 13:24 Initial Consult Date 06/26/18 Type of Consult Cardiology Requesting Provider: GERALD OLMEDO MD Date/Time of Note DATE: 06/30/18 TIME: 15:21 Exam/Review of Systems Vital Signs Vitals Vital Signs Date Temp Pulse Resp B/P (MAP) Pulse Ox O2 O2 Flow FiO2 Time Delivery Rate 06/30/18 59 12:01 06/30/18 98.1 19 141/66 94 11:13 (91) 06/30/18 Nasal 2.0 07:33 Cannula Intake and Output 06/29/18 06/29/18 06/30/18 1515:00 23:00 07:00 IntakeIntake Total 500 ml 250 ml BalanceBalance 500 ml 250 ml Exam Exam Head: normocephalic, atraumatic Neck: supple, non-tender Respiratory: diminished breath sounds Cardiovascular: regular rate and rhythm (no m/r/g) Gastrointestinal: soft, nl liver, spleen Extremities: normal pulses Labs Result Diagram: 06/30/18 0523 06/30/18 0523 Results 24hrs Laboratory Tests Test 06/30/18 05:23 White Blood Count 7.3 Red Blood Count 3.03 L Hemoglobin 8.6 L Hematocrit 25.9 L Mean Corpuscular Volume 85.5 Mean Corpuscular Hemoglobin 28.4 L Mean Corpuscular Hemoglobin Concent 33.2 Red Cell Distribution Width 14.8 H Platelet Count 148 Mean Platelet Volume 13.3 H Immature Granulocytes % 0.800 H Neutrophils % 60.6 Lymphocytes % 22.7 Monocytes % 12.9 H Eosinophils % 2.9 Basophils % 0.1 Nucleated Red Blood Cells % 0.0 Immature Granulocytes # 0.060 H Neutrophils # 4.4 Lymphocytes # 1.7 Monocytes # 0.9 Eosinophils # 0.2 Basophils # 0.0 Nucleated Red Blood Cells # 0.0 Sodium Level 139 Potassium Level 4.9 Chloride Level 103 Carbon Dioxide Level 26 Anion Gap 10 Blood Urea Nitrogen 47 #H Creatinine 1.89 H Glucose Level 179 Calcium Level 8.5 Phosphorus Level 3.9 Magnesium Level 2.5 Albumin 3.5 Medications Medications Current Medications Amlodipine Besylate (Norvasc) 10 mg DAILY PO Last administered on 06/30/18 09:09; Admin Dose 10 MG; Start 06/25/18 at 09:00 Apixaban (Eliquis) 5 mg BID PO Last administered on 06/30/18 09:09; Admin Dose 5 MG; Start 06/24/18 at 21:00 Metoprolol Tartrate (Lopressor) 25 mg BID PO Last administered on 06/28/18 20:26; Admin Dose 25 MG; Start 06/24/18 at 21:00; Status Hold Pantoprazole (Protonix Tab) 40 mg DAILY@06 PO Last administered on 06/30/18 06:42; Admin Dose 40 MG; Start 06/25/18 at 06:00 IV Flush (NS 3 ml) 3 ml PER PROTOCOL IV ; Start 06/24/18 at 13:30 Ondansetron HCl (Zofran Inj) 4 mg Q6H PRN IV NAUSEA AND/OR VOMITING; Start 06/24/18 at 13:30 Acetaminophen (Tylenol Tab) 650 mg Q6H PRN PO PAIN LEVEL 1-3 OR FEVER; Start 06/24/18 at 13:30 Docusate Sodium (Colace) 100 mg Q12H PRN PO CONSTIPATION; Start 06/24/18 at 13:30 Magnesium Hydroxide (Milk Of Mag) 30 ml DAILY PRN PO CONSTIPATION Last administered on 06/27/18at 10:54; Admin Dose 30 ML; Start 06/24/18 at 13:30 Allopurinol (Zyloprim) 100 mg DAILY PO Last administered on 06/30/18 09:09; Admin Dose 100 MG; Start 06/28/18 at 09:00 Minoxidil (Loniten) 10 mg BID PO Last administered on 06/30/18 09:09; Admin Dose 10 MG; Start 06/29/18 at 21:00 BIANKA VIDAL M.D. Jun 30, 2018 15:22
--- NOTE | 2018-06-30 17:59 | NUR ---
EOSS pt is alert and orientedx4, room air, stable hourly rounding done
[2018-07-01] VITALS (9 sets, daily range): BP systolic 132–169; BP diastolic 62–84; PULSE 69–125; RESP 17–19
[2018-07-01] MEDS: PANTOPRAZOLE (EC) 40 MG TAB PO SCH (06:29)
--- NOTE | 2018-07-01 07:03 | NUR ---
EOSS PATIENT DESATS ON ROOM AIR TO 90%.PLACED ON 2L/NC.HR UP TO 120'S NOT SUSTAINED,ASYMPTOMATIC.NEEDS ATTENDED.
[2018-07-01] MEDS: MINOXIDIL 10 MG TAB PO SCH ×2 (08:33→21:48)
[2018-07-01] MEDS: APIXABAN 5 MG TABLET PO SCH ×2 (08:33→21:49)
[2018-07-01] MEDS: ALLOPURINOL 100 MG TAB PO SCH (08:33)
[2018-07-01] MEDS: AMLODIPINE 10 MG TAB PO SCH (08:33)
--- NOTE | 2018-07-01 10:40 | CONS ---
Assessment/Plan Cardiology NYHA: III Heart Failure Type: Acute on Chronic Heart Failure Type: Diastolic Assessment/Plan Hospital Course (Demo Recall) IMP: 1. 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 PAF-on eliquis Recc: -Tele -Follow volume status/waiter/waitress bar closely with renal now following -Continue minoxidil s/p increased dose and norvasc -Will resume BB to control HR when patient in AF -Continue eliquis -Contineu steroids/bronchodilators -Complete george Consultation Date/Type/Reason Admit Date/Time Jun 24, 2018 at 13:24 Initial Consult Date 06/24/18 Type of Consult Cardiology Reason for Consultation HTN Requesting Provider: GERALD OLMEDO MD Date/Time of Note DATE: 07/01/18 TIME: 10:36 Exam/Review of Systems Vital Signs Vitals Vital Signs Date Temp Pulse Resp B/P (MAP) Pulse Ox O2 O2 Flow FiO2 Time Delivery Rate 07/01/18 95 08:01 07/01/18 98.3 18 149/65 96 07:40 (93) 07/01/18 Nasal 2.0 04:00 Cannula Intake and Output 06/30/18 06/30/18 07/01/18 1515:00 23:00 07:00 IntakeIntake Total 800 ml 350 ml BalanceBalance 800 ml 350 ml Exam Exam Review of Systems: CONSTITUTIONAL: No fevers, chills. PULMONARY: No sob CARDIOVASCULAR: No chest pain/palpitations GASTROINTESTINAL: No nausea/vomiting. GENITOURINARY: No hematuria/dysuria. MUSCULOSKELETAL: No myagias/arthalgias. PSYCHIATRIC: The patient denies depression. NEUROLOGIC: No weakness Constitutional: alert, oriented Psych: no complaints Head: normocephalic ENMT: mucosa pink and moist Neck: supple, jvd (9 cm water) Respiratory: diminished breath sounds (at bases/B) Cardiovascular: regular rate and rhythm Gastrointestinal: soft, non-tender Musculoskeletal: muscle tone (normal) Extremities: edema (none) Neurological: other (No focal deficits) Labs Result Diagram: 07/01/18 0530 07/01/18 0530 Results 24hrs Laboratory Tests Test 07/01/18 05:30 White Blood Count 9.6 # Red Blood Count 3.48 L Hemoglobin 9.6 L Hematocrit 29.6 L Mean Corpuscular Volume 85.1 Mean Corpuscular Hemoglobin 27.6 L Mean Corpuscular Hemoglobin Concent 32.4 Red Cell Distribution Width 15.2 H Platelet Count 173 Mean Platelet Volume 12.3 H Immature Granulocytes % 0.900 H Neutrophils % 69.6 Lymphocytes % 17.0 Monocytes % 10.8 Eosinophils % 1.4 Basophils % 0.3 Nucleated Red Blood Cells % 0.0 Immature Granulocytes # 0.090 H Neutrophils # 6.7 Lymphocytes # 1.6 Monocytes # 1.0 H Eosinophils # 0.1 Basophils # 0.0 Nucleated Red Blood Cells # 0.0 Sodium Level 140 Potassium Level 4.3 Chloride Level 103 Carbon Dioxide Level 24 Anion Gap 13 Blood Urea Nitrogen 30 #H Creatinine 1.53 H Glucose Level 186 Calcium Level 9.2 Phosphorus Level 3.4 Magnesium Level 2.5 Albumin 3.9 Medications Medications Current Medications Amlodipine Besylate (Norvasc) 10 mg DAILY PO Last administered on 07/01/18at 08:33; Admin Dose 10 MG; Start 06/25/18 at 09:00 Apixaban (Eliquis) 5 mg BID PO Last administered on 07/01/18at 08:33; Admin Dose 5 MG; Start 06/24/18 at 21:00 Metoprolol Tartrate (Lopressor) 25 mg BID PO Last administered on 06/28/18at 20:26; Admin Dose 25 MG; Start 06/24/18 at 21:00; Status Hold Pantoprazole (Protonix Tab) 40 mg DAILY@06 PO Last administered on 07/01/18at 06:29; Admin Dose 40 MG; Start 06/25/18 at 06:00 IV Flush (NS 3 ml) 3 ml PER PROTOCOL IV ; Start 06/24/18 at 13:30 Ondansetron HCl (Zofran Inj) 4 mg Q6H PRN IV NAUSEA AND/OR VOMITING; Start 06/24/18 at 13:30 Acetaminophen (Tylenol Tab) 650 mg Q6H PRN PO PAIN LEVEL 1-3 OR FEVER Last administered on 06/30/18at 20:27; Admin Dose 650 MG; Start 06/24/18 at 13:30 Docusate Sodium (Colace) 100 mg Q12H PRN PO CONSTIPATION; Start 06/24/18 at 13:30 Magnesium Hydroxide (Milk Of Mag) 30 ml DAILY PRN PO CONSTIPATION Last administered on 06/27/18at 10:54; Admin Dose 30 ML; Start 06/24/18 at 13:30 Allopurinol (Zyloprim) 100 mg DAILY PO Last administered on 07/01/18at 08:33; Admin Dose 100 MG; Start 06/28/18 at 09:00 Minoxidil (Loniten) 10 mg BID PO Last administered on 07/01/18at 08:33; Admin Dose 10 MG; Start 06/29/18 at 21:00 KEVON TIWARI Jul 01, 2018 10:40
[2018-07-01] MEDS ORDERED: METOPROLOL 5 MG INJ IV PRN (11:00)
[2018-07-01] MEDS: BUMETANIDE 1 MG TAB PO SCH (12:41)
--- NOTE | 2018-07-01 16:06 | NUR ---
SW: CONSULTATION SW was consulted to meet with this patient and her son Masoud Ravi (: 11/01/75) regarding allegations by patient's previous roommate, alleging that patient's son Masoud cussed out the roommate and said "fk you" after inquiring about their money. SW explored these allegations with patient and family, who all denied such events taking place. Security was also contacted, who also further explored. The other patient's room has been switched. SW remains available as needed.
--- NOTE | 2018-07-01 17:17 | PN ---
Date/Time of Note Date/Time of Note DATE: 07/01/18 TIME: 17:17 Objective Vitals Vital Signs Date Temp Pulse Resp B/P (MAP) Pulse Ox O2 O2 Flow FiO2 Time Delivery Rate 07/01/18 106 16:01 07/01/18 141/68 16:00 (92) 07/01/18 98.6 17 100 15:36 07/01/18 Nasal 2.0 04:00 Cannula Intake and Output 06/30/18 06/30/18 07/01/18 1515:00 23:00 07:00 IntakeIntake Total 800 ml 350 ml BalanceBalance 800 ml 350 ml Results Result Diagram: 07/01/18 0530 07/01/18 0530 Medications Medications Current Medications Amlodipine Besylate (Norvasc) 10 mg DAILY PO Last administered on 07/01/18at 08:33; Admin Dose 10 MG; Start 06/25/18 at 09:00 Apixaban (Eliquis) 5 mg BID PO Last administered on 07/01/18at 08:33; Admin Dose 5 MG; Start 06/24/18 at 21:00 Metoprolol Tartrate (Lopressor) 25 mg BID PO Last administered on 06/28/18at 20:26; Admin Dose 25 MG; Start 06/24/18 at 21:00 Pantoprazole (Protonix Tab) 40 mg DAILY@06 PO Last administered on 07/01/18at 06:29; Admin Dose 40 MG; Start 06/25/18 at 06:00 IV Flush (NS 3 ml) 3 ml PER PROTOCOL IV ; Start 06/24/18 at 13:30 Ondansetron HCl (Zofran Inj) 4 mg Q6H PRN IV NAUSEA AND/OR VOMITING; Start 06/24/18 at 13:30 Acetaminophen (Tylenol Tab) 650 mg Q6H PRN PO PAIN LEVEL 1-3 OR FEVER Last administered on 06/30/18at 20:27; Admin Dose 650 MG; Start 06/24/18 at 13:30 Docusate Sodium (Colace) 100 mg Q12H PRN PO CONSTIPATION; Start 06/24/18 at 13 :30 Magnesium Hydroxide (Milk Of Mag) 30 ml DAILY PRN PO CONSTIPATION Last administered on 06/27/18at 10:54; Admin Dose 30 ML; Start 06/24/18 at 13:30 Allopurinol (Zyloprim) 100 mg DAILY PO Last administered on 07/01/18at 08:33; Admin Dose 100 MG; Start 06/28/18 at 09:00 Minoxidil (Loniten) 10 mg BID PO Last administered on 07/01/18at 08:33; Admin Dose 10 MG; Start 06/29/18 at 21:00 Metoprolol Tartrate (Lopressor) 5 mg Q4H PRN IV HR>110.....; Start 07/01/18 at 11:00 Bumetanide (Bumex) 2 mg DAILY PO Last administered on 07/01/18at 12:41; Admin Dose 2 MG; Start 07/01/18 at 12:30 VTE Prophylaxis Risk score (from Ns)>0 risk: 4 SCD applied (from Ns): Yes Lines/Catheters IV Catheter Type: Webber in Place: No Assessment/Plan Hospital Course Subjective Patient feeling well Objective Physical exam General: Patient is laying in bed and answers questions appropriately Mentation: Patient is alert and oriented 4, Head: Normocephalic atraumatic Eyes: EOMI, pupils reactive to light Neck: Supple, nontender, midline Respiratory: Clear to auscultation bilaterally Cardiovascular: regular rate, no obvious murmurs Gastrointestinal: non-tender to palpation, bowel sounds heard. Neurological: Moves all extremities spontaneously Skin: No new skin lesions Assessment/Plan 1. Acute hypoxic respiratory failure secondary to volume overload- resolved - Currently on 2L NC and will continue to wean. Patient was not O2 dependent prior to admission - Initial CXR noted with pulm congestion vs pneumonitis vs pneumonia 2. Acute on chronic systolic heart failure- improving - Cardiology on board and recommendations appreciated. continue current medications - diuretics restarted - BNP noted 3. Acute SHERYL on CKD- improving - Nephrology consultation appreciated, restarting diuretics - will monitor for improvement in overall renal function 4. Severe MR and moderate TR - most likely contributing to Pulm congestion 5. Afib - continue home medications - rate controlled - on Eliquis 6. h/o Brain aneurysm - stable 7. Disposition -if renal function and o2 sat stable, DC tomorrow YOUSIF HARMAN Jul 01, 2018 17:17
--- NOTE | 2018-07-01 17:19 | CONS ---
Assessment/Plan Assessment/Plan Assessment/Plan (Daily) 1. acute hypoxemic respiratory failure requiring BIPAP 2. acute CHF, acute on chronic, systolic 3. SHERYL on CKD III due to hemodynamics from CHF then concerned about overdiuresis 4. Severe MR, moderate TR 5. Atrial fibrillation rate controlled, 6. H/o brain aneurysm Plan: uric acid 10.8- on allopurinol 100mg BID BUN/Cr trended down to 30/1.53 today Bumex 2mg po daily Losartan has been stopped during this admission, currently on amlodipine 10mg po daily, MTP 25 mg BID, Minoxidil 10mg pO BID Eliquis for anticoagulation Renal US unremarkable will follow up Follow up wiht me in clinic in 1-2 week upon discharge, will reevaluate for restarting losartan as outpatient Consultation Date/Type/Reason Admit Date/Time Jun 24, 2018 at 13:24 Initial Consult Date 06/26/18 Type of Consult NEPHROLOGY Requesting Provider: GERALD OLMEDO MD Date/Time of Note DATE: 07/01/18 TIME: 17:19 Exam/Review of Systems Exam Vitals Vital Signs Date Temp Pulse Resp B/P (MAP) Pulse Ox O2 O2 Flow FiO2 Time Delivery Rate 07/01/18 106 16:01 07/01/18 141/68 16:00 (92) 07/01/18 98.6 17 100 15:36 07/01/18 Nasal 2.0 04:00 Cannula Intake and Output 06/30/18 06/30/18 07/01/18 1515:00 23:00 07:00 IntakeIntake Total 800 ml 350 ml BalanceBalance 800 ml 350 ml Exam Constitutional: well developed Psych: nl mood/affect Eyes: EOMI, nl lids, nl sclera ENMT: nl external ears & nose Respiratory: diminished breath sounds (at bases) Cardiovascular: nl pulses, other (s1s2) Gastrointestinal: soft, non-tender Musculoskeletal: nl extremities to inspection Extremities: normal pulses Neurological: nl speech Results Result Diagram: 07/01/18 0530 07/01/18 0530 Results 24hrs Laboratory Tests Test 07/01/18 05:30 White Blood Count 9.6 # Red Blood Count 3.48 L Hemoglobin 9.6 L Hematocrit 29.6 L Mean Corpuscular Volume 85.1 Mean Corpuscular Hemoglobin 27.6 L Mean Corpuscular Hemoglobin Concent 32.4 Red Cell Distribution Width 15.2 H Platelet Count 173 Mean Platelet Volume 12.3 H Immature Granulocytes % 0.900 H Neutrophils % 69.6 Lymphocytes % 17.0 Monocytes % 10.8 Eosinophils % 1.4 Basophils % 0.3 Nucleated Red Blood Cells % 0.0 Immature Granulocytes # 0.090 H Neutrophils # 6.7 Lymphocytes # 1.6 Monocytes # 1.0 H Eosinophils # 0.1 Basophils # 0.0 Nucleated Red Blood Cells # 0.0 Sodium Level 140 Potassium Level 4.3 Chloride Level 103 Carbon Dioxide Level 24 Anion Gap 13 Blood Urea Nitrogen 30 #H Creatinine 1.53 H Glucose Level 186 Calcium Level 9.2 Phosphorus Level 3.4 Magnesium Level 2.5 Albumin 3.9 Medications Medication Current Medications Amlodipine Besylate (Norvasc) 10 mg DAILY PO Last administered on 07/01/18at 08:33; Admin Dose 10 MG; Start 06/25/18 at 09:00 Apixaban (Eliquis) 5 mg BID PO Last administered on 07/01/18at 08:33; Admin Dose 5 MG; Start 06/24/18 at 21:00 Metoprolol Tartrate (Lopressor) 25 mg BID PO Last administered on 06/28/18at 20:26; Admin Dose 25 MG; Start 06/24/18 at 21:00 Pantoprazole (Protonix Tab) 40 mg DAILY@06 PO Last administered on 07/01/18at 06:29; Admin Dose 40 MG; Start 06/25/18 at 06:00 IV Flush (NS 3 ml) 3 ml PER PROTOCOL IV ; Start 06/24/18 at 13:30 Ondansetron HCl (Zofran Inj) 4 mg Q6H PRN IV NAUSEA AND/OR VOMITING; Start 06/24/18 at 13:30 Acetaminophen (Tylenol Tab) 650 mg Q6H PRN PO PAIN LEVEL 1-3 OR FEVER Last administered on 06/30/18at 20:27; Admin Dose 650 MG; Start 06/24/18 at 13:30 Docusate Sodium (Colace) 100 mg Q12H PRN PO CONSTIPATION; Start 06/24/18 at 13:30 Magnesium Hydroxide (Milk Of Mag) 30 ml DAILY PRN PO CONSTIPATION Last administered on 06/27/18at 10:54; Admin Dose 30 ML; Start 06/24/18 at 13:30 Allopurinol (Zyloprim) 100 mg DAILY PO Last administered on 07/01/18at 08:33; Admin Dose 100 MG; Start 06/28/18 at 09:00 Minoxidil (Loniten) 10 mg BID PO Last administered on 07/01/18at 08:33; Admin Dose 10 MG; Start 06/29/18 at 21:00 Metoprolol Tartrate (Lopressor) 5 mg Q4H PRN IV HR>110.....; Start 07/01/18 at 11:00 Bumetanide (Bumex) 2 mg DAILY PO Last administered on 07/01/18at 12:41; Admin Dose 2 MG; Start 07/01/18 at 12:30 LEO NELSON MD Jul 01, 2018 17:19
--- NOTE | 2018-07-01 18:26 | NUR ---
EOSS PT. IS ALERT AND ORIENTED, CALL LIGHT W/IN REACH. NO SOB OR DISTRESS NOTED. KEPT CLEAN AND DRY. WILL CONTINUE TO MONITOR.
[2018-07-01] MEDS: METOPROLOL 25 MG TAB PO SCH (21:49)
[2018-07-02] VITALS (9 sets, daily range): BP systolic 120–170; BP diastolic 55–74; PULSE 50–69; RESP 18–19
--- NOTE | 2018-07-02 04:44 | NUR ---
Pt. stable , uneventful course, steady on her feet, Afib controlled, Normal V/S.
[2018-07-02] MEDS: PANTOPRAZOLE (EC) 40 MG TAB PO SCH (05:26)
--- NOTE | 2018-07-02 08:15 | CONS ---
Assessment/Plan Assessment/Plan Assessment/Plan (Daily) 1. acute hypoxemic respiratory failure requiring BIPAP 2. acute CHF, acute on chronic, systolic 3. SHERYL on CKD III due to hemodynamics from CHF then concerned about overdiuresis 4. Severe MR, moderate TR 5. Atrial fibrillation rate controlled, 6. H/o brain aneurysm Plan: uric acid 10.8- on allopurinol 100mg BID, BUN/Cr 28/1.69, other electrolytes normal today Bumex 2mg po daily Losartan has been stopped during this admission, currently on amlodipine 10mg po daily, MTP 25 mg BID, Minoxidil 10mg pO BID Eliquis for anticoagulation Renal US unremarkable Follow up wiht me in clinic in 1-2 week upon discharge, will reevaluate for restarting losartan as outpatient will follow up Consultation Date/Type/Reason Admit Date/Time Jun 24, 2018 at 13:24 Initial Consult Date 06/26/18 Type of Consult NEPHROLOGY Requesting Provider: GERALD OLMEDO MD Date/Time of Note DATE: 07/02/18 TIME: 08:15 Exam/Review of Systems Exam Vitals Vital Signs Date Temp Pulse Resp B/P (MAP) Pulse Ox O2 O2 Flow FiO2 Time Delivery Rate 07/02/18 98.0 58 18 158/67 97 07:39 (97) 07/01/18 Nasal 2.0 04:00 Cannula Intake and Output 07/01/18 07/01/18 07/02/18 1515:00 23:00 07:00 IntakeIntake Total 500 ml 240 ml BalanceBalance 500 ml 240 ml Exam Constitutional: well developed Psych: nl mood/affect Eyes: EOMI, nl lids, nl sclera ENMT: nl external ears & nose Respiratory: diminished breath sounds (at bases) Cardiovascular: nl pulses, other (s1s2) Gastrointestinal: soft, non-tender Musculoskeletal: nl extremities to inspection Extremities: normal pulses Neurological: nl speech Results Result Diagram: 07/02/18 0520 07/02/18 0520 Results 24hrs Laboratory Tests Test 07/02/18 05:20 White Blood Count 6.6 # Red Blood Count 3.09 L Hemoglobin 8.4 L Hematocrit 26.2 L Mean Corpuscular Volume 84.8 Mean Corpuscular Hemoglobin 27.2 L Mean Corpuscular Hemoglobin Concent 32.1 Red Cell Distribution Width 15.2 H Platelet Count 136 #L Mean Platelet Volume 12.0 H Immature Granulocytes % 0.600 H Neutrophils % 50.4 Lymphocytes % 28.2 Monocytes % 15.7 H Eosinophils % 4.8 Basophils % 0.3 Nucleated Red Blood Cells % 0.0 Immature Granulocytes # 0.040 H Neutrophils # 3.3 Lymphocytes # 1.9 Monocytes # 1.0 H Eosinophils # 0.3 Basophils # 0.0 Nucleated Red Blood Cells # 0.0 Sodium Level 139 Potassium Level 4.7 Chloride Level 99 Carbon Dioxide Level 28 Anion Gap 12 Blood Urea Nitrogen 28 H Creatinine 1.69 H Glucose Level 156 Calcium Level 8.9 Phosphorus Level 4.1 Magnesium Level 2.0 Albumin 3.4 Medications Medication Current Medications Amlodipine Besylate (Norvasc) 10 mg DAILY PO Last administered on 07/01/18at 08:33; Admin Dose 10 MG; Start 06/25/18 at 09:00 Apixaban (Eliquis) 5 mg BID PO Last administered on 07/01/18at 21:49; Admin Dose 5 MG; Start 06/24/18 at 21:00 Metoprolol Tartrate (Lopressor) 25 mg BID PO Last administered on 07/01/18at 21:49; Admin Dose 25 MG; Start 06/24/18 at 21:00 Pantoprazole (Protonix Tab) 40 mg DAILY@06 PO Last administered on 07/02/18at 05:26; Admin Dose 40 MG; Start 06/25/18 at 06:00 IV Flush (NS 3 ml) 3 ml PER PROTOCOL IV ; Start 06/24/18 at 13:30 Ondansetron HCl (Zofran Inj) 4 mg Q6H PRN IV NAUSEA AND/OR VOMITING; Start 06/24/18 at 13:30 Acetaminophen (Tylenol Tab) 650 mg Q6H PRN PO PAIN LEVEL 1-3 OR FEVER Last administered on 06/30/18at 20:27; Admin Dose 650 MG; Start 06/24/18 at 13:30 Docusate Sodium (Colace) 100 mg Q12H PRN PO CONSTIPATION; Start 06/24/18 at 13:30 Magnesium Hydroxide (Milk Of Mag) 30 ml DAILY PRN PO CONSTIPATION Last administered on 06/27/18at 10:54; Admin Dose 30 ML; Start 06/24/18 at 13:30 Allopurinol (Zyloprim) 100 mg DAILY PO Last administered on 07/01/18at 08:33; Admin Dose 100 MG; Start 06/28/18 at 09:00 Minoxidil (Loniten) 10 mg BID PO Last administered on 07/01/18at 21:48; Admin Dose 10 MG; Start 06/29/18 at 21:00 Metoprolol Tartrate (Lopressor) 5 mg Q4H PRN IV HR>110.....; Start 07/01/18 at 11:00 Bumetanide (Bumex) 2 mg DAILY PO Last administered on 07/01/18at 12:41; Admin Dose 2 MG; Start 07/01/18 at 12:30 LEO NELSON MD Jul 02, 2018 08:15
[2018-07-02] MEDS: MINOXIDIL 10 MG TAB PO SCH ×2 (08:19→22:23)
[2018-07-02] MEDS: ALLOPURINOL 100 MG TAB PO SCH (08:19)
[2018-07-02] MEDS: APIXABAN 5 MG TABLET PO SCH ×2 (08:19→22:22)
[2018-07-02] MEDS: BUMETANIDE 1 MG TAB PO SCH (08:19)
[2018-07-02] MEDS: METOPROLOL 25 MG TAB PO SCH ×2 (08:19→22:23)
[2018-07-02] MEDS: AMLODIPINE 10 MG TAB PO SCH (08:20)
--- NOTE | 2018-07-02 08:52 | CONS ---
Consult Date/Type/Reason Admit Date/Time Jun 24, 2018 at 13:24 Initial Consult Date Requesting Provider: GERALD OLMEDO MD Date/Time of Note DATE: 07/02/18 TIME: 08:49 Subjective NO acute events - pt converted to sinus this am - con't anti-coagulation - fees better overall. ROS: No fever, no chills, no nausea, no vomiting, no diarrhea/constipation No recent weight changes No chest pain, no PND, no orthopnea - improved SOB No dizziness, blurred vision No thirst, no heat or cold intolerance Objective Vitals Vital Signs Date Temp Pulse Resp B/P (MAP) Pulse Ox O2 O2 Flow FiO2 Time Delivery Rate 07/02/18 61 08:46 07/02/18 98.0 18 158/67 97 07:39 (97) 07/01/18 Nasal 2.0 04:00 Cannula Intake and Output 07/01/18 07/01/18 07/02/18 1414:59 22:59 06:59 IntakeIntake Total 500 ml 240 ml BalanceBalance 500 ml 240 ml Exam General: WN/WD/NAD, AOx 2-3 [place] HEENT: Unicetric/atraumatic/EOMI (follows commands) NECK: JVD elevated, no thyromegaly Lymph: no lymphadenopathy HEART: regular with no S3, II/ systolic murmur at apex, PMI L LUNGS: Coarse sounds ABD: soft, NT, ND, +BS : Intact Neuro: non focal SKIN: chronic changes EXT: trace edema Results/Medications Result Diagram: 07/02/18 0520 07/02/18 0520 Results 24 hrs Laboratory Tests Test 07/02/18 05:20 White Blood Count 6.6 # Red Blood Count 3.09 L Hemoglobin 8.4 L Hematocrit 26.2 L Mean Corpuscular Volume 84.8 Mean Corpuscular Hemoglobin 27.2 L Mean Corpuscular Hemoglobin Concent 32.1 Red Cell Distribution Width 15.2 H Platelet Count 136 #L Mean Platelet Volume 12.0 H Immature Granulocytes % 0.600 H Neutrophils % 50.4 Lymphocytes % 28.2 Monocytes % 15.7 H Eosinophils % 4.8 Basophils % 0.3 Nucleated Red Blood Cells % 0.0 Immature Granulocytes # 0.040 H Neutrophils # 3.3 Lymphocytes # 1.9 Monocytes # 1.0 H Eosinophils # 0.3 Basophils # 0.0 Nucleated Red Blood Cells # 0.0 Sodium Level 139 Potassium Level 4.7 Chloride Level 99 Carbon Dioxide Level 28 Anion Gap 12 Blood Urea Nitrogen 28 H Creatinine 1.69 H Glucose Level 156 Calcium Level 8.9 Phosphorus Level 4.1 Magnesium Level 2.0 Albumin 3.4 Home Meds Active Scripts Bumetanide* (Bumetanide*) 1 Mg Tablet, 2 MG PO DAILY for 30 Days, #60 TAB Prov:YOUSIF HARMAN 07/21/17 Amlodipine Besylate* (Amlodipine Besylate*) 10 Mg Tablet, 10 MG PO DAILY for 30 Days, TAB Prov:OMKAR WILLARD 06/27/17 Apixaban* (Eliquis*) 5 Mg Tablet, 5 MG PO BID for 30 Days, TAB Prov:OMKAR WILLARD 06/27/17 Reported Medications Omeprazole* (Omeprazole*) 20 Mg Capsule.dr, 20 MG PO DAILY, #30 CAP 06/24/18 Minoxidil* (Lonitin*) 10 Mg Tab, 10 MG PO DAILY, TAB 06/24/18 Metoprolol Tartrate* (Lopressor*) 25 Mg Tab, 25 MG PO BID, #60 TAB 06/24/18 Losartan Potassium* (Losartan Potassium*) 100 Mg Tablet, 100 MG PO DAILY, TAB 11/27/17 Medications Current Medications Amlodipine Besylate (Norvasc) 10 mg DAILY PO Last administered on 07/02/18at 08:20; Admin Dose 10 MG; Start 06/25/18 at 09:00 Apixaban (Eliquis) 5 mg BID PO Last administered on 07/02/18at 08:19; Admin Dose 5 MG; Start 06/24/18 at 21:00 Metoprolol Tartrate (Lopressor) 25 mg BID PO Last administered on 07/02/18at 08:19; Admin Dose 25 MG; Start 06/24/18 at 21:00 Pantoprazole (Protonix Tab) 40 mg DAILY@06 PO Last administered on 07/02/18at 05:26; Admin Dose 40 MG; Start 06/25/18 at 06:00 IV Flush (NS 3 ml) 3 ml PER PROTOCOL IV ; Start 06/24/18 at 13:30 Ondansetron HCl (Zofran Inj) 4 mg Q6H PRN IV NAUSEA AND/OR VOMITING; Start 06/24/18 at 13:30 Acetaminophen (Tylenol Tab) 650 mg Q6H PRN PO PAIN LEVEL 1-3 OR FEVER Last administered on 06/30/18at 20:27; Admin Dose 650 MG; Start 06/24/18 at 13:30 Docusate Sodium (Colace) 100 mg Q12H PRN PO CONSTIPATION; Start 06/24/18 at 13:30 Magnesium Hydroxide (Milk Of Mag) 30 ml DAILY PRN PO CONSTIPATION Last administ ered on 06/27/18at 10:54; Admin Dose 30 ML; Start 06/24/18 at 13:30 Allopurinol (Zyloprim) 100 mg DAILY PO Last administered on 07/02/18at 08:19; Admin Dose 100 MG; Start 06/28/18 at 09:00 Minoxidil (Loniten) 10 mg BID PO Last administered on 07/02/18at 08:19; Admin Dose 10 MG; Start 06/29/18 at 21:00 Metoprolol Tartrate (Lopressor) 5 mg Q4H PRN IV HR>110.....; Start 07/01/18 at 11:00 Bumetanide (Bumex) 2 mg DAILY PO Last administered on 07/02/18 08:19; Admin Dose 2 MG; Start 07/01/18 at 12:30 Assessment/Plan Hospital Course (Demo Recall) 1. CHF-diastolic acute on chronic - con't gentle diuresis. Improved fluid status. 2.HTN - well controlled now. Better with therapy, still high - add rx as needed 3 SOB - improved with therapy. 4.MR-moderate to severe - no intervention planned 5.TR-moderate 6.PPM secondary to bradycardia - with good function - rate controlled. 7.Acute on chronic renal failure - con't to avoid nephrotoxic meds 8. PAF-on eliquis - rate controlled - NOW IN SINUS converted in am BRAYDON EL MD Jul 02, 2018 08:52
--- NOTE | 2018-07-02 15:42 | PN ---
Date/Time of Note Date/Time of Note DATE: 07/02/18 TIME: 15:42 Objective Vitals Vital Signs Date Temp Pulse Resp B/P (MAP) Pulse Ox O2 O2 Flow FiO2 Time Delivery Rate 07/02/18 54 13:06 07/02/18 98.3 18 154/69 98 11:14 (97) 07/01/18 Nasal 2.0 04:00 Cannula Intake and Output 07/01/18 07/01/18 07/02/18 1515:00 23:00 07:00 IntakeIntake Total 500 ml 240 ml BalanceBalance 500 ml 240 ml Results Result Diagram: 07/02/1851907/02/18519 Medications Medications Current Medications Amlodipine Besylate (Norvasc) 10 mg DAILY PO Last administered on 07/02/18at 08:20; Admin Dose 10 MG; Start 06/25/18 at 09:00 Apixaban (Eliquis) 5 mg BID PO Last administered on 07/02/18at 08:19; Admin Dose 5 MG; Start 06/24/18 at 21:00 Metoprolol Tartrate (Lopressor) 25 mg BID PO Last administered on 07/02/18at 08:19; Admin Dose 25 MG; Start 06/24/18 at 21:00 Pantoprazole (Protonix Tab) 40 mg DAILY@06 PO Last administered on 07/02/18at 05:26; Admin Dose 40 MG; Start 06/25/18 at 06:00 IV Flush (NS 3 ml) 3 ml PER PROTOCOL IV ; Start 06/24/18 at 13:30 Ondansetron HCl (Zofran Inj) 4 mg Q6H PRN IV NAUSEA AND/OR VOMITING; Start 06/24/18 at 13:30 Acetaminophen (Tylenol Tab) 650 mg Q6H PRN PO PAIN LEVEL 1-3 OR FEVER Last administered on 06/30/18at 20:27; Admin Dose 650 MG; Start 06/24/18 at 13:30 Docusate Sodium (Colace) 100 mg Q12H PRN PO CONSTIPATION; Start 06/24/18 at 13:30 Magnesium Hydroxide (Milk Of Mag) 30 ml DAILY PRN PO CONSTIPATION Last administered on 06/27/18at 10:54; Admin Dose 30 ML; Start 06/24/18 at 13:30 Allopurinol (Zyloprim) 100 mg DAILY PO Last administered on 07/02/18at 08:19; Admin Dose 100 MG; Start 06/28/18 at 09:00 Minoxidil (Loniten) 10 mg BID PO Last administered on 07/02/18at 08:19; Admin Dose 10 MG; Start 06/29/18 at 21:00 Metoprolol Tartrate (Lopressor) 5 mg Q4H PRN IV HR>110.....; Start 07/01/18 at 11:00 Bumetanide (Bumex) 2 mg DAILY PO Last administered on 07/02/18at 08:19; Admin Dose 2 MG; Start 07/01/18 at 12:30 VTE Prophylaxis Risk score (from Ns)>0 risk: 4 SCD applied (from Ns): No SCD contraindication: other Lines/Catheters IV Catheter Type: Webber in Place: No Assessment/Plan Hospital Course Subjective Patient feeling well Objective Physical exam General: Patient is laying in bed and answers questions appropriately Mentation: Patient is alert and oriented 4, Head: Normocephalic atraumatic Eyes: EOMI, pupils reactive to light Neck: Supple, nontender, midline Respiratory: Clear to auscultation bilaterally Cardiovascular: regular rate, no obvious murmurs Gastrointestinal: non-tender to palpation, bowel sounds heard. Neurological: Moves all extremities spontaneously Skin: No new skin lesions Assessment/Plan 1. Acute hypoxic respiratory failure secondary to volume overload- resolved - Currently on 2L NC and will continue to wean. Patient was not O2 dependent prior to admission - Initial CXR noted with pulm congestion vs pneumonitis vs pneumonia 2. Acute on chronic systolic heart failure- improving - Cardiology on board and recommendations appreciated. continue current medicati ons - diuretics restarted - BNP noted 3. Acute SHERYL on CKD- improving - Nephrology consultation appreciated, restarting diuretics - will monitor for improvement in overall renal function 4. Severe MR and moderate TR - most likely contributing to Pulm congestion 5. Afib - continue home medications - rate controlled - on Eliquis 6. h/o Brain aneurysm - stable 7. Disposition -stable, but had afib-rvr episode overnight, monitor one more night YOUSIF HARMAN Jul 02, 2018 15:42
--- NOTE | 2018-07-02 19:00 | NUR ---
[facility] PT. IS ALERT AND ORIENTED, CALL LIGHT W/IN REACH. NO SOB OR DISTRESS NOTED. S/E BY MD. KEPT CLEAN AND DRY. WILL CONTINUE TO MONITOR.
[2018-07-03] VITALS: BP 116/53; PULSE 58; RESP 18
[2018-07-03 04:00] VITALS: BP 119/56; PULSE 59; PULSE 60; RESP 18
[2018-07-03] MEDS: PANTOPRAZOLE (EC) 40 MG TAB PO SCH (06:28)
--- NOTE | 2018-07-03 07:22 | NUR ---
pt. was stable this shift, Afib controlled, no distress noted, no pain, normal V/S, steadily ambulates to the bathroom.
[2018-07-03 07:54] VITALS: BP 139/61; PULSE 65; RESP 20
[2018-07-03] MEDS: MINOXIDIL 10 MG TAB PO SCH (08:24)
[2018-07-03] MEDS: BUMETANIDE 1 MG TAB PO SCH (08:24)
[2018-07-03] MEDS: APIXABAN 5 MG TABLET PO SCH (08:24)
[2018-07-03] MEDS: ALLOPURINOL 100 MG TAB PO SCH (08:24)
[2018-07-03] MEDS: METOPROLOL 25 MG TAB PO SCH (08:25)
[2018-07-03] MEDS: AMLODIPINE 10 MG TAB PO SCH (08:25)
[2018-07-03 08:30] VITALS: PULSE 64
--- NOTE | 2018-07-03 12:07 | PN ---
Date/Time of Note Date/Time of Note DATE: 07/03/18 TIME: 11:54 Assessment/Plan VTE [place] [facility] [place]: 4 [place] [facility] [place] Yes Pharmacological prophylaxis: other Pharm contraindication: other Lines/Catheters IV [facility] Type (from [facility] [place] [facility] Urinary Cath still in place: No Assessment/Plan Assessment/Plan 1. CHF, diastolic, acute on chronic, diuretics 2. Respiratory failure, acute, due to pulmonary edema, resolved 3. MR, moderate to severe - no intervention planned 4. Paroxysmal atrial fibrillation, sinus now, on eliquis 5. Pulmonary hypertension, 55 mmHg, MR related 6. HTN - well controlled now. Better with therapy, still high - add rx as needed 7. PPM secondary to bradycardia - with good function - rate controlled. 8. Acute on chronic renal failure, CKD stage 3, stable 9. Normocytic anemia, CKD related, epogen 10. H/o brain aneurysm 11. Gout, on allopurinol Result Diagram: 07/03/1852307/03/18 0524 Results 24hrs Laboratory Tests Test 07/03/18 05:24 White Blood Count 7.1 Red Blood Count 2.96 L Hemoglobin 8.1 L Hematocrit 24.9 L Mean Corpuscular Volume 84.1 Mean Corpuscular Hemoglobin 27.4 L Mean Corpuscular Hemoglobin Concent 32.5 Red Cell Distribution Width 14.9 H Platelet Count 171 # Mean Platelet Volume 12.9 H Immature Granulocytes % 0.400 Neutrophils % 57.2 Lymphocytes % 22.2 Monocytes % 16.3 H Eosinophils % 3.5 Basophils % 0.4 Nucleated Red Blood Cells % 0.0 Immature Granulocytes # 0.030 Neutrophils # 4.1 Lymphocytes # 1.6 Monocytes # 1.2 H Eosinophils # 0.3 Basophils # 0.0 Nucleated Red Blood Cells # 0.0 Sodium Level 139 Potassium Level 4.2 Chloride Level 98 Carbon Dioxide Level 28 Anion Gap 13 Blood Urea Nitrogen 30 H Creatinine 1.83 H Glucose Level 161 Calcium Level 8.6 Phosphorus Level 4.1 Magnesium Level 1.9 Albumin 3.5 Exam/Review of Systems Exam Vitals Vital Signs Date Temp Pulse Resp B/P (MAP) Pulse Ox O2 O2 Flow FiO2 Time Delivery Rate 07/03/18 64 08:30 07/03/18 98.3 20 139/61 96 Room Air 07:54 (87) 07/01/18 2.0 04:00 Intake and Output 07/02/18 07/02/18 07/03/18 1515:00 23:00 07:00 IntakeIntake Total 900 ml 440 ml BalanceBalance 900 ml 440 ml Results Results 24hrs Laboratory Tests Test 07/03/18 05:24 White Blood Count 7.1 Red Blood Count 2.96 L Hemoglobin 8.1 L Hematocrit 24.9 L Mean Corpuscular Volume 84.1 Mean Corpuscular Hemoglobin 27.4 L Mean Corpuscular Hemoglobin Concent 32.5 Red Cell Distribution Width 14.9 H Platelet Count 171 # Mean Platelet Volume 12.9 H Immature Granulocytes % 0.400 Neutrophils % 57.2 Lymphocytes % 22.2 Monocytes % 16.3 H Eosinophils % 3.5 Basophils % 0.4 Nucleated Red Blood Cells % 0.0 Immature Granulocytes # 0.030 Neutrophils # 4.1 Lymphocytes # 1.6 Monocytes # 1.2 H Eosinophils # 0.3 Basophils # 0.0 Nucleated Red Blood Cells # 0.0 Sodium Level 139 Potassium Level 4.2 Chloride Level 98 Carbon Dioxide Level 28 Anion Gap 13 Blood Urea Nitrogen 30 H Creatinine 1.83 H Glucose Level 161 Calcium Level 8.6 Phosphorus Level 4.1 Magnesium Level 1.9 Albumin 3.5 Medications Medication Current Medications Amlodipine Besylate (Norvasc) 10 mg DAILY PO Last administered on 07/03/18at 08 :25; Admin Dose 10 MG; Start 06/25/18 at 09:00 Apixaban (Eliquis) 5 mg BID PO Last administered on 07/03/18 08:24; Admin Dose 5 MG; Start 06/24/18 at 21:00 Metoprolol Tartrate (Lopressor) 25 mg BID PO Last administered on 07/03/18at 08:25; Admin Dose 25 MG; Start 06/24/18 at 21:00 Pantoprazole (Protonix Tab) 40 mg DAILY@06 PO Last administered on 07/03/18at 06:28; Admin Dose 40 MG; Start 06/25/18 at 06:00 IV Flush (NS 3 ml) 3 ml PER PROTOCOL IV ; Start 06/24/18 at 13:30 Ondansetron HCl (Zofran Inj) 4 mg Q6H PRN IV NAUSEA AND/OR VOMITING; Start 06/24/18 at 13:30 Acetaminophen (Tylenol Tab) 650 mg Q6H PRN PO PAIN LEVEL 1-3 OR FEVER Last administered on 06/30/18 20:27; Admin Dose 650 MG; Start 06/24/18 at 13:30 Docusate Sodium (Colace) 100 mg Q12H PRN PO CONSTIPATION; Start 06/24/18 at 13:30 Magnesium Hydroxide (Milk Of Mag) 30 ml DAILY PRN PO CONSTIPATION Last administered on 06/27/18at 10:54; Admin Dose 30 ML; Start 06/24/18 at 13:30 Allopurinol (Zyloprim) 100 mg DAILY PO Last administered on 07/03/18 08:24; Admin Dose 100 MG; Start 06/28/18 at 09:00 Minoxidil (Loniten) 10 mg BID PO Last administered on 07/03/18at 08:24; Admin Dose 10 MG; Start 06/29/18 at 21:00 Metoprolol Tartrate (Lopressor) 5 mg Q4H PRN IV HR>110.....; Start 07/01/18 at 11:00 Bumetanide (Bumex) 2 mg DAILY PO Last administered on 07/03/18 08:24; Admin Dose 2 MG; Start 07/01/18 at 12:30 CHRISTOPHER ARECHIGA MD Jul 03, 2018 12:04
[2018-07-03] MEDS ORDERED: BUME1TAB PO (12:09)
[2018-07-03] MEDS ORDERED: ALLO100T PO (12:09)
[2018-07-03 12:15] VITALS: BP 154/69; PULSE 60; RESP 22
[2018-07-03 12:23] VITALS: PULSE 64
--- NOTE | 2018-07-03 12:23 | DS ---
Date/Time of Note Date/Time of Note DATE: 07/03/18 TIME: 12:10 Discharge Summary Admission/Discharge Info Admit Date/Time Jun 24, 2018 at 13:24 Discharge Date/Time Discharge Diagnosis 1. CHF, diastolic, acute on chronic, improved, on bumex, follow up with cardi ology 2. Respiratory failure, acute, due to pulmonary edema, resolved 3. 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 Paroxysmal atrial fibrillation, sinus now, on eliquis 5. Pulmonary hypertension, 55 mmHg, MR related 6. HTN, controlled 7. 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 Acute on chronic renal failure, CKD stage 3, stable, follow up with neph rology 9. Normocytic anemia, CKD related, epogen once 10. H/o brain aneurysm 11. Gout, on allopurinol Patient Condition: Stable Procedures Echocardiogram Report Patient Name: KALE MCLEOD Gender: Female Date: 1940 Study Date: 25-Jun-2018 Agriculture Mechanic: Carmina Henderson RDCS Location: [id number] Ref. Physician: GERALD OLMEDO Quality: Adequate Procedures: Transthoracic echocardiogram with complete 2D, M-Mode, and doppler examination. Indications: Evaluate Left Ventricular function. Pulm Edema. 2D/M Mode Doppler Measurement Value Normal Ranges Measurement Value Normal Ranges LVIDd 2D 5.2 3.5 - 5.6 cm AV Peak Geovani 1.7 m/sec LVIDs 2D 2.3 2.1 - 4.1 cm AV Peak PG 12.0 mmHg LVPWd 2D 1.1 0.6 - 1.1 cm LVOT Peak Geovani 1.3 m/sec IVSd 2D 1.3 0.6 - 1.1 cm LVOT Peak PG 7.0 mmHg AoR Diam 2D 2.5 2.0 - 3.7 cm MV E Peak Geovani 1.1 m/sec LA/Ao 2D 1 0 - 1 MV A Peak Geovani 0.5 m/sec LA Dimen 2D 3.7 2.3 - 4.0 cm MV E/A 2.2 MV Decel Time 197 msec Lat E` Geovani 0.1 m/sec Lateral E/E` 12.6 MV E/A 2.2 TR Peak Geovani 3.6 m/sec TR Peak PG 52.0 mmHg RVSP 55.0 mmHg RA Pressure 3.0 Findings Left Ventricle: Normal left ventricular systolic function. Normal left ventricular cavity size. Mild concentric left ventricular hypertrophy. Ejection fraction is visually estimated at 60 %. Right Ventricle: Normal right ventricular systolic function. Mild enlargement of right ventricle. Linear artifact in right ventricle suggestive of catheter, pacer lead, or ICD lead. Left Atrium: The left atrium is normal in size. Right Atrium: There is mild enlargement of right atrium. Mitral Valve: Mitral valve leaflets appear mildly thickened. Moderate mitral annular calcification. Mild mitral valve regurgitation. Aortic Valve: Normal appearance of the aortic valve. No significant aortic stenosis or insufficiency. Tricuspid Valve: Normal appearance of the tricuspid valve. Estimated peak PA systolic pressure 55 mmHg. There is mild tricuspid regurgitation. Pulmonic Valve: Normal pulmonic valve appearance. There is mild pulmonic regurgitation. Pericardium: Normal pericardium with no significant pericardial effusion. Aorta: Normal aortic root. IVC: Normal size and normal respiratory collapse consistent with normal right atrial pressure. Conclusions Normal left ventricular systolic function. Normal left ventricular cavity size. Mild concentric left ventricular hypertrophy. Ejection fraction is visually estimated at 60 %. Mitral valve leaflets appear mildly thickened. Moderate mitral annular calcification. Mild mitral valve regurgitation. Normal appearance of the tricuspid valve. Estimated peak PA systolic pressure 55 mmHg. There is mild tricuspid regurgitation. Normal right ventricular systolic function. Mild enlargement of right ventricle. Linear artifact in right ventricle suggestive of catheter, pacer lead, or ICD lead. Electronically Signed By: Efra Gomes 25-Jun-2018 13:31:17 -0800 Patient Name: KALE MCLEOD Study Date: 25-Jun-2018 [id number] Hospital Course 77 yo F with PMH atrial fibrillation, CKD, severe mitral regurg, moderate tricuspid regurg, pacer placement, and brain aneurysm presented to ED with worsening shortness of breath for 3 days. CXR indicates pulmonary edema. Patient needed O2 and BiPAP for respiratory failure and she got iv diuretics for pulmonary edema. Symptoms significantly improved. PSpO2 is 96% on RA now. Echocardiography LVEF 60% with moderate MAC and PASP 55 mmHg. It was read as MR mild but patient has history of severe MR. The pulmonary edema is likely diastolic CHF, probably MR related. She will continue on bumex and follow up with cardiology outpatient. BUN/Cr 30/1.83 on 07/03/2018, renal US unremarkable. It is considered chronic and patient will follow up with nephrology. H/H/MCV are 8.1/24.9/84.1 that I give one dose of epogen 10,000 units today. FOllow up with PCP and nephrology. Home Meds Active Scripts Allopurinol* (Allopurinol*) 100 Mg Tablet, 100 MG PO DAILY for 30 Days, TAB Prov:CHRISTOPHER ARECHIGA MD 07/03/18 Bumetanide* (Bumetanide*) 1 Mg Tablet, 2 MG PO DAILY for 30 Days, TAB Prov:CHRISTOPHER ARECHIGA MD 07/03/18 Amlodipine Besylate* (Amlodipine Besylate*) 10 Mg Tablet, 10 MG PO DAILY for 30 Days, TAB Prov:OMKAR WILLARD 06/27/17 Apixaban* (Eliquis*) 5 Mg Tablet, 5 MG PO BID for 30 Days, TAB Prov:OMKAR WILLARD 06/27/17 Reported Medications Omeprazole* (Omeprazole*) 20 Mg Capsule.dr, 20 MG PO DAILY, #30 CAP 06/24/18 Minoxidil* (Lonitin*) 10 Mg Tab, 10 MG PO DAILY, TAB 06/24/18 Metoprolol Tartrate* (Lopressor*) 25 Mg Tab, 25 MG PO BID, #60 TAB 06/24/18 Discontinued Reported Medications Losartan Potassium* (Losartan Potassium*) 100 Mg Tablet, 100 MG PO DAILY, TAB 11/27/17 Discontinued Scripts Bumetanide* (Bumetanide*) 1 Mg Tablet, 2 MG PO DAILY for 30 Days, #60 TAB Prov:YOUSIF HARMAN 07/21/17 Follow-up Plan PCP, cardiology, and nephrology in one week Primary Care Provider [facility] Pending Labs Laboratory Tests Test 07/03/18 05:24 White Blood Count 7.1 10^3/ul (4.8-10.8) Red Blood Count 2.96 10^6/ul (4.20-5.40) Hemoglobin 8.1 g/dl (12.0-16.0) Hematocrit 24.9 % (37.0-47.0) Mean Corpuscular Volume 84.1 fl (82.0-101.0) Mean Corpuscular Hemoglobin 27.4 pg (29.0-33.0) Mean Corpuscular Hemoglobin Concent 32.5 g/dl (32.0-37.0) Red Cell Distribution Width 14.9 % (11.5-14.5) Platelet Count 171 10^3/UL (140-415) Mean Platelet Volume 12.9 fl (7.4-10.4) Immature Granulocytes % 0.400 % (0.001-0.429) Neutrophils % 57.2 % (39.0-77.0) Lymphocytes % 22.2 % (15.0-51.0) Monocytes % 16.3 % (0.0-11.0) Eosinophils % 3.5 % (0.0-7.0) Basophils % 0.4 % (0.0-2.0) Nucleated Red Blood Cells % 0.0 /100WBC (0.0-0.0) Immature Granulocytes # 0.030 10^3/ul (0.0-0.031) Neutrophils # 4.1 10^3/ul (1.6-7.5) Lymphocytes # 1.6 10^3/ul (0.8-2.9) Monocytes # 1.2 10^3/ul (0.3-0.9) Eosinophils # 0.3 10^3/ul (0.0-0.5) Basophils # 0.0 10^3/ul (0.0-0.1) Nucleated Red Blood Cells # 0.0 10^3/ul (0.0-0.0) Sodium Level 139 mmol/L (135-144) Potassium Level 4.2 mmol/L (3.5-5.1) Chloride Level 98 mmol/L (97-110) Carbon Dioxide Level 28 mmol/L (21-31) Anion Gap 13 (5-13) Blood Urea Nitrogen 30 mg/dl (7-20) Creatinine 1.83 mg/dl (0.44-1.00) Glucose Level 161 mg/dl (70-220) Calcium Level 8.6 mg/dl (8.4-10.2) Phosphorus Level 4.1 mg/dl (2.5-4.9) Magnesium Level 1.9 mg/dl (1.7-2.5) Albumin 3.5 g/dl (3.3-4.9) CHRISTOPHER ARECHIGA MD Jul 03, 2018 12:20
[2018-07-03] MEDS ORDERED: EPOETIN 10000 UNITS/1 ML INJ (ESRD) SC ONE (13:00)
--- NOTE | 2018-07-03 15:30 | NUR ---
Discharge Pt ao x 4 with son at bedside. Discharge packet and new prescription given to the pt. Education provided regarding discharge instructions and new prescription. Pt stated understanding. hall monitor d/c'd. IV d/c'd. All questions answered. All needs met. Pt escorted via wheelchair for discharge and is stable to d/c to home.
--- NOTE | 2018-07-03 16:23 | CONS ---
Assessment/Plan Assessment/Plan Assessment/Plan (Daily) 1. acute hypoxemic respiratory failure requiring BIPAP 2. acute CHF, acute on chronic, systolic 3. SHERYL on CKD III due to hemodynamics from CHF then concerned about overdiuresis 4. Severe MR, moderate TR 5. Atrial fibrillation rate controlled, 6. H/o brain aneurysm Plan: uric acid 10.8- on allopurinol 100mg BID, BUN/Cr 30/1.83, other electrolytes normal today Bumex 2mg po daily Losartan has been stopped during this admission, currently on amlodipine 10mg po daily, MTP 25 mg BID, Minoxidil 10mg pO BID Eliquis for anticoagulation Renal US unremarkable Follow up wiht me in clinic in 1-2 week upon discharge, will reevaluate for restarting losartan as outpatient will follow up Consultation Date/Type/Reason Admit Date/Time Jun 24, 2018 at 13:24 Initial Consult Date 06/26/18 Type of Consult NEPHROLOGY Requesting Provider: GERALD OLMEDO MD Date/Time of Note DATE: 07/03/18 TIME: 16:22 24 HR Interval Summary Free Text/Dictation doing ok, BP stable, afebrile Exam/Review of Systems Exam Vitals Vital Signs Date Temp Pulse Resp B/P (MAP) Pulse Ox O2 O2 Flow FiO2 Time Delivery Rate 07/03/18 64 12:23 07/03/18 97.6 22 154/69 96 Room Air 12:15 (97) 07/01/18 2.0 04:00 Intake and Output 07/02/18 07/02/18 07/03/18 1515:00 23:00 07:00 IntakeIntake Total 900 ml 440 ml BalanceBalance 900 ml 440 ml Exam Constitutional: alert, awake, no acute distress Neck: supple, jvd (9 cm water) Respiratory: diminished breath sounds (at bases/B) Cardiovascular: regular rate and rhythm Gastrointestinal: soft, non-tender Musculoskeletal: muscle weakness (mild generalized) Extremities: edema (none) Neurological: other (No focal deficits) Results Result Diagram: 07/03/1852307/03/18523 Results 24hrs Laboratory Tests Test 07/03/18 05:24 White Blood Count 7.1 Red Blood Count 2.96 L Hemoglobin 8.1 L Hematocrit 24.9 L Mean Corpuscular Volume 84.1 Mean Corpuscular Hemoglobin 27.4 L Mean Corpuscular Hemoglobin Concent 32.5 Red Cell Distribution Width 14.9 H Platelet Count 171 # Mean Platelet Volume 12.9 H Immature Granulocytes % 0.400 Neutrophils % 57.2 Lymphocytes % 22.2 Monocytes % 16.3 H Eosinophils % 3.5 Basophils % 0.4 Nucleated Red Blood Cells % 0.0 Immature Granulocytes # 0.030 Neutrophils # 4.1 Lymphocytes # 1.6 Monocytes # 1.2 H Eosinophils # 0.3 Basophils # 0.0 Nucleated Red Blood Cells # 0.0 Sodium Level 139 Potassium Level 4.2 Chloride Level 98 Carbon Dioxide Level 28 Anion Gap 13 Blood Urea Nitrogen 30 H Creatinine 1.83 H Glucose Level 161 Calcium Level 8.6 Phosphorus Level 4.1 Magnesium Level 1.9 Albumin 3.5 LEO NELSON MD Jul 03, 2018 16:23
== END 2018-07-03 15:45 | disposition home or self-care (01) | DRG 291 ==
LOC: E/R 11:54 → 6WM 13:24
PROVIDERS: ADMIT Internal Medicine; ATTEND Internal Medicine
PROC: 5A09357 Assistance with Respiratory Ventilation, Less than 24 Consecutive Hours, Continuous Positive Airway Pressure (ICD-10-PCS; principal; 2018-06-24)
DX: I13.0 Hypertensive heart and chronic kidney disease with heart failure and stage 1 through stage 4 chronic kidney disease, or unspecified chronic kidney disease (principal); I50.33 Acute on chronic diastolic (congestive) heart failure; J96.01 Acute respiratory failure with hypoxia; N17.9 Acute kidney failure, unspecified; E78.5 Hyperlipidemia, unspecified; I34.0 Nonrheumatic mitral (valve) insufficiency; I36.1 Nonrheumatic tricuspid (valve) insufficiency; I25.10 Atherosclerotic heart disease of native coronary artery without angina pectoris; I48.0 Paroxysmal atrial fibrillation; I27.20 Pulmonary hypertension, unspecified; D64.9 Anemia, unspecified; N18.3 Chronic kidney disease, stage 3 (moderate); M10.9 Gout, unspecified; Z95.0 Presence of cardiac pacemaker; Z86.79 Personal history of other diseases of the circulatory system
CPT/HCPCS: 36415; 36600; 71045; 76775; 80048; 80053; 80069; 81001; 82550; 82553; 82803; 83735; 83880; 84484; 84560; 85025; 85610; 85730; 93005; 93306; 94660; 96374; 97162; 97167; J0885; J1644; J1940; J2920; Q4081